=== PATIENT | female | born 1955 | race Caucasian/White ===

== ENCOUNTER → 2016-12-01 | Outpatient (REF) | payer BC ==
[~2016-12-01] MED LIST: ASMA1AER3 IN; CIPR500T89 PO; FLAG500T PO; FLON0.054; FORM12CA INH; HYDR-3713 PO; NORCOTAB PO; SIMV40TA2 PO; SPIR1CAP IN; VENL75TA2 PO; VITA100037 PO
[2016-12-01 14:07] LABS: BASO # 0.1 K/mm3 (0.0-0.2); BASO % 1.2 % (0.0-1.0); EOS # 0.1 K/mm3 (0.0-0.50); EOS % 1.7 % (0.0-3.0); LARGE UNSTAINED CELL # 0.2 K/mm3 (0.0-0.4); LARGE UNSTAINED CELL % 2.5 % (0.0-4.0); LYMPH # 2.2 K/mm3 (1.5-4.5); LYMPH % 27.8 % (24.0-44.0); MEAN CORPUSCULAR HEMOGLOBIN 30.7 pg (27.0-33.0); MEAN CORPUSCULAR HGB CONC 32.2 g/dl (32.0-36.5); MEAN CORPUSCULAR VOLUME 95.3 fl (80.0-96.0); MONO # 0.6 K/mm3 (0.0-0.8); MONO % 7.1 % (0.0-5.0); NEUTROPHILS # 4.8 K/mm3 (1.8-7.7); NEUTROPHILS % 59.8 % (36.0-66.0); PLATELET COUNT, AUTOMATED 305 k/mm3 (150-450); RED CELL DISTRIBUTION WIDTH 12.3 % (11.5-14.5); WHITE BLOOD COUNT 8.1 K/mm3 (4.0-10.0)
[2016-12-01 14:26] LABS: ALBUMIN 4.3 GM/DL (3.2-5.2); ALBUMIN/GLOBULIN RATIO 1.39 (1.00-1.93); ALKALINE PHOSPHATASE 85 U/L (45-117); ALT/SGPT 19 U/L (12-78); ANION GAP 12 MEQ/L (8-16); AST/SGOT 20 U/L (15-37); BILIRUBIN,TOTAL 0.4 MG/DL (0.2-1.0); BLOOD UREA NITROGEN 13 MG/DL (7-18); CALCIUM LEVEL 10.6 MG/DL (8.8-10.2); CARBON DIOXIDE LEVEL 29 MEQ/L (21-32); CHLORIDE LEVEL 103 MEQ/L (98-107); CHOLESTEROL LEVEL 235 MG/DL (<200); CREATININE FOR GFR 0.93 MG/DL (0.55-1.02); GLOMERULAR FILTRATION RATE > 60.0 (>45); GLUCOSE, FASTING 88 MG/DL (80-110); POTASSIUM SERUM 4.8 MEQ/L (3.5-5.1); SODIUM LEVEL 144 MEQ/L (136-145); TOTAL PROTEIN 7.4 GM/DL (6.4-8.2); TRIGLYCERIDES LEVEL 118 MG/DL (<150)
== END ==
LOC: M LABDRWAD 12:50
PROVIDERS: ATTEND Family Medicine
DX: I10 Essential (primary) hypertension (principal)

== ENCOUNTER → 2017-01-27 | Outpatient (CLI) | payer BC ==
--- NOTE | 2017-01-28 07:06 | REP ---
Clinical: Smoking history and COPD for lung screening. Technique: Axial, low-dose noncontrast images from the thoracic inlet to the upper abdomen using lung screening technique. Findings: There is a 1.3 cm spiculated noncalcified lesion in the right middle lobe (RML) (image 56) as well as a 6 mm noncalcified nodule in the posterior right upper (RUL) lobe (image 35). Mild chronic interstitial changes and biapical scarring noted. Tracheobronchial tree appears patent. No effusion. Impression: Lung-RADS category 4A. A 13 mm lesion in the RML and 6 mm nodule in the RUL. Management should include 3-month follow-up and PET CT. Signed by Nito Noel MD 01/28/2017 06:58 A
== END ==
LOC: M RAD 11:15
PROVIDERS: ATTEND Internal Medicine Pulmonary Disease
DX: F17.218 Nicotine dependence, cigarettes, with other nicotine-induced disorders (principal); R91.1 Solitary pulmonary nodule

== ENCOUNTER → 2017-02-18 | Outpatient (CLI) | payer BC ==
--- NOTE | 2017-02-19 09:05 | REP ---
Clinical: Pulmonary nodule. Comparison: 01/27/2017. Findings: A 15 mm spiculated lesion in the right middle lobe is unchanged from prior examination along with a 6 mm nodule in the posterior right upper lobe (image 42). Underlying chronic interstitial changes and mild emphysema as well as biapical scarring are again noted. No new acute process identified. Mediastinal lymph nodes with pre carinal lymph nodes measuring 9.5 mm short-axis diameter identified. No pleural effusion/reaction or pneumothorax. Tracheobronchial tree is patent. Thoracic aorta and heart/pericardium remains stable without cardiomegaly. Surrounding musculoskeletal structures are intact. Impression: A 15 mm spiculated lesion in the right upper lobe and smaller 6 mm right upper lobe noncalcified lesion remain unchanged. Nonspecific mediastinal adenopathy measuring up to 9.5 mm short axis diameter. Signed by Nito Noel MD 02/19/2017 08:58 A
== END ==
LOC: M RAD 07:16
PROVIDERS: ATTEND Internal Medicine Pulmonary Disease
DX: R91.8 Other nonspecific abnormal finding of lung field (principal)

== ENCOUNTER → 2017-04-06 | Day surgery (SDC) | payer BC ==
[~2017-04-06] VITALS: Ht 170.2 cm; Wt 49.9 kg
[~2017-04-06] MED LIST changes: +CIPR-249 PO; -CIPR500T89 PO; +DESFLURANE 240 ML INHALANT As Ordered ONE; +EPINEPHrine 1MG/10ML SYRINGE 1.5IN As Ordered ONE; +FLON1SPR; +FOSA70TA PO; +GLYCOPYRROLATE INJ 0.2 MG/ML 2 ML VIAL As Ordered ONE; +HYDR25TAB PO; +LIDOCAINE 2% INJ 100 MG/5 ML SDV (FOR ANES.) As Ordered ONE; +LIDOCAINE 4% TOPICAL SOLN 50 ML BTL As Ordered ONE; +LIDOCAINE VISCOUS 2% SOLN 15ML UDC As Ordered ONE; +LR 1,000 ML IV ONE; +LR 1,000 ML IV SCH; +METOCLOPRAMIDE INJ 10MG/2ML VIAL (J2765) As Ordered ONE; +MIDAZOLAM INJ 2 MG/2 ML VIAL (J2250) As Ordered ONE; +NEOSTIGMINE 1MG/ML 5 ML SYRINGE (J2710) As Ordered ONE; +OMEP20CA3 PO; +ONDANSETRON 4MG/2ML VIAL (J2405) As Ordered ONE; +PHENYLephrine HCL 500 MCG/5 ML (100MCG/ML) SYRINGE (J2370) As Ordered ONE; +PROPOFOL 200 MG/20 ML VIAL As Ordered ONE; +ROCURONIUM BROMIDE 50 MG/5 ML VIAL/SYRINGE As Ordered ONE; +SYMB80INH INH; +THROMBIN SOLN 5,000 UNITS VIAL As Ordered ONE; -VITA100037 PO; +VITA100067 PO; +dexameTHASONE 4 MG/ML 1ML VIAL (J1100) As Ordered ONE; +ePHEDrine SULFATE 25 MG/5 ML(5MG/ML) SYRINGE As Ordered ONE; +fentaNYL 100 MCG/2 ML INJECTION (J3010) IV PRN; +fentaNYL 250 MCG/5 ML INJECTION (J3010) As Ordered ONE
[2017-04-06 16:10] VITALS: BP 146/68
--- NOTE | 2017-04-06 20:43 | RO ---
DATE OF PROCEDURE: 04/06/2017 PREPROCEDURE DIAGNOSIS: Right middle lobe pulmonary nodule, unknown etiology. POSTPROCEDURE DIAGNOSIS: Right middle lobe pulmonary nodule, unknown etiology. PROCEDURE: Bronchoscopy with brushing and bronchoalveolar lavage (BAL). SURGEON: Dr. Manuel Bo MERCURY CELL CLEANER: ANESTHESIA: General. DESCRIPTION OF PROCEDURE: Procedure explained and consent obtained. [place] procedures followed. Ms. Muniz was intubated by anesthesia and that service managed sedation and pain. After intubation, the bronchoscope was introduced into the trachea. Both the left and the right lung were examined. Normal appearing anatomy. Minimal clear secretions. Mild pitting. The electromagnetic navigation bronchoscopy (ENB) probe was then placed and automatic registration was done. Using ENB, the lesion was located. Fluoroscopy was then utilized but the lesion could not clearly be seen on the fluoroscopic pictures. For this reason, brushings were initially done, which showed abundant macrophages. ENB probe was replaced and the procedure was repeated with a brushing done in a different region of the lesion. Again, it showed abundant macrophages. Because the lesion could not be seen, and there were abundant macrophages seen and that would likely be the same thing seen on tissue, a decision was made not to do transbronchial biopsies. A BAL was then done. After assuring visual hemostasis, the bronchoscope was withdrawn. FINDINGS: 1. No endobronchial lesions. 2. Minimal clear secretions. SPECIMENS: 1. Right middle lobe lesion brushings sent to cytology. 2. Right middle lobe lesion BAL sent to cytology, gram stain and culture, acid-fast bacillus stain and culture, fungal stain and culture. [facility]
== END | disposition home or self-care (01) ==
LOC: M SDC 11:16
PROVIDERS: ATTEND Internal Medicine Pulmonary Disease
DX: R91.1 Solitary pulmonary nodule (principal); I10 Essential (primary) hypertension; E78.5 Hyperlipidemia, unspecified; J44.9 Chronic obstructive pulmonary disease, unspecified; Z79.899 Other long term (current) drug therapy; F17.210 Nicotine dependence, cigarettes, uncomplicated; Z88.1 Allergy status to other antibiotic agents
CPT/HCPCS: 31623; 31624; 31627; 76000; 87070; 87102; 87116; 87205; 87206; 88104; 88108; 88172; 88173; 88313; J1100; J2250; J2370; J2405; J2710; J2765; J3010

== ENCOUNTER → 2017-04-22 | Outpatient (CLI) | payer BC ==
[~2017-04-22] MED LIST changes: -DESFLURANE 240 ML INHALANT As Ordered ONE; -EPINEPHrine 1MG/10ML SYRINGE 1.5IN As Ordered ONE; -GLYCOPYRROLATE INJ 0.2 MG/ML 2 ML VIAL As Ordered ONE; -LIDOCAINE 2% INJ 100 MG/5 ML SDV (FOR ANES.) As Ordered ONE; -LIDOCAINE 4% TOPICAL SOLN 50 ML BTL As Ordered ONE; -LIDOCAINE VISCOUS 2% SOLN 15ML UDC As Ordered ONE; -LR 1,000 ML IV ONE; -LR 1,000 ML IV SCH; -METOCLOPRAMIDE INJ 10MG/2ML VIAL (J2765) As Ordered ONE; -MIDAZOLAM INJ 2 MG/2 ML VIAL (J2250) As Ordered ONE; -NEOSTIGMINE 1MG/ML 5 ML SYRINGE (J2710) As Ordered ONE; -ONDANSETRON 4MG/2ML VIAL (J2405) As Ordered ONE; -PHENYLephrine HCL 500 MCG/5 ML (100MCG/ML) SYRINGE (J2370) As Ordered ONE; -PROPOFOL 200 MG/20 ML VIAL As Ordered ONE; -ROCURONIUM BROMIDE 50 MG/5 ML VIAL/SYRINGE As Ordered ONE; -THROMBIN SOLN 5,000 UNITS VIAL As Ordered ONE; -dexameTHASONE 4 MG/ML 1ML VIAL (J1100) As Ordered ONE; -ePHEDrine SULFATE 25 MG/5 ML(5MG/ML) SYRINGE As Ordered ONE; -fentaNYL 100 MCG/2 ML INJECTION (J3010) IV PRN; -fentaNYL 250 MCG/5 ML INJECTION (J3010) As Ordered ONE
--- NOTE | 2017-04-23 08:11 | REP ---
Clinical: Follow up mass lesion. Comparison: 01/27/2017. Findings: 13 mm spiculated noncalcified lesion in the right middle lobe (image 59) along with 6 mm noncalcified nodule in the right upper lobe (image 38) and 6 mm nodule in the right lower lobe (image 55) are again identified and essentially unchanged. Smaller subtle areas of ground-glass opacity are noted bilaterally along with diffuse chronic COPD/emphysematous changes and biapical scarring which remains stable. No pleural effusion or pneumothorax. Tracheobronchial tree is patent. The mediastinum is grossly unremarkable although mild atherosclerotic changes to the thoracic aorta and coronary arteries noted without aortic aneurysm or cardiomegaly. No pericardial effusion. Evaluation of adenopathy is limited by the lack of contrast, but few pretracheal lymph nodes are identified measuring up to approximately 10 mm short axis diameter. Surrounding musculoskeletal structures are intact and normal. Impression: Few scattered noncalcified lesions up to 13 mm as described above and similar to prior examination. Chronic COPD and emphysematous changes with biapical scarring and subtle scattered ground-glass opacities. Small mediastinal lymph nodes up to 10 mm short axis diameter. Signed by Nito Noel MD 04/23/2017 03:25 A
== END ==
LOC: M RAD 08:06
PROVIDERS: ATTEND Internal Medicine Pulmonary Disease
DX: R91.8 Other nonspecific abnormal finding of lung field (principal)

== ENCOUNTER → 2017-08-18 | Outpatient (REF) | payer BC | LOC: M LAB REF 18:31 | PROVIDERS: ATTEND Family Medicine | DX: Z12.4 Encounter for screening for malignant neoplasm of cervix (principal) ==

== ENCOUNTER → 2017-08-24 | Outpatient (CLI) | payer BC ==
--- NOTE | 2017-08-26 11:51 | REP ---
CT CHEST WITHOUT CONTRAST, 08/24/2017: COMPARISON: 04/22/2017, 02/18/2017. CLINICAL HISTORY: Spiculated lesion right middle lobe and peripherally in the right upper lobe smaller lesion. FINDINGS: The noncontrast images with coronal and sagittal reconstruction show the lungs hyperinflated. There is 12.5 mm right middle lobe spiculated lesion, unchanged from size and contour of the previous study. In the periphery of the right upper lobe and best seen on images 39 and 40, is a 4 mm nodule which appears grossly unchanged. Apical pleuroparenchymal scarring bilaterally is noted. Curvilinear fibrotic changes in the inferior lingular segment of the left upper lobe at the anterior left lung base are stable. Previously noted hazy ground-glass opacities are no longer evident. COPD with some emphysematous changes again seen and stable. No effusion, pleural thickening, calcified pleural plaque, pleural-based mass, or other parenchymal finding. Heart not enlarged. There is no pericardial thickening or effusion. The aorta is without aneurysm. There is no pathologic-sized mediastinal or hilar adenopathy. No axillary or supraclavicular mass. Bone windows show the sternum, manubrium, visible thoracic, lower cervical, and upper lumbar vertebral bodies and their posterior elements along with the clavicles, AC joints, humeral heads, scapulae, and ribs all grossly intact. Upper abdomen without acute finding and stable. IMPRESSION: 1. Two stable irregular nodules, 12.5 mm right middle lobe medial segment, 4 mm right upper lobe peripherally with a background of emphysematous changes, fibrosis, and with interval clearing of some ground-glass opacities. No effusion, calcified pleural plaque, or acute finding. Mediastinal, hilar, aortic and cardiac silhouettes all unremarkable. Bones intact. Signed by Judd Webb MD 08/26/2017 08:32 P
== END ==
LOC: M RAD 17:35
PROVIDERS: ATTEND Internal Medicine Pulmonary Disease
DX: R91.8 Other nonspecific abnormal finding of lung field (principal)

== ENCOUNTER → 2017-09-30 | Outpatient (REF) | payer BC ==
[2017-09-30 15:13] LABS: BASO # 0.1 10^3/uL (0.0-0.2); BASO % 0.8 % (0.0-1.0); EOS # 0.1 10^3/uL (0.0-0.50); EOS % 1.1 % (0.0-3.0); HEMATOCRIT 45.3 % (36.0-47.0); HEMOGLOBIN 14.7 g/dl (12.0-16.0); IMMATURE GRANULOCYTE % 0.3 % (0-0); LYMPH # 2.2 10^3/uL (1.5-4.5); LYMPH % 34.1 % (24.0-44.0); MEAN CORPUSCULAR HEMOGLOBIN 31.3 pg (27.0-33.0); MEAN CORPUSCULAR HGB CONC 32.5 g/dl (32.0-36.5); MEAN CORPUSCULAR VOLUME 96.4 fl (80.0-96.0); MONO # 0.6 10^3/uL (0.0-0.8); MONO % 9.6 % (0.0-5.0); NEUTROPHILS # 3.5 10^3/uL (1.8-7.7); NEUTROPHILS % 54.1 % (36.0-66.0); PLATELET COUNT, AUTOMATED 239 10^3/uL (150-450); RED CELL DISTRIBUTION WIDTH 12.5 % (11.5-14.5); WHITE BLOOD COUNT 6.5 10^3/uL (4.0-10.0)
[2017-09-30 15:53] LABS: ALBUMIN 4.2 GM/DL (3.2-5.2); ALKALINE PHOSPHATASE 83 U/L (45-117); ALT/SGPT 17 U/L (12-78); ANION GAP 9 MEQ/L (8-16); AST/SGOT 17 U/L (7-37); BILIRUBIN,TOTAL 0.4 MG/DL (0.2-1.0); BLOOD UREA NITROGEN 15 MG/DL (7-18); CALCIUM LEVEL 9.6 MG/DL (8.8-10.2); CARBON DIOXIDE LEVEL 31 MEQ/L (21-32); CHLORIDE LEVEL 100 MEQ/L (98-107); CHOLESTEROL LEVEL 209 MG/DL (<200); CHOLESTEROL RISK RATIO 2.111 (<5); CREATININE FOR GFR 0.74 MG/DL (0.55-1.02); GLOMERULAR FILTRATION RATE > 60.0 (>45); GLUCOSE, FASTING 67 MG/DL (80-110); HDL CHOLESTEROL 99 MG/DL (>40); LDL CHOLESTEROL 91.6 MG/DL (<100); NON-HDL-C 110 MG/DL; POTASSIUM SERUM 4.1 MEQ/L (3.5-5.1); SODIUM LEVEL 140 MEQ/L (136-145); TOTAL PROTEIN 7.2 GM/DL (6.4-8.2); TRIGLYCERIDES LEVEL 92 MG/DL (<150)
== END ==
LOC: M LABDRWAD 14:56
DX: E78.2 Mixed hyperlipidemia (principal)
CPT/HCPCS: 80053

== ENCOUNTER → 2018-04-25 | Outpatient (CLI) | payer BC ==
[2018-04-25 18:02] LABS: BASO # 0.1 10^3/uL (0.0-0.2); BASO % 0.8 % (0.0-1.0); EOS # 0.1 10^3/uL (0.0-0.50); EOS % 1.2 % (0.0-3.0); HEMATOCRIT 43.5 % (36.0-47.0); HEMOGLOBIN 13.6 g/dl (12.0-15.5); IMMATURE GRANULOCYTE % 1.4 % (0-3.0); LYMPH # 1.6 10^3/uL (1.5-4.5); LYMPH % 14.7 % (24.0-44.0); MEAN CORPUSCULAR HEMOGLOBIN 30.6 pg (27.0-33.0); MEAN CORPUSCULAR HGB CONC 31.3 g/dl (32.0-36.5); MEAN CORPUSCULAR VOLUME 97.8 fl (80.0-96.0); MONO # 1.4 10^3/uL (0.0-0.8); MONO % 13.5 % (0.0-5.0); NEUTROPHILS # 7.3 10^3/uL (1.8-7.7); NEUTROPHILS % 68.4 % (36.0-66.0); PLATELET COUNT, AUTOMATED 488 10^3/uL (150-450); RED BLOOD COUNT 4.45 10^6/uL (4.00-5.40); RED CELL DISTRIBUTION WIDTH 13.2 % (11.5-14.5); WHITE BLOOD COUNT 10.7 10^3/uL (4.0-10.0)
[2018-04-25 18:21] LABS: ALBUMIN 3.3 GM/DL (3.2-5.2); ALKALINE PHOSPHATASE 114 U/L (45-117); ALT/SGPT 22 U/L (12-78); ANION GAP 9 MEQ/L (8-16); AST/SGOT 15 U/L (7-37); BILIRUBIN,TOTAL 0.4 MG/DL (0.2-1.0); BLOOD UREA NITROGEN 11 MG/DL (7-18); CALCIUM LEVEL 9.6 MG/DL (8.8-10.2); CARBON DIOXIDE LEVEL 27 MEQ/L (21-32); CHLORIDE LEVEL 102 MEQ/L (98-107); CREATININE FOR GFR 0.87 MG/DL (0.55-1.30); GLOMERULAR FILTRATION RATE > 60.0 (>45); GLUCOSE, FASTING 100 MG/DL (70-100); SODIUM LEVEL 138 MEQ/L (136-145); TOTAL PROTEIN 7.4 GM/DL (6.4-8.2)
[2018-04-25 18:50] LABS: POTASSIUM SERUM 5.3 MEQ/L (3.5-5.1)
== END ==
LOC: M SMT 10:13
DX: R53.83 Other fatigue (principal)
CPT/HCPCS: 84443

== ENCOUNTER → 2018-07-12 | Outpatient (REF) | payer BC ==
[2018-07-12 12:38] LABS: BASO # 0.1 10^3/uL (0.0-0.2); BASO % 1.3 % (0.0-1.0); EOS # 0.1 10^3/uL (0.0-0.50); EOS % 1.3 % (0.0-3.0); HEMATOCRIT 44.8 % (36.0-47.0); HEMOGLOBIN 14.5 g/dl (12.0-15.5); IMMATURE GRANULOCYTE % 0.2 % (0-3.0); LYMPH % 32.7 % (24.0-44.0); MEAN CORPUSCULAR HEMOGLOBIN 30.1 pg (27.0-33.0); MEAN CORPUSCULAR HGB CONC 32.4 g/dl (32.0-36.5); MEAN CORPUSCULAR VOLUME 93.1 fl (80.0-96.0); MONO # 0.7 10^3/uL (0.0-0.8); MONO % 11.3 % (0.0-5.0); NEUTROPHILS # 3.3 10^3/uL (1.8-7.7); NEUTROPHILS % 53.2 % (36.0-66.0); PLATELET COUNT, AUTOMATED 260 10^3/uL (150-450); RED BLOOD COUNT 4.81 10^6/uL (4.00-5.40); WHITE BLOOD COUNT 6.1 10^3/uL (4.0-10.0)
[2018-07-13 00:04] LABS: ALBUMIN/GLOBULIN RATIO 1.29 (1.00-1.93); ALKALINE PHOSPHATASE 82 U/L (45-117); ALT/SGPT 25 U/L (12-78); ANION GAP 10 MEQ/L (8-16); AST/SGOT 22 U/L (7-37); BILIRUBIN,TOTAL 0.4 MG/DL (0.2-1.0); BLOOD UREA NITROGEN 16 MG/DL (7-18); CALCIUM LEVEL 9.4 MG/DL (8.8-10.2); CARBON DIOXIDE LEVEL 26 MEQ/L (21-32); CHLORIDE LEVEL 105 MEQ/L (98-107); CHOLESTEROL LEVEL 237 MG/DL (<200); CHOLESTEROL RISK RATIO 2.548 (<5); CREATININE FOR GFR 0.78 MG/DL (0.55-1.30); GLOMERULAR FILTRATION RATE > 60.0 (>45); GLUCOSE, FASTING 84 MG/DL (70-100); HDL CHOLESTEROL 93 MG/DL (>40); LDL CHOLESTEROL 110 MG/DL (<100); NON-HDL-C 144 MG/DL; POTASSIUM SERUM 4.8 MEQ/L (3.5-5.1); SODIUM LEVEL 141 MEQ/L (136-145); TOTAL PROTEIN 7.1 GM/DL (6.4-8.2); TRIGLYCERIDES LEVEL 169 MG/DL (<150)
== END ==
LOC: M LABDRWAD 12:21
DX: E78.2 Mixed hyperlipidemia (principal)
CPT/HCPCS: 80053

== ENCOUNTER → 2018-08-17 | Outpatient (CLI) | payer BC | LOC: M RAD 12:54 | DX: J44.9 Chronic obstructive pulmonary disease, unspecified (principal); R91.8 Other nonspecific abnormal finding of lung field | CPT/HCPCS: 71250 ==

== ENCOUNTER → 2019-03-14 | Outpatient (CLI) | payer MEDICARE ==
[~2019-03-14] MED LIST changes: +ALBU17IN2 INH; +AMLO5TAB6 PO; +DOXY100T PO; +HYDR-3715 PO; +LEVA45AE INH; +MUCI600T37 PO; -NORCOTAB PO; +PRED10TA2 PO; +RANI15TA PO; +SIMV20TA2 PO; +SPIR1CAP INH; +ZANT150T15 PO
--- NOTE | 2019-03-14 14:55 | REP ---
Clinical: Abnormal findings for follow up. Technique: Axial noncontrast images from the thoracic inlet to the upper abdomen with coronal and sagittal re-formations. Comparison: 08/17/2018. Findings: Biapical scarring and mild/moderate emphysematous changes are noted throughout the bilateral lung watson. The spiculated nodule in the right middle lobe appears relatively stable. The 3 mm nodule in the posterior periphery of the right upper lobe (image 39) is unchanged. No new consolidation, significant nodule or mass lesion appreciated. No pleural effusion. No pneumothorax. Tracheobronchial tree is patent. Mediastinal and hilar lymph nodes measuring up to approximately 13 mm in the precarinal space are again identified and unchanged. Atherosclerotic changes to the thoracic aorta and coronary arteries noted without aortic aneurysm or cardiomegaly. No pericardial effusion. Surrounding musculoskeletal structures intact without focal osseous abnormality limited upper abdomen demonstrates normal bilateral adrenal glands. Impression: 1. Stable appearance to the pulmonary nodules and mediastinal/hilar lymph nodes unchanged through 01/27/2017. 2. No new acute significant process appreciated. Electronically Signed by Nito Noel MD 03/14/2019 02:46 P
== END ==
LOC: M RAD 13:51
PROVIDERS: ATTEND Internal Medicine Pulmonary Disease
DX: R91.8 Other nonspecific abnormal finding of lung field (principal)

== ENCOUNTER 2019-08-22 12:02 | Observation (INO) | payer MEDICARE ==
[~2019-08-22] VITALS: Ht 170.2 cm; Wt 68.9 kg
[~2019-08-22 12:02] MED LIST changes: -ALBU17IN2 INH; +OMEP-172 PO; -OMEP20CA3 PO; +PROV108A INH; -SIMV20TA2 PO; +SIMV20TA22 PO; -SIMV40TA2 PO; +SIMV40TA20 PO
[2019-08-22] MEDS: LR 1,000 ML IV SCH ×2 (12:04→22:18)
[2019-08-22] MEDS ORDERED: ONDANSETRON 4MG/2ML VIAL (J2405) IV PRN (12:15)
[2019-08-22] MEDS ORDERED: KETOROLAC 30 MG/ML VIAL (J1885) IV PRN (12:15)
[2019-08-22] MEDS ORDERED: ACETAMINOPHEN TAB 650MG DOSE (2X325MG) PO PRN (12:15)
[2019-08-22 12:45] VITALS: BP 153/93
[2019-08-22 13:36] LABS: BASO # 0.1 10^3/uL (0.0-0.2); BASO % 0.4 % (0.0-1.0); EOS % 0.1 % (0.0-3.0); HEMATOCRIT 41.1 % (36.0-47.0); HEMOGLOBIN 13.4 g/dl (12.0-15.5); LYMPH # 0.9 10^3/uL (1.5-5.0); LYMPH % 6.5 % (24.0-44.0); MEAN CORPUSCULAR HEMOGLOBIN 30.5 pg (27.0-33.0); MEAN CORPUSCULAR HGB CONC 32.6 g/dl (32.0-36.5); MEAN CORPUSCULAR VOLUME 93.4 fl (80.0-96.0); MONO # 0.5 10^3/uL (0.0-0.8); MONO % 3.7 % (0.0-5.0); NEUTROPHILS # 12.7 10^3/uL (1.5-8.5); NEUTROPHILS % 87.6 % (36.0-66.0); PLATELET COUNT, AUTOMATED 270 10^3/uL (150-450); WHITE BLOOD COUNT 14.5 10^3/uL (4.0-10.0)
[2019-08-22 14:00] VITALS: BP 156/91
[2019-08-22 14:04] LABS: BLOOD UREA NITROGEN 16 MG/DL (7-18); CALCIUM LEVEL 9.1 MG/DL (8.8-10.2); CARBON DIOXIDE LEVEL 25 MEQ/L (21-32); CHLORIDE LEVEL 109 MEQ/L (98-107); CREATININE FOR GFR 0.88 MG/DL (0.55-1.30); GLOMERULAR FILTRATION RATE > 60.0 (>45); GLUCOSE, FASTING 108 MG/DL (70-100); POTASSIUM SERUM 4.3 MEQ/L (3.5-5.1); SODIUM LEVEL 139 MEQ/L (136-145)
[2019-08-22 14:10] VITALS: BP 156/91
[2019-08-22] MEDS: GASTROGRAFIN SOLUTION 30ML PO SCH ×2 (14:39→15:10)
[2019-08-22] MEDS ORDERED: OMEP-221 PO (15:05)
[2019-08-22] MEDS ORDERED: PRED20TA PO (15:05)
[2019-08-22] MEDS ORDERED: INCR1INH INH (15:05)
[2019-08-22] MEDS ORDERED: AMLO5TAB6 PO (15:05)
[2019-08-22] MEDS ORDERED: CALC600T66 PO (15:05)
[2019-08-22] MEDS ORDERED: SIMV20TA22 PO (15:05)
[2019-08-22] MEDS ORDERED: RANI-397 PO (15:05)
[2019-08-22] MEDS ORDERED: ISOVUE-370 76% 100ML VIAL (Q9967) As Ordered ONE (15:17)
--- NOTE | 2019-08-22 16:10 | REP ---
Clinical: Abdominal distension. Technique: Axial contrast enhanced images from the lung bases to the pubic symphysis using oral (per protocol) and 100 ml Isovue 370 intravenous contrast material with coronal and sagittal re-formations. Comparison: 04/15/2015. Findings: Lung bases are essentially clear. Visualized heart and pericardium normal. Liver, spleen, pancreas, gallbladder, bilateral adrenal glands and kidneys are essentially normal. Subcentimeter right renal hypodensity compatible with cyst remains stable. The enteric system is without obstruction or acute inflammatory process. Evidence for prior partial sigmoid resection. Pelvis demonstrates normal bladder and age-appropriate uterus/adnexa. No ascites. No free air. No adenopathy. Atherosclerotic changes to the aorta and vasculature without aneurysm or dissection. Musculoskeletal structures without focal abnormality. Impression: No acute abdominopelvic pathology appreciated. No evidence for bowel obstruction. No ascites. No free air. No adenopathy. No focal inflammatory stranding. Electronically Signed by Nito Noel MD 08/22/2019 04:02 P
[2019-08-22] MEDS ORDERED: LEVALBUTEROL 1.25 MG/0.5 ML CONCENTRATE NEB INH PRN (16:30)
[2019-08-22] MEDS ORDERED: MAGNESIUM CITRATE 300 ML BTL PO ONE (17:00)
[2019-08-22] MEDS: PANTOPRAZOLE 40MG INJ (PROTONIX) (C9113) IV SCH (17:11)
[2019-08-22 18:00] VITALS: BP 154/90
[2019-08-22] MEDS: SYMBICORT 80/4.5MCG INHALER 6GM INH SCH (20:26)
[2019-08-22] MEDS ORDERED: ENOXAPARIN 40 MG/0.4 ML SYRINGE (J1650) SC SCH (21:00)
[2019-08-22 21:10] VITALS: BP 136/79
--- NOTE | 2019-08-23 05:05 | HPEPDOC ---
General Surgery H&P Date of Admission Aug 22, 2019 Attending Physician: BASIL HONG MD History and Physical CHIEF COMPLAINT: abdominal distention, nausea HISTORY OF PRESENT ILLNESS: Patient is a 64 year old female admitted from my office after she presented with a 2 week history of not being able to move her bowels normally, abdominal distention, nausea and a few times on the verge of vomiting. Patient reports having normal bowel habits prior to this. She has significant history of previous recurrent acute diverticulitis for which she had sigmoid colectomy performed by me on 2014. She has not had any interval colonoscopies following the surgery. She denies any overt unexplained weight loss. She is able to tolerate liquids a small amount of solid foods and she would feel for and feels that the food once to come up after eating small bites. She is called her medical doctor suggested for her to try MiraLAX for which she has been taking every day without much effect. She has a small amount of bowel movement this morning. She denies any overt abdominal pain or cramping. She intermittently passes flatus. She feels as if he dropped a pen on her belly that the patient will balance due to amount of distention and she feels uncomfortable. She called my office yesterday she was seen today. She denies any ongoing fevers chills, left sided abdominal pain, rectal pain. ALLERGIES: Please see below. HOME MEDICATIONS: Please see below. PAST MEDICAL HISTORY: 1. diverticulitis 2. COPD - asthma 3. Hypercholesterolemia 4. Osteoporosis PAST SURGICAL HISTORY: 1. laparoscopic sigmoid colon resection - 2014 2. Right inguinal hernia repair 3. Tonsillectomy 4. Tubal ligation 5. Appendectomy 6 sinus surgery 7. Repair of deviated septum 7. Colonoscopy PERSONAL/SOCIAL HISTORY: Patient is a former smoker. Reports occasional alcohol intake nothing recently. Denies recreational drug use. REVIEW OF SYSTEMS: GENERAL: Denies chills, fatigue, fever, weight gain and weight loss. She was placed recently on prednisone for exacerbation of her COPD HEENT: Denies blurred vision and double vision. Denies ear symptoms. Denies hoarseness. NECK: Denies any neck pain. CARDIOVASCULAR: Denies chest pain and palpitations. MUSCULOSKELETAL: Denies arthralgias, back pain and thrombophlebitis. SKIN: Denies rash. NEUROLOGIC: Denies headache, stroke and transient ischemic attack. PSYCHIATRIC: Denies anxiety and depression. ENDOCRINE: Denies thyroid disease. HEMATOLOGY/ONCOLOGY: Denies any bleeding or clotting disorder. She is not on any anticoagulation HEART: Denies any chest pains, palpitations, paroxysmal dyspnea, orthopnea. PULMONARY: Reports significant COPD, shortness of breath and infarct. Recently on a taper of prednisone for COPD exacerbation. She has some pulmonary nodules that is being followed with scheduled CT scans of the lung. Last hospitalization was in 01/20/2018 for exacerbation of her COPD.. GASTROINTESTINAL: See HPI. GENITOURINARY: Denies dysuria, frequency, hematuria and nocturia. ENDOCRINE: Denies polydipsia, polyphagia, polyuria, heat or cold intolerance. INFECTIOUS: Denies any recent upper respiratory tract infection, UTI, need for use of antibiotics. NUTRITION: Reports poor appetite for the past 2 weeks. PHYSICAL EXAMINATION: VITAL SIGNS: Please see below. GENERAL APPEARANCE: Patient seen, mildly uncomfortable in the office. She is pleasant and cooperative. . Awake, alert, oriented. HEENT: Normocephalic, atraumatic. Nada palpebral conjunctivae. Anicteric sclerae . Lips moist. CHEST: No chest wall abnormalities. Normal respiratory motion/effort. NECK: Supple. No thyromegaly. No lymphadenopathies. LUNGS: Lung sounds are clear to auscultation bilaterally. No wheezing appreciated. HEART: No chest wall abnormalities. Heart rate and rhythm are regular with no murmurs. ABDOMEN: Her abdomen is moderately distended but soft. Very tympanitic to percussion, hypoactive bowel sounds. Port site and extraction site incisions from the colectomy in 2015 are healed without any hernia. She has other incisions including from the appendectomy and inguinal hernia repair also without any incisional hernia. Generally mildly uncomfortable on deep palpation but no definite areas of tenderness.. SKIN: Warm, moist. EXTREMITIES: Extremities have no deformities. No edema identified. NEUROLOGICAL: Patient is awake, alert, oriented. ANCILLARIES: . LABORATORY DATA: Please see below. MICROBIOLOGY: Please see below. IMAGING: . IMPRESSION AND PLAN: abdominal distention suspect abdominal obstruction Admitted the patient in my office that she clinically is uncomfortable and I was suspicion she might have a bowel obstruction the level of obstruction of which isn't clear. She is not having any cramping and this has been slowly developing for the past 2 weeks. She has had a sigmoid colon resection so possibility of colonic obstruction is certainly fair also. I will obtain a CT of the abdomen and pelvis. I will give her hydration. For now we'll keep her on observation pending the results of the laboratories and imaging studies. Vital Signs Vital Signs Date Time Temp Pulse Resp B/P (MAP) Pulse Ox O2 Delivery O2 Flow Rate FiO2 08/22/19 21:10 97.8 85 17 136/79 (98) 93 Room Air I&Os I&O- Last 24 Hours up to 6 AM 08/23/19 06:00 Intake Total 720 ml Output Total 600 ml Balance 120 ml Laboratory Data Labs 24H Laboratory Tests 2 08/22/19 12:41: Immature Granulocyte % (Auto) 1.7, Neutrophils (%) (Auto) 87.6H, Lymphocytes (%) (Auto) 6.5L, Monocytes (%) (Auto) 3.7, Eosinophils (%) (Auto) 0.1, Basophils (%) (Auto) 0.4, Neutrophils # (Auto) 12.7H, Lymphocytes # (Auto) 0.9L, Monocytes # (Auto) 0.5, Eosinophils # (Auto) 0.0, Basophils # (Auto) 0.1, Nucleated Red Blood Cells % (auto) 0.0, Anion Gap 5L, Glomerular Filtration Rate > 60.0, Calcium Level 9.1 CBC/BMP Laboratory Tests 08/22/19 12:41 Home Medications Scheduled Amlodipine Besylate (Amlodipine Besylate) 5 Mg Tablet, 5 MG PO DAILY, (Reported) Budesonide/Formoterol (Symbicort 80-4.5 Mcg Inhaler) 60 Puff/Inhaler Aers, 2 PUFF INH BID, (Reported) Calcium Carbonate/Vitamin D3 (Calcium 600 + Vit D Tablet) 1 Each Tablet, 1 EACH PO DAILY, (Reported) Fluticasone Propionate (Flonase Allergy Relief) 50 Mcg/Act Spr, 2 SPRAY NA DAILY, (Reported) Omeprazole (Omeprazole) 40 Mg Capsule.dr, 40 MG PO DAILY, (Reported) Prednisone (Prednisone) 20 Mg Tablet, 10 MG PO Q2D, (Reported) FINISHING TAPER DOSE - DUE TO TAKE 10MG ON WEDNESDAY AND WEDNESDAY THEN STOP Ranitidine HCl (Ranitidine HCl) 150 Mg Tablet, 1 TAB PO QHS, (Reported) Simvastatin (Simvastatin) 20 Mg Tablet, 20 MG PO DAILY, (Reported) Umeclidinium [place] (Incruse Ellipta) 62.5 Mcg Blst.w.dev, 62.5 MCG INH DAILY, (Reported) Venlafaxine HCl (Venlafaxine HCl) 75 Mg Tab, 75 MG PO DAILY, (Reported) Scheduled PRN Levalbuterol Tartrate (Levalbuterol Tartrate Hfa) 45 Mcg/Act Aer, 2 PUFF INH Q4H PRN for SHORTNESS OF BREATH, (Reported) Allergies Coded Allergies: moxifloxacin (Verified Allergy, Unknown, 08/22/19) A-FIB/CHADSVASC A-FIB History Current/History of A-Fib/PAF?: No BASIL HONG MD Aug 23, 2019 05:05
[2019-08-23 05:50] VITALS: BP 142/83
[2019-08-23] MEDS: SYMBICORT 80/4.5MCG INHALER 6GM INH SCH (07:27)
[2019-08-23] MEDS: PANTOPRAZOLE 40MG INJ (PROTONIX) (C9113) IV SCH (08:38)
[2019-08-23 08:39] VITALS: BP 142/83
[2019-08-23] MEDS ORDERED: VENLAFAXINE 37.5 MG TAB PO SCH (09:00)
[2019-08-23] MEDS ORDERED: FLUTICASONE PROP 0.05% NASAL SPRAY 16 GM (FLONASE) SCH (09:00)
[2019-08-23] MEDS ORDERED: SIMVASTATIN 20 MG TAB PO SCH (09:00)
[2019-08-23] MEDS ORDERED: amLODIPine 5 MG TAB PO SCH (09:00)
[2019-08-23] MEDS: LR 1,000 ML IV SCH (09:24)
[2019-08-23 10:14] VITALS: BP 145/84
[2019-08-23 10:31] LABS: BASO # 0.1 10^3/uL (0.0-0.2); BASO % 0.8 % (0.0-1.0); EOS # 0.1 10^3/uL (0.0-0.5); EOS % 1.1 % (0.0-3.0); HEMATOCRIT 38.4 % (36.0-47.0); HEMOGLOBIN 12.1 g/dl (12.0-15.5); LYMPH # 2.2 10^3/uL (1.5-5.0); LYMPH % 29.7 % (24.0-44.0); MEAN CORPUSCULAR HEMOGLOBIN 30.1 pg (27.0-33.0); MEAN CORPUSCULAR HGB CONC 31.5 g/dl (32.0-36.5); MEAN CORPUSCULAR VOLUME 95.5 fl (80.0-96.0); MONO # 0.8 10^3/uL (0.0-0.8); MONO % 11.6 % (0.0-5.0); NEUTROPHILS % 55.4 % (36.0-66.0); PLATELET COUNT, AUTOMATED 230 10^3/uL (150-450); RED BLOOD COUNT 4.02 10^6/uL (4.00-5.40); WHITE BLOOD COUNT 7.3 10^3/uL (4.0-10.0)
[2019-08-23] MEDS ORDERED: MYLA1SUS PO (12:43)
[2019-08-24] MEDS ORDERED: predniSONE 10 MG TAB PO SCH (09:00)
== END 2019-08-23 13:30 | disposition home or self-care (01) ==
LOC: M MS5PR 12:19
PROVIDERS: ADMIT Surgery; ATTEND Surgery
DX: R14.0 Abdominal distension (gaseous) (principal); K57.32 Diverticulitis of large intestine without perforation or abscess without bleeding; J44.9 Chronic obstructive pulmonary disease, unspecified; J45.909 Unspecified asthma, uncomplicated; E78.00 Pure hypercholesterolemia, unspecified; M81.0 Age-related osteoporosis without current pathological fracture; Z90.49 Acquired absence of other specified parts of digestive tract; Z87.891 Personal history of nicotine dependence; Z79.899 Other long term (current) drug therapy; Z79.51 Long term (current) use of inhaled steroids; Z79.52 Long term (current) use of systemic steroids; Z88.1 Allergy status to other antibiotic agents
CPT/HCPCS: 36415; 74177; 80048; 85025; 94640; 96372; 96374; 96375; C9113; G0378; J1650; Q9963; Q9967

== ENCOUNTER → 2019-08-28 | Outpatient (CLI) | payer MEDICARE ==
[~2019-08-28] MED LIST changes: +CALC600T66 PO; +INCR1INH INH; +MYLA1SUS PO; +OMEP-221 PO; +PRED20TA PO; +RANI-397 PO
== END ==
LOC: M WUC 11:20
PROVIDERS: ATTEND Family Medicine
DX: K59.00 Constipation, unspecified (principal)

== ENCOUNTER → 2019-09-21 | Outpatient (CLI) | payer MEDICARE ==
[~2019-09-21] MED LIST changes: +E-Z-GAS II EFFERVESCENT PACKET (SODIUM BICARB./CITRIC ACID/SIMETHICONE) As Ordered ONE; +E-Z-HD 98% w/w 340GM SUSP BTL As Ordered ONE; +E-Z-PAQUE 96% w/w SUSP 176GM BTL As Ordered ONE; -OMEP-172 PO; +OMEP1CAP73 PO
--- NOTE | 2019-09-27 10:04 | REP ---
Upper GI Air Contrast with SBFT The procedure was performed by LIVIA Lux, under the the direct supervision of Dr. Garcia. The images were reviewed with Dr. Garcia. The post hole digger film shows no organomegaly or pathological masses. The intestinal gas pattern appears normal. There are surgical arya in the pelvis. Liquid barium and gas producing crystals were given in the erect position as well as liquid barium in the prone position in order to perform a double contrast upper GI examination. The oral and pharyngeal stages of deglutition demonstrated flash laryngeal penetration, as well as cricopharyngeal hyperplasia. Esophageal transport is efficient and there is no esophagitis, stricture, or mucosal ring noted. There there is no hiatal hernia. Gastroesophageal reflux was visualized to the level of the patt. The stomach haley are normally outlined. The rugal folds are smooth and regular. There is no gastritis, neoplasm, or ulcer disease noted. The duodenal haley are normally outlined. The mucosal folds are smooth and regular. There is no duodenitis, peptic ulcer disease, or neoplasm noted. The visualized portion of the proximal small bowel appears normal in course and caliber. The barium column was followed through the small bowel to the level of the terminal ileum. Small bowel transit time was approximately 40 minutes. During fluoroscopy gentle palpation shows all loops are freely mobile and pliable. There are no fixed or angulated loops. The small bowel mucosal pattern is normal in course and caliber. There is no transition to set suggest a partial small-bowel obstruction. Spot filming of the terminal ileum was slightly limited due to small bowel crowding, but appears to be to be unremarkable. Impression: 1. Flash laryngeal penetration. 2. Cricopharyngeal hyperplasia. 3. Gastroesophageal reflux to the level of the patt. 2.0 minutes of fluoroscopy time was utilized for this procedure. Some fluoroscopic images are performed with last image hold technology. These images require no additional radiation. Reviewed by LIVIA Austin 09/21/2019 04:35 P Electronically Signed by Froylan Garcia MD 09/27/2019 09:56 A
== END ==
LOC: M RAD 07:52
PROVIDERS: ATTEND Surgery
DX: J39.2 Other diseases of pharynx (principal); G47.33 Obstructive sleep apnea (adult) (pediatric)

== ENCOUNTER → 2019-10-04 | Outpatient (CLI) | payer MEDICARE ==
[~2019-10-04] MED LIST changes: -E-Z-GAS II EFFERVESCENT PACKET (SODIUM BICARB./CITRIC ACID/SIMETHICONE) As Ordered ONE; -E-Z-HD 98% w/w 340GM SUSP BTL As Ordered ONE; -E-Z-PAQUE 96% w/w SUSP 176GM BTL As Ordered ONE
--- NOTE | 2019-10-05 01:00 | REPPI ---
Clinical: Shortness of breath . Comparison: 02/18/2018 . Technique: PA and lateral. Findings: The mediastinum and cardiac silhouette are normal. The lung watson demonstrate chronic-appearing changes without acute consolidation, effusion, or pneumothorax. The skeletal structures are intact and normal. Impression: 1. No acute cardiopulmonary process. Electronically Signed by Nito Noel MD 10/05/2019 12:51 A
== END ==
LOC: M PLAIMG 14:56
PROVIDERS: ATTEND Internal Medicine Pulmonary Disease
DX: R06.02 Shortness of breath (principal)

== ENCOUNTER 2019-10-18 09:25 | Day surgery (SDC) | payer MEDICARE ==
[~2019-10-18] VITALS: Ht 170.2 cm; Wt 57.8 kg
[2019-10-18] MEDS ORDERED: propofoL 500 MG/50 ML VIAL As Ordered ONE (10:57)
[2019-10-18] MEDS ORDERED: fentaNYL 100 MCG/2 ML INJECTION (J3010) As Ordered ONE (10:57)
[2019-10-18] MEDS ORDERED: LIDOCAINE 2% INJ 100 MG/5 ML SDV (FOR ANES.) As Ordered ONE (10:57)
--- NOTE | 2019-10-18 11:52 | ROOR ---
Patient Name: Shiloh Muniz Procedure Date: 10/18/2019 10:56 AM Date of : 1955 Age: 64 Room: [facility] Gender: Female Note Status: Finalized Procedure: Upper GI endoscopy Indications: Abdominal bloating Providers: Shekhar Morales MD Referring MD: Glory Luo MD Requesting Provider: Medicines: Monitored Anesthesia Care Complications: No immediate complications. Procedure: Pre-Anesthesia Assessment: - Prior to the procedure, a History and Physical was performed, and patient medications and allergies were reviewed. The patient is competent. The risks and benefits of the procedure and the sedation options and risks were discussed with the patient. All questions were answered and informed consent was obtained. Patient identification and proposed procedure were verified by the physician, the nurse and the anesthesiologist in the endoscopy suite. Mental Status Examination: alert but confused. Airway Examination: normal oropharyngeal airway and neck mobility. Respiratory Examination: clear to auscultation. CV Examination: normal. Prophylactic Antibiotics: The patient does not require prophylactic antibiotics. Prior Anticoagulants: The patient has taken no previous anticoagulant or antiplatelet agents. ASA Grade Assessment: III - A patient with severe systemic disease. After reviewing the risks and benefits, the patient was deemed in satisfactory condition to undergo the procedure. The anesthesia plan was to use monitored anesthesia care (MAC). Immediately prior to administration of medications, the patient was re-assessed for adequacy to receive sedatives. The heart rate, respiratory rate, oxygen saturations, blood pressure, adequacy of pulmonary ventilation, and response to care were monitored throughout the procedure. The physical status of the patient was re-assessed after the procedure. The Endoscope was introduced through the mouth, and advanced to the second part of duodenum. The upper GI endoscopy was accomplished without difficulty. The patient tolerated the procedure well. Findings: The examined esophagus was normal. The Z-line was regular and was found 40 cm from the incisors. Bilious fluid was found in the gastric antrum. The duodenal bulb, first portion of the duodenum and second portion of the duodenum were normal. Impression: - Normal esophagus. - Z-line regular, 40 cm from the incisors. - Bilious gastric fluid. - Normal duodenal bulb, first portion of the duodenum and second portion of the duodenum. - No specimens collected. - possible bile reflux as cause of bloating. Recommendation: - Discharge patient to home (ambulatory). - Gastroparesis diet. Shekhar Morales MD Shekhar Morales MD 10/18/2019 11:51:28 AM Electronically signed by Shekhar Morales MD Number of Addenda: 0 Note Initiated On: 10/18/2019 10:56 AM Estimated Blood Loss: Estimated blood loss: none.
--- NOTE | 2019-10-18 11:57 | ROOR ---
Patient Name: Shiloh Muniz Procedure Date: 10/18/2019 10:57 AM Date of : 1955 Age: 64 Room: [facility] Gender: Female Note Status: Finalized Procedure: Colonoscopy Indications: Follow-up of diverticula, Change in bowel habits, Obstipation Providers: Shekhar Morales MD Referring MD: Glory Luo MD Requesting Provider: Medicines: Monitored Anesthesia Care Complications: No immediate complications. Procedure: Pre-Anesthesia Assessment: - Prior to the procedure, a History and Physical was performed, and patient medications and allergies were reviewed. The patient is competent. The risks and benefits of the procedure and the sedation options and risks were discussed with the patient. All questions were answered and informed consent was obtained. Patient identification and proposed procedure were verified by the physician, the nurse and the anesthesiologist in the endoscopy suite. Mental Status Examination: alert and oriented. Airway Examination: normal oropharyngeal airway and neck mobility. Respiratory Examination: clear to auscultation. CV Examination: normal. Prophylactic Antibiotics: The patient does not require prophylactic antibiotics. Prior Anticoagulants: The patient has taken no previous anticoagulant or antiplatelet agents. ASA Grade Assessment: III - A patient with severe systemic disease. After reviewing the risks and benefits, the patient was deemed in satisfactory condition to undergo the procedure. The anesthesia plan was to use monitored anesthesia care (MAC). Immediately prior to administration of medications, the patient was re-assessed for adequacy to receive sedatives. The heart rate, respiratory rate, oxygen saturations, blood pressure, adequacy of pulmonary ventilation, and response to care were monitored throughout the procedure. The physical status of the patient was re-assessed after the procedure. The Colonoscope was introduced through the anus and advanced to the cecum, identified by appendiceal orifice and ileocecal valve. The colonoscopy was performed without difficulty. The patient tolerated the procedure well. The quality of the bowel preparation was good. Findings: Skin tags were found on perianal exam. Three flat polyps were found in the sigmoid colon, transverse colon and ascending colon. The polyps were 1 to 4 mm in size. These polyps were removed with a cold snare. Resection and retrieval were complete. Estimated blood loss was minimal. A few small-mouthed diverticula were found in the descending colon. There was no evidence of diverticular bleeding. There was evidence of a prior end-to-end colo-colonic anastomosis in the recto-sigmoid colon. This was patent and was characterized by healthy appearing mucosa, no noticeable narrowing, stenosis, no visible raya, no elongated blind end[Traversed]. The retroflexed view of the distal rectum and anal verge was normal and showed no anal or rectal abnormalities. Impression: - Perianal skin tags found on perianal exam. - Three 1 to 4 mm polyps in the sigmoid colon, in the transverse colon and in the ascending colon, removed with a cold snare. Resected and retrieved. - Mild diverticulosis in the descending colon. There was no evidence of diverticular bleeding. - Patent end-to-end colo-colonic anastomosis, characterized by healthy appearing mucosa. - The distal rectum and anal verge are normal on retroflexion view. Recommendation: - Discharge patient to home (ambulatory). - Repeat colonoscopy in 5 years for surveillance. Shekhar Morales MD Shekhar Morales MD 10/18/2019 11:57:10 AM Electronically signed by Shekhar Morales MD Number of Addenda: 0 Note Initiated On: 10/18/2019 10:57 AM Estimated Blood Loss: Estimated blood loss was minimal.
[2019-10-18 12:10] VITALS: BP 157/78
== END 2019-10-18 12:18 | disposition home or self-care (01) ==
LOC: M OPP 09:25
PROVIDERS: ATTEND Surgery
DX: D12.5 Benign neoplasm of sigmoid colon (principal); D12.3 Benign neoplasm of transverse colon; D12.2 Benign neoplasm of ascending colon; K57.30 Diverticulosis of large intestine without perforation or abscess without bleeding; Z98.0 Intestinal bypass and anastomosis status; K64.4 Residual hemorrhoidal skin tags; K59.00 Constipation, unspecified; R19.4 Change in bowel habit; R14.0 Abdominal distension (gaseous); Z88.8 Allergy status to other drugs, medicaments and biological substances; Z79.899 Other long term (current) drug therapy; Z87.891 Personal history of nicotine dependence
CPT/HCPCS: 43235; 45385; 88305; J3010

== ENCOUNTER → 2019-12-26 | Outpatient (REF) | payer MEDICARE ==
[2019-12-26 15:34] LABS: BASO # 0.1 10^3/uL (0.0-0.2); BASO % 0.9 % (0.0-1.0); EOS # 0.1 10^3/uL (0.0-0.5); EOS % 1.3 % (0.0-3.0); HEMATOCRIT 44.1 % (36.0-47.0); HEMOGLOBIN 14.3 g/dl (12.0-15.5); LYMPH # 1.9 10^3/uL (1.5-5.0); LYMPH % 24.7 % (24.0-44.0); MEAN CORPUSCULAR HEMOGLOBIN 30.8 pg (27.0-33.0); MEAN CORPUSCULAR HGB CONC 32.4 g/dl (32.0-36.5); MONO # 0.7 10^3/uL (0.0-0.8); MONO % 8.9 % (0.0-5.0); NEUTROPHILS # 4.9 10^3/uL (1.5-8.5); NEUTROPHILS % 63.8 % (36.0-66.0); PLATELET COUNT, AUTOMATED 320 10^3/uL (150-450); RED BLOOD COUNT 4.64 10^6/uL (4.00-5.40); WHITE BLOOD COUNT 7.6 10^3/uL (4.0-10.0)
[2019-12-26 15:43] LABS: ALBUMIN 3.6 GM/DL (3.2-5.2); ALT/SGPT 29 U/L (12-78); BILIRUBIN,TOTAL 0.2 MG/DL (0.2-1.0); BLOOD UREA NITROGEN 15 MG/DL (7-18); CALCIUM LEVEL 9.1 MG/DL (8.8-10.2); CARBON DIOXIDE LEVEL 26 MEQ/L (21-32); CHLORIDE LEVEL 107 MEQ/L (98-107); CREATININE FOR GFR 0.84 MG/DL (0.55-1.30); GLOMERULAR FILTRATION RATE > 60.0 (>45); GLUCOSE, FASTING 91 MG/DL (70-100); NT-PRO BNP 66 PG/ML (<125); POTASSIUM SERUM 4.1 MEQ/L (3.5-5.1); SODIUM LEVEL 139 MEQ/L (136-145); TOTAL PROTEIN 6.9 GM/DL (6.4-8.2)
== END ==
LOC: M LABDRAW1 15:19
PROVIDERS: ATTEND Nurse Practitioner Family
DX: R06.02 Shortness of breath (principal)

== ENCOUNTER → 2020-01-31 | Outpatient (CLI) | payer MEDICARE ==
[2020-01-31 10:56] LABS: HEMATOCRIT 43.7 % (36.0-47.0); HEMOGLOBIN 13.9 g/dl (12.0-15.5); MEAN CORPUSCULAR HEMOGLOBIN 29.9 pg (27.0-33.0); MEAN CORPUSCULAR HGB CONC 31.8 g/dl (32.0-36.5); PLATELET COUNT, AUTOMATED 263 10^3/uL (150-450); RED BLOOD COUNT 4.65 10^6/uL (4.00-5.40); WHITE BLOOD COUNT 6.5 10^3/uL (4.0-10.0)
[2020-01-31 11:34] LABS: ALBUMIN 3.9 GM/DL (3.2-5.2); ALT/SGPT 31 U/L (12-78); BILIRUBIN,TOTAL 0.2 MG/DL (0.2-1.0); BLOOD UREA NITROGEN 14 MG/DL (7-18); C REACTIVE PROTEIN QUANTITATIV < 0.30 MG/DL (0.00-0.30); CALCIUM LEVEL 9.7 MG/DL (8.8-10.2); CARBON DIOXIDE LEVEL 31 MEQ/L (21-32); CHLORIDE LEVEL 105 MEQ/L (98-107); CREATININE FOR GFR 0.81 MG/DL (0.55-1.30); GLOMERULAR FILTRATION RATE > 60.0 (>45); GLUCOSE, FASTING 86 MG/DL (70-100); MAGNESIUM LEVEL 2.3 MG/DL (1.8-2.4); POTASSIUM SERUM 4.7 MEQ/L (3.5-5.1); SODIUM LEVEL 140 MEQ/L (136-145); THYROID STIMULATING HORMONE 0.921 uIU/ML (0.358-3.740); TOTAL 25(OH) VITAMIN D 41.1 NG/ML (30.0-100.0); VITAMIN B12 LEVEL 236 PG/ML (247-911)
[2020-02-03 00:07] LABS: F002-IgE Milk < 0.10 kU/L (Class 0); F004-IgE Wheat < 0.10 kU/L (Class 0); F013-IgE Peanut < 0.10 kU/L (Class 0); F014-IgE Soybean < 0.10 kU/L (Class 0); F026-IgE Pork < 0.10 kU/L (Class 0); F027-IgE Beef < 0.10 kU/L (Class 0); F245-IgE Egg, Whole < 0.10 kU/L (Class 0); FX02-IgE Food Mix (Sea Foods) Negative (.); TISSUE TRANSGLUTAMINASE IgA <2 U/mL (0-3)
== END ==
LOC: M LAB 10:25
PROVIDERS: ATTEND Internal Medicine Gastroenterology
DX: R14.3 Flatulence (principal); R63.5 Abnormal weight gain; Z86.010 Personal history of colon polyps

== ENCOUNTER → 2020-03-21 | Outpatient (CLI) | payer MEDICARE | LOC: M WUC 10:05 | PROVIDERS: ATTEND Internal Medicine Gastroenterology | DX: E53.9 Vitamin B deficiency, unspecified (principal) ==

== ENCOUNTER → 2020-05-07 | Outpatient (CLI) | payer MEDICARE ==
[~2020-05-07] MED LIST changes: +AMLO1TAB24 PO; -AMLO5TAB6 PO; +AZIT-12 PO
== END ==
LOC: M RAD 15:09
PROVIDERS: ATTEND Internal Medicine Pulmonary Disease
DX: Z87.891 Personal history of nicotine dependence (principal)

== ENCOUNTER → 2020-05-31 | Outpatient (REF) | payer MEDICARE ==
[2020-05-31 13:03] LABS: BASO # 0.1 10^3/uL (0.0-0.2); BASO % 1.1 % (0.0-1.0); EOS # 0.1 10^3/uL (0.0-0.5); EOS % 1.2 % (0.0-3.0); HEMATOCRIT 41.6 % (36.0-47.0); HEMOGLOBIN 13.4 g/dl (12.0-15.5); LYMPH # 1.8 10^3/uL (1.5-5.0); LYMPH % 27.7 % (24.0-44.0); MEAN CORPUSCULAR HEMOGLOBIN 30.7 pg (27.0-33.0); MEAN CORPUSCULAR HGB CONC 32.2 g/dl (32.0-36.5); MEAN CORPUSCULAR VOLUME 95.4 fl (80.0-96.0); MONO # 0.7 10^3/uL (0.0-0.8); MONO % 10.7 % (0.0-5.0); NEUTROPHILS # 3.9 10^3/uL (1.5-8.5); PLATELET COUNT, AUTOMATED 268 10^3/uL (150-450); RED BLOOD COUNT 4.36 10^6/uL (4.00-5.40); WHITE BLOOD COUNT 6.6 10^3/uL (4.0-10.0)
[2020-05-31 13:14] LABS: INR 0.93; PARTIAL THROMBOPLASTIN TIME 26.7 SECONDS (25.0-38.4); PROTHROMBIN TIME 12.6 SECONDS (11.8-14.0)
[2020-05-31 13:36] LABS: ALBUMIN 4.1 GM/DL (3.2-5.2); ALT/SGPT 27 U/L (12-78); BILIRUBIN,TOTAL 0.3 MG/DL (0.2-1.0); BLOOD UREA NITROGEN 13 MG/DL (7-18); CALCIUM LEVEL 9.8 MG/DL (8.8-10.2); CARBON DIOXIDE LEVEL 28 MEQ/L (21-32); CHLORIDE LEVEL 105 MEQ/L (98-107); CREATININE FOR GFR 0.81 MG/DL (0.55-1.30); GLOMERULAR FILTRATION RATE > 60.0 (>45); GLUCOSE, FASTING 77 MG/DL (70-100); POTASSIUM SERUM 4.5 MEQ/L (3.5-5.1); SODIUM LEVEL 138 MEQ/L (136-145); TOTAL PROTEIN 7.6 GM/DL (6.4-8.2)
== END ==
LOC: M LAB REF 12:09
PROVIDERS: ATTEND Internal Medicine Pulmonary Disease
DX: R91.8 Other nonspecific abnormal finding of lung field (principal)

== ENCOUNTER → 2020-06-05 | Outpatient (CLI) | payer MEDICARE | LOC: M LABSMTC 12:29 | PROVIDERS: ATTEND Anesthesiology | DX: Z01.818 Encounter for other preprocedural examination (principal); Z11.59 Encounter for screening for other viral diseases ==

== ENCOUNTER → 2020-06-05 | Outpatient (CLI) | payer MEDICARE ==
--- NOTE | 2020-06-20 14:13 | REP ---
NON-CONTRAST CHEST CT: 06/05/20 CLINICAL: Pulmonary nodule. COMPARISON: 05/07/20 through 08/24/17. FINDINGS: A 17mm nodule with mild speculation is identified in the right middle lobe which has increased in size when compared to 03/14/19. This lesion remains stable from 03/14/19 through 08/24/17. Findings are suspicious for neoplasm and require further investigation including PET CT. a few mediastinal lymph nodes are identified measuring up to 8mm short axis diameter and are non-specific. Remainder of the lung watson demonstrate bi-apical scarring and moderate emphysematous changes. No further acute suspicious consolidation, nodule, or mass lesion appreciated. No pleural effusion. No pneumothorax. Tracheobronchial tree is patent. Further evaluation of the mediastinum demonstrates atherosclerotic changes to the thoracic aorta and coronary arteries without aortic aneurysm or cardiomegaly. No pericardial effusion. Limited upper abdomen demonstrates normal bilateral adrenal glands. Surrounding musculoskeletal structures are intact. IMPRESSION: 1. Right middle lobe lesion currently measures 17mm and has increased from 03/14/19. Lesion is suspicious for neoplasm and requires further investigation including PET CT and/or sampling. 2. Underlying chronic emphysematous changes and bi-apical scarring. MTDD
== END ==
LOC: M RAD 07:04
PROVIDERS: ATTEND Internal Medicine Pulmonary Disease
DX: Z01.818 Encounter for other preprocedural examination (principal); Z11.59 Encounter for screening for other viral diseases; R91.8 Other nonspecific abnormal finding of lung field
CPT/HCPCS: 71250; C9803; U0002

== ENCOUNTER 2020-06-10 11:20 | Day surgery (SDC) | payer MEDICARE ==
[~2020-06-10] VITALS: Ht 170.2 cm; Wt 56.2 kg
[~2020-06-10 11:20] MED LIST changes: +ALBUTEROL SULFATE 2.5 MG/0.5 ML INH NEB SOLN INH ONE; +LIDOCAINE 4% INJ 5ML AMP NEB ONE; +LR 1,000 ML IV ONE
[2020-06-10] MEDS ORDERED: LIDOCAINE 2% 100MG/5ML SDV (FOR ANES.) As Ordered ONE (11:24)
[2020-06-10] MEDS ORDERED: ROCURONIUM BROMIDE 50 MG/5 ML VIAL As Ordered ONE ×2 (11:24→11:52)
[2020-06-10] MEDS ORDERED: propofoL 200 MG/20 ML VIAL As Ordered ONE (11:24)
[2020-06-10] MEDS ORDERED: ONDANSETRON 4MG/2ML VIAL As Ordered ONE (11:25)
[2020-06-10] MEDS ORDERED: MIDAZOLAM INJ 2MG/2ML VIAL (J2250 PER 1MG) As Ordered ONE (11:25)
[2020-06-10] MEDS ORDERED: fentaNYL 100 MCG/2 ML INJECTION (J3010) As Ordered ONE (11:25)
[2020-06-10] MEDS ORDERED: dexameTHASONE 4 MG/ML 1ML VIAL (J1100 PER 1MG) As Ordered ONE (11:25)
[2020-06-10] MEDS ORDERED: ACETAMINOPHEN 1000MG 100ML IV BTL (OFIRMEV) (J0131 PER 10MG) As Ordered ONE (11:54)
[2020-06-10] MEDS ORDERED: ALBUTEROL SULFATE 2.5 MG/0.5 ML INH NEB SOLN As Ordered ONE (12:02)
[2020-06-10] MEDS ORDERED: LIDOCAINE 4% INJ 5ML AMP As Ordered ONE (12:02)
[2020-06-10] MEDS ORDERED: THROMBIN SOLN 5,000 UNITS VIAL As Ordered ONE (12:44)
[2020-06-10] MEDS ORDERED: EPINEPHrine 1MG/10ML SYRINGE 1.5IN As Ordered ONE (12:45)
[2020-06-10] MEDS ORDERED: LIDOCAINE 1% SDV 30ML VIAL As Ordered ONE (12:45)
[2020-06-10] MEDS ORDERED: CETACAINE SPRAY 5GM As Ordered ONE (12:45)
[2020-06-10] MEDS ORDERED: SUGAMMADEX SODIUM 500 MG/5 ML VIAL (BRIDION) As Ordered ONE (13:50)
[2020-06-10] MEDS ORDERED: ONDANSETRON 4MG/2ML VIAL IV PRN (14:15)
[2020-06-10] MEDS ORDERED: oxyCODONE 5MG TAB PO PRN (14:15)
[2020-06-10] MEDS ORDERED: LR 1,000 ML IV SCH (14:15)
[2020-06-10] MEDS ORDERED: fentaNYL 100 MCG/2 ML INJECTION (J3010) IV PRN (14:15)
[2020-06-10 14:16] LABS: COLOR RED (COLORLESS); SOURCE RIGHT UPPER LOBE
[2020-06-10 14:17] LABS: APPEARANCE CLOTTED (CLEAR)
--- NOTE | 2020-06-10 14:23 | ROOR ---
Patient Name: Shiloh Muniz Procedure Date: 06/10/2020 12:41 PM Date of : 1955 Admit Type: Outpatient Age: 65 Room: Main OR Note Status: Finalized Attending MD: Lexis Abdul MD Procedure: Bronchoscopy Indications: Right upper lobe nodule Providers: Lexis Abdul MD (Doctor), Etienne Garcia DO, SARIKAP (1st Assisting Doctor) Referring MD: 1. No Referring Physician 1. No Referring Physician, Admin. (Referring MD) Requesting Physician: Medicines: Lidocaine 4% via nebulizer with Albuterol 2.5 mg, Cetacaine topical, General Anesthesia Complications: No immediate complications. Estimated blood loss: Minimal Procedure: Pre-Anesthesia Assessment: - Prior to the procedure, a History and Physical was performed, and patient medications and allergies were reviewed. The patient's tolerance of previous anesthesia was also reviewed. The risks and benefits of the procedure and the sedation options and risks were discussed with the patient. All questions were answered, and informed consent was obtained. Prior Anticoagulants: The patient has taken no previous anticoagulant or antiplatelet agents. ASA Grade Assessment: II - A patient with mild systemic disease. After reviewing the risks and benefits, the patient was deemed in satisfactory condition to undergo the procedure. - [place] Protocol: - Pre-procedure Verification: Prior to the procedure, the patient's identity was verified by full name, date of and medical record number. The patient's identity was verified on all pertinent medical records, including History and Physical, nursing assessment and pre-anesthesia assessment. Also prior to the procedure, a History and Physical was performed, and patient medications, allergies and sensitivities were reviewed. The patient's tolerance of previous anesthesia was reviewed. The risks and benefits of the procedure and the sedation options and risks were discussed with the patient. All questions were answered and informed consent was obtained. - Marking: The endoscopic procedure was visually marked on a patient wrist band delineating the patient name, proposed procedure and bronchoscopist's initials. - Time-Out: Prior to the start of the procedure, the patient's identification, proposed procedure, accurate signed consent, correctly labeled images and records, and need for prophylactic antibiotics were verified by the physician, the nurse, the law firm administrator and the bench repair technician in the procedure room. The Bronchoscope was introduced through the mouth, via the endotracheal tube (the patient was intubated for the procedure) and advanced to the tracheobronchial tree of both lungs. The procedure was accomplished without difficulty. The patient tolerated the procedure well. Findings: The endotracheal tube is in good position. The visualized portion of the trachea is of normal caliber. The patt is sharp. The tracheobronchial tree was examined to at least the first subsegmental level. Bronchial anatomy are normal; bronchial mucosa showed nodularity and pitting throughout. There are no endobronchial lesions, and only scant secretions. Robotic Electromagnetic navigation bronchoscopy was performed. The CT scan was used for planning purposes. A virtual bronchoscopic image was generated using the planning software. The target in the anterior segment of the right upper lobe was marked. A nodule 1.7 cm in size was found and a pathway was created. After a complete airway exam, the [employer] robotic electromagnetic navigation phase was then begun to locate the target lesion(s). Positioning off-center (in relation to the lesion) was confirmed using the Olympus radial probe US catheter. Fluoroscopy guided transbronchial brushings of a nodule were obtained in the anterior segment of the right upper lobe with a cytology brush and sent for routine cytology. Transbronchial brushing technique was selected because the sampling site was not visible endoscopically. Transbronchial biopsies of a nodule were performed in the anterior segment of the right upper lobe using forceps and sent for histopathology examination. The procedure was guided by fluoroscopy. Transbronchial biopsy technique was selected because the sampling site was not visible endoscopically. Bronchoalveolar lavage was performed in the RUL anterior segment (B3) of the lung and sent for cell count, bacterial culture, and fungal & AFB analysis and cytology. The return was blood-tinged. Mucous plugs were present in the return fluid. Impression: - Right upper lobe nodule - The airway examination was normal. - Electromagnetic navigation bronchoscopy was performed. - Transbronchial brushings were obtained. - Transbronchial lung biopsies were performed. - Bronchoalveolar lavage was performed. Recommendation: - Follow up with bronchoscopist as previously scheduled. Attending Participation: I personally performed the entire procedure. Lexis Abdul MD 06/10/2020 2:22:50 PM Etienne Garcia DO, [facility] Number of Addenda: 0 Note Initiated On: 06/10/2020 12:41 PM
[2020-06-10 15:25] VITALS: BP 124/70
--- NOTE | 2020-06-11 06:24 | ECGEPIP ---
[facility] Test Date: 2020-06-10 Pat Name: RAE LI Department: Room: - Gender: Female Bee Keeper: MICHELLE : 1955 Requested By: BECK Bradley Order Number: [id number] Reading MD: Jaycob Douglass Measurements Intervals [place] Rate: 88 P: 83 [place]: 159 QRS: 89 QRSD: 80 T: 65 QT: 348 QTc: 423 Interpretive Statements Normal sinus rhythm Right atrial enlargement Delayed anterior R wave progression which suggests a prior anterior wall m myocardial infarction Nonspecific ST-T wave abnormalities No significant change when compared to prior tracing of 02/15/2018, except for resolution of sinus tachycardia Electronically Signed on 06-11-2020 6:24:04 EDT by Jaycob Douglass
--- NOTE | 2020-06-20 14:14 | REP ---
PORTABLE CHEST X-RAY HISTORY: Bronchoscopy. FINDINGS: Single view of the chest was performed. Comparison made with prior study of 12/26/2019. There is no pneumothorax. Lung watson appear unchanged compared to the prior exam. Heart and mediastinum are unremarkable. MTDD
== END 2020-06-10 15:35 | disposition home or self-care (01) ==
LOC: M SDC 11:20
PROVIDERS: ATTEND Internal Medicine Pulmonary Disease
DX: J84.9 Interstitial pulmonary disease, unspecified (principal); J44.9 Chronic obstructive pulmonary disease, unspecified; Z87.891 Personal history of nicotine dependence; I10 Essential (primary) hypertension; K57.92 Diverticulitis of intestine, part unspecified, without perforation or abscess without bleeding; Z79.899 Other long term (current) drug therapy; Z79.51 Long term (current) use of inhaled steroids; E78.5 Hyperlipidemia, unspecified
CPT/HCPCS: 31623; 31624; 31627; 31628; 71045; 76000; 87070; 87102; 87116; 87205; 87206; 88104; 88108; 88305; 88313; 93005; J0131; J1100; J2250; J2405; J3010; S2900

== ENCOUNTER → 2020-06-12 | Outpatient (CLI) | payer MEDICARE ==
[~2020-06-12] MED LIST changes: +ACETAMINOPHEN 1000MG 100ML IV BTL (OFIRMEV) (J0131 PER 10MG) As Ordered ONE; -ALBUTEROL SULFATE 2.5 MG/0.5 ML INH NEB SOLN INH ONE; +KETOROLAC 60MG 2ML VIAL As Ordered ONE; +LIDOCAINE 2% 100MG/5ML SDV (FOR ANES.) As Ordered ONE; -LIDOCAINE 4% INJ 5ML AMP NEB ONE; -LR 1,000 ML IV ONE; +METOCLOPRAMIDE INJ 10MG/2ML VIAL (J2765 PER 1) As Ordered ONE; +MIDAZOLAM INJ 2MG/2ML VIAL (J2250 PER 1MG) As Ordered ONE; +ONDANSETRON 4MG/2ML VIAL As Ordered ONE; +ROCURONIUM BROMIDE 50 MG/5 ML VIAL As Ordered ONE; +SUCCINYLCHOLINE 100 MG/5 ML SYRINGE (J0330) As Ordered ONE; +SUGAMMADEX SODIUM 500 MG/5 ML VIAL (BRIDION) As Ordered ONE; +fentaNYL 250 MCG/5 ML INJECTION (J3010) As Ordered ONE; +propofoL 200 MG/20 ML VIAL As Ordered ONE
--- NOTE | 2020-06-20 14:15 | REP ---
NUCLEAR GASTRIC EMPTYING SCAN Following the oral administration of 1.02 mCi Technetium-99m sulfur colloid, two scrambled eggs and 6 ounces of water, multiple images of the upper abdomen are performed in the anterior and posterior projections for 90 minutes. The gastric activity is measured. At the end of 90 minutes 69% of the ingested activity has emptied from the stomach. This yields a T1/2 of 69 minutes, which is within normal range. IMPRESSION: Normal gastric emptying time. MTDD
== END ==
LOC: M RAD 09:00
PROVIDERS: ATTEND Internal Medicine Gastroenterology
DX: R14.3 Flatulence (principal); R68.81 Early satiety; E53.9 Vitamin B deficiency, unspecified; Z86.010 Personal history of colon polyps
CPT/HCPCS: 78264; A9541; J0131; J0330; J1885; J2250; J2405; J2765; J3010

== ENCOUNTER → 2020-08-20 | Outpatient (CLI) | payer MEDICARE ==
[~2020-08-20] MED LIST changes: -ACETAMINOPHEN 1000MG 100ML IV BTL (OFIRMEV) (J0131 PER 10MG) As Ordered ONE; -KETOROLAC 60MG 2ML VIAL As Ordered ONE; -LIDOCAINE 2% 100MG/5ML SDV (FOR ANES.) As Ordered ONE; -METOCLOPRAMIDE INJ 10MG/2ML VIAL (J2765 PER 1) As Ordered ONE; -MIDAZOLAM INJ 2MG/2ML VIAL (J2250 PER 1MG) As Ordered ONE; -ONDANSETRON 4MG/2ML VIAL As Ordered ONE; -ROCURONIUM BROMIDE 50 MG/5 ML VIAL As Ordered ONE; -SUCCINYLCHOLINE 100 MG/5 ML SYRINGE (J0330) As Ordered ONE; -SUGAMMADEX SODIUM 500 MG/5 ML VIAL (BRIDION) As Ordered ONE; -fentaNYL 250 MCG/5 ML INJECTION (J3010) As Ordered ONE; -propofoL 200 MG/20 ML VIAL As Ordered ONE
--- NOTE | 2020-08-20 20:06 | REP ---
INDICATION: DIAGNOSING LUNG NODULE R9101. COMPARISON: Comparison CT study of the chest is from June 05, 2020.. TECHNIQUE: Sixty-seven minutes following the intravenous injection of a 8.88 mCi dose of F-18 FDG, three-dimensional PET scintigraphy is acquired from the skull base to the proximal thighs. Triplanar noncontrast CT scanning is acquired through the same anatomic range for attenuation correction, and image registration with scan parameters optimized to minimize radiation exposure to the patient. PET scintigraphy and CT datasets were fused and displayed on a workstation with multiplanar and projection display capability. FINDINGS: Head and neck soft tissues are unremarkable except for the presence of a hypermetabolic focus in the right thyroid gland. This subcentimeter focus shows hypermetabolic uptake with maximum standard uptake value 5.41. The right middle lobe nodule seen on recent CT study is markedly hypermetabolic. Maximum standard uptake value is 30.19 in this perihilar right middle lobe nodule. There is hypermetabolic tushar uptake into tushar foci in the right hilus. Maximum standard uptake in these foci are 9.99 and 18.45 respectively. There is also hypermetabolic tushar uptake in the precarinal lymph node where maximum standard uptake value is 12.14. This precarinal lymph node measures 8 mm in short axis dimension. There is no other abnormal hypermetabolic uptake within the thorax. No abnormal hypermetabolic uptake focus is seen in the abdomen or pelvis. Normal adrenal uptake is seen. Scan is otherwise unremarkable. IMPRESSION: The right middle lobe nodule is markedly hypermetabolic and there is very hypermetabolic tushar metastatic uptake in the right hilus and subcarinal region of the mediastinum. There is a hypermetabolic subcentimeter focus in the right thyroid gland which is presumably incidental. Thyroid sonography could be considered, possibly followed by ultrasound-guided FNA. <Electronically signed by Chino Garcia > 08/20/202001
== END ==
LOC: M PLARAD 14:19
PROVIDERS: ATTEND Internal Medicine Pulmonary Disease
DX: R91.1 Solitary pulmonary nodule (principal); E07.9 Disorder of thyroid, unspecified
CPT/HCPCS: 78815; A9552

== ENCOUNTER → 2020-08-22 | Outpatient (CLI) | payer MEDICARE ==
[2020-08-22 17:57] LABS: BASO # 0.1 10^3/uL (0.0-0.2); BASO % 0.8 % (0.0-1.0); EOS # 0.1 10^3/uL (0.0-0.5); EOS % 0.8 % (0.0-3.0); HEMOGLOBIN 13.3 g/dl (12.0-15.5); LYMPH # 1.8 10^3/uL (1.5-5.0); LYMPH % 26.6 % (24.0-44.0); MEAN CORPUSCULAR HEMOGLOBIN 31.1 pg (27.0-33.0); MEAN CORPUSCULAR HGB CONC 31.7 g/dl (32.0-36.5); MEAN CORPUSCULAR VOLUME 98.1 fl (80.0-96.0); MONO # 0.6 10^3/uL (0.0-0.8); MONO % 9.5 % (0.0-5.0); NEUTROPHILS # 4.1 10^3/uL (1.5-8.5); PLATELET COUNT, AUTOMATED 207 10^3/uL (150-450); RED BLOOD COUNT 4.28 10^6/uL (4.00-5.40); WHITE BLOOD COUNT 6.6 10^3/uL (4.0-10.0)
[2020-08-22 18:17] LABS: INR 0.89; PROTHROMBIN TIME 12.2 SECONDS (12.5-14.3)
[2020-08-22 18:18] LABS: PARTIAL THROMBOPLASTIN TIME 25.8 SECONDS (24.2-38.5)
[2020-08-22 19:29] LABS: ALT/SGPT 20 U/L (12-78); BILIRUBIN,TOTAL 0.2 MG/DL (0.2-1.0); BLOOD UREA NITROGEN 15 MG/DL (7-18); CALCIUM LEVEL 9.4 MG/DL (8.8-10.2); CARBON DIOXIDE LEVEL 30 MEQ/L (21-32); CHLORIDE LEVEL 108 MEQ/L (98-107); CHOLESTEROL LEVEL 240 MG/DL (<200); CHOLESTEROL RISK RATIO 2.926 (<5); CREATININE FOR GFR 0.98 MG/DL (0.55-1.30); GLOMERULAR FILTRATION RATE > 60.0 (>45); GLUCOSE, FASTING 91 MG/DL (70-100); HDL CHOLESTEROL 82 MG/DL (>40); LDL CHOLESTEROL 115 MG/DL (<100); NON-HDL-C 158 MG/DL; POTASSIUM SERUM 4.8 MEQ/L (3.5-5.1); SODIUM LEVEL 142 MEQ/L (136-145); TOTAL PROTEIN 6.6 GM/DL (6.4-8.2); TRIGLYCERIDES LEVEL 213 MG/DL (<150)
== END ==
LOC: M PLALAB 14:24
PROVIDERS: ATTEND Internal Medicine Pulmonary Disease
DX: I10 Essential (primary) hypertension (principal); J44.9 Chronic obstructive pulmonary disease, unspecified

== ENCOUNTER → 2020-09-04 | Outpatient (CLI) | payer MEDICARE ==
[~2020-09-04] MED LIST changes: +D31000TA2 PO; +EQUATE ALLERGY PO; +HM V5000 PO
== END ==
LOC: M LABSMTC 09:44
PROVIDERS: ATTEND Anesthesiology
DX: Z20.828 Contact with and (suspected) exposure to other viral communicable diseases (principal)

== ENCOUNTER 2020-09-09 06:09 | Day surgery (SDC) | payer MEDICARE ==
[~2020-09-09] VITALS: Ht 170.2 cm; Wt 57.6 kg
[~2020-09-09 06:09] MED LIST changes: +ALBUTEROL SULFATE 2.5 MG/0.5 ML INH NEB SOLN INH ONE; +LIDOCAINE 1% MDV 20ML VIAL SQ PRN; +LIDOCAINE 4% INJ 5ML AMP INH ONE; +LR 1,000 ML IV ONE
[2020-09-09] MEDS ORDERED: LIDOCAINE 1% SDV 30ML VIAL As Ordered ONE (07:20)
[2020-09-09] MEDS ORDERED: EPINEPHrine 1MG/10ML SYRINGE 1.5IN As Ordered ONE (07:21)
[2020-09-09] MEDS ORDERED: THROMBIN SOLN 5,000 UNITS VIAL As Ordered ONE (07:21)
[2020-09-09] MEDS ORDERED: CETACAINE SPRAY 5GM As Ordered ONE (07:21)
[2020-09-09] MEDS ORDERED: ROCURONIUM BROMIDE 50 MG/5 ML VIAL As Ordered ONE (07:24)
[2020-09-09] MEDS ORDERED: dexameTHASONE 4 MG/ML 1ML VIAL (J1100 PER 1MG) As Ordered ONE (07:24)
[2020-09-09] MEDS ORDERED: ONDANSETRON 4MG/2ML VIAL As Ordered ONE (07:24)
[2020-09-09] MEDS ORDERED: MIDAZOLAM INJ 2MG/2ML VIAL (J2250 PER 1MG) As Ordered ONE (07:24)
[2020-09-09] MEDS ORDERED: propofoL 200 MG/20 ML VIAL As Ordered ONE (07:24)
[2020-09-09] MEDS ORDERED: LIDOCAINE 2% 100MG/5ML SDV (FOR ANES.) As Ordered ONE (07:24)
[2020-09-09] MEDS ORDERED: fentaNYL 100 MCG/2 ML INJECTION (J3010) As Ordered ONE (07:25)
[2020-09-09] MEDS ORDERED: PHENYLephrine HCL 500 MCG/5 ML (100MCG/ML) SYRINGE (J2370) As Ordered ONE ×2 (08:00→08:13)
[2020-09-09] MEDS ORDERED: SUGAMMADEX SODIUM 500 MG/5 ML VIAL (BRIDION) As Ordered ONE (08:13)
[2020-09-09] MEDS ORDERED: LACRILUBE (AKWA TEARS) OPHTH OINT 3.5 GM As Ordered ONE (08:14)
--- NOTE | 2020-09-09 08:57 | REP ---
INDICATION: RIGHT MIDDLE LOBE ABNORMALITY, RIGHT HILAR ADENOPATHY. COMPARISON: None. TECHNIQUE: Intraoperative fluoroscopic imaging using portable C-arm technique FINDINGS: Images demonstrate bronchoscope extending into the right main bronchus. Total fluoroscopic time 1 minutes 51 seconds IMPRESSION: Images from right bronchoscopy. <Electronically signed by Nito Noel > 09/09/20 [id number]
--- NOTE | 2020-09-09 09:18 | ROOR ---
Patient Name: Shiloh Muniz Procedure Date: 09/09/2020 7:19 AM Date of : 1955 Admit Type: Outpatient Age: 65 Room: Main OR Note Status: Finalized Attending MD: Lexis Abdul MD Procedure: Bronchoscopy Indications: Right upper lobe nodule, Adenopathy Providers: Lexis Abdul MD (Doctor), Etienne Garcia DO, [facility] (1st Assisting Doctor) Referring MD: 1. No Referring Physician 1. No Referring Physician, Admin. (Referring MD) Requesting Physician: Medicines: General Anesthesia, Lidocaine 4% via nebulizer with Albuterol 2.5 mg, Epinephrine 1 mg/10 mL topical 1 mL, Cetacaine topical Complications: No immediate complications. Estimated blood loss: Minimal Procedure: Pre-Anesthesia Assessment: - Prior to the procedure, a History and Physical was performed, and patient medications and allergies were reviewed. The patient's tolerance of previous anesthesia was also reviewed. The risks and benefits of the procedure and the sedation options and risks were discussed with the patient. All questions were answered, and informed consent was obtained. Prior Anticoagulants: The patient has taken no previous anticoagulant or antiplatelet agents. ASA Grade Assessment: III - A patient with severe systemic disease. After reviewing the risks and benefits, the patient was deemed in satisfactory condition to undergo the procedure. - Patient identification and proposed procedure were verified prior to the procedure by the physician, the nurse, the anesthesiologist, the office assistant receptionist and the body and frame technician. The procedure was verified in the procedure room. The Bronchoscope was introduced through the mouth, via the endotracheal tube (the patient was intubated for the procedure) and advanced to the tracheobronchial tree of both lungs. The procedure was accomplished without difficulty. The patient tolerated the procedure well. Findings: Respiratory tract: The trachea is of normal caliber. The patt is sharp. The entire tracheobronchial tree was examined to at least the first subsegmental level. Bronchial mucosa and anatomy was normal on the left, there are no endobronchial lesions and no secretions, there was some mucosal pitting and nodularity throughout on the left. On the right there was abnormality noted in right upper lobe anterior segment. There was some blood secretions in right upper lobe anterior segment and in smaller subsegmental bronchi there was occlusion from extrinsic compression/endobronchial lesions. There was scant secretions and some mucosal pitting and nodularity throughout right bronchial tree [place] Robotic Electromagnetic navigation bronchoscopy was performed. The CT scan was used for planning purposes. A virtual bronchoscopic image was generated using the planning software. The target in the anterior segment of the right upper lobe was marked. A nodule 1.7 cm in size was found and a pathway was created. After a complete airway exam, the robotic navigation phase was then begun to locate the target lesion(s). Positioning centrally (in relation to the lesion) was confirmed using the Olympus radial probe US catheter. Transbronchial biopsies of a nodule were performed in the anterior segment of the right upper lobe using forceps and sent for histopathology examination. The procedure was guided by fluoroscopy. Transbronchial biopsy technique was selected because the sampling site was not visible endoscopically. Fiducial marker placement was performed. Once the target lesion was identified, two markers were deployed around the lesion 4 mm apart in the anterior segment of the right upper lobe. An endobronchial ultrasound endoscope was utilized in order to assist with fine needle aspiration in the right paratracheal area, in the subcarinal area and in the left hilum. Transbronchial needle aspirations of lymph nodes were performed in the right paratracheal area, in the subcarinal area and in the left hilum using an Olympus EBUS-TBNA 21 gauge needle and sent for routine cytology. The procedure was guided by ultrasound. Transbronchial needle aspiration technique was selected because the sampling site was not visible endoscopically. Impression: - Right upper lobe nodule - Adenopathy - Electromagnetic navigation bronchoscopy was performed. - Transbronchial lung biopsies were performed. - Fiducial markers were deployed. - Endobronchial ultrasound was performed. - A transbronchial needle aspiration was performed. Recommendation: - Await test results. Procedure Code(s): --- Professional --- 81434, Bronchoscopy, rigid or flexible, including fluoroscopic guidance, when performed; with placement of fiducial markers, single or multiple 73034, Bronchoscopy, rigid or flexible, including fluoroscopic guidance, when performed; with transbronchial needle aspiration biopsy(s), trachea, main stem and/or lobar bronchus(i) 04981, Bronchoscopy, rigid or flexible, including fluoroscopic guidance, when performed; with transbronchial lung biopsy(s), single lobe 83216, Bronchoscopy, rigid or flexible, including fluoroscopic guidance, when performed; with computer-assisted, image-guided navigation (List separately in addition to code for primary procedure[s]) 28091, Bronchoscopy, rigid or flexible, including fluoroscopic guidance, when performed; with transendoscopic endobronchial ultrasound (EBUS) during bronchoscopic diagnostic or therapeutic intervention(s) for peripheral lesion(s) (List separately in addition to code for primary procedure[s]) CPT copyright 2019 [employer]. All rights reserved. The codes documented in this report are preliminary and upon instructional technologist review may be revised to meet current compliance requirements. Attending Participation: I personally performed the entire procedure. Lexis Abdul MD 09/09/2020 9:18:05 AM Etienne Garcia DO, [facility] Number of Addenda: 0 Note Initiated On: 09/09/2020 7:19 AM
--- NOTE | 2020-09-09 09:34 | REP ---
INDICATION: POST BRONCH EBUS IN PACU 2236 COMPARISON: 06/10/2020 TECHNIQUE: Portable AP view of the chest FINDINGS: The mediastinum and cardiac silhouette are stable and within normal limits for portable technique. The lung watson are clear without acute consolidation, effusion, or pneumothorax. Skeletal structures are intact. IMPRESSION: No acute cardiopulmonary process appreciated. No effusion or pneumothorax. <Electronically signed by Nito Noel > 09/09/20 0982
[2020-09-09 09:40] VITALS: BP 109/63
[2020-09-09] MEDS ORDERED: MEPERIDINE INJ 25 MG/ML VIAL (J2175) IV PRN (09:45)
[2020-09-09] MEDS ORDERED: oxyCODONE 5MG TAB PO PRN (09:45)
[2020-09-09] MEDS ORDERED: METOCLOPRAMIDE INJ 10MG/2ML VIAL (J2765 PER 1) IV PRN (09:45)
[2020-09-09] MEDS ORDERED: fentaNYL 100 MCG/2 ML INJECTION (J3010) IV PRN (09:45)
[2020-09-09] MEDS ORDERED: ONDANSETRON 4MG/2ML VIAL IV PRN (09:45)
[2020-09-09] MEDS ORDERED: LR 1,000 ML IV SCH (09:45)
== END 2020-09-09 10:00 | disposition home or self-care (01) ==
LOC: M SDC 06:09
PROVIDERS: ATTEND Internal Medicine Pulmonary Disease
DX: C34.11 Malignant neoplasm of upper lobe, right bronchus or lung (principal); C77.1 Secondary and unspecified malignant neoplasm of intrathoracic lymph nodes; J44.9 Chronic obstructive pulmonary disease, unspecified; I10 Essential (primary) hypertension; E78.5 Hyperlipidemia, unspecified; K57.92 Diverticulitis of intestine, part unspecified, without perforation or abscess without bleeding; Z87.891 Personal history of nicotine dependence; M81.0 Age-related osteoporosis without current pathological fracture; Z88.8 Allergy status to other drugs, medicaments and biological substances; Z79.899 Other long term (current) drug therapy
CPT/HCPCS: 31626; 31627; 31628; 31629; 31654; 71045; 76000; 88173; 88305; 88342; C1887; J1100; J2250; J2370; J2405; J3010; S2900

== ENCOUNTER → 2020-09-27 | Outpatient (CLI) | payer MEDICARE ==
[~2020-09-27] MED LIST changes: -ALBUTEROL SULFATE 2.5 MG/0.5 ML INH NEB SOLN INH ONE; -LIDOCAINE 1% MDV 20ML VIAL SQ PRN; -LIDOCAINE 4% INJ 5ML AMP INH ONE; -LR 1,000 ML IV ONE
[2020-09-27 13:28] LABS: BLOOD UREA NITROGEN 14 MG/DL (7-18); CREATININE FOR GFR 0.84 MG/DL (0.55-1.30); GLOMERULAR FILTRATION RATE > 60.0 (>45)
== END ==
LOC: M PLALAB 11:20
PROVIDERS: ATTEND Internal Medicine Pulmonary Disease
DX: Z01.812 Encounter for preprocedural laboratory examination (principal)

== ENCOUNTER → 2020-10-02 | Outpatient (CLI) | payer MEDICARE ==
[~2020-10-02] MED LIST changes: +PROHANCE 279.3MG/ML 15ML VIAL As Ordered ONE
--- NOTE | 2020-10-02 11:44 | REPVR ---
PROCEDURE INFORMATION: Exam: MR Head Without and With Contrast Exam date and time: 10/02/2020 11:18 AM Age: 65 years old Clinical indication: Condition or disease; History of cancer (specify primary cancer site): ; Patient HX: HX lung CA; Additional info: Malignant neoplasm of upper RT bronchus or lung TECHNIQUE: Imaging protocol: MR of the head without and with intravenous contrast. Contrast material: PROHANCE; Contrast volume: 11 ml; Contrast route: INTRAVENOUS (IV); COMPARISON: No relevant prior studies available. FINDINGS: Brain: No evidence of restricted diffusion to suggest an acute infarct. No mass, midline shift, or mass effect. No evidence of hemorrhage.Mild periventricular, subcortical, and deep white matter FLAIR signal abnormalities representing mild small vessel ischemic changes. No abnormal postcontrast enhancement to suggest metastatic disease. Cerebral ventricles: Ventricles and sulci are enlarged representing mild volume loss. Bones/joints: Unremarkable. Paranasal sinuses: Mild mucosal thickening of the ethmoidal air cells. Mastoid air cells: Moderate fluid in right mastoid air cells. Left mastoid air cells are clear. Orbits: Unremarkable. Soft tissues: Unremarkable. IMPRESSION: No acute finding. No evidence of abnormal enhancement to suggest metastatic disease. Mild volume loss and small vessel ischemic changes. Moderate fluid in right mastoid air cells may represent mastoiditis in proper clinical setting. Electronically signed by: Trini Still On 10/02/2020 11:44:43 AM
== END ==
LOC: M RAD 08:49
PROVIDERS: ATTEND Internal Medicine Pulmonary Disease
DX: C34.31 Malignant neoplasm of lower lobe, right bronchus or lung (principal); I67.82 Cerebral ischemia
CPT/HCPCS: 70553; A9576

== ENCOUNTER → 2021-02-27 | Outpatient (CLI) | payer MEDICARE, BC ==
[~2021-02-27] MED LIST changes: +HYDR-3490 PO; -HYDR25TAB PO; -PROHANCE 279.3MG/ML 15ML VIAL As Ordered ONE
[2021-02-27 13:39] LABS: BASO % 0.6 % (0.0-1.0); EOS # 0.2 10^3/uL (0.0-0.5); EOS % 2.7 % (0.0-3.0); HEMATOCRIT 36.2 % (36.0-47.0); HEMOGLOBIN 11.6 g/dl (12.0-15.5); LYMPH # 0.6 10^3/uL (1.5-5.0); LYMPH % 9.8 % (24.0-44.0); MEAN CORPUSCULAR HEMOGLOBIN 32.6 pg (27.0-33.0); MEAN CORPUSCULAR VOLUME 101.7 fl (80.0-96.0); MONO # 0.9 10^3/uL (0.0-0.8); MONO % 14.1 % (2.0-8.0); NEUTROPHILS # 4.6 10^3/uL (1.5-8.5); NEUTROPHILS % 72.5 % (36.0-66.0); PLATELET COUNT, AUTOMATED 280 10^3/uL (150-450); RED BLOOD COUNT 3.56 10^6/uL (4.00-5.40); WHITE BLOOD COUNT 6.3 10^3/uL (4.0-10.0)
[2021-02-27 14:04] LABS: ALBUMIN 3.3 GM/DL (3.2-5.2); ALT/SGPT 19 U/L (12-78); BILIRUBIN,TOTAL 0.3 MG/DL (0.2-1.0); BLOOD UREA NITROGEN 11 MG/DL (7-18); CALCIUM LEVEL 9.3 MG/DL (8.8-10.2); CARBON DIOXIDE LEVEL 31 MEQ/L (21-32); CHLORIDE LEVEL 99 MEQ/L (98-107); CREATININE FOR GFR 0.79 MG/DL (0.55-1.30); GLOMERULAR FILTRATION RATE > 60.0 (>45); GLUCOSE, FASTING 93 MG/DL (70-100); POTASSIUM SERUM 3.7 MEQ/L (3.5-5.1); SODIUM LEVEL 137 MEQ/L (136-145); TOTAL PROTEIN 6.8 GM/DL (6.4-8.2)
== END ==
LOC: M LAB 12:48
PROVIDERS: ATTEND Internal Medicine Hematology & Oncology
DX: C34.2 Malignant neoplasm of middle lobe, bronchus or lung (principal)

== ENCOUNTER 2021-03-14 17:47 | Inpatient (IN) | payer MEDICARE, BC ==
[~2021-03-14] VITALS: Ht 170.2 cm; Wt 56.8 kg
[2021-03-14] MEDS ORDERED: DURVALUMAB ×2 (17:59→21:18)
[2021-03-14] MEDS ORDERED: dexameTHASONE 20MG/5ML VIAL (J1100 PER 1MG) IV ONE (18:10)
[2021-03-14] MEDS: COMBIVENT RESPIMAT 100-20MCG INHALER 4GM INH SCH ×3 (18:20→19:04)
--- NOTE | 2021-03-14 18:48 | REP ---
INDICATION: DYSPNEA/COUGH COMPARISON: 09/09/2020 TECHNIQUE: Portable AP view of the chest FINDINGS: The mediastinum and cardiac silhouette are stable and within normal limits for portable technique. [id number] identified with tip in the SVC. The lung watson demonstrate chronic appearing interstitial changes. No focal consolidation, effusion, or pneumothorax. Skeletal structures are intact. IMPRESSION: Chronic appearing increased interstitial markings. No focal consolidation or effusion. <Electronically signed by Nito Noel > 03/14/21 [id number]
[2021-03-14 18:55] LABS: BASO # 0.1 10^3/uL (0.0-0.2); BASO % 0.9 % (0.0-1.0); EOS # 0.6 10^3/uL (0.0-0.5); EOS % 7.7 % (0.0-3.0); HEMATOCRIT 36.7 % (36.0-47.0); HEMOGLOBIN 11.8 g/dl (12.0-15.5); LYMPH # 0.6 10^3/uL (1.5-5.0); LYMPH % 6.8 % (24.0-44.0); MEAN CORPUSCULAR HEMOGLOBIN 32.1 pg (27.0-33.0); MEAN CORPUSCULAR HGB CONC 32.2 g/dl (32.0-36.5); MEAN CORPUSCULAR VOLUME 99.7 fl (80.0-96.0); MONO # 0.6 10^3/uL (0.0-0.8); NEUTROPHILS # 6.1 10^3/uL (1.5-8.5); PLATELET COUNT, AUTOMATED 340 10^3/uL (150-450); RED BLOOD COUNT 3.68 10^6/uL (4.00-5.40)
[2021-03-14 19:05] LABS: INR 0.95; PROTHROMBIN TIME 12.9 SECONDS (12.5-14.3)
[2021-03-14 19:25] LABS: ALBUMIN 3.5 GM/DL (3.2-5.2); ALT/SGPT 21 U/L (12-78); BILIRUBIN,DIRECT < 0.1 MG/DL (0.0-0.2); BILIRUBIN,TOTAL 0.3 MG/DL (0.2-1.0); BLOOD UREA NITROGEN 7 MG/DL (7-18); CALCIUM LEVEL 9.4 MG/DL (8.8-10.2); CARBON DIOXIDE LEVEL 30 MEQ/L (21-32); CHLORIDE LEVEL 103 MEQ/L (98-107); CK-MB VALUE MASS 1.5 NG/ML (<3.6); CPK CREATINE PHOSPHOKINASE 69 U/L (26-192); CREATININE FOR GFR 0.71 MG/DL (0.55-1.30); GLOMERULAR FILTRATION RATE > 60.0 (>45); GLUCOSE, FASTING 103 MG/DL (70-100); MB/CK RELATIVE INDEX 2.17 (< OR =4); NT-PRO BNP 112 PG/ML (<125); POTASSIUM SERUM 4.1 MEQ/L (3.5-5.1); SODIUM LEVEL 138 MEQ/L (136-145); THYROID STIMULATING HORMONE 0.491 uIU/ML (0.358-3.740); THYROXINE (T4) 10.5 UG/DL (4.5-12.0); TROPONIN I < 0.02 NG/ML (< 0.10)
[2021-03-14] MEDS ORDERED: ISOVUE-370 76% 100ML VIAL As Ordered ONE (20:14)
[2021-03-14] MEDS ORDERED: SYMB16INH INH (21:18)
[2021-03-14] MEDS ORDERED: B-12100020 PO (21:19)
--- NOTE | 2021-03-14 21:23 | REPVR ---
PROCEDURE INFORMATION: Exam: CTA Chest With Contrast Exam date and time: 03/14/2021 8:44 PM Age: 66 years old Clinical indication: Shortness of breath; Additional info: Lung cancer, SOB, R/O pe TECHNIQUE: Imaging protocol: Computed tomographic angiography of the chest with contrast. 3D rendering (Not supervised by radiologist): MIP and/or 3D reconstructed images were created by the technologist. Radiation optimization: All CT scans at this facility use at least one of these dose optimization techniques: automated exposure control; mA and/or kV adjustment per patient size (includes targeted exams where dose is matched to clinical indication); or iterative reconstruction. Contrast material: ISOVUE 370; Contrast volume: 75 ml; Contrast route: INTRAVENOUS (IV); COMPARISON: CT ANGIO CHEST 02/15/2018 9:33 AM FINDINGS: Pulmonary arteries: There are no pulmonary emboli. Aorta: There is no aortic dissection or aneurysm. Lungs: Bilateral apical pleuroparenchymal scarring. Mild centrilobular emphysematous changes in the mid and upper lung zones. Small tree-in-bud opacity superior segment right lower lobe. Scattered pulmonary parenchymal nodules, some smooth bordered other spiculated, measuring up to 5.6 mm in the left lower lobe. Well inflated lungs with flattened diaphragmatic contours and increased retrosternal airspace consistent with COPD. Previously demonstrated spiculated opacity in the right middle lobe and a complex rounded pleural based opacity in the right lower lobe no longer present. Pleural spaces: Unremarkable. No pneumothorax. No pleural effusion. Heart: There is mild atherosclerotic calcification of the coronary arteries. Mediastinal space: Surgical clips in the right hilar region. Lymph nodes: Calcified right hilar lymph nodes. Bones/joints: Diffuse decrease in bone mineralization consistent with osteoporosis or osteopenia. Soft tissues: Unremarkable. IMPRESSION: 1. Scattered pulmonary parenchymal nodules, some smooth bordered other spiculated, measuring up to 5.6 mm in the left lower lobe. Spiculated left upper lobe focus has increased slightly in size now measuring 4.3 mm comparison to the prior study. Other foci are new new in comparison to prior study. As such, metastatic deposits not excluded and continued interval follow-up suggested. 2. There is no aortic dissection or aneurysm. 3. There are no pulmonary emboli. 4. COPD. 5. Previously demonstrated spiculated opacity in the right middle lobe and a complex rounded pleural based opacity in the right lower lobe no longer present. Electronically signed by: David Stiles On 03/14/2021 21:22:19 PM
[2021-03-15] VITALS (21 sets, daily range): BP systolic 98–138; BP diastolic 62–78; O2SAT 93–99
[2021-03-15] MEDS ORDERED: MOM 30ML SUSPENSION UDC PO PRN
[2021-03-15] MEDS ORDERED: MAALOX 30 ML SUSP *UDC PO PRN
[2021-03-15] MEDS ORDERED: ACETAMINOPHEN TAB 650MG DOSE (2X325MG) PO PRN
[2021-03-15] MEDS ORDERED: LEVALBUTEROL HFA 45MCG/ACT 15 GM INHALER INH PRN (00:05)
--- NOTE | 2021-03-15 00:22 | HPEPDOC ---
[facility] Medical History & Physical Date of Admission Mar 15, 2021 Date of Service: Mar 15, 2021 History and Physical CHIEF COMPLAINT: SHORTNESS OF BREATH HISTORY OF PRESENT ILLNESS: 66 yo F with a hx of COPD (severe at baseline, recently started home O2, follows with Dr. Abdul), hx of tobacco use, hx of sigmoid colon resection for recurrent diverticulitis in 2014, recurrent sinusitis, as well as lung malignacy for which she is receiving immunotherapy (2 doses, most recent within past 5 days). She presents with acute onset shortness of breath with audible wheezing and inability to speak in complete sentences. She was brought to ER by her . ER provider communicated with Dr. Oconnor as to whether administration of IV steroids was appropriate for treatment of COPD exacerbation in setting immunotherapy for lung ca, as there was concern of negating effects of immunotherapy. Decision was made to proceed with IV decadron to maintain respirations. Her breathing improved, and tachypnea normalized, although she continues to have an audible wheeze. CT angio of the chest did not reveal pulmonary emboli, but showed findings c/w lung malignancy (scattered nodules, some measuring up to 5.6 mm in LLL; spiculated L upper lobe focus increased to 4.3 mm from prior study; previosly demonstrated opacity in RML, and complex rounded opacity in RLL no longer present). Patient will be admitted to hospitalist service for the management of acute COPD exacerbation. Of note, patient takes prophylactic azithromycin three times per week (Mon, Weds, Fri) given frequency of previous exacerbations. PAST MEDICAL HISTORY: severe COPD, O2 dependent, hx of frequent exacerbations tobacco use recurrent diverticulitis lung malignancy (poorly differentiated adenocarcinoma) PAST SURGICAL HISTORY: sigmoid colon resection for recurrent diverticulitis in 2014, SOCIAL HISTORY: former smoker denies etoh use no illicit drug use FAMILY HISTORY: reviewed with patient, no relevant history provided ALLERGIES: Please see below. REVIEW OF SYSTEMS: 10 point ROS conducted, relevant findings are noted in HPI. HOME MEDICATIONS: Please see below. PHYSICAL EXAMINATION: VITAL SIGNS: please see below General: NAD, comfortable. thin female. HEENT: PERRLA, EOMI, sclerae clear Neck: supple, normal ROM, no JVD Respiratory: diffuse wheezing noted across all lung watson, fair inspiratory effort CVS: RRR, normal S1, S2, no murmurs Abdo: soft, no masses, no hepatosplenomegaly, BS+, no rebound tenderness Extremities: no edema, pulses 2+ MSK: no joint deformities, normal ROM Neuro: no focal neuro deficits, moving all 4 extremities, CN2-12 intact. Strength 5/5 in all 4 extremities. No nystagmus. Psych: calm, cooperative, AAO x 3 LABORATORY DATA: See below. IMAGING: CXR (03/14/21): The mediastinum and cardiac silhouette are stable and within normal limits for portable technique. [id number] identified with tip in the SVC. The lung watson demonstrate chronic appearing interstitial changes. No focal consolidation, effusion, or pneumothorax. Skeletal structures are intact. Impression: Chronic appearing increased interstitial markings. No focal consolidation or effusion. CT angio chest (03/14/21): 1. Scattered pulmonary parenchymal nodules, some smooth bordered other spiculated, measuring up to 5.6 mm in the left lower lobe. Spiculated left upper lobe focus has increased slightly in size now measuring 4.3 mm comparison to the prior study. Other foci are new new in comparison to prior study. As such, metastatic deposits not excluded and continued interval follow-up suggested. 2. There is no aortic dissection or aneurysm. 3. There are no pulmonary emboli. 4. COPD. 5. Previously demonstrated spiculated opacity in the right middle lobe and a complex rounded pleural based opacity in the right lower lobe no longer present. MICROBIOLOGY: Please see below. ASSESSMENT: 6 yo F with a hx of COPD (severe at baseline, recently started home O2, follows with Dr. Abdul), hx of tobacco use, hx of sigmoid colon resection for recurrent diverticulitis in 2014, recurrent sinusitis, as well as lung malignacy for which she is receiving immunotherapy (2 doses, most recent within past 5 days). Admitted for management of acute COPD exacerbation. . PLAN: #Acute on chronic hypoxic respiratory failure 2/2 an acute COPD exacerbation - tachypneic on arrival, two word sentences only - had received immunotherapy for lung ca within past 5 days, decision was made to give IV decadron to maintain respirations, ER d/w Dr. Oconnor - s/p abluterol neb treatment - Patient has had frequent exacerbation in the past and takes prophylactic azithromycin - I discussed continuation of steroids with oncologist inspector publications Dr. Swift. No contraindication to steroid use, although it may diminish effect of immunotherapy. In an effort to improve respirations, will c/w IV solumedrol 60 mg IV q8h. Patient follows with [facility] with Dr. Betancur (tel: [phone]) - resume home levalbuterol, symbicort. Substitute incruse ellipta with Spiriva - continue azithromycin home dose #Lung cancer - poorly differentiated adenocarcinoma - Patient follows with [facility] with Dr. Betancur (tel: [phone]) - on review of CT imaging, R lung masses from prior CT have resolved, but there are new masses seen on the L lung (see report above) - day team to consider communicating with patient's primary oncologist to determine if any additional imaging has been done HLD - c/w simvastatin Dispo: pending clinic improvement DVT ppx: SCDs, TEDs. lovenox Vital Signs Vital Signs Date Time Temp Pulse Resp B/P (MAP) Pulse Ox O2 Delivery O2 Flow Rate FiO2 03/15/21 00:00 101 19 117/55 (75) 97 Nasal Cannula 2.0 03/14/21 17:54 98.3 Laboratory Data Labs 24H Laboratory Tests 2 03/14/21 18:31: POC pH (Misc Panel) 7.404, POC Base Excess (Misc Panel) 2.0, POC Saturated Percent O2 (Misc) 97, POC pO2 (Misc Panel) 90.0, POC pCO2 (Misc Panel) 42.1, POC HCO3 (Misc Panel) 26.3H, POC Total CO2 (Misc Panel) 28.0H 03/14/21 18:32: Immature Granulocyte % (Auto) 0.6, Neutrophils (%) (Auto) 76.0H, Lymphocytes (%) (Auto) 6.8L, Monocytes (%) (Auto) 8.0, Eosinophils (%) (Auto) 7.7H, Basophils (%) (Auto) 0.9, Neutrophils # (Auto) 6.1, Lymphocytes # (Auto) 0.6L, Monocytes # (Auto) 0.6, Eosinophils # (Auto) 0.6H, Basophils # (Auto) 0.1, Nucleated Red Blood Cells % (auto) 0.0, Prothrombin Time 12.9, Prothromb Time International Ratio 0.95, Anion Gap 5L, Glomerular Filtration Rate > 60.0, Lactic Acid Level 1.5, Calcium Level 9.4, Total Bilirubin 0.3, Direct Bilirubin < 0.1, Aspartate Amino Transf (AST/SGOT) 19, Alanine Aminotransferase (ALT/SGPT) 21, Alkaline Phosphatase 99, Total Creatine Kinase 69, Creatine Kinase MB 1.5, Creatine Kinase MB Relative Index 2.17, Troponin I < 0.02, NK-Fst-J-Type Natriuretic Peptide 112, Total Protein 7.0, Albumin 3.5, Albumin/Globulin Ratio 1.0L, Thyroid Stimulating Hormone (TSH) 0.491, Thyroxine (T4) 10.5 CBC/BMP Laboratory Tests 03/14/21 18:32 Microbiology Microbiology 03/14/21 Blood Culture, Received Pending 03/14/21 Respiratory Virus Panel (PCR) (PATTI) - Final, Complete 03/14/21 Blood Culture, Received Pending Home Medications Scheduled Amlodipine Besylate (Amlodipine Besylate) 5 Mg Tablet, 5 MG PO DAILY Azithromycin (Azithromycin) 250 Mg Tablet, 250 MG PO 3XW MON, WED, WED Budesonide/Formoterol (Symbicort 160-4.5 Mcg Inhaler) 6 Gm Hfa.aer.ad, 2 PUFF INH BID Cholecalciferol (Vitamin D3) (Vitamin D3) 1,000 Unit Tablet, 5,000 UNITS PO DAILY Cyanocobalamin (Vitamin B-12) (B-12) 1,000 Mcg Tablet, 1,000 MCG PO DAILY Fluticasone Propionate (Flonase Allergy Relief) 50 Mcg/Act Spr, 2 SPRAY NA DAILY Simvastatin (Simvastatin) 20 Mg Tablet, 20 MG PO QHS Umeclidinium [place] (Incruse Ellipta) 62.5 Mcg Blst.w.dev, 62.5 MCG INH DAILY Venlafaxine HCl (Venlafaxine HCl) 75 Mg Tab, 75 MG PO DAILY Scheduled PRN Levalbuterol Tartrate (Levalbuterol Tartrate Hfa) 45 Mcg/Act Aer, 2 PUFF INH Q4H PRN for SHORTNESS OF BREATH Miscellaneous Medications [Imfinzi] GETS EVERY 2 WEEKS ON TUESDAYS Allergies Coded Allergies: No Known Allergies (Unverified , 09/05/20) CHAPO VALENTIN MD Mar 15, 2021 00:22
[2021-03-15] MEDS: methylPREDNISolone 125MG 2ML VIAL IV SCH ×4 (00:45→23:43)
[2021-03-15] MEDS: SIMVASTATIN 20 MG TAB PO SCH ×2 (00:45→20:30)
[2021-03-15 05:56] LABS: BASO % 0.2 % (0.0-1.0); HEMATOCRIT 33.5 % (36.0-47.0); HEMOGLOBIN 10.7 g/dl (12.0-15.5); LYMPH # 0.2 10^3/uL (1.5-5.0); LYMPH % 4.9 % (24.0-44.0); MEAN CORPUSCULAR HEMOGLOBIN 31.5 pg (27.0-33.0); MEAN CORPUSCULAR HGB CONC 31.9 g/dl (32.0-36.5); MEAN CORPUSCULAR VOLUME 98.5 fl (80.0-96.0); NEUTROPHILS # 3.8 10^3/uL (1.5-8.5); NEUTROPHILS % 93.2 % (36.0-66.0); PLATELET COUNT, AUTOMATED 332 10^3/uL (150-450); WHITE BLOOD COUNT 4.1 10^3/uL (4.0-10.0)
[2021-03-15 06:14] LABS: ALBUMIN 3.1 GM/DL (3.2-5.2); ALT/SGPT 18 U/L (12-78); BILIRUBIN,TOTAL 0.2 MG/DL (0.2-1.0); BLOOD UREA NITROGEN 6 MG/DL (7-18); CALCIUM LEVEL 9.6 MG/DL (8.8-10.2); CARBON DIOXIDE LEVEL 26 MEQ/L (21-32); CHLORIDE LEVEL 106 MEQ/L (98-107); GLOMERULAR FILTRATION RATE > 60.0 (>45); GLUCOSE, FASTING 143 MG/DL (70-100); MAGNESIUM LEVEL 2.3 MG/DL (1.8-2.4); POTASSIUM SERUM 4.6 MEQ/L (3.5-5.1); SODIUM LEVEL 139 MEQ/L (136-145); TOTAL PROTEIN 6.7 GM/DL (6.4-8.2)
[2021-03-15] MEDS: SYMBICORT 160/4.5MCG INHALER 6GM INH SCH ×2 (07:15→19:46)
[2021-03-15] MEDS ORDERED: TIOTROPIUM INHALER/CAPSULE (SPIRIVA) INH SCH (08:00)
[2021-03-15] MEDS: amLODIPine 5 MG TAB PO SCH (09:00)
[2021-03-15] MEDS: VENLAFAXINE 37.5 MG TAB PO SCH (09:08)
[2021-03-15] MEDS: DOCUSATE SODIUM 100MG CAPSULE PO SCH ×2 (09:09→20:31)
[2021-03-15] MEDS: VITAMIN D 1,000 INTERNATIONAL UNITS TABLET PO SCH (09:09)
[2021-03-15] MEDS: FLUTICASONE PROP 0.05% NASAL SPRAY 16 GM (FLONASE) SCH (09:10)
[2021-03-15] MEDS: ENOXAPARIN 40MG/0.4ML SYRINGE (J1650 PER 10MG) SC SCH (09:10)
--- NOTE | 2021-03-15 10:41 | IPNPDOC ---
Text Note Date of Service The patient was seen on 03/15/21. NOTE Subjective: Patient stated that her breathing improved and she reported mild wheezes. Reported intermittent cough with yellowish sputum production Denied fever, chills, nausea, vomiting diarrhea or dysuria Objective: GENERAL APPEARANCE: NAD HEENT: no scleral icterus, no JVD, EOMI CARDIOVASCULAR: S1S2 LUNGS: Diminished lung sounds bilaterally with diffuse mild wheezes ABDOMEN: soft & not tender w palpitation MUSCULOSKELETAL: no cyanosis, no swelling INTEGUMENT: no generalized pallor NEUROLOGICAL: cranial nerve function from 2-12 intact intact, follows commands, speech not dysarthric Assessment and plan Patient is 66 years old female with past mental history of hx of COPD (severe at baseline, recently started home O2, follows with Dr. Abdul), hx of tobacco use, hx of sigmoid colon resection for recurrent diverticulitis in 2014, recurrent sinusitis, as well as lung malignacy for which she is receiving immunotherapy (2 doses, most recent within past 5 days). Admitted for management of acute COPD exacerbation. COPD exacerbation/acute chronic hypoxic respiratory failure had received immunotherapy for lung ca within past 5 days Continue inhalers, IV steroids Patient has had frequent exacerbation in the past and takes prophylactic azithromycin I added DuoNeb [id number] Lung cancer - poorly differentiated adenocarcinoma Patient follows with [facility] with Dr. Betancur (tel: [phone]) - on review of CT imaging, R lung masses from prior CT have resolved, but there are new masses seen on the L lung (see report above) Follow-up with oncologist in the outpatient settings Hyperlipidemia Continue simvastatin VS,Fishbone, I+O VS, Fishbone, I+O Laboratory Tests 03/14/21 18:32 03/15/21 04:53 Vital Signs Date Time Temp Pulse Resp B/P (MAP) Pulse Ox O2 Delivery O2 Flow Rate FiO2 03/15/21 09:00 112 98/67 03/15/21 07:32 98.3 20 97 Nasal Cannula 2.0 I&O- Last 24 Hours up to 6 AM 03/15/21 06:00 Intake Total 150 ml Output Total 850 ml Balance -700 ml DAVID ALFORD DO Mar 15, 2021 10:41
[2021-03-15] MEDS: IPRATROPIUM 0.5MG/ALBUTEROL 2.5MG INH SOL UD 3ML (DUONEB) NEB SCH ×2 (13:06→19:46)
--- NOTE | 2021-03-15 20:44 | ECGEPIP ---
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
[2021-03-16] VITALS (27 sets, daily range): BP systolic 107–140; BP diastolic 59–64; O2SAT 86–99
[2021-03-16] MEDS: IPRATROPIUM 0.5MG/ALBUTEROL 2.5MG INH SOL UD 3ML (DUONEB) NEB SCH ×4 (02:12→19:43)
[2021-03-16 05:49] LABS: HEMATOCRIT 33.1 % (36.0-47.0); HEMOGLOBIN 10.5 g/dl (12.0-15.5); LYMPH # 0.3 10^3/uL (1.5-5.0); LYMPH % 1.7 % (24.0-44.0); MEAN CORPUSCULAR HEMOGLOBIN 31.7 pg (27.0-33.0); MEAN CORPUSCULAR HGB CONC 31.7 g/dl (32.0-36.5); MONO # 0.4 10^3/uL (0.0-0.8); MONO % 2.3 % (2.0-8.0); NEUTROPHILS # 14.4 10^3/uL (1.5-8.5); NEUTROPHILS % 95.1 % (36.0-66.0); PLATELET COUNT, AUTOMATED 339 10^3/uL (150-450); RED BLOOD COUNT 3.31 10^6/uL (4.00-5.40); WHITE BLOOD COUNT 15.2 10^3/uL (4.0-10.0)
[2021-03-16 06:15] LABS: ALBUMIN 3.1 GM/DL (3.2-5.2); ALT/SGPT 20 U/L (12-78); BILIRUBIN,TOTAL 0.1 MG/DL (0.2-1.0); BLOOD UREA NITROGEN 13 MG/DL (7-18); CARBON DIOXIDE LEVEL 31 MEQ/L (21-32); CHLORIDE LEVEL 107 MEQ/L (98-107); CREATININE FOR GFR 0.66 MG/DL (0.55-1.30); GLOMERULAR FILTRATION RATE > 60.0 (>45); GLUCOSE, FASTING 135 MG/DL (70-100); MAGNESIUM LEVEL 2.4 MG/DL (1.8-2.4); POTASSIUM SERUM 4.5 MEQ/L (3.5-5.1); SODIUM LEVEL 143 MEQ/L (136-145); TOTAL PROTEIN 6.1 GM/DL (6.4-8.2)
[2021-03-16] MEDS: SYMBICORT 160/4.5MCG INHALER 6GM INH SCH ×2 (07:35→19:44)
[2021-03-16] MEDS: VITAMIN D 1,000 INTERNATIONAL UNITS TABLET PO SCH (08:55)
[2021-03-16] MEDS: DOCUSATE SODIUM 100MG CAPSULE PO SCH ×2 (08:55→20:00)
[2021-03-16] MEDS: VENLAFAXINE 37.5 MG TAB PO SCH (08:56)
[2021-03-16] MEDS: methylPREDNISolone 125MG 2ML VIAL IV SCH ×2 (08:56→15:48)
[2021-03-16] MEDS: amLODIPine 5 MG TAB PO SCH (08:56)
[2021-03-16] MEDS: ENOXAPARIN 40MG/0.4ML SYRINGE (J1650 PER 10MG) SC SCH (08:57)
[2021-03-16] MEDS: FLUTICASONE PROP 0.05% NASAL SPRAY 16 GM (FLONASE) SCH (08:58)
--- NOTE | 2021-03-16 10:10 | IPNPDOC ---
Text Note Date of Service The patient was seen on 03/16/21. NOTE Subjective: Patient reported significant improvement in breathing. Denied fever, chills, nausea, vomiting diarrhea or dysuria Objective: GENERAL APPEARANCE: NAD HEENT: no scleral icterus, no JVD, EOMI CARDIOVASCULAR: S1S2 LUNGS: Diminished lung sounds bilaterally with diffuse mild wheezes ABDOMEN: soft & not tender w palpitation MUSCULOSKELETAL: no cyanosis, no swelling INTEGUMENT: no generalized pallor NEUROLOGICAL: cranial nerve function from 2-12 intact intact, follows commands, speech not dysarthric Assessment and plan Patient is 66 years old female with past mental history of hx of COPD (severe at baseline, recently started home O2, follows with Dr. Abdul), hx of tobacco use, hx of sigmoid colon resection for recurrent diverticulitis in 2014, recurrent sinusitis, as well as lung malignacy for which she is receiving immunotherapy (2 doses, most recent within past 5 days). Admitted for management of acute COPD exacerbation. COPD exacerbation/acute chronic hypoxic respiratory failure had received immunotherapy for lung ca within past 5 days Continue inhalers, IV steroids Patient has had frequent exacerbation in the past and takes prophylactic azithromycin Continue DuoNeb [id number] Lung cancer - poorly differentiated adenocarcinoma Patient follows with [facility] with Dr. Betancur (tel: [phone]) - on review of CT imaging, R lung masses from prior CT have resolved, but there are new masses seen on the L lung (see report above) Follow-up with oncologist in the outpatient settings Hyperlipidemia Continue simvastatin Sinus tachycardia Metoprolol tartrate 25 mg twice a day Mostly secondary to respiratory distress Will proceed with EKG VS,Alexe, I+O VS, Alexe, I+O Laboratory Tests 03/16/21 04:59 Vital Signs Date Time Temp Pulse Resp B/P (MAP) Pulse Ox O2 Delivery O2 Flow Rate FiO2 03/16/21 08:56 120 114/64 03/16/21 08:00 98.1 18 97 Nasal Cannula 2.0 I&O- Last 24 Hours up to 6 AM 03/16/21 05:59 Intake Total 1230 ml Output Total 1250 ml Balance -20 ml DAVID ALFORD DO Mar 16, 2021 10:10
[2021-03-16] MEDS: METOPROLOL TART 25 MG TABLET PO SCH ×2 (11:11→20:01)
--- NOTE | 2021-03-16 13:58 | ECGEPIP ---
[facility] Test Date: 2021-03-16 Pat Name: RAE LI Department: Room: [place] [address] Gender: Female Elementary Secretary: ARACELY : 1955 Requested By: DAVID ALFORD Order Number: [id number] Reading MD: Liam Clay Measurements Intervals [place] Rate: 111 P: 77 [place]: 154 QRS: 80 QRSD: 64 T: 70 QT: 304 QTc: 413 Interpretive Statements Sinus tachycardia P pulmonale Incomplete RIGHT BUNDLE BRANCH BLOCK with slow precordial R wave progression and persistent S waves V5 and V6; body h habitus versus pulmonary disease. Could not rule out prior septal infarction. Slower rate but otherwise unchanged from 03/14/21 Electronically Signed on 03-16-2021 13:58:46 EDT by Liam Clay
[2021-03-16] MEDS: SIMVASTATIN 20 MG TAB PO SCH (20:00)
[2021-03-17] VITALS: BP 123/59; O2SAT 98
[2021-03-17] MEDS: methylPREDNISolone 125MG 2ML VIAL IV SCH ×2 (00:15→08:54)
[2021-03-17] MEDS: IPRATROPIUM 0.5MG/ALBUTEROL 2.5MG INH SOL UD 3ML (DUONEB) NEB SCH ×2 (01:07→07:17)
[2021-03-17 04:00] VITALS: BP 111/56
[2021-03-17 05:27] LABS: BASO % 0.1 % (0.0-1.0); HEMATOCRIT 32.7 % (36.0-47.0); HEMOGLOBIN 10.1 g/dl (12.0-15.5); LYMPH # 0.2 10^3/uL (1.5-5.0); LYMPH % 1.7 % (24.0-44.0); MEAN CORPUSCULAR HEMOGLOBIN 31.1 pg (27.0-33.0); MEAN CORPUSCULAR HGB CONC 30.9 g/dl (32.0-36.5); MEAN CORPUSCULAR VOLUME 100.6 fl (80.0-96.0); MONO # 0.3 10^3/uL (0.0-0.8); MONO % 1.8 % (2.0-8.0); NEUTROPHILS # 13.1 10^3/uL (1.5-8.5); NEUTROPHILS % 95.4 % (36.0-66.0); PLATELET COUNT, AUTOMATED 318 10^3/uL (150-450); RED BLOOD COUNT 3.25 10^6/uL (4.00-5.40); WHITE BLOOD COUNT 13.8 10^3/uL (4.0-10.0)
[2021-03-17 05:54] LABS: ALBUMIN 2.9 GM/DL (3.2-5.2); ALT/SGPT 21 U/L (12-78); BILIRUBIN,TOTAL 0.2 MG/DL (0.2-1.0); BLOOD UREA NITROGEN 15 MG/DL (7-18); CALCIUM LEVEL 8.8 MG/DL (8.8-10.2); CARBON DIOXIDE LEVEL 30 MEQ/L (21-32); CHLORIDE LEVEL 110 MEQ/L (98-107); CREATININE FOR GFR 0.69 MG/DL (0.55-1.30); GLOMERULAR FILTRATION RATE > 60.0 (>45); GLUCOSE, FASTING 124 MG/DL (70-100); MAGNESIUM LEVEL 2.4 MG/DL (1.8-2.4); POTASSIUM SERUM 4.6 MEQ/L (3.5-5.1); SODIUM LEVEL 143 MEQ/L (136-145); TOTAL PROTEIN 5.7 GM/DL (6.4-8.2)
[2021-03-17] MEDS: SYMBICORT 160/4.5MCG INHALER 6GM INH SCH (07:31)
[2021-03-17 08:00] VITALS: BP 133/61; O2SAT 96
[2021-03-17] MEDS: ENOXAPARIN 40MG/0.4ML SYRINGE (J1650 PER 10MG) SC SCH (08:54)
[2021-03-17] MEDS: VITAMIN D 1,000 INTERNATIONAL UNITS TABLET PO SCH (08:54)
[2021-03-17] MEDS: VENLAFAXINE 37.5 MG TAB PO SCH (08:55)
[2021-03-17] MEDS: DOCUSATE SODIUM 100MG CAPSULE PO SCH (08:55)
[2021-03-17] MEDS: amLODIPine 5 MG TAB PO SCH (08:55)
[2021-03-17] MEDS: FLUTICASONE PROP 0.05% NASAL SPRAY 16 GM (FLONASE) SCH (08:56)
[2021-03-17 09:00] VITALS: O2SAT 94
[2021-03-17] MEDS ORDERED: METOPROLOL TART 50 MG TAB PO SCH (09:00)
[2021-03-17] MEDS ORDERED: AZITHROMYCIN 250MG TABLET PO SCH (09:00)
[2021-03-17 10:00] VITALS: O2SAT 79
[2021-03-17] MEDS ORDERED: PRED10TA2 PO (10:50)
[2021-03-17] MEDS ORDERED: METO1TAB7 PO (10:50)
--- NOTE | 2021-03-17 12:57 | DS.PDOC ---
Discharge Summary General Date of Admission Mar 14, 2021 at 23:59 Date of Discharge 03/17/21 Discharge Summary PROCEDURES PERFORMED DURING STAY: [None]. ADMITTING DIAGNOSES: COPD exacerbation/acute chronic hypoxic respiratory failure Lung cancer - poorly differentiated adenocarcinoma Hyperlipidemia Sinus tachycardia DISCHARGE DIAGNOSES: COPD exacerbation/acute chronic hypoxic respiratory failure Lung cancer - poorly differentiated adenocarcinoma Hyperlipidemia Sinus tachycardia COMPLICATIONS/CHIEF COMPLAINT: Copd Exacerbation,Hypoxia. HISTORY OF PRESENT ILLNESS:Patient is 66 years old female with past mental history of hx of COPD (severe at baseline, recently started home O2, follows with Dr. Abdul), hx of tobacco use, hx of sigmoid colon resection for recurrent diverticulitis in 2014, recurrent sinusitis, as well as lung malignacy for which she is receiving immunotherapy (2 doses, most recent within past 5 days). Admitted for management of acute COPD exacerbation. HOSPITAL COURSE: During the hospital stay the following issues addressed COPD exacerbation/acute chronic hypoxic respiratory failure had received immunotherapy for lung ca within past 5 days Patient received inhalers, IV steroids Patient has had frequent exacerbation in the past and takes prophylactic azithromycin Continue DuoNeb [id number] Lung cancer - poorly differentiated adenocarcinoma Patient follows with [facility] with Dr. Betancur (tel: [phone]) - on review of CT imaging, R lung masses from prior CT have resolved, but there are new masses seen on the L lung (see report above) Follow-up with oncologist in the outpatient settings Hyperlipidemia Continue simvastatin Sinus tachycardia Metoprolol tartrate 25 mg twice a day Mostly secondary to respiratory distress DISCHARGE MEDICATIONS: Please see below. ALLERGIES: Please see below. PHYSICAL EXAMINATION ON DISCHARGE: VITAL SIGNS: Please see below. GENERAL APPEARANCE: NAD HEENT: no scleral icterus, no JVD, EOMI CARDIOVASCULAR: S1S2 LUNGS: Diminished lung sounds bilaterally with diffuse mild wheezes ABDOMEN: soft & not tender w palpitation MUSCULOSKELETAL: no cyanosis, no swelling INTEGUMENT: no generalized pallor NEUROLOGICAL: cranial nerve function from 2-12 intact intact, follows commands, speech not dysarthric LABORATORY DATA: Please see below. IMAGING: [facility] NAME: RAE LI DATE OF : 1955 BUSINESS NUMBER: [id number] AGE: 66 SEX: F REPORT #: [id number] ROOM: M ED TECHNOLOGIST: BONIFACIO DOCTOR: STEPHANE SUÁREZ MD Ordered for Date&Time: 03/14/211932 cc: [~ rep ct ivnm] Service Date&Time: 03/14/212043 This report is in Signed status. Interpretation performed by [facility]. Thank you for having your radiology procedures performed at [facility] RADIOLOGY REPORT Date&Time printed: [~ rep prt dt last] [~ rep prt tm last] Page 2 of [address] [address] RADIOLOGY REPORT This report is in Signed status. Interpretation performed by [facility]. Thank you for having your radiology procedures performed at [facility] RADIOLOGY REPORT Date&Time printed: [~ rep prt dt last] [~ rep prt tm last] Page 1 of 2 PROCEDURE INFORMATION: Exam: CTA Chest With Contrast Exam date and time: 03/14/2021 8:44 PM Age: 66 years old Clinical indication: Shortness of breath; Additional info: Lung cancer, SOB, R/O pe TECHNIQUE: Imaging protocol: Computed tomographic angiography of the chest with contrast. 3D rendering (Not supervised by radiologist): MIP and/or 3D reconstructed images were created by the technologist. Radiation optimization: All CT scans at this facility use at least one of these dose optimization techniques: automated exposure control; mA and/or kV adjustment per patient size (includes targeted exams where dose is matched to clinical indication); or iterative reconstruction. Contrast material: ISOVUE 370; Contrast volume: 75 ml; Contrast route: INTRAVENOUS (IV); COMPARISON: CT ANGIO CHEST 02/15/2018 9:33 AM FINDINGS: Pulmonary arteries: There are no pulmonary emboli. Aorta: There is no aortic dissection or aneurysm. Lungs: Bilateral apical pleuroparenchymal scarring. Mild centrilobular emphysematous changes in the mid and upper lung zones. Small tree-in-bud opacity superior segment right lower lobe. Scattered pulmonary parenchymal nodules, some smooth bordered other spiculated, measuring up to 5.6 mm in the left lower lobe. Well inflated lungs with flattened diaphragmatic contours and increased retrosternal airspace consistent with COPD. Previously demonstrated spiculated opacity in the right middle lobe and a complex rounded pleural based opacity in the right lower lobe no longer present. Pleural spaces: Unremarkable. No pneumothorax. No pleural effusion. Heart: There is mild atherosclerotic calcification of the coronary arteries. Mediastinal space: Surgical clips in the right hilar region. Lymph nodes: Calcified right hilar lymph nodes. Bones/joints: Diffuse decrease in bone mineralization consistent with osteoporosis or osteopenia. Soft tissues: Unremarkable. IMPRESSION: 1. Scattered pulmonary parenchymal nodules, some smooth bordered other spiculated, measuring up to 5.6 mm in the left lower lobe. Spiculated left upper lobe focus has increased slightly in size now measuring 4.3 mm comparison to the prior study. Other foci are new new in comparison to prior study. As such, metastatic deposits not excluded and continued interval follow-up suggested. 2. There is no aortic dissection or aneurysm. 3. There are no pulmonary emboli. 4. COPD. 5. Previously demonstrated spiculated opacity in the right middle lobe and a complex rounded pleural based opacity in the right lower lobe no longer present. Electronically signed by: David Mcqueen On 03/14/2021 21:22:19 PM DD: DAVID MCQUEEN MD 03/14/212043 DT: MICHELLE 03/14/212121 DS: LORENA 03/14/212121 [~ rep ct labl] PROGNOSIS: Fair ACTIVITY: [As tolerated]. DIET: Cardiac DISPOSITION: 01 Home, Self-Care. DISCHARGE INSTRUCTIONS: Continue prednisone taper ITEMS TO FOLLOWUP ON ON OUTPATIENT: Follow-up with oncologist, detail maker and fitter, PCP DISCHARGE CONDITION: [Stable]. TIME SPENT ON DISCHARGE: 40minutes. Vital Signs/I&Os Vital Signs Date Time Temp Pulse Resp B/P (MAP) Pulse Ox O2 Delivery O2 Flow Rate FiO2 03/17/21 10:00 79 Room Air 03/17/21 08:00 2.0 03/17/21 08:00 97.4 117 16 133/61 (85) I&O- Last 24 Hours up to 6 AM 03/17/21 06:00 Intake Total 1260 ml Output Total 2650 ml Balance -1390 ml Laboratory Data Labs 24H Laboratory Tests 2 03/17/21 04:50: Immature Granulocyte % (Auto) 1.0, Neutrophils (%) (Auto) 95.4H, Lymphocytes (%) (Auto) 1.7L, Monocytes (%) (Auto) 1.8L, Eosinophils (%) (Auto) 0.0, Basophils (%) (Auto) 0.1, Neutrophils # (Auto) 13.1H, Lymphocytes # (Auto) 0.2L, Monocytes # (Auto) 0.3, Eosinophils # (Auto) 0.0, Basophils # (Auto) 0.0, Nucleated Red Blood Cells % (auto) 0.0, Anion Gap 3L, Glomerular Filtration Rate > 60.0, Calcium Level 8.8, Magnesium Level 2.4, Total Bilirubin 0.2#, Aspartate Amino Transf (AST/SGOT) 13, Alanine Aminotransferase (ALT/SGPT) 21, Alkaline Phosphata se 80, Total Protein 5.7L, Albumin 2.9L, Albumin/Globulin Ratio 1.0L CBC/BMP Laboratory Tests 03/17/21 04:50 Microbiology Microbiology 03/16/21 Gram Stain - Final, Resulted 03/16/21 Sputum Culture, Resulted Pending 03/14/21 Blood Culture - Preliminary, Resulted No Growth after 48 hours. All Specime... 03/14/21 Respiratory Virus Panel (PCR) (PATTI) - Final, Complete 03/14/21 Blood Culture - Preliminary, Resulted No Growth after 48 hours. All Specime... Discharge Medications Scheduled Amlodipine Besylate (Amlodipine Besylate) 5 Mg Tablet, 5 MG PO DAILY, (Reported) Azithromycin (Azithromycin) 250 Mg Tablet, 250 MG PO 3XW, (Reported) MON, WED, FRI Budesonide/Formoterol (Symbicort 160-4.5 Mcg Inhaler) 6 Gm Hfa.aer.ad, 2 PUFF INH BID, (Reported) Cholecalciferol (Vitamin D3) (Vitamin D3) 1,000 Unit Tablet, 5,000 UNITS PO DAILY, (Reported) Cyanocobalamin (Vitamin B-12) (B-12) 1,000 Mcg Tablet, 1,000 MCG PO DAILY, (Reported) Fluticasone Propionate (Flonase Allergy Relief) 50 Mcg/Act Spr, 2 SPRAY NA DAILY, (Reported) Metoprolol Succinate (Metoprolol Succinate) 50 Mg Tab.er.24h, 1 TAB PO DAILY Prednisone (Prednisone) 10 Mg Tablet, 10 MG PO TAPER Take 4 tabs daily x 3 days, then 3 tabs daily x 3 days, then 2 tabs daily x 3 days, then 1 tab daily x 3 days and stop Simvastatin (Simvastatin) 20 Mg Tablet, 20 MG PO QHS, (Reported) Umeclidinium Neville (Incruse Ellipta) 62.5 Mcg Blst.w.dev, 62.5 MCG INH DAILY, (Reported) Venlafaxine HCl (Venlafaxine HCl) 75 Mg Tab, 75 MG PO DAILY, (Reported) Scheduled PRN Levalbuterol Tartrate (Levalbuterol Tartrate Hfa) 45 Mcg/Act Aer, 2 PUFF INH Q4H PRN for SHORTNESS OF BREATH, (Reported) Miscellaneous Medications [Imfinzi] , (Reported) GETS EVERY 2 WEEKS ON TUESDAYS Allergies Coded Allergies: No Known Allergies (Unverified , 09/05/20) DAVID ALFORD DO Mar 17, 2021 12:57
== END 2021-03-17 11:44 | disposition home or self-care (01) | DRG 189 ==
LOC: M ED 17:47 → M ED INP 23:59 → M PCU 03-15 01:35
PROVIDERS: ADMIT Family Medicine; ATTEND Internal Medicine
DX: J96.21 Acute and chronic respiratory failure with hypoxia (principal); J44.1 Chronic obstructive pulmonary disease with (acute) exacerbation; C34.90 Malignant neoplasm of unspecified part of unspecified bronchus or lung; Z99.81 Dependence on supplemental oxygen; Z87.891 Personal history of nicotine dependence; E78.5 Hyperlipidemia, unspecified; Z20.822 Contact with and (suspected) exposure to COVID-19; R00.0 Tachycardia, unspecified; Z79.899 Other long term (current) drug therapy

== ENCOUNTER 2021-03-30 16:43 | Emergency (ER) | payer MEDICARE, BC ==
[~2021-03-30] VITALS: Ht 170.2 cm; Wt 57.3 kg
[~2021-03-30 16:43] MED LIST changes: +B-12100020 PO; +DURVALUMAB; +METO1TAB7 PO; +SYMB16INH INH
[2021-03-30] MEDS ORDERED: ALBU83IN PO (17:10)
[2021-03-30] MEDS ORDERED: CLAR10CA3 PO (17:10)
[2021-03-30] MEDS ORDERED: methylPREDNISolone 125MG 2ML VIAL IV ONE (17:15)
[2021-03-30] MEDS: COMBIVENT RESPIMAT 100-20MCG INHALER 4GM INH SCH ×2 (17:29→17:36)
--- NOTE | 2021-03-30 17:44 | REP ---
INDICATION: DYSPNEA/COUGH COMPARISON: 03/14/2021 TECHNIQUE: Portable AP view of the chest FINDINGS: The mediastinum and cardiac silhouette are stable and surgical clips overlie the right hilum. The lung watson demonstrate chronic changes without acute consolidation, effusion, or pneumothorax. Skeletal structures are intact. IMPRESSION: No acute cardiopulmonary process appreciated. <Electronically signed by Nito Noel > 03/30/21 [id number]
[2021-03-30] MEDS ORDERED: PRED20TA PO (18:24)
[2021-03-30 18:28] LABS: VENOUS BASE EXCESS 1.6 (-2.0-2.0); VENOUS O2 SATURATION 41.1 % (60.0-80.0); VENOUS PARTIAL PRESSURE CO2 57.7 mmHg (38.0-50.0); VENOUS PARTIAL PRESSURE O2 26.4 mmHg (30.0-50.0); VENOUS PH 7.319 UNITS (7.330-7.430); VENOUS STANDARD HCO3 24.6 MEQ/L; VENOUS TOTAL CO2 30.8 MEQ/L (24.0-28.0)
[2021-03-30 18:35] LABS: BASO # 0.1 10^3/uL (0.0-0.2); BASO % 0.5 % (0.0-1.0); EOS # 0.4 10^3/uL (0.0-0.5); EOS % 4.7 % (0.0-3.0); HEMATOCRIT 41.4 % (36.0-47.0); HEMOGLOBIN 12.8 g/dl (12.0-15.5); LYMPH # 0.8 10^3/uL (1.5-5.0); LYMPH % 8.9 % (24.0-44.0); MEAN CORPUSCULAR HEMOGLOBIN 31.4 pg (27.0-33.0); MEAN CORPUSCULAR HGB CONC 30.9 g/dl (32.0-36.5); MEAN CORPUSCULAR VOLUME 101.5 fl (80.0-96.0); MONO # 1.1 10^3/uL (0.0-0.8); MONO % 11.8 % (2.0-8.0); NEUTROPHILS # 6.7 10^3/uL (1.5-8.5); NEUTROPHILS % 73.1 % (36.0-66.0); PLATELET COUNT, AUTOMATED 241 10^3/uL (150-450); RED BLOOD COUNT 4.08 10^6/uL (4.00-5.40); WHITE BLOOD COUNT 9.2 10^3/uL (4.0-10.0)
[2021-03-30 19:05] LABS: ALBUMIN 3.8 GM/DL (3.2-5.2); ALT/SGPT 39 U/L (12-78); BILIRUBIN,DIRECT < 0.1 MG/DL (0.0-0.2); BILIRUBIN,TOTAL 0.3 MG/DL (0.2-1.0); BLOOD UREA NITROGEN 12 MG/DL (7-18); CALCIUM LEVEL 10.3 MG/DL (8.8-10.2); CARBON DIOXIDE LEVEL 30 MEQ/L (21-32); CHLORIDE LEVEL 104 MEQ/L (98-107); CK-MB VALUE MASS < 1.0 NG/ML (<3.6); CPK CREATINE PHOSPHOKINASE 46 U/L (26-192); GLOMERULAR FILTRATION RATE > 60.0 (>45); GLUCOSE, FASTING 88 MG/DL (70-100); MB/CK RELATIVE INDEX 2.17 (< OR =4); POTASSIUM SERUM 4.5 MEQ/L (3.5-5.1); SODIUM LEVEL 144 MEQ/L (136-145); TOTAL PROTEIN 7.4 GM/DL (6.4-8.2); TROPONIN I < 0.02 NG/ML (< 0.10)
[2021-03-30] MEDS ORDERED: IPRATROPIUM 0.5MG/ALBUTEROL 2.5MG INH SOL UD 3ML (DUONEB) NEB ONE (20:25)
[2021-03-30] MEDS ORDERED: IPRATROPIUM 0.5MG/ALBUTEROL 2.5MG INH SOL UD 3ML (DUONEB) As Ordered ONE (20:26)
[2021-03-30 20:31] VITALS: BP 133/67
--- NOTE | 2021-03-31 21:20 | ECGEPIP ---
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
== END 2021-03-30 20:31 | disposition home or self-care (01) ==
LOC: M ED 16:43
DX: J44.9 Chronic obstructive pulmonary disease, unspecified (principal); I45.19 Other right bundle-branch block; I51.7 Cardiomegaly; I45.89 Other specified conduction disorders; E78.5 Hyperlipidemia, unspecified; C34.90 Malignant neoplasm of unspecified part of unspecified bronchus or lung; Z92.21 Personal history of antineoplastic chemotherapy; Z90.49 Acquired absence of other specified parts of digestive tract; K57.32 Diverticulitis of large intestine without perforation or abscess without bleeding; Z87.891 Personal history of nicotine dependence; Z79.899 Other long term (current) drug therapy
CPT/HCPCS: 71045; 80048; 80076; 82550; 82553; 82803; 84484; 85025; 87798; 93005; 93041; 94640; 96374; 99285; J2930

== ENCOUNTER → 2021-04-28 | Outpatient (CLI) | payer MEDICARE, BC ==
[~2021-04-28] MED LIST changes: +ALBU83IN INH; +ALBU83IN PO; +AZIT500T5 PO; +CLAR10CA3 PO; +IMIT50TA PO; +IPRAINH INH; +LORA-674 PO; +MAGN400T2 PO; -OMEP-221 PO; +OMEP10CASR PO; +OMEP40CA5 PO; +ONDA-84 PO; +ONDA8TAB8 PO; +PROC10TA5 PO; +PROC5TAB57 PO; +SUMA25TA3 PO; +YUPE175S INH
== END ==
LOC: M PLARAD 08:29
PROVIDERS: ATTEND Internal Medicine Pulmonary Disease
DX: C34.11 Malignant neoplasm of upper lobe, right bronchus or lung (principal); R91.8 Other nonspecific abnormal finding of lung field; R93.2 Abnormal findings on diagnostic imaging of liver and biliary tract; R93.89 Abnormal findings on diagnostic imaging of other specified body structures
CPT/HCPCS: 78815; A9552

== ENCOUNTER → 2021-07-11 | Outpatient (CLI) | payer MEDICARE, BC ==
[~2021-07-11] MED LIST changes: -ALBU83IN INH; -AZIT500T5 PO; -IMIT50TA PO; -IPRAINH INH; -LORA-674 PO; -MAGN400T2 PO; +OMEP-221 PO; -OMEP10CASR PO; -OMEP40CA5 PO; -ONDA-84 PO; -ONDA8TAB8 PO; -PROC10TA5 PO; -PROC5TAB57 PO; -SUMA25TA3 PO; -YUPE175S INH
--- NOTE | 2021-07-11 12:14 | REP ---
INDICATION: MALIGNANT NEOPLASM RT LUNG COMPARISON: Multiple the latest 03/14/2021 a contrast-enhanced exam TECHNIQUE: Standard helical technique without contrast FINDINGS: Allowing for the differences in the exams the mediastinum and pulmonary sonia appear unchanged. There are no pleural or pericardial effusions. There is no significant change in the appearance of the imaged upper abdomen or imaged osseous structures. Evaluation of the lung watson shows a new 7 mm size nodule with irregular margins in the superior segment of the right lower lobe. The lung watson are otherwise unchanged. IMPRESSION: There is a new 7 mm sized irregular nodule in the superior segment of the right lower lobe which is concerning. PET-CT is recommended. <Electronically signed by Joel Sánchez > 07/11/21 0994
== END ==
LOC: M PLAIMG 10:34
PROVIDERS: ATTEND Internal Medicine Pulmonary Disease
DX: C34.11 Malignant neoplasm of upper lobe, right bronchus or lung (principal)

== ENCOUNTER 2021-08-03 17:14 | Inpatient (IN) | payer MEDICARE, BC ==
[~2021-08-03] VITALS: Ht 170.2 cm; Wt 58.0 kg
[2021-08-03] MEDS ORDERED: OMEP10CASR PO (17:31)
[2021-08-03] MEDS ORDERED: PROC5TAB57 PO (17:31)
[2021-08-03] MEDS ORDERED: IMIT50TA PO (17:31)
[2021-08-03] MEDS ORDERED: ONDA8TAB8 PO (17:31)
[2021-08-03] MEDS ORDERED: COMBIVENT RESPIMAT 100-20MCG INHALER 4GM INH ONE (17:35)
[2021-08-03] MEDS ORDERED: methylPREDNISolone 125MG 2ML VIAL IV ONE (17:35)
[2021-08-03 17:45] LABS: VENOUS BASE EXCESS 0.4 (-2.0-2.0); VENOUS HCO3 26.5 MEQ/L (23.0-27.0); VENOUS O2 SATURATION 80.8 % (60.0-80.0); VENOUS PARTIAL PRESSURE CO2 48.3 mmHg (38.0-50.0); VENOUS PH 7.357 UNITS (7.330-7.430); VENOUS STANDARD HCO3 24.5 MEQ/L
[2021-08-03 17:48] LABS: BASO # 0.1 10^3/uL (0.0-0.2); BASO % 0.7 % (0.0-1.0); EOS # 0.3 10^3/uL (0.0-0.5); EOS % 3.7 % (0.0-3.0); HEMATOCRIT 40.7 % (36.0-47.0); HEMOGLOBIN 12.8 g/dl (12.0-15.5); LYMPH # 1.2 10^3/uL (1.5-5.0); LYMPH % 13.5 % (24.0-44.0); MEAN CORPUSCULAR HEMOGLOBIN 30.4 pg (27.0-33.0); MEAN CORPUSCULAR HGB CONC 31.4 g/dl (32.0-36.5); MEAN CORPUSCULAR VOLUME 96.7 fl (80.0-96.0); MONO # 1.1 10^3/uL (0.0-0.8); MONO % 12.3 % (2.0-8.0); NEUTROPHILS # 6.2 10^3/uL (1.5-8.5); NEUTROPHILS % 69.2 % (36.0-66.0); PLATELET COUNT, AUTOMATED 244 10^3/uL (150-450); RED BLOOD COUNT 4.21 10^6/uL (4.00-5.40); WHITE BLOOD COUNT 8.9 10^3/uL (4.0-10.0)
--- NOTE | 2021-08-03 17:51 | REP ---
INDICATION: DYSPNEA/COUGH. COMPARISON: Portable chest, 03/30/2021. TECHNIQUE: Upright AP portable chest image was obtained. FINDINGS: The lungs are clear. The heart borders are normal. There is a chemotherapy port via the left subclavian vein with the tip in the superior vena cava. IMPRESSION: No evidence of acute cardiopulmonary pathology. No significant change. <Electronically signed by Daniele Ashby > 08/03/21 [id number]
--- OUTSIDE RECORDS SUMMARY | 2021-08-03 18:24 | CCD | Continuity of Care Document ---
Author Author Shiloh TOBAR M.D. Organization Unknown Address [address] [place] [address] Phone [phone] Care Team Providers Care Reel Worker Name Role Phone [facility] [phone] [facility]ology [facility] Hep[facility] - Gastroenterology [facility]M [phone] [facility] [phone] Problems Active Problems Provider Date Chronic obstructive lung disease Glory Tobar M.D. On set: 12/17/2010 Mixed hyperlipidemia Glory Tobar M.D. Onset: 021 Essential hypertension Glory Tobar M.D. Onset: 03/20 Social History Type Date Description Comments Sex Unknown Tobacco Use Start: Unknown Never Used Smokeless Tobacco ETOH Use Denies alcohol use Recreational Drug Use Denies Drug Use Tobacco Use Start: Unknown End: Unknown Patient is a former smoker quit 02/15/18. Prior smoker since age 15 09/21-1 ppd Smoking Status Reviewed: 07/17/21 Patient is a former smoker qu it 02/15/18. Prior smoker since age 15 2-1 ppd Exercise Type/Frequency Does not exercise Tattoo/Piercing Pierced ears Sun Exposure Minimum amount of sun exposure Sun Exposure Uses sunscreen Seat Belt/Car Seat Always uses seat belt Bike Helmet Never Does not bike ri de Smoke Alarms Yes Smoke Alarms Carbon Monoxide Detector: No Allergies and adverse reactions Active Allergies Criticality Reaction | Severity Comments Date Moxifloxacin Unable to assess criticality 08/25/2019 Inactive Allergies NKDA Unable to assess criticality 02/24/2004 Medications Active Medications SIG Qnty Indications Ordering Provide r Date Levofloxacin 500mg Tablets 1 by mouth every day 7tabs Glory Tobar M.D. 021 Metoprolol Succinate ER 50mg Tablets ER 24HR 1 by mouth every day 90tabs Leah Henderson FNP 04/18/2021 Prednisone 10mg Tablets 4 tabs x 3 days then 3 tabs x 3 days 3 days then 2 tabs x 3 days then 1 tab x 3 days then stop. 32tabs Glory Tobar M.D. 03/17/2021 Compazine 10 MG one q6h prn N/V Glory Tobar M.D. 12/31/2020 Simvastatin 20mg Tablets Take 1 Tablet By Mouth Every Day 90tabs Glory Tobar M.D. 018 Levalbuterol Tartrate 45mcg/Act Ae rosol 2 puffs every 4-6 hours as needed for coughing/wheezing 45gm Glory Tobar M.D. 03/25/2018 Amlodipine Besylate 5mg Tablets Take 1 Tablet By Mouth Every Day For Blood Pressure 90tabs Glory Mccarthy M.D. 02/18/2018 Aerochamber Mini Aerosol Chamber Device as directed 1units J20.9 Glory Tobar M.D. 017 Venlafaxine HCL 75mg Tablets Take One Tablet By Mouth Every Day For Hot Flashes. 30tabs Glory Thomson ams, M.D. 02/19/2013 Albuterol Sulfate (2 .5mg/3ML) 0.083% Nebulizer 1 unit dose ampule in nebulizer and inha led up to 4 times a day for coughing and wheezing Unknown Vitamin B12 1000mcg Tablets ER 1 by mouth every day Unknown Budesonide 1mg/2ML Suspension inhale 1mg via nebulizer twice a day Unknown Mucinex 600mg Tablets ER 12HR 1 by mouth twice a day Unknown Yupelri 175mcg/3ML Solution Unknown Gas-X Prevention Capsules Unknown Imitrex 25mg Tablets take one by mouth at onset of migraine. may repeat in 2 hours if headache has not resolved. Unknown Lidocaine-Prilocaine 2.5-2.5% Cream Unknown Omeprazole 20mg Capsules DR 1 by mouth every day Unknown Zofran 8mg Tablets one tab by mouth every 6 hour as needed for n/v Unknown Senokot 8.6 MG one at hs Unknown Colace 100mg Capsules 2 cap by mouth twice a day as needed Unknown Vitamin D3 5000Unit Tablets 1 po qd Unknown Claritin 10mg Tablets 1 by mouth every day Unknown Azithromycin 500mg Solution Rec 1 tab po on Wed, Wed and Fridays Unknown Symbicort 80-4.5mcg/Act Aerosol inhale two puffs by mouth twice a day Unknown Calcium + D3 Tablets one po qd Unknown Flonase 50mcg/Act Suspension two sprays to each side of nose once daily 1bottle Unknown History Medications Clotrimazole 10mg Carlos dissolve one in mouth four times a day x 10 day 40units B37.81 Glory Tobar M.D. 07/10/2021 - 07/20/2021 Ciprofloxacin HCL 500mg Tablets 1 by mouth twice a day 20tabs K57.92 Glory Tobar M.D. 021 - 04/21/2021 Metronidazole 500mg Tablets 1 by mouth three times a day 30tabs K57.92 Glory Tobar M.D. 04/11 - 04/21/2021 Metoprolol Succinate ER 50mg Tablets ER 24HR 1 by mouth every day (x 30 days) Unkno wn 03/17/2021 - 04/16/2021 Immunizations CPT Code Status Date Vaccine Lot # [id number] Given 07/10/2021 Pneumococcal Vaccine [id number] Given 06/24/2021 Influenza Virus Vaccine, Eddi drivalent,multidose vial [id number] 42992 Given 12/11/2020 Moderna Sars-(Co vid-19) vaccine, mRNA, LNP-S, PF, 100 mcg/ 0.5 mL 91872 Given 11/16/2020 Moderna Sars-(Co vid-19) vaccine, mRNA, LNP-S, PF, 100 mcg/ 0.5 mL 64905 Given 05/14/2020 Influenza Virus Vaccine, Eddi drivalent,multidose vial 28671 Given 05/12/2019 Influenza Virus Vaccine, Eddi drivalent,multidose vial 76812 Given 06/30/2018 Influenza Virus Vaccine, Eddi drivalent,multidose vial [id number] 82366 Given 07/06/2017 Influenza Vaccination [id number] 97697 Given 07/24/2016 Influenza Vaccination 51602 Given 05/06/2016 Boostrix (Tdap) Tetnus, Diphtheria Toxoids & Acellular Pertussis [id number] 71732 Given 11/06/2015 Prevnar 13 For Adults [id number] 62196 Given 07/04/2015 Influenza Vaccination [id number] 48171 Given 06/06/2014 Influenza Vaccination [id number] 21642 Given 06/16/2013 Influenza Vaccination [id number] 92001 Given 06/17/2012 Influenza Vaccination [id number] 04409 Given 06/24/2011 Pneumococcal Vaccine [id number] 34936 Given 06/11/2011 Influenza Vaccination 85581 Given 06/11/2011 Influenza Vaccination 77295 Given 05/21/2010 Influenza Vaccination [id number] 76446 Given 09/03/2009 H1N1 Vaccine 77134 Given 06/27/2009 Influenza Vaccination [id number] 69468 Given 06/29/2008 Influenza Vaccination [id number] 33847 Given 08/10/2007 Influenza Vaccination [id number] 09986 Given 07/16/2005 Influenza Vaccination [id number] 91756 Given 08/29/2004 Influenza Vaccination Vital Signs Date Vital Result Comment 07/10/2021 9:46am BP Systolic 147 mmHg BP Diastolic 82 mmHg BP Systolic Recheck 110 mmHg BP Diastolic Recheck 67 mmHg Heart Rate 93 /min Body Temperature 97.1 F Respiratory Rate 20 /min Height 67.0 inches 5'7" Weight 124.25 lb O2 % BldC Oximetry 96 % Peak Expiratory Flow Rate 353 Estimated Peak Flow Rate [place] Body Weight 135 lb BMI (Body Mass Index) 19.5 kg/m2 06/24/2021 9:02am Body Temperature 97.6 F Height 67.0 inches 5'7" Weight 125.12 lb Peak Expiratory Flow Rate 353 Estimated Peak Flow Rate [place] Body Weight 135 lb BMI (Body Mass Index) 19.6 kg/m2 Results Test Acquired Date Facility Test Result H/L Range Note Laboratory test finding 07/17/2021 [facility] [address] [place], [place] [id number] [phone] [facility] Covid19 negative CBC With Differential 02/27/2021 Patient Service [facility] [place] [address] [phone] White Blood Count 6.3 10 Normal 4.0-10.0 Red Blood Count 3.56 10 Low 4.00-5.40 Hemoglobin 11.6 g/dL Low 12.0-15.5 Hematocrit 36.2 % Normal 36.0-47.0 Mean Corpuscular Volume 101.7 fl High 80.0-96.0 Mean Corpuscular Hemoglobin 32.6 pg Normal 27.0-33.0 Mean Corpuscular HGB Conc 32.0 g/dL Normal 32.0-36.5 Red Cell Distribution Width 12.8 % Normal 11.5-14.5 Platelet Count, Automated 280 10 Normal 150-450 Neutrophils % 72.5 % High 36.0-66.0 Lymph % 9.8 % Low 24.0-44.0 [place] % 14.1 % High 2.0-8.0 Eos % 2.7 % Normal 0.0-3.0 Baso % 0.6 % Normal 0.0-1.0 Immature Granulocyte % 0.3 % Normal 0-3.0 Nucleated Red Blood Cell % 0.0 % Normal 0-0 Neutrophils # 4.6 10 Normal 1.5-8.5 Lymph # 0.6 10 Low 1.5-5.0 [place] # 0.9 10 High 0.0-0.8 Eos # 0.2 10 Normal 0.0-0.5 Baso # 0.0 10 Normal 0.0-0.2 Comprehensive Metabolic Profil 02/27/[address] [place] [address] [phone] Glucose, Fasting 93 mg/dL Normal 70-100 Blood Urea Nitrogen 11 mg/dL Normal 7-18 Creatinine For GFR 0.79 mg/dL Normal 0.55-1.30 Glomerular Filtration Rate > 60.0 Normal >45 1 Sodium Level 137 mEq/L Normal 136-145 Potassium Serum 3.7 mEq/L Normal 3.5-5.1 Chloride Level 99 mEq/L Normal 98-107 Carbon Dioxide Level 31 mEq/L Normal 21-32 Anion Gap 7 mEq/L Low 8-16 Calcium Level 9.3 mg/dL Normal 8.8-10.2 Ast/Sgot 11 U/L Normal 7-37 Alt/SGPT 19 U/L Normal 12-78 Alkaline Phosphatase 95 U/L Normal 45-117 Bilirubin,Total 0.3 mg/dL Normal 0.2-1.0 Total Protein 6.8 GM/DL Normal 6.4-8.2 Albumin 3.3 GM/DL Normal 3.2-5.2 Albumin/Globulin Ratio 0.9 Low 1.2-2.2 1 Units are mL/min/1.73 m2 Chronic Kidney Disease Staging per NKF: Stage I & II GFR >=60 Normal to Mildly Decreased Stage III GFR 30-59 Moderately Decreased Stage IV GFR 15-29 Severely Decreased Stage V GFR <15 Very Little GFR Left ESRD GFR <15 on DAY TRADER Procedures Date Code Description Status 07/17/2021 04810 Office/Outpatient Established Mo d MDM 30-39 Min Completed 04/11/2021 98729 Office/Outpatient Established Mo d MDM 30-39 Min Completed 03/20/2021 84695 Cervantes Cre W/I 7 Days Of DC, Comm W/I 2 Dys Completed 08/06/2020 81778862 Mammogram Completed 10/24/2019 882282135 Bone Mineral Density Test Comple [place] 2015 [id number] Mammogram Completed Medical Devices Description No Information Available Encounters Type Date Location Provider Dx Diagnosis Office Visit 07/17/2021 1:30p Main Office Glory Tobar M.D. J 44.1 Chronic obstructive pulmonary disease w (acute) exacerbation C34.11 Malignant neoplasm of upper lobe, right bronchus or lung Office Visit 07/10/2021 9:30a Main Office Glory Tobar M.D. Z 00.00 Encntr for general adult medical exam w/o abnormal findings B37.81 Candidal esophagitis J44.9 Chronic obstructive pulmonar y disease, unspecified C34.11 Malignant neoplasm of upper lobe, right bronchus or lung Z00.00 Encntr for general adult med ical exam w/o abnormal findings E78.2 Mixed hyperlipidemia Z23 Encounter for immunization Office Visit 04/11/2021 11:30a Main Office Glory Tobar M.D. K 57.92 Dvtrcli of intest, part unsp, w/o perf or abscess w/o bleed Office Visit 03/20/2021 10:00a Main Office Glory Tobar M.D. J 44.9 Chronic obstructive pulmonary disease, unspecified C34.11 Malignant neoplasm of upper lobe, right bronchus or lung Assessments Date Code Description Provider 07/17/2021 J44.1 Chronic obstructive pulmonary disease with (acute) exacerbation Glory Tobar M.D. 07/17/2021 C34.11 Malignant neoplasm of upper lobe , right bronchus or lung Glory Tobar M.D. 07/10/2021 Z00.00 Encounter for genera l adult medical examination without abnormal findings Glory Tobar M.D. 07/10/2021 B37.81 Candidal esophagitis Santhosh Tobar M.D. 07/10/2021 J44.9 Chronic obstructive pulmonary di sease, unspecified Glory Tobar M.D. 07/10/2021 C34.11 Malignant neoplasm of upper lobe , right bronchus or lung Glory Tobar M.D. 07/10/2021 Z00.00 Encounter for genera l adult medical examination without abnormal findings Glory Tobar M.D. 07/10/2021 E78.2 Mixed hyperlipidemia Santhosh Tobar M.D. 07/10/2021 Z23 Encounter for immunization Glory Thomson ams, M.D. 06/24/2021 Z23 Encounter for immunization Glory Thomson ams, M.D. 04/11/2021 K57.92 Diverticulitis of in testine, part unspecified, without perforation or abscess without bleeding Glory Tobar M.D. 03/20/2021 J44.9 Chronic obstructive pulmonary di sease, unspecified Glory Tobar M.D. 03/20/2021 C34.11 Malignant neoplasm of upper lobe , right bronchus or lung Glory Tobar M.D. Plan of Treatment Future Appointment(s):* 01/08/2022 9:45 am - Glory Tobar M.D. at Main Office 07/17/2021 - Glory Tobar M.D.* J44.1 Chronic obstructive pulmonary disease with (acute) exacerbation* Comments:* COVID testing negative, steroid taper and anitbiotics. * C34.11 Malignant neoplasm of upper lobe, right bronchus or lung * All * New Medication:* Levofloxacin 500 mg - 1 by mouth every day Functional Status Functional Condition Comment Date Status Bifocal glasses Active Independent with all ADL's Activ e Complete lower and upper and lower dentures Active Oxygen 1.5 L Uses at night Active Mental Status Mental Condition Comment Date Status None Active Referrals Description No Information Available
--- OUTSIDE RECORDS SUMMARY | 2021-08-03 18:24 | CCD | Continuity of Care Document ---
Author Author Shiloh SARMIENTO M.D. Organization Unknown Address [address] [place] [address] Phone [phone] Care Team Providers Care Operations Boardman Name Role Phone Glory Luo M.D. AUTM [phone] AUTM Unavailable Oscar Betancur M.D. AUTM [phone] Problems Active Problems Provider Date Chronic obstructive lung disease Rowan Truong Onset: 06/30/2011 Difficulty breathing Martha Bo M.D. Onset: Cough Martha Bo M.D. Onset: Wheezing Martha Bo M.D. Onset: Posterior rhinorrhea Martha Bo M.D. Onset: Tobacco user Martha Bo M.D. Onset: Body mass index less than 20 Martha Bo M.D. O nset: 04/19/2014 Allergic asthma without status asthmaticus Zach honeycutt, DO Onset: 07/04/2014 Nicotine dependence, cigarettes, with other nicotine-i nduced disorders Martha Bo M.D. Onset: 03/11/2016 Social History Type Date Description Comments Sex Unknown ETOH Use Occasionally consumes beer Tobacco Use Start: Unknown End: Patient is a former smoker hx:1ppd since age 15 Recreational Drug Use Denies Drug Use Smoking Status Reviewed: 04/02/21 Patient is a former smoker hx :1ppd since age 15 Allergies, Adverse Reactions, Alerts Active Allergies Criticality Reaction | Severity Comments Date Avelox Unable to assess criticality shakiness 11/10/2011 Inactive Allergies NKDA Unable to assess criticality 05/19/2011 Medications Active Medications SIG Qnty Indications Ordering Provide r Date Symbicort 160-4.5mcg/Act Aerosol Take 2 Puffs By Mouth Twice A Day 30.6Inhaler Lexis Sarmiento M.D. 05/26/2021 Prednisone 10mg Tablets 0.5-1 tab by mouth as needed 30tabs Lexis Hawley M.D. 05/12/2021 Azithromycin 500mg Tablets take 1 tablet by mouth wednesday, wednesday, and wednesday 12tabs Laisha Hawley M.D. 04/02/2021 Yupelri 175mcg/3ML Solution 1 vial nebulized once a day 90ml Lexis Hawley M.D. 2020 Budesonide 1mg/2ML Suspension 1 vial via nebulizer twice a day as needed 120ml Lexis Hawley M.D. 04/02/2021 Oxygen Device 2l lcw Lexis Sarmiento M.D. 02/27/2021 Albuterol Sulfate (2 .5mg/3ML) 0.083% Nebulizer 1 vial four times a day as needed 360ml Lexis Hawley M.D. 04/21/2018 Fluticasone Propionate 50mcg/Act Suspension 2 sprays to each nostril daily 1units Martha Bo M.D. 11/23/2012 Vitamin D-3 125mcg (5000 Ut) Tablets 1 qd Unknown Ondansetron 8mg Tablets Dispers 1 tab by mouth every 8 hours as needed Unknown Imitrex 25mg Tablets 1 tab by mouth as needed Unknown Claritin 10mg Capsules 1 tab by mouth every 6 hours as needed Unknown 00 Vitamin B-12 1000mcg Tablets Sub 1 tab by mouth every day Unknown Metoprolol Succinate ER 50mg Tablets ER 24HR Take 1 Tablet By Mouth Every Day Unknown Omeprazole 40mg Capsules DR 1 by mouth every day Unknown Carafate 1gm Tablets 1 tab by mouth with meals and at bedtime as needed Unknown 0 Miralax Powder 17 g in 8 oz of water or juice by mouth every day as needed for constipation Unknown Levalbuterol Tartrate 45mcg/Act Ae rosol 1 puff inhaled every 6 hours as needed Unknown Amlodipine Besylate 5mg Tablets 1 by mouth every day Unknown Calcium 600 + D [id number] Tab lets 1 po every day Unknown Venlafaxine HCL 75mg Tablets 1 po every day Glory Luo M.D. Simvastatin 20mg Tablets 1 po every day Glory Luo M.D. History Medications Prednisone 10mg Tablets 1 tab by mouth for 7 days, decreased to 1/2 tab by mouth for 7 days and stop 14tabs J4 4.9 Lexis Sarmiento M.D. 04/02/2021 - 04/11/2021 Mucinex 600mg Tablets ER 12HR 1 by mouth twice a day 60tabs J44.9 Lexis Sarmiento M.D. 04/02/2021 - 04/11/2021 Symbicort 160-4.5mcg/Act Aerosol Take 2 Puffs By Mouth Twice A Day 30.6Inhaler Lexis Sarmiento M.D. 02/11/2021 - 05/26/2021 Prednisone 10mg Tablets 4 tabs by mouth daily for 3 days, then 3 tabs daily for 3 days, then 2 tabs daily for 3 days then 1 tab daily for 3 days 30tabs Lexis Sarmiento M.D. 02/04/2021 - 03/03/2021 Medications Administered in Office Medication SIG Qnty Indications Ordering Provider Date Covid-19 vaccine, Unspecified Inj ection Unknown 12/11/2020 Covid-19 vaccine, Unspecified Inj ection Unknown 11/13/2020 Immunizations CPT Code Status Date Vaccine Lot # [id number] Given 07/26/2019 Flublock, Quadrivalent 27966 Given 08/12/2015 Prevnar 13 71620 Given 08/12/2015 Influenza Virus Split 3 Yrs And Above For Intramuscular Use 53965 Given 06/22/2013 Influenza Virus Split 3 Yrs And Above For Intramuscular Use 87503 Given 07/22/2012 Pneumococcal PPSV23 05425 Given 07/22/2012 Influenza Virus Split 3 Yrs And Above For Intramuscular Use 04020 Given 08/17/2011 Influenza Virus Split 3 Yrs And Above For Intramuscular Use 55353 Given 06/22/2011 Pneumococcal PPSV23 38063 Given 06/11/2011 Influenza Vaccine 64332 Given 07/25/2010 Influenza Vaccine 98278 Given Unknown Pneumococcal PPSV23 47287 Given Unknown TB Intradermal Test Vital Signs Date Vital Result Comment 05/12/2021 1:08pm BP Systolic 116 mmHg BP Diastolic 62 mmHg Heart Rate 100 /min O2 % BldC Oximetry 90 % Height 67 inches 5'7" Weight 126.00 lb BMI (Body Mass Index) 19.7 kg/m2 [place] Body Weight 135 lb Weight 57.154 kg BSA (Body Surface Area) 1.66 m2 04/02/2021 2:39pm BP Systolic 126 mmHg BP Diastolic 76 mmHg Heart Rate 121 /min O2 % BldC Oximetry 94 % Height 67 inches 5'7" [place] Body Weight 135 lb Results Test Acquired Date Facility Test Result H/L Range Note FVL/Billy 12/19/2020 [facility] SEE IMAGE FVC-Pred 3.63 L FVC-Pre 1.56 L FVC-%Pred-Pre 42 L FVC-LLN 2.85 L Fev1-Pred 2.78 L Fev1-Pre 0.80 L Fev1-%Pred-Pre 28 L Fev1-LLN 2.12 L Fev6-Pred 3.49 L Fev6-Pre 1.56 L Fev6-%Pred-Pre 44 L Fev6-LLN 2.72 L Ale4dev-Cmmc 77 % Xqm0sym-Cvu 52 % Fla6scq-%Pred-Pre 67 % Jwt1wii-PVK 67 % Pzw2jgg-Hlno 96 % Laz6hsg-Nnj 100 % Jyw8xpk-%Pred-Pre 104 % FEFMax-Pred 6.56 L/E/sec FEFMax-Pre 2.19 L/E/sec FEFMax-%Pred-Pre 33 L/E/sec FEFMax-LLN 4.63 L/E/sec Eny8922-Jhcp 2.32 L/E/sec Zmg9353-Ghl 0.42 L/E/sec Cgn1758-%Pred-Pre 18 L/E/sec Iia4121-GKG 0.92 L/E/sec ExpTime-Pre 4.41 sec Ojp0fag4-Gjke 80 % Ntg6iyl1-Pdy 52 % Bda2ond8-%Pred-Pre 64 % Kss3rew0-ZYK 71 % Procedures Date Code Description Status 05/12/2021 64528 Office/Outpatient Established Mo d MDM 30-39 Min Completed 04/02/2021 20366 Office/Outpatient Established Mo d MDM 30-39 Min Completed 03/27/2021 74352 Measure Blood Oxygen Level Levi belkis Overnight Monitor Completed 02/26/2021 88820 Office/Outpatient Established Mo d MDM 30-39 Min Completed 12/19/2020 56893 Office/Outpatient Established Mo d MDM 30-39 Min Completed 12/19/2020 81862 Spirometry Completed Medical Devices Description No Information Available Encounters Type Date Location Provider Dx Diagnosis Office Visit 05/12/2021 1:00p [facility] Lexis Mendieta M.D. 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 05/12/2021 Z87.891 Personal history of nicotine dep endence Lexis Sarmiento M.D. 05/12/2021 C34.11 Malignant neoplasm of upper lobe , right bronchus or lung Lexis Sramiento M.D. 05/12/2021 C77.1 Secondary and unspec ified malignant neoplasm of intrathoracic lymph nodes Lexis Sarmiento M.D. 04/02/2021 J44.9 Chronic obstructive pulmonary di sease, unspecified Lexis Sarmiento M.D. 04/02/2021 Z87.891 Personal history of nicotine dep endence Lexis Sarmiento M.D. 04/02/2021 C34.11 Malignant neoplasm of upper lobe , right bronchus or lung Lexis Sarmiento M.D. 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 03/27/2021 J44.9 Chronic obstructive pulmonary di sease, unspecified Nocturnal Oximetry 02/26/2021 J44.9 Chronic obstructive pulmonary di sease, unspecified Lexis Sarmiento M.D. 02/26/2021 Z87.891 Personal history of nicotine dep endence Lexis Sarmiento M.D. 02/26/2021 C34.11 Malignant neoplasm of upper lobe , right bronchus or lung Lexis Sarmiento M.D. 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 12/19/2020 J44.9 Chronic obstructive pulmonary di sease, unspecified Lexis Sarmiento M.D. 12/19/2020 Z87.891 Personal history of nicotine dep endence Lexis Sarmiento M.D. 12/19/2020 C34.11 Malignant neoplasm of upper lobe , right bronchus or lung Lexis Sarmiento M.D. 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 (her oncologist may also order CT) Patient ordered for CT guided biopsy by oncology in [place], please pull results Functional Status Functional Condition Comment Date Status Independent with all ADL's Activ e Independent with all IADL's Acti ve Mental Status Mental Condition Comment Date Status Cognitive ability not impaired A ctive Referrals Refer to Reason for Referral Status Appt Date Radiology/Procedure 90428 Closed 04/28/2021
--- OUTSIDE RECORDS SUMMARY | 2021-08-03 18:24 | CCD | Continuity of Care Document ---
Author Author Rubinid-19 Shiloh Vargas Organization Unknown Address [address] [place] [address], [address] [place] [address] Phone [phone] Care Team Providers Care Durability Engineer Name Role Phone Kyle Singletary [facility] Glory Luo MD AUTM [phone] Problems Description No Information Available Social History Type Date Description Comments Sex Unknown Allergies, Adverse Reactions, Alerts Description No Information Available Medications Description No Information Available Immunizations Description No Information Available Vital Signs Description No Information Available Results Description No Information Available Procedures Date Code Description Status 05/28/2021 21644 Office/Outpatient Established Mi nimal Problem(S) Completed Medical Devices Description No Information Available Encounters Type Date Location Provider Dx Diagnosis Office Visit 05/28/2021 9:40a [facility] Covid-19 Testing Z20.822 Contact with and (suspected) exposure to Covid-19 Assessments Date Code Description Provider 05/28/2021 Z20.822 Contact with and (suspected) exp osure to Covid-19 Celso Hung MD 05/28/2021 Z20.822 Contact with and (suspected) exp osure to Covid-19 Covid-19 Testing Plan of Treatment No Information Available Functional Status Description No Information Available Mental Status Description No Information Available Referrals Description No Information Available
--- OUTSIDE RECORDS SUMMARY | 2021-08-03 18:24 | CCD | Continuity of Care Document ---
Author Author Shiloh TOBAR M.D. Organization Unknown Address [address] [place] [address] Phone [phone] Care Team Providers Care Front Desk Coordinator Name Role Phone [facility] AUTM [phone] [facility] - Gastroenterology AUTM [phone] [facility] AUTM [phone] Problems Active Problems Provider Date Chronic obstructive [...] every day 7tabs Glory Tobar M.D. 021 Clotrimazole 10mg Carlos dissolve one in mouth four times a day x 10 day 40units B37.81 Glory Tobar M.D. 07/10/2021 Metoprolol Succinate ER 50mg Tablets ER 24HR [...] Flashes. 30tabs Glory Thomson ams, M.D. 02/19/[address] 1 by mouth every day Unknown Lidocaine-Prilocaine 2.5-2.5% Cream Unknown Imitrex 25mg Tablets take one by mouth at onset of migraine. may repeat in 2 hours if headache has not resolved. Unknown Gas-X Prevention Capsules Unknown Yupelri 175mcg/3ML Solution Unknown Vitamin D3 5000Unit Tablets 1 po qd Unknown Mucinex 600mg Tablets ER 12HR 1 by mouth twice a day Unknown Budesonide 1mg/2ML Suspension inhale 1mg via nebulizer twice a day Unknown Albuterol Sulfate (2 .5mg/3ML) 0.083% Nebulizer 1 unit dose ampule in nebulizer and inha led up to 4 times a day for coughing and wheezing Unknown Zofran 8mg Tablets one tab by mouth every 6 hour as needed for n/v Unknown Senokot 8.6 MG one at hs Unknown Colace 100mg Capsules 2 cap by mouth twice a day as needed Unknown Vitamin B12 1000mcg Tablets ER 1 by mouth every day Unknown Claritin 10mg Tablets 1 by mouth every day Unknown Azithromycin 500mg Solution Rec 1 tab po on Wed, Wed and Fridays Unknown Symbicort 80-4.5mcg/Act Aerosol inhale two puffs by mouth twice a day Unknown Calcium + D3 Tablets one po qd Unknown Flonase 50mcg/Act Suspension two sprays to each side of nose once daily 1bottle Unknown History Medications Ciprofloxacin HCL 500mg Tablets 1 by mouth [...] CPT Code Status Date Vaccine Lot # [id number] Given 07/10/2021 Pneumococcal Vaccine [id number] 95876 Given 06/24/2021 Influenza Virus Vaccine, Eddi drivalent,multidose vial [id number] 59341 Given 12/11/2020 Moderna Sars-(Co vid-19) vaccine, mRNA, LNP-S, PF, 100 mcg/ 0.5 mL 28873 Given 11/16/2020 Moderna Sars-(Co vid-19) vaccine, mRNA, LNP-S, PF, 100 mcg/ 0.5 mL 77857 Given 05/14/2020 Influenza Virus Vaccine, Eddi drivalent,multidose vial 18028 Given 05/12/2019 Influenza Virus Vaccine, Eddi drivalent,multidose vial 79031 Given 06/30/2018 Influenza Virus Vaccine, Eddi drivalent,multidose vial [id number] 42670 Given 07/06/2017 Influenza Vaccination [id number] 81149 Given 07/24/2016 Influenza Vaccination 27132 Given 05/06/2016 Boostrix (Tdap) Tetnus, Diphtheria Toxoids & Acellular Pertussis [id number] 67787 Given 11/06/2015 Prevnar 13 For Adults [id number] 24817 Given 07/04/2015 Influenza Vaccination [id number] 23309 Given 06/06/2014 Influenza Vaccination [id number] 15078 Given 06/16/2013 Influenza Vaccination [id number] 43239 Given 06/17/2012 Influenza Vaccination [id number] 49268 Given 06/24/2011 Pneumococcal Vaccine [id number] 55957 Given 06/11/2011 Influenza Vaccination 47689 Given 06/11/2011 Influenza Vaccination 37014 Given 05/21/2010 Influenza Vaccination [id number] 85462 Given 09/03/2009 H1N1 Vaccine 57174 Given 06/27/2009 Influenza Vaccination [id number] 15721 Given 06/29/2008 Influenza Vaccination [id number] 82303 Given 08/10/2007 Influenza Vaccination [id number] 56489 Given 07/16/2005 Influenza Vaccination [id number] 56144 Given 08/29/2004 Influenza Vaccination Vital Signs Date [...] Flow Rate 353 Estimated Peak Flow Rate [place] Body Weight 135 lb BMI (Body Mass Index) 19.5 kg/m2 06/24/2021 9:02am Body Temperature 97.6 F Height 67.0 inches 5'7" Weight 125.12 lb Peak Expiratory Flow Rate 353 Estimated Peak Flow Rate [place] Body Weight 135 lb BMI (Body Mass Index) 19.6 kg/m2 Results Test Acquired Date Facility Test Result H/L Range Note Laboratory test finding 07/17/2021 [facility] [address] [place] [address] [phone] [facility] Covid19 negative CBC With Differential 02/27/2021 [place] [address] [phone] White Blood Count 6.3 10 Normal 4.0-10.0 [...] 36.0-66.0 Lymph % 9.8 % Low 24.0-44.0 Gila % 14.1 % High 2.0-8.0 Eos % 2.7 % Normal 0.0-3.0 Baso % 0.6 % Normal 0.0-1.0 Immature Granulocyte % 0.3 % Normal 0-3.0 Nucleated Red Blood Cell % 0.0 % Normal 0-0 Neutrophils # 4.6 10 Normal 1.5-8.5 Lymph # 0.6 10 Low 1.5-5.0 Gila # 0.9 10 High 0.0-0.8 Eos # 0.2 10 Normal 0.0-0.5 Baso # 0.0 10 Normal 0.0-0.2 Comprehensive Metabolic Profil 02/27/[address] [place] [address] [phone] Glucose, Fasting 93 mg/dL Normal 70-100 Blood [...] Little GFR Left ESRD GFR <15 on TIGHT ROPE WALKER Procedures Date Code Description Status 04/11/2021 40366 Office/Outpatient Established Mo d MDM 30-39 Min Completed 03/20/2021 48259 Cervantes Cre W/I 7 Days Of DC, Comm W/I 2 Dys Completed 08/06/2020 [id number] Mammogram Completed 10/24/2019 [id number] Bone Mineral Density Test Comple [place] 2015 [id number] Mammogram Completed Medical Devices Description No Information Available Encounters Type Date Location Provider Dx Diagnosis Office Visit 07/10/2021 9:30a Main Office Glory [...] or lung Assessments Date Code Description Provider 07/10/2021 Z00.00 Encounter for genera l adult [...] Main Office 07/17/2021 - Glory Tobar M.D.* All * New Medication:* Levofloxacin 500 mg [...]
--- OUTSIDE RECORDS SUMMARY | 2021-08-03 18:24 | CCD | Continuity of Care Document ---
Author Author Shiloh TOBAR M.D. Organization Unknown Address [address] [place] [address] Phone [phone] Care Team Providers Care Registered Dental Assistant Name Role Phone [facility] [phone] Gastroenterology & Hepatology [facility] - Gastroenterology AUTM [phone] [facility] AUTM [phone] Problems Active Problems Provider Date Chronic obstructive lung disease Glory Tobar M.D. On set: 12/17/2010 Mixed hyperlipidemia Glory Tobar M.D. Onset: 021 Essential hypertension Glory Tobar M.D. Onset: 03/20 Social History Type Date Description Comments Sex Unknown Tobacco Use Start: Unknown Never Used Smokeless Tobacco ETOH Use Occasionally consumes beer Recreational Drug Use Denies Drug Use Tobacco Use Start: Unknown End: Unknown Patient is a former smoker quit 02/15/18. Prior smoker since age 15 09/21-1 ppd Smoking Status Reviewed: 04/11/21 Patient is a former smoker qu it 02/15/18. Prior smoker since age 15 2-1 ppd Exercise Type/Frequency Does not exercise Tattoo/Piercing Pierced ears Sun Exposure Minimum amount of sun exposure Sun Exposure Uses sunscreen Seat Belt/Car Seat Always uses seat belt Bike Helmet Never Does not bike ri de Smoke Alarms Yes Smoke Alarms Carbon Monoxide Detector: No Allergies, Adverse Reactions, Alerts Active Allergies Criticality Reaction | Severity Comments Date Moxifloxacin Unable to assess criticality 08/25/2019 Inactive Allergies NKDA Unable to assess criticality 02/24/2004 Medications Active Medications SIG Qnty Indications Ordering Provide r Date Metoprolol Succinate ER 50mg Tablets ER 24HR 1 by mouth every day 90tabs Leah Henderson FNP 04/18/2021 Prednisone 10mg Tablets 4 tabs x 3 days then 3 tabs x 3 days 3 days then 2 tabs x 3 days then 1 tab x 3 days then stop. Unknown 03/17/2021 Compazine 10 MG one q6h prn [...] Flashes. 30tabs Glory Thomson ams, M.D. 02/19/2013 Claritin 10mg Tablets 1 by mouth every day Unknown Yupelri 175mcg/3ML Solution Unknown Mucinex 600mg Tablets ER 12HR 1 [...] 6 hour as needed for n/v Unknown 000 Senokot 8.6 MG one at hs Unknown Colace 100mg Capsules 2 cap by mouth twice a day as needed Unknown Vitamin B12 1000mcg Tablets ER 1 by mouth every day Unknown Vitamin D3 5000Unit Tablets 1 po qd Unknown Azithromycin 500mg Solution Rec 1 tab po on Wed, Wed and Fridays Unknown 00 Symbicort 80-4.5mcg/Act Aerosol inhale two puffs by [...] CPT Code Status Date Vaccine Lot # [id number] Given 06/24/2021 Influenza Virus Vaccine, Eddi drivalent,multidose vial [id number] 06653 Given 12/11/2020 Moderna Sars-(Co vid-19) vaccine, mRNA, LNP-S, PF, 100 mcg/ 0.5 mL 75975 Given 11/16/2020 Moderna Sars-(Co vid-19) vaccine, mRNA, LNP-S, PF, 100 mcg/ 0.5 mL 99449 Given 05/14/2020 Influenza Virus Vaccine, Eddi drivalent,multidose vial 57214 Given 05/12/2019 Influenza Virus Vaccine, Eddi drivalent,multidose vial 66634 Given 06/30/2018 Influenza Virus Vaccine, Eddi drivalent,multidose vial [id number] 48320 Given 07/06/2017 Influenza Vaccination [id number] 97331 Given 07/24/2016 Influenza Vaccination 35987 Given 05/06/2016 Boostrix (Tdap) Tetnus, Diphtheria Toxoids & Acellular Pertussis [id number] 58454 Given 11/06/2015 Prevnar 13 For Adults [id number] 95227 Given 07/04/2015 Influenza Vaccination [id number] 83218 Given 06/06/2014 Influenza Vaccination [id number] 62641 Given 06/16/2013 Influenza Vaccination [id number] 67561 Given 06/17/2012 Influenza Vaccination [id number] 58334 Given 06/24/2011 Pneumococcal Vaccine [id number] 98498 Given 06/11/2011 Influenza Vaccination 55191 Given 06/11/2011 Influenza Vaccination 76426 Given 05/21/2010 Influenza Vaccination [id number] 23316 Given 09/03/2009 H1N1 Vaccine 35098 Given 06/27/2009 Influenza Vaccination [id number] 74230 Given 06/29/2008 Influenza Vaccination [id number] 25654 Given 08/10/2007 Influenza Vaccination [id number] 18591 Given 07/16/2005 Influenza Vaccination [id number] 41589 Given 08/29/2004 Influenza Vaccination Vital Signs Date Vital Result Comment 06/24/2021 9:02am Body Temperature 97.6 F Height 67.0 inches 5'7" Weight 125.12 lb Peak Expiratory Flow Rate 353 Estimated Peak Flow Rate [place] Body Weight 135 lb BMI (Body Mass Index) 19.6 kg/m2 04/11/2021 11:30am BP Systolic 148 mmHg BP Diastolic 77 mmHg BP Systolic Recheck 115 mmHg BP Diastolic Recheck 71 mmHg Heart Rate 98 /min Body Temperature 97.4 F Respiratory Rate 24 /min Height 67.0 inches 5'7" Weight 126.00 lb O2 % BldC Oximetry 97 % Peak Expiratory Flow Rate 353 Estimated Peak Flow Rate [place] Body Weight 135 lb BMI (Body Mass Index) 19.7 kg/m2 Results Test Acquired Date Facility Test Result H/L Range Note CBC With Differential 02/27/2021 Patient Service Ce [facility] [place] [address] [phone] White Blood Count 6.3 10 Normal 4.0-10.0 [...] 36.0-66.0 Lymph % 9.8 % Low 24.0-44.0 [place] % 14.1 % High 2.0-8.0 Eos % 2.7 % Normal 0.0-3.0 Baso % 0.6 % Normal 0.0-1.0 Immature Granulocyte % 0.3 % Normal 0-3.0 Nucleated Red Blood Cell % 0.0 % Normal 0-0 Neutrophils # 4.6 10 Normal 1.5-8.5 Lymph # 0.6 10 Low 1.5-5.0 [place] # 0.9 10 High 0.0-0.8 Eos # 0.2 10 Normal 0.0-0.5 Baso # 0.0 10 Normal 0.0-0.2 Comprehensive Metabolic Profil 02/27/2021 Patient S [place] [id number] [phone] Glucose, Fasting 93 mg/dL Normal 70-100 Blood [...] Little GFR Left ESRD GFR <15 on FISH INSPECTOR Procedures Date Code Description Status 04/11/2021 54492 Office/Outpatient Established Mo d MDM 30-39 Min Completed 03/20/2021 64416 Cervantes Cre W/I 7 Days Of DC, Comm W/I 2 Dys Completed 12/31/2020 24585 Office/Outpatient Established Mo d MDM 30-39 Min Completed 08/06/2020 [id number] Mammogram Completed 10/24/2019 815179546 Bone Mineral Density Test Comple [place] 2015 31779659 Mammogram Completed Medical Devices Description No Information Available Encounters Type Date Location Provider Dx Diagnosis Office Visit 04/11/2021 11:30a Main Office Glory Tobar M.D. K 57.92 Dvtrcli of intest, part unsp, w/o perf or abscess w/o bleed Office Visit 03/20/2021 10:00a Main Office Glory Tobar M.D. J 44.9 Chronic obstructive pulmonary disease, unspecified C34.11 Malignant neoplasm of upper lobe, right bronchus or lung Office Visit 12/31/2020 8:45a Main Office Glory Tobar M.D. R 14.0 Abdominal distension (gaseous) J44.1 Chronic obstructive pulmonar y disease w (acute) exacerbation C34.11 Malignant neoplasm of upper lobe, right bronchus or lung Assessments Date Code Description Provider 06/24/2021 Z23 Encounter for immunization Glory Thomson ams, M.D. 04/11/2021 K57.92 Diverticulitis of in testine, part unspecified, without perforation or abscess without bleeding Glory Tobar M.D. 03/20/2021 J44.9 Chronic obstructive pulmonary di sease, unspecified Glory Tobar M.D. 03/20/2021 C34.11 Malignant neoplasm of upper lobe , right bronchus or lung Glory Tobar M.D. 12/31/2020 R14.0 Abdominal distension (gaseous) W Glory bradley M.D. 12/31/2020 J44.1 Chronic obstructive pulmonary di sease with (acute) exacerbat Glory Tobar M.D. 12/31/2020 C34.11 Malignant neoplasm of upper lobe , right bronchus or lung Glory Tobar M.D. Plan of Treatment Future Appointment(s):* 07/10/2021 9:30 am - Glory Tobar M.D. at Main Office Functional Status Functional Condition Comment Date Status Bifocal glasses Active Independent with all ADL's Activ e Complete lower and upper and lower dentures Active Mental Status Mental Condition Comment Date Status None Active Referrals Description No Information Available
--- OUTSIDE RECORDS SUMMARY | 2021-08-03 18:24 | CCD | Continuity of Care Document ---
Author Author Shiloh TOBAR M.D. Organization Unknown Address [address] [place] [address] Phone [phone] Care Team Providers Care Facility Operations Manager Name Role Phone [facility] [phone] Gastroenterology & Hepatology [facility] - Gastroenterology AUTM [phone] [facility] AUTM [phone] Problems Active Problems Provider Date Chronic obstructive [...] SIG Qnty Indications Ordering Provide r Date Clotrimazole 10mg Carlos dissolve one in mouth [...] CPT Code Status Date Vaccine Lot # [id number] Given 07/10/2021 Pneumococcal Vaccine [id number] 18483 Given 06/24/2021 Influenza Virus Vaccine, Eddi drivalent,multidose vial [id number] 23778 Given 12/11/2020 Moderna Sars-(Co vid-19) vaccine, mRNA, LNP-S, PF, 100 mcg/ 0.5 mL 58194 Given 11/16/2020 Moderna Sars-(Co vid-19) vaccine, mRNA, LNP-S, PF, 100 mcg/ 0.5 mL 42616 Given 05/14/2020 Influenza Virus Vaccine, Eddi drivalent,multidose vial 38047 Given 05/12/2019 Influenza Virus Vaccine, Eddi drivalent,multidose vial 96814 Given 06/30/2018 Influenza Virus Vaccine, Eddi drivalent,multidose vial [id number] 97841 Given 07/06/2017 Influenza Vaccination [id number] 42581 Given 07/24/2016 Influenza Vaccination 53601 Given 05/06/2016 Boostrix (Tdap) Tetnus, Diphtheria Toxoids & Acellular Pertussis [id number] 87629 Given 11/06/2015 Prevnar 13 For Adults [id number] 09152 Given 07/04/2015 Influenza Vaccination [id number] 83174 Given 06/06/2014 Influenza Vaccination [id number] 31527 Given 06/16/2013 Influenza Vaccination [id number] 10492 Given 06/17/2012 Influenza Vaccination [id number] 34579 Given 06/24/2011 Pneumococcal Vaccine [id number] 59977 Given 06/11/2011 Influenza Vaccination 63205 Given 06/11/2011 Influenza Vaccination 04952 Given 05/21/2010 Influenza Vaccination [id number] 78324 Given 09/03/2009 H1N1 Vaccine 84524 Given 06/27/2009 Influenza Vaccination [id number] 75186 Given 06/29/2008 Influenza Vaccination [id number] 26070 Given 08/10/2007 Influenza Vaccination [id number] 16664 Given 07/16/2005 Influenza Vaccination [id number] 24014 Given 08/29/2004 Influenza Vaccination Vital Signs Date [...] Flow Rate 353 Estimated Peak Flow Rate [place] Body Weight 135 lb BMI (Body Mass Index) 19.5 kg/m2 06/24/2021 9:02am Body Temperature 97.6 F Height 67.0 inches 5'7" Weight 125.12 lb Peak Expiratory Flow Rate 353 Estimated Peak Flow Rate [place] Body Weight 135 lb BMI (Body Mass Index) 19.6 kg/m2 Results Test Acquired Date Facility Test Result H/L Range Note CBC With Differential 02/27/2021 Patient Service Ce [place], [place] [id number] [phone] White Blood Count 6.3 10 Normal 4.0-10.0 [...] 36.0-66.0 Lymph % 9.8 % Low 24.0-44.0 [place] % 14.1 % High 2.0-8.0 Eos % 2.7 % Normal 0.0-3.0 Baso % 0.6 % Normal 0.0-1.0 Immature Granulocyte % 0.3 % Normal 0-3.0 Nucleated Red Blood Cell % 0.0 % Normal 0-0 Neutrophils # 4.6 10 Normal 1.5-8.5 Lymph # 0.6 10 Low 1.5-5.0 [place] # 0.9 10 High 0.0-0.8 Eos # 0.2 10 Normal 0.0-0.5 Baso # 0.0 10 Normal 0.0-0.2 Comprehensive Metabolic Profil 02/27/2021 Patient [place], [place] [address] [phone] Glucose, Fasting 93 mg/dL Normal 70-100 Blood [...] Little GFR Left ESRD GFR <15 on DYED RAW STOCK BLOWER FEEDER Procedures Date Code Description Status 04/11/2021 22501 Office/Outpatient Established Mo d MDM 30-39 Min Completed 03/20/2021 16248 Cervantes Cre W/I 7 Days Of DC, Comm W/I 2 Dys Completed 08/06/2020 23730598 Mammogram Completed 10/24/2019 [id number] Bone Mineral Density Test Comple [place] 2015 [id number] Mammogram Completed Medical Devices Description No Information Available Encounters Type Date Location Provider Dx Diagnosis Office Visit 07/10/2021 9:30a Main Office Glory Tobar M.D. B 37.81 Candidal esophagitis J44.9 Chronic obstructive pulmonar y [...] lung Assessments Date Code Description Provider 07/10/2021 B37.81 Candidal esophagitis Santhosh Tobar M.D. [...] - Glory Tobar M.D. at Main Office 07/10/2021 - Glory Tobar M.D.* B37.81 Candidal esophagitis* New Medication:* Clotrimazole 10 mg - dissolve one in mouth four times a day x 10 day * J44.9 Chronic obstructive pulmonary disease, unspecified* Comments:* stable, doing well. * Follow up:* 6 months * C34.11 Malignant neoplasm of upper lobe, right bronchus or lung* Comments:* following with oncology. * Z00.00 Encounter for general adult medical examination without abnormal findings* Comments:* RHM current. * E78.2 Mixed hyperlipidemia * Z23 Encounter for immunization Functional Status Functional Condition Comment Date Status Bifocal glasses Active Independent with all ADL's Activ e Complete lower and upper and lower dentures Active Oxygen 1.5 L Uses at night Active Mental Status Mental Condition Comment Date Status None Active Referrals Description No Information Available
--- OUTSIDE RECORDS SUMMARY | 2021-08-03 18:24 | CCD | Continuity of Care Document ---
Author Author Shiloh TOBAR M.D. Organization Unknown Address [address] [place] [address] Phone [phone] Care Team Providers Care Medicine And Health Service Manager Name Role Phone [facility] [phone] Gastroenterology & Hepatology [facility] - Gastroenterology AUTM [phone] [facility] AUTM [phone] Problems Active Problems Provider Date Chronic obstructive [...] CPT Code Status Date Vaccine Lot # 72295 Given 07/10/2021 Pneumococcal Vaccine [id number] 12810 Given 06/24/2021 Influenza Virus Vaccine, Eddi drivalent,multidose vial [id number] 83120 Given 12/11/2020 Moderna Sars-(Co vid-19) vaccine, mRNA, LNP-S, PF, 100 mcg/ 0.5 mL 27970 Given 11/16/2020 Moderna Sars-(Co vid-19) vaccine, mRNA, LNP-S, PF, 100 mcg/ 0.5 mL 31469 Given 05/14/2020 Influenza Virus Vaccine, Eddi drivalent,multidose vial 57092 Given 05/12/2019 Influenza Virus Vaccine, Eddi drivalent,multidose vial 95546 Given 06/30/2018 Influenza Virus Vaccine, Eddi drivalent,multidose vial [id number] 29475 Given 07/06/2017 Influenza Vaccination [id number] 63660 Given 07/24/2016 Influenza Vaccination 99364 Given 05/06/2016 Boostrix (Tdap) Tetnus, Diphtheria Toxoids & Acellular Pertussis [id number] 75260 Given 11/06/2015 Prevnar 13 For Adults [id number] 31016 Given 07/04/2015 Influenza Vaccination [id number] 60923 Given 06/06/2014 Influenza Vaccination [id number] 18839 Given 06/16/2013 Influenza Vaccination [id number] 01846 Given 06/17/2012 Influenza Vaccination [id number] 50374 Given 06/24/2011 Pneumococcal Vaccine [id number] 17175 Given 06/11/2011 Influenza Vaccination 90679 Given 06/11/2011 Influenza Vaccination 59654 Given 05/21/2010 Influenza Vaccination [id number] 44128 Given 09/03/2009 H1N1 Vaccine 65591 Given 06/27/2009 Influenza Vaccination [id number] 35657 Given 06/29/2008 Influenza Vaccination [id number] 56860 Given 08/10/2007 Influenza Vaccination [id number] 76062 Given 07/16/2005 Influenza Vaccination [id number] 76230 Given 08/29/2004 Influenza Vaccination Vital Signs Date [...] Flow Rate 353 Estimated Peak Flow Rate [place] Body Weight 135 lb BMI (Body Mass Index) 19.5 kg/m2 06/24/2021 9:02am Body Temperature 97.6 F Height 67.0 inches 5'7" Weight 125.12 lb Peak Expiratory Flow Rate 353 Estimated Peak Flow Rate [place] Body Weight 135 lb BMI (Body Mass Index) 19.6 kg/m2 Results Test Acquired Date Facility Test Result H/L Range Note Laboratory test finding 07/17/2021 [facility] [address] [place] [address] [phone] [facility] Rapid Sars Covid19 negative CBC With Differential 02/27/2021 [place] [address] [phone] White Blood Count 6.3 10 Normal 4.0-10.0 [...] 36.0-66.0 Lymph % 9.8 % Low 24.0-44.0 [place] % 14.1 % High 2.0-8.0 Eos % 2.7 % Normal 0.0-3.0 Baso % 0.6 % Normal 0.0-1.0 Immature Granulocyte % 0.3 % Normal 0-3.0 Nucleated Red Blood Cell % 0.0 % Normal 0-0 Neutrophils # 4.6 10 Normal 1.5-8.5 Lymph # 0.6 10 Low 1.5-5.0 [place] # 0.9 10 High 0.0-0.8 Eos # 0.2 10 Normal 0.0-0.5 Baso # 0.0 10 Normal 0.0-0.2 Comprehensive Metabolic Profil 02/27/2021 [place] [address] [phone] Glucose, Fasting 93 mg/dL Normal 70-100 Blood [...] Little GFR Left ESRD GFR <15 on HAM FACER Procedures Date Code Description Status 04/11/2021 66713 Office/Outpatient Established Mo d MDM 30-39 Min Completed 03/20/2021 52524 Cervantes Cre W/I 7 Days Of DC, Comm W/I 2 Dys Completed 08/06/2020 [id number] Mammogram Completed 10/24/2019 [id number] Bone Mineral Density Test Comple [place] 2015 [id number] Mammogram Completed Medical Devices Description No Information [...]
--- OUTSIDE RECORDS SUMMARY | 2021-08-03 18:24 | CCD | Continuity of Care Document ---
Author Author Shiloh SARMIENTO M.D. Organization Unknown Address [address] [place] [address] Phone [phone] Care Team Providers Care Waiter/Waitress Club Name Role Phone Glory Luo M.D. AUTM [phone] AUTM Unavailable Oscar Betancur M.D. AUTM [phone] Problems Active Problems Provider Date Chronic obstructive [...] SIG Qnty Indications Ordering Provide r Date Prednisone 10mg Tablets 0.5-1 tab by mouth [...] Device 2l lcw Lexis Sarmiento M.D. 02/27/2021 Symbicort 160-4.5mcg/Act Aerosol Take 2 Puffs By Mouth Twice A Day 30.6Inhaler Lexis Sarmiento M.D. 02/11/2021 Albuterol Sulfate (2 .5mg/3ML) 0.083% Nebulizer 1 vial four times a day as needed 360ml Lexis Hawley M.D. 04/21/2018 Fluticasone Propionate 50mcg/Act Suspension 2 sprays to each nostril daily 1units Martha Bo M.D. 11/23/2012 Levalbuterol Tartrate 45mcg/Act Ae rosol 1 puff inhaled every 6 hours as needed Unknown Ondansetron 8mg Tablets Dispers 1 tab [...] every day as needed for constipation Unknown Vitamin D-3 125mcg (5000 Ut) Tablets 1 qd Unknown Amlodipine Besylate 5mg Tablets 1 by mouth every day Unknown Calcium 600 + D [id number] Tab lets 1 po every day Unknown [...] J44.9 Lexis Sarmiento M.D. 04/02/2021 - 04/11/2021 Prednisone 10mg Tablets 4 tabs by mouth [...] CPT Code Status Date Vaccine Lot # [id number] Given 07/26/2019 Afluria, Quadrivalent, 0.5ml , [facility]# [id number] 22931 Given 08/12/2015 Prevnar 13 86661 Given 08/12/2015 Influenza Virus Split 3 Yrs And Above For Intramuscular Use 82295 Given 06/22/2013 Influenza Virus Split 3 Yrs And Above For Intramuscular Use 80056 Given 07/22/2012 Pneumococcal PPSV23 00599 Given 07/22/2012 Influenza Virus Split 3 Yrs And Above For Intramuscular Use 06584 Given 08/17/2011 Influenza Virus Split 3 Yrs And Above For Intramuscular Use 02710 Given 06/22/2011 Pneumococcal PPSV23 71514 Given 06/11/2011 Influenza Vaccine 21249 Given 07/25/2010 Influenza Vaccine 09013 Given Unknown Pneumococcal PPSV23 97605 Given Unknown TB Intradermal Test Vital Signs Date Vital Result Comment 05/12/2021 1:08pm BP Systolic 116 mmHg BP Diastolic 62 mmHg Heart Rate 100 /min O2 % BldC Oximetry 90 % Height 67 inches 5'7" Weight 126.00 lb BMI (Body Mass Index) 19.7 kg/m2 [place] Body Weight 135 lb Weight 57.154 kg BSA (Body Surface Area) 1.66 m2 04/02/2021 2:39pm BP Systolic 126 mmHg BP Diastolic 76 mmHg Heart Rate 121 /min O2 % BldC Oximetry 94 % Height 67 inches 5'7" [place] Body Weight 135 lb Results Test Acquired Date Facility Test Result H/L Range Note F[facility]/[place] 12/19/2020 [facility] PDFReport SEE IMAGE FVC-Pred 3.63 L FVC-Pre 1.56 L FVC-%Pred-Pre 42 L FVC-LLN 2.85 L Fev1-Pred 2.78 L Fev1-Pre 0.80 L Fev1-%Pred-Pre 28 L Fev1-LLN 2.12 L Fev6-Pred 3.49 L Fev6-Pre 1.56 L Fev6-%Pred-Pre 44 L Fev6-LLN 2.72 L Pld8jer-Ggmh 77 % Ilm1bgo-Jkz 52 % Wce7brr-%Pred-Pre 67 % Zvz5uxw-HGY 67 % Olj6imx-Dacy 96 % Vdn5vtx-Ncu 100 % Rbt2cfs-%Pred-Pre 104 % FEFMax-Pred 6.56 L/E/sec FEFMax-Pre 2.19 L/E/sec FEFMax-%Pred-Pre 33 L/E/sec FEFMax-LLN 4.63 L/E/sec Dev6686-Vmmn 2.32 L/E/sec Rkr6498-Qrp 0.42 L/E/sec Qed8010-%Pred-Pre 18 L/E/sec Hbq1655-CJL 0.92 L/E/sec ExpTime-Pre 4.41 sec Cim4ebg5-Gejy 80 % Zfp9pfg8-Got 52 % Ehv3fab8-%Pred-Pre 64 % Smv2ruy6-OEF 71 % Procedures Date Code Description Status 05/12/2021 84135 Office/Outpatient Established Mo d MDM 30-39 Min Completed 04/02/2021 87391 Office/Outpatient Established Mo d MDM 30-39 Min Completed 03/27/2021 17515 Measure Blood Oxygen Level Levi belkis Overnight Monitor Completed 02/26/2021 55452 Office/Outpatient Established Mo d MDM 30-39 Min Completed 12/19/2020 15706 Office/Outpatient Established Mo d MDM 30-39 Min Completed 12/19/2020 89996 Spirometry Completed Medical Devices Description No Information [...] right bronchus or lung Lexis Sarmiento M.D. 05/12/2021 C77.1 Secondary and unspec ified [...] for CT guided biopsy by oncology in [place], please pull results Functional Status Functional Condition Comment Date Status Independent with all ADL's Activ e Independent with all IADL's Acti ve Mental Status Mental Condition Comment Date Status Cognitive ability not impaired A ctive Referrals Refer to Reason for Referral Status Appt Date Radiology/Procedure 71500 Closed 04/28/2021
--- OUTSIDE RECORDS SUMMARY | 2021-08-03 18:26 | CCD ---
Author Author [facility] Address Unknown Phone Unavailable Care Team Providers Care Director Of Online Education Name Role Phone Melina JARA MD Unavailable Unavailable Melina JARA MD Unavailable Unavailable Melina JARA MD Unavailable Unavailable Melina JARA MD Unavailable Unavailable Melina JARA MD Unavailable Unavailable Melina JARA MD Unavailable Unavailable Melina JARA MD Unavailable Unavailable Ganga Nelson MD Unavailable Unavailable Ganga Nelson MD Unavailable Unavailable Ganga Nelson MD Unavailable Unavailable Ganga Nelson MD Unavailable Unavailable Ganga Nelson MD Unavailable Unavailable Ganga Nelson MD Unavailable Unavailable Lexis Sarmiento MD Unavailable Unavailable Lexis Sarmiento MD Unavailable Unavailable Lexis Sarmiento MD Unavailable Unavailable Lexis Sarmiento MD Unavailable Unavailable Lexis Sarmiento MD Unavailable Unavailable Lexis Sarmiento MD Unavailable Unavailable Lexis Sarmiento MD Unavailable Unavailable Lexis Sarmiento MD Unavailable Unavailable Lexis Sarmiento MD Unavailable Unavailable Lexis Sarmiento MD Unavailable Unavailable Lexis Sarmiento MD Unavailable Unavailable Lexis Sarmiento MD Unavailable Unavailable Lexis Sarmiento MD Unavailable Unavailable Lexis Sarmiento MD Unavailable Unavailable Lexis Sarmiento MD Unavailable Unavailable Lexis Sarmiento MD Unavailable Unavailable Lexis Sarmiento MD Unavailable Unavailable Lexis Sarmiento MD Unavailable Unavailable Lexis Sarmiento MD Unavailable Unavailable Lexis Sarmiento MD Unavailable Unavailable Lexis Sarmiento MD Unavailable Unavailable Lexis Sarmiento MD Unavailable Unavailable Lexis Sarmiento MD Unavailable Unavailable Lexis Sarmiento MD Unavailable Unavailable Lexis Sarmiento MD Unavailable Unavailable Lexis Sarmiento MD Unavailable Unavailable Lexis Sarmiento MD Unavailable Unavailable Lexis Sarmiento MD Unavailable Unavailable Lexis Sarmiento MD Unavailable Unavailable Lexis Sarmiento MD Unavailable Unavailable WORMUTH, Ruben CALDERÓN MD Unavailable Unavailable WORMUTH, Ruben CALDERÓN MD Unavailable Unavailable WORMUTH, Ruben CALDERÓN MD Unavailable Unavailable WORMUTH, Ruben CALDERÓN MD Unavailable Unavailable WORMUTH, Ruben CALDERÓN MD Unavailable Unavailable WORMUTH, Ruben CALDERÓN MD Unavailable Unavailable WORMUTH, Ruben CALDERÓN MD Unavailable Unavailable WORMUTH, Ruben CALDERÓN MD Unavailable Unavailable WORMUTH, Ruben CALDERÓN MD Unavailable Unavailable WORMUTH, Ruben CALDERÓN MD Unavailable Unavailable WORMUTH, Ruben CALDERÓN MD Unavailable Unavailable WORMUTH, Ruben CALDERÓN MD Unavailable Unavailable WORMUTH, Ruben CALDERÓN MD Unavailable Unavailable WORMUTH, Ruben CALDERÓN MD Unavailable Unavailable WORMUTH, Ruben CALDERÓN MD Unavailable Unavailable WORMUTH, Ruben CALDERÓN MD Unavailable Unavailable WORMUTH, Ruben CALDERÓN MD Unavailable Unavailable WORMUTH, Ruben CALDERÓN MD Unavailable Unavailable WORMUTH, Ruben CALDERÓN MD Unavailable Unavailable WORMUTH, Ruben CALDERÓN MD Unavailable Unavailable WORMUTH, Ruben CALDERÓN MD Unavailable Unavailable WORMUTH, Ruben CALDERÓN MD Unavailable Unavailable WORMUTH, Ruben CALDERÓN MD Unavailable Unavailable WORMUTH, Ruben CALDERÓN MD Unavailable Unavailable WORMUTH, Ruben CALDERÓN MD Unavailable Unavailable WORMUTH, Ruben CALDERÓN MD Unavailable Unavailable WORMUTH, Ruben CALDERÓN MD Unavailable Unavailable WORMUTH, Ruben CALDERÓN MD Unavailable Unavailable WORMUTH, Ruben CALDERÓN MD Unavailable Unavailable WORMUTH, Ruben CALDERÓN MD Unavailable Unavailable WORMUTH, Ruben CALDERÓN MD Unavailable Unavailable WORMUTH, Ruben CALDERÓN MD Unavailable Unavailable WORMUTH, Ruben CALDERÓN MD Unavailable Unavailable WORMUTH, Ruben CALDERÓN MD Unavailable Unavailable WORMUTH, Ruben CALDERÓN MD Unavailable Unavailable WORMUTH, Ruben CALDERÓN MD Unavailable Unavailable WORMUTH, Ruben CALDERÓN MD Unavailable Unavailable WORMUTH, Ruben CALDERÓN MD Unavailable Unavailable WORMUTH, Ruben CALDERÓN MD Unavailable Unavailable WORMUTH, Ruben CALDERÓN MD Unavailable Unavailable WORMUTH, Ruben CALDERÓN MD Unavailable Unavailable WORMUTH, Ruben CALDERÓN MD Unavailable Unavailable WORMUTH, Ruben CALDERÓN MD Unavailable Unavailable WORMUTH, Ruben CALDERÓN MD Unavailable Unavailable WORMUTH, Ruben CALDERÓN MD Unavailable Unavailable WORMUTH, Ruben CALDERÓN MD Unavailable Unavailable WORMUTH, Ruben CALDERÓN MD Unavailable Unavailable WORMUTH, Ruben CALDERÓN MD Unavailable Unavailable WORMUTH, Ruben CALDERÓN MD Unavailable Unavailable WORMUTH, Ruben CALDERÓN MD Unavailable Unavailable WORMUTH, Ruben CALDERÓN MD Unavailable Unavailable WORMUTH, uRben CALDERÓN MD Unavailable Unavailable WORMUTH, Ruben CALDERÓN MD Unavailable Unavailable WORMUTH, Ruben CALDERÓN MD Unavailable Unavailable WORMUTH, Ruben CALDERÓN MD Unavailable Unavailable WORMUTH, Ruben CALDERÓN MD Unavailable Unavailable WORMUTH, Ruben CALDERÓN MD Unavailable Unavailable WORMUTH, Ruben CALDERÓN MD Unavailable Unavailable WORMUTH, Ruben CALDERÓN MD Unavailable Unavailable WORMUTH, Ruben CALDERÓN MD Unavailable Unavailable WORMUTH, Ruben CALDERÓN MD Unavailable Unavailable WORMUTH, Ruben CALDERÓN MD Unavailable Unavailable WORMUTH, Ruben CALDERÓN MD Unavailable Unavailable WORMUTH, Ruben CALDERÓN MD Unavailable Unavailable WORMUTH, Ruben CALDERÓN MD Unavailable Unavailable WORMUTH, Ruben CALDERÓN MD Unavailable Unavailable WORMUTH, Ruben CALDERÓN MD Unavailable Unavailable WORMUTH, Ruben CALDERÓN MD Unavailable Unavailable WORMUTH, Ruben CALDERÓN MD Unavailable Unavailable WORMUTH, Ruben CALDERÓN MD Unavailable Unavailable WORMUTH, Ruben CALDERÓN MD Unavailable Unavailable WORMUTH, Ruben CALDERÓN MD Unavailable Unavailable WORMUTH, Ruben CALDERÓN MD Unavailable Unavailable WORMUTH, Ruben CALDERÓN MD Unavailable Unavailable WORMUTH, Ruben CALDERÓN MD Unavailable Unavailable SCATORCHIA, Melina FRIAS MD Unavailable Unavailable SCATORCHIA, Melina FRIAS MD Unavailable Unavailable SCATORCHIA, Melina FRIAS MD Unavailable Unavailable SCATORCHIA, Melina FRIAS MD Unavailable Unavailable SCATORCHIA, Melina FRIAS MD Unavailable Unavailable SCATORCHIA, Melina FRIAS MD Unavailable Unavailable SCATORCHIA, Melina FRIAS MD Unavailable Unavailable SINGH (YOANDY), Melina DONOVAN MD Unavailable Unavailab le SINGH (YOANDY), Melina DONOVAN MD Unavailable Unavailab le SINGH (YOANDY), Melina DONOVAN MD Unavailable Unavailab le SINGH (YOANDY), Melina DONOVAN MD Unavailable Unavailab le SINGH (YOANDY), Melina DONOVAN MD Unavailable Unavailab le SINGH (YOANDY), Melina DONOVAN MD Unavailable Unavailab le SINGH (YOANDY), Melina DONOVAN MD Unavailable Unavailab le SINGH (YOANDY), Melina DONOVAN MD Unavailable Unavailab le SINGH (YOANDY), Melina DONOVAN MD Unavailable Unavailab le SINGH (YOANDY), Melina DONOVAN MD Unavailable Unavailab le SINGH (YOANDY), Melina DONOVAN MD Unavailable Unavailab le SINGH (YOANDY), Melina DONOVAN MD Unavailable Unavailab le SINGH (YOANDY), Melina DONOVAN MD Unavailable Unavailab le SINGH (YOANDY), Melina DONOVAN MD Unavailable Unavailab le SINGH (YOANDY), Melina DONOVAN MD Unavailable Unavailab le SINGH (YOANDY), Melina DONOVAN MD Unavailable Unavailab le SINGH (YOANDY), Melina DONOVAN MD Unavailable Unavailab le SINGH (YOANDY), Melina DONOVAN MD Unavailable Unavailab le SINGH (YOANDY), Melina DONOVAN MD Unavailable Unavailab le SINGH (YOANDY), Melina DONOVAN MD Unavailable Unavailab le SINGH (YOANDY), Melina DONOVAN MD Unavailable Unavailab le SINGH (YOANDY), Melina DONOVAN MD Unavailable Unavailab le SINGH (YOANDY), Melina DONOVAN MD Unavailable Unavailab le SINGH (YOANDY), Melina DONOVAN MD Unavailable Unavailab le SINGH (YOANDY), Melina DONOVAN MD Unavailable Unavailab le SINGH (YOANDY), Melina DONOVAN MD Unavailable Unavailab le SINGH (YOANDY), Melina DONOVAN MD Unavailable Unavailab le SINGH (YOANDY), Melina DONOVAN MD Unavailable Unavailab le SINGH (YOANDY), Melina DONOVAN MD Unavailable Unavailab le SINGH (YOANDY), Melina DONOVAN MD Unavailable Unavailab le SINGH (YOANDY), Melina DONOVAN MD Unavailable Unavailab le SINGH (YOANDY), Melina DONOVAN MD Unavailable Unavailab le SINGH (YOANDY), Melina DONOVAN MD Unavailable Unavailab le SINGH (YOANDY), Melina DONOVAN MD Unavailable Unavailab le SINGH (YOANDY), Melina DONOVAN MD Unavailable Unavailab le SINGH (YOANDY), Melnia DONOVAN MD Unavailable Unavailab le SINGH (YOANDY), Melina DONOVAN MD Unavailable Unavailab le SINGH (YOANDY), Melina DONOVAN MD Unavailable Unavailab le SINGH (YOANDY), Melina DONOVAN MD Unavailable Unavailab le SINGH (YOANDY), Melina DONOVAN MD Unavailable Unavailab le SINGH (YOANDY), Melina DONOVAN MD Unavailable Unavailab le SINGH (YOANDY), Melina DONOVAN MD Unavailable Unavailab le SINGH (YOANDY), Melina DONOVAN MD Unavailable Unavailab le SINGH (YOANDY), Melina DONOVAN MD Unavailable Unavailab le SINGH (YOANDY), Melina DONOVAN MD Unavailable Unavailab le SINGH (YOANDY), Melina DONOVAN MD Unavailable Unavailab le SINGH (YOANDY), Melina DONOVAN MD Unavailable Unavailab le SINGH (YOANDY), Melina DONOVAN MD Unavailable Unavailab le SINGH (YOANDY), Melina DONOVAN MD Unavailable Unavailab le SINGH (YOANDY), Melina DONOVAN MD Unavailable Unavailab le SINGH (YOANDY), Melina DONOVAN MD Unavailable Unavailab le SINGH (YOANDY), Melina DONOVAN MD Unavailable Unavailab le SINGH (YOANDY), Melina DONOVAN MD Unavailable Unavailab le SINGH (YOANDY), Melina DONOVAN MD Unavailable Unavailab le SINGH (YOANDY), Melina DONOVAN MD Unavailable Unavailab le SINGH (YOANDY), Melina DONOVAN MD Unavailable Unavailab le SINGH (YOANDY), Melina DONOVAN MD Unavailable Unavailab le SINGH (YOANDY), Melina DONOVAN MD Unavailable Unavailab le SINGH (YOANDY), Melina DONOVAN MD Unavailable Unavailab le SINGH (YOANDY), Melina DONOVAN MD Unavailable Unavailab le SINGH (YOANDY), Melina DONOVAN MD Unavailable Unavailab le SINGH (YOANDY), Melina DONOVAN MD Unavailable Unavailab le SINGH (YOANDY), Melina DONOVAN MD Unavailable Unavailab le SINGH (YOANDY), Melina DONOVAN MD Unavailable Unavailab le SINGH (YOANDY), Melina DONOVAN MD Unavailable Unavailab le SINGH (YOANDY), Melina DONOVAN MD Unavailable Unavailab le SINGH (YOANDY), Melina DONOVAN MD Unavailable Unavailab le SINGH (YOANDY), Melina DONOVAN MD Unavailable Unavailab le SINGH (YOANDY), Melina DONOVAN MD Unavailable Unavailab le SINGH (YOANDY), Melina DONOVAN MD Unavailable Unavailab le SINGH (YOANDY), Melina DONOVAN MD Unavailable Unavailab le SINGH (YOANDY), Melina DONOVAN MD Unavailable Unavailab le SINGH (YOANDY), Melina DONOVAN MD Unavailable Unavailab le SINGH (YOANDY), Melina DONOVAN MD Unavailable Unavailab le SINGH (YOANDY), Melina DONOVAN MD Unavailable Unavailab le SINGH (YOANDY), Melina DONOVAN MD Unavailable Unavailab le SINGH (YOANDY), Melina DONOVAN MD Unavailable Unavailab le SINGH (YOANDY), Melina DONOVAN MD Unavailable Unavailab le SINGH (YOANDY), Melina DONOVAN MD Unavailable Unavailab le SINGH (YOANDY), Melina DONOVAN MD Unavailable Unavailab le SINGH (YOANDY), Melina DONOVAN MD Unavailable Unavailab le SINGH (YOANDY), Melina DONOVAN MD Unavailable Unavailab le SINGH (YOANDY), Melina DONOVAN MD Unavailable Unavailab le SINGH (YOANDY), Melina DONOVAN MD Unavailable Unavailab le SINGH (YOANDY), Melina DONOVAN MD Unavailable Unavailab le SINGH (YOANDY), Melina DONOVAN MD Unavailable Unavailab le SINGH (YOANDY), Melina DONOVAN MD Unavailable Unavailab le Valerio, Lucinda Holder MD Unavailable Unavailable Valerio, Lucinda Holder MD Unavailable Unavailable Lucinda Luo MD Unavailable Unavailable Valerio, Lucinda Holder MD Unavailable Unavailable Valerio, Lucinda Holder MD Unavailable Unavailable Valerio, Lucinda Holder MD Unavailable Unavailable Valerio, Lucinda Holder MD Unavailable Unavailable Valerio, Lucinda Holder MD Unavailable Unavailable Valerio, Lucinda Holder MD Unavailable Unavailable Valerio, Lucinda Holder MD Unavailable Unavailable Valerio, Lucinda Holder MD Unavailable Unavailable Valerio, Lucinda Holder MD Unavailable Unavailable Valerio, Lucinda Holder MD Unavailable Unavailable Valerio, Lucinda Holder MD Unavailable Unavailable Valerio, Lucinda Holder MD Unavailable Unavailable Valerio, Lucinda Holder MD Unavailable Unavailable Valerio, Lucinda Holder MD Unavailable Unavailable Valerio, Lucinda Holder MD Unavailable Unavailable Valerio, Lucinda Holder MD Unavailable Unavailable Valerio, Lucinda Holder MD Unavailable Unavailable Valerio, Lucinda Holder MD Unavailable Unavailable Valerio, Lucinda Holder MD Unavailable Unavailable Valerio, A Glory ORTIZ Unavailable Unavailable Valerio, A Glory ORTIZ Unavailable Unavailable Valerio, Lucinda Holder MD Unavailable Unavailable Valerio, Lucinda Holder MD Unavailable Unavailable Valerio, Lucinda Holder MD Unavailable Unavailable Valerio, Lucinda Holder MD Unavailable Unavailable Valerio, A Glory ORTIZ Unavailable Unavailable Valerio, A Glory ORTIZ Unavailable Unavailable Valerio, A Glory ORTIZ Unavailable Unavailable Valerio, A Glory ORTIZ Unavailable Unavailable Valerio, Lucinda Holder MD Unavailable Unavailable Valerio, Lucinda Holder MD Unavailable Unavailable Valerio, Lucinda Holder MD Unavailable Unavailable Valerio, Lucinda Holder MD Unavailable Unavailable Valerio, A Glory ORTIZ Unavailable Unavailable Valerio, A Glory ORTIZ Unavailable Unavailable Valerio, A Glory ORTIZ Unavailable Unavailable Valerio, Lucinda Holder MD Unavailable Unavailable Valerio, Lucinda Holder MD Unavailable Unavailable Valerio, Lucinda Holder MD Unavailable Unavailable Valerio, Lucinda Holder MD Unavailable Unavailable Valerio, Lucinda Holder MD Unavailable Unavailable Valerio, Lucinda Holder MD Unavailable Unavailable Valerio, Lucinda Holder MD Unavailable Unavailable Valerio, Lucinda Holder MD Unavailable Unavailable Valerio, Lucinda Holder MD Unavailable Unavailable Valerio, Lucinda Holder MD Unavailable Unavailable Valerio, Lucinda Holder MD Unavailable Unavailable Valerio, Lucinda Holder MD Unavailable Unavailable Valerio, Lucinda Holder MD Unavailable Unavailable Valerio, Lucinda Holder MD Unavailable Unavailable Valerio, Lucinda Holder MD Unavailable Unavailable Valerio, Lucinda Holder MD Unavailable Unavailable Valerio, Lucinda Holder MD Unavailable Unavailable Valerio, Lucinda Holder MD Unavailable Unavailable Valerio, Lucinda Holder MD Unavailable Unavailable Valerio, Lucinda Holder MD Unavailable Unavailable Valerio, Lucinda Holder MD Unavailable Unavailable Valerio, Lucinda Holder MD Unavailable Unavailable Valerio, Lucinda Holder MD Unavailable Unavailable Valerio, Lucinda Holder MD Unavailable Unavailable Valerio, Lucinda Holder MD Unavailable Unavailable Valerio, Lucinda Holder MD Unavailable Unavailable Valerio, Lucinda Holder MD Unavailable Unavailable Valerio, Lucinda Holder MD Unavailable Unavailable Valerio, Lucinda Holder MD Unavailable Unavailable Valerio, Lucinda Holder MD Unavailable Unavailable Valerio, Lucinda Holder MD Unavailable Unavailable Valerio, Lucinda Holder MD Unavailable Unavailable Valerio, Lucinda Holder MD Unavailable Unavailable Valerio, Lucinda Holder MD Unavailable Unavailable Valeiro, Lucinda Holder MD Unavailable Unavailable Valerio, Lucinda Holder MD Unavailable Unavailable Valerio, Lucinda Holder MD Unavailable Unavailable Valerio, Lucinda Holder MD Unavailable Unavailable Valerio, Lucinda Holder MD Unavailable Unavailable Valerio, Lucinda Holder MD Unavailable Unavailable Valerio, Lucinda Holder MD Unavailable Unavailable Valerio, Lucinda Holder MD Unavailable Unavailable Valerio, Lucinda Holder MD Unavailable Unavailable WORMUTH, Ruben CALDERÓN MD Unavailable Unavailable WORMUTH, Ruben CALDERÓN MD Unavailable Unavailable WORMUTH, Ruben CALDERÓN MD Unavailable Unavailable WORMUTH, Ruben CALDERÓN MD Unavailable Unavailable WORMUTH, Ruben CALDERÓN MD Unavailable Unavailable WORMUTH, Ruben CALDERÓN MD Unavailable Unavailable WORMUTH, Ruben CALDERÓN MD Unavailable Unavailable WORMUTH, Ruben CALDERÓN MD Unavailable Unavailable WORMUTH, Ruben CALDERÓN MD Unavailable Unavailable WORMUTH, Ruben CALDERÓN MD Unavailable Unavailable WORMUTH, Ruben CALDERÓN MD Unavailable Unavailable WORMUTH, Ruben CALDERÓN MD Unavailable Unavailable WORMUTH, Ruben CALDERÓN MD Unavailable Unavailable WORMUTH, Ruben CALDERÓN MD Unavailable Unavailable WORMUTH, Ruben CALDERÓN MD Unavailable Unavailable WORMUTH, Ruben CALDERÓN MD Unavailable Unavailable WORMUTH, Ruben CALDERÓN MD Unavailable Unavailable WORMUTH, Ruben CALDERÓN MD Unavailable Unavailable WORMUTH, Ruben CALDERÓN MD Unavailable Unavailable WORMUTH, Ruben CALDERÓN MD Unavailable Unavailable WORMUTH, Ruben CALDERÓN MD Unavailable Unavailable WORMUTH, Ruben CALDERÓN MD Unavailable Unavailable WORMUTH, Ruben CALDERÓN MD Unavailable Unavailable WORMUTH, Ruben CALDERÓN MD Unavailable Unavailable WORMUTH, Ruben CALDERÓN MD Unavailable Unavailable WORMUTH, Ruben CALDERÓN MD Unavailable Unavailable WORMUTH, Ruben CALDERÓN MD Unavailable Unavailable WORMUTH, Ruben CALDERÓN MD Unavailable Unavailable WORMUTH, Ruben CALDERÓN MD Unavailable Unavailable WORMUTH, uRben CALDERÓN MD Unavailable Unavailable WORMUTH, Ruben CALDEÓRN MD Unavailable Unavailable WORMUTH, Ruben CALDERÓN MD Unavailable Unavailable WORMUTH, Ruben CALDERÓN MD Unavailable Unavailable WORMUTH, Ruben CALDERÓN MD Unavailable Unavailable WORMUTH, Ruben CALDERÓN MD Unavailable Unavailable WORMUTH, Ruben CALDERÓN MD Unavailable Unavailable WORMUTH, Ruben CALDERÓN MD Unavailable Unavailable WORMUTH, Ruben CALDERÓN MD Unavailable Unavailable WORMUTH, Ruben CALDERÓN MD Unavailable Unavailable WORMUTH, Ruben CALDERÓN MD Unavailable Unavailable WORMUTH, Ruben CALDERÓN MD Unavailable Unavailable WORMUTH, Ruben CALDERÓN MD Unavailable Unavailable WORMUTH, Ruben CALDERÓN MD Unavailable Unavailable WORMUTH, Ruben CALDERÓN MD Unavailable Unavailable WORMUTH, Ruben CALDERÓN MD Unavailable Unavailable WORMUTH, Ruben CALDERÓN MD Unavailable Unavailable WORMUTH, Ruben CALDERÓN MD Unavailable Unavailable WORMUTH, Ruben CALDERÓN MD Unavailable Unavailable WORMUTH, Ruben CALDERÓN MD Unavailable Unavailable WORMUTH, Ruben CALDERÓN MD Unavailable Unavailable WORMUTH, Ruben CALDERÓN MD Unavailable Unavailable WORMUTH, Ruben CALDERÓN MD Unavailable Unavailable WORMUTH, Ruben CALDERÓN MD Unavailable Unavailable WORMUTH, Ruben CALDERÓN MD Unavailable Unavailable WORMUTH, Ruben CALDERÓN MD Unavailable Unavailable WORMUTH, Ruben CALDERÓN MD Unavailable Unavailable WORMUTH, Ruben CALDERÓN MD Unavailable Unavailable WORMUTH, Ruben CALDERÓN MD Unavailable Unavailable WORMUTH, Ruben ACLDERÓN MD Unavailable Unavailable WORMUTH, Ruben CALDERÓN MD Unavailable Unavailable WORMUTH, Ruben CALDERÓN MD Unavailable Unavailable WORMUTH, Ruben CALDERÓN MD Unavailable Unavailable WORMUTH, Ruben CALDERÓN MD Unavailable Unavailable WORMUTH, Ruben CALDERÓN MD Unavailable Unavailable WORMUTH, Ruben CALDERÓN MD Unavailable Unavailable WORMUTH, Ruben CALDERÓN MD Unavailable Unavailable WORMUTH, Ruben CALDERÓN MD Unavailable Unavailable WORMUTH, Ruben CALDERÓN MD Unavailable Unavailable WORMUTH, Ruben CALDERÓN MD Unavailable Unavailable WORMUTH, Ruben CALDERÓN MD Unavailable Unavailable WORMUTH, Ruben CALDERÓN MD Unavailable Unavailable WORMUTH, Ruben CALDERÓN MD Unavailable Unavailable WORMUTH, Ruben CALDERÓN MD Unavailable Unavailable WORMUTH, Ruben CALDERÓN MD Unavailable Unavailable WORMUTH, Ruben CALDERÓN MD Unavailable Unavailable VarkiMelina MD Unavailable Unavailable Varki M Oscar MD Unavailable Unavailable VarkiMelina Oscar MD Unavailable Unavailable Varki M Oscar MD Unavailable Unavailable Varki M Oscar MD Unavailable Unavailable Varki M Socar MD Unavailable Unavailable Varki M Oscar MD Unavailable Unavailable VarkiMelina MD Unavailable Unavailable Varki M Oscar MD Unavailable Unavailable Varki M Oscar MD Unavailable Unavailable Varki M Oscar MD Unavailable Unavailable Varki M Oscar MD Unavailable Unavailable Varki M Oscar MD Unavailable Unavailable Varki M Oscar MD Unavailable Unavailable Varki M Oscar MD Unavailable Unavailable Varki M Oscar MD Unavailable Unavailable Varki M Oscar MD Unavailable Unavailable Varki, M Oscar MD Unavailable Unavailable Varki, M Oscar MD Unavailable Unavailable Varki M Oscar MD Unavailable Unavailable Varki M Oscar MD Unavailable Unavailable Varki M Oscar MD Unavailable Unavailable Varki M Oscar MD Unavailable Unavailable Varki M Oscar MD Unavailable Unavailable Varki M Oscar MD Unavailable Unavailable Varki, M Oscar MD Unavailable Unavailable Varki M Oscar MD Unavailable Unavailable Varki M Oscar MD Unavailable Unavailable Varki, M Oscar MD Unavailable Unavailable Varki, M Oscar MD Unavailable Unavailable Varki, M Oscar MD Unavailable Unavailable Varki, M Oscar MD Unavailable Unavailable Varki, M Oscar MD Unavailable Unavailable Varki, M Oscar MD Unavailable Unavailable Varki, M Oscar MD Unavailable Unavailable Varki, M Oscar MD Unavailable Unavailable Varki, M Oscar MD Unavailable Unavailable Varki, M Oscar MD Unavailable Unavailable Varki, M Oscar MD Unavailable Unavailable Varki, M Oscar MD Unavailable Unavailable Varki, M Oscar MD Unavailable Unavailable Varki, M Oscar MD Unavailable Unavailable Varki, M Oscar MD Unavailable Unavailable Varki, M Oscar MD Unavailable Unavailable Varki, M Oscar MD Unavailable Unavailable Varki, M Oscar MD Unavailable Unavailable Varki, M Oscar MD Unavailable Unavailable MEDENT_[id number], NA Unavailable [phone] MORGAN, 0000{ Unavailable Unavailable Valerio, Luicnda Holder MD Unavailable Unavailable Valerio, Lucinda Holder MD Unavailable Unavailable Valerio, A Glory ORTIZ Unavailable Unavailable Valerio, A Glory ORTIZ Unavailable Unavailable Valerio, A Glory ORTIZ Unavailable Unavailable Valerio, A Glory ORTIZ Unavailable Unavailable Valerio, A Glory ORTIZ Unavailable Unavailable Valerio, A Glory ORTIZ Unavailable Unavailable Valerio, A Glory ORTIZ Unavailable Unavailable Valerio, Lucinda Holder MD Unavailable Unavailable Valerio, A Glory ORTIZ Unavailable Unavailable Valerio, A Glory ORTIZ Unavailable Unavailable Valerio, A Glory MD Unavailable Unavailable Valerio, A Glory MD Unavailable Unavailable Valerio, A Glory MD Unavailable Unavailable Valerio, A Glory MD Unavailable Unavailable Valerio, A Glory MD Unavailable Unavailable Valerio, A Glory ORTIZ Unavailable Unavailable Valerio, A Glory ORTIZ Unavailable Unavailable Valerio, A Glory ORTIZ Unavailable Unavailable Valerio, A Glory ORTIZ Unavailable Unavailable Valerio, A Glory MD Unavailable Unavailable Valerio, A Glory MD Unavailable Unavailable Valerio, A Glory MD Unavailable Unavailable Valerio, A Glory ORTIZ Unavailable Unavailable Valerio, A Glory ORTIZ Unavailable Unavailable Valerio, A Glory MD Unavailable Unavailable Valerio, A Glory MD Unavailable Unavailable Valerio, A Glory MD Unavailable Unavailable Valerio, A Glory MD Unavailable Unavailable Valerio, A Glory MD Unavailable Unavailable Valerio, A Glory MD Unavailable Unavailable Valerio, A Glory MD Unavailable Unavailable Valerio, A Glory MD Unavailable Unavailable Valerio, A Glory MD Unavailable Unavailable Valerio, A Glory MD Unavailable Unavailable Valerio, A Glory MD Unavailable Unavailable Valerio, A Glory MD Unavailable Unavailable Valerio, A Glory MD Unavailable Unavailable Valerio, A Glory MD Unavailable Unavailable Valerio, A Glory MD Unavailable Unavailable Valerio, A Glory MD Unavailable Unavailable Valerio, A Glory MD Unavailable Unavailable Valerio, A Glory MD Unavailable Unavailable Valerio, A Glory MD Unavailable Unavailable Valerio, A Glory MD Unavailable Unavailable Valreio, A Glory MD Unavailable Unavailable Valerio, A Glory MD Unavailable Unavailable Valerio, A Glory MD Unavailable Unavailable Valerio, A Glory MD Unavailable Unavailable Valerio, A Glory MD Unavailable Unavailable Valerio, A Glory MD Unavailable Unavailable Valerio, A Glory MD Unavailable Unavailable Valerio, A Glory MD Unavailable Unavailable Valerio, A Glory MD Unavailable Unavailable Valerio, A Glory MD Unavailable Unavailable Valerio, A Glory MD Unavailable Unavailable Valerio, A Glory MD Unavailable Unavailable Valerio, A Glory MD Unavailable Unavailable Valerio, A Glory MD Unavailable Unavailable Valerio, A Glory MD Unavailable Unavailable Valerio, A Glory MD Unavailable Unavailable Valerio, A Glory MD Unavailable Unavailable Valerio, A Glory MD Unavailable Unavailable Valerio, A Glory MD Unavailable Unavailable Valerio, A Glory MD Unavailable Unavailable Valerio, A Glory MD Unavailable Unavailable Avlerio, A Glory MD Unavailable Unavailable Valerio, A Glory MD Unavailable Unavailable Valerio, A Glory MD Unavailable Unavailable Valerio, A Glory MD Unavailable Unavailable Valerio, A Glory MD Unavailable Unavailable Valerio, A Glory MD Unavailable Unavailable Valerio, A Glory MD Unavailable Unavailable Valerio, A Glory MD Unavailable Unavailable Valerio, A Glory MD Unavailable Unavailable Valerio, A Glory MD Unavailable Unavailable Valerio, A Glory MD Unavailable Unavailable Valerio, A Glory MD Unavailable Unavailable Valerio, A Glory MD Unavailable Unavailable Valerio, A Glory MD Unavailable Unavailable Valerio, A Glory MD Unavailable Unavailable Re-disclosure Warning The records that you are about to access may contain information from federally-assisted alcohol or drug abuse programs. If such information is present, then the following federally mandated warning applies: This information has been disclosed to you from records protected by federal confidentiality rules (42 CFR part 2). The federal rules prohibit you from making any further disclosure of this information unless further disclosure is expressly permitted by the written consent of the person to whom it pertains or as otherwise permitted by 42 CFR part 2. A general authorization for the release of medical or other information is NOT sufficient for this purpose. The Federal rules restrict any use of the information to criminally investigate or prosecute any alcohol or drug abuse patient.The records that you are about to access may contain highly sensitive health information, the redisclosure of which is protected by Article 27-F of the [facility] Public Health law. If you continue you may have access to information: Regarding HIV / AIDS; Provided by facilities licensed or operated by the [facility] Office of Mental Health; or Provided by the [facility] Office for People With Developmental Disabilities. If such information is present, then the following [facility] mandated warning applies: This information has been disclosed to you from confidential records which are protected by state law. State law prohibits you from making any further disclosure of this information without the specific written consent of the person to whom it pertains, or as otherwise permitted by law. Any unauthorized further disclosure in violation of state law may result in a fine or usp sentence or both. A general authorization for the release of medical or other information is NOT sufficient authorization for further disc losure. Allergies and Adverse Reactions Type Description Substance Reaction Status Data Source(s ) Drug allergy No Known Drug Allergies No Known Drug Allergies [facility] Drug allergy Avelox Avelox [facility] Family History Family Member Name Family Member Gender Family Member Status Date o f Status Description Data Source(s) Unknown Unknown Problem [facility] ([facility] Unknown Male Problem [facility] ([facility], ) Encounters Encounter Providers Location Date Indications Data Source(s ) Outpatient Attender: Glory Luo MD Main Office 07/17/2021 01:30:0 0 PM EDT [facility] ([facility] Outpatient Attender: Glory Luo MD Main Office 07/10/2021 09:30:0 0 AM EDT [facility] ([facility] Outpatient Attender: Oscar Betancur MDReferrer: Lexis Sarmiento MD [id number] 06/20/2021 04:46:39 PM EDT [facility] Outpatient Attender: Oscar SOTOeferrer: Lexis Sarmiento MD [id number] 06/18/2021 02:00:39 PM EDT [facility] Outpatient 06/17/2021 01:40:00 PM EDT [facility] Outpatient Attender: Oscar Betancur MDReferrer: Lexis Sarmiento MD _[id number] 06/15/2021 06:33:44 PM EDT [facility] Outpatient Attender: Oscar Betancur MDReferrer: Lexis Sarmiento MD _[id number] 06/15/2021 09:48:10 AM EDT [facility] Outpatient Attender: Oscar Betancur MDReferrer: Lexis Sarmiento MD _[id number] 06/13/2021 03:49:44 PM EDT [facility] Outpatient Attender: Oscar Betancur MD 06/13/2021 12:03:00 PM EDT [facility] Outpatient Attender: Oscar Betancur MDReferrer: Lexis Sarmiento MD _[id number] 06/08/2021 11:17:13 AM EDT [facility] Outpatient Attender: Oscar Betancur MDReferrer: Lexis Sarmiento MD _[id number] 06/05/2021 05:58:59 PM EDT [facility] D Attender: 0000{ ESMOND 07:04:00 AM EDT - 06/02/2021 11:28:00 AM EDT [facility] Outpatient Attender: ALTAGRACIA JARA MDAdmitter: ALTAGRACIA MORTENSEN MD 06/02/2021 07:04:00 AM EDT - 06/02/2021 11:28:00 AM EDT [facility] L[facility] METS Patient discharged. Outpatient Attender: ALTAGRACIA JARA MD 05/29/2021 10:57: 53 AM EDT [facility] [place] [facility] Outpatient Attender: SONA [facility] 05/28/2021 09:40:00 AM EDT [facility] ([facility] Outpatient Attender: Lexis Ge/Katlyn/Chago/Tyler ndneeta 05/12/2021 01:00:00 PM EDT [facility] ([facility] Outpatient Attender: Oscar Betancur MDReferrer: Lexis Sarmiento MD [id number] 05/06/2021 12:31:57 PM EDT [facility] Outpatient Attender: Oscar Betancur MDReferrer: Lexis Sarmiento MD [id number] 05/01/2021 12:30:40 PM EDT [facility] Outpatient Attender: Glory Luo MD Main Office 04/11/2021 11:30:0 0 AM EDT [facility] ([facility] Outpatient Attender: Lexis Ge/Katlyn/Chago/Tyler ndl 04/02/2021 03:00:00 PM EDT [facility] ([facility]) Outpatient Attender: Oscar Betancur MDReferrer: Lexis Sarmiento MD [id number] 03/21/2021 01:13:11 PM EDT [facility] Outpatient Attender: Glory Luo MD Main Office 03/20/2021 10:00:0 0 AM EDT [facility] ([facility] Outpatient Attender: Oscar Betancur MDReferrer: Lexis Sarmiento MD [id number] 03/16/2021 11:17:14 AM EDT [facility] Outpatient Attender: Oscar Betancur MDReferrer: Lexis Sarmiento MD [id number] 03/16/2021 09:47:07 AM EDT [facility] Outpatient Attender: Oscar Betancur MDReferrer: Lexis Sarmiento MD [id number] 03/11/2021 05:45:31 PM EDT [facility] Outpatient Attender: Oscar Betancur MDReferrer: Lexis Sarmiento MD [id number] 03/07/2021 06:11:58 PM EDT [facility] Outpatient Attender: Lexis Ge/Katlyn/Chago/Tyler ndl 02/26/2021 11:00:00 AM EDT [facility] ([facility], ) Outpatient Attender: Oscar Betancur MDReferrer: Lexis Sarmiento MD _[id number] 02/20/2021 05:28:02 PM EDT [facility] Outpatient Attender: Oscar Betancur MDReferrer: Lexis Sarmiento MD _[id number] 02/15/2021 11:09:48 AM EDT [facility] Outpatient Attender: Oscar Betancur MDReferrer: Lexis Sarmiento MD _[id number] 02/15/2021 09:54:39 AM EDT [facility] Outpatient Attender: Oscar Betancur MDReferrer: Lexis Sarmiento MD _[id number] 02/13/2021 02:43:53 PM EDT [facility] Outpatient Attender: Oscar Betancur MDReferrer: Lexis Sarmiento MD _[id number] 02/12/2021 02:11:00 PM EDT [facility] Outpatient Attender: Oscar Betancur MDReferrer: Lexis Sarmiento MD _[id number] 02/12/2021 02:10:50 PM EDT [facility] Outpatient Attender: Oscar Betancur MDReferrer: Lexis Sarmiento MD _[id number] 02/10/2021 01:20:49 PM EDT [facility] Outpatient Attender: Oscar Betancur MDReferrer: Lexis Sarmiento MD _[id number] 02/06/2021 01:57:57 PM EDT [facility] Outpatient Attender: Oscar Betancur MDReferrer: Lexis Sarmiento MD _[id number] 02/06/2021 01:57:37 PM EDT [facility] Outpatient Attender: Oscar Betancur MDReferrer: Lexis Sarmiento MD _[id number] 02/06/2021 01:57:28 PM EDT [facility] Outpatient Attender: Oscar Betancur MDReferrer: Lexis Sarmiento MD _[id number] 01/16/2021 11:18:24 AM EDT [facility] Outpatient Attender: Oscar Betancur MDReferrer: Lexis Sarmiento MD _[id number] 01/16/2021 09:47:36 AM EDT [facility] Outpatient 01/13/2021 11:50:00 AM EDT [facility] Outpatient Attender: Oscar Betancur MDReferrer: Lexis Sarmiento MD _[id number] 01/08/2021 01:40:19 PM EDT [facility] Outpatient Attender: Oscar Betancur MDReferrer: Lexis Sarmiento MD _[id number] 01/03/2021 01:42:01 PM EDT [facility] Outpatient Attender: Oscar Betancur MD 01/03/2021 10:14:00 AM EDT [facility] Outpatient Attender: Oscar Betancur MD 01/03/2021 10:14:00 AM EDT [facility] Outpatient Attender: Glory Luo MD Main Office 12/31/2020 08:45:0 0 AM EDT [facility] ([facility] Outpatient Attender: Oscar Betancur MDReferrer: Lexis Sarmiento MD _[id number] 12/30/2020 10:06:44 AM EDT [facility] Outpatient Attender: Oscar Betancur MDReferrer: Lexis Sarmiento MD _[id number] 12/26/2020 08:30:28 AM EDT [facility] Outpatient 12/25/2020 11:10:00 AM EDT [facility] Outpatient Attender: Oscar Betancur MDReferrer: Lexis Sarmiento MD _[id number] 12/23/2020 10:19:57 AM EDT [facility] Outpatient Attender: Lexis Ge/Katlyn/Chago/Tyler ndl 12/19/2020 03:00:00 PM EDT [facility] ([facility], ) Outpatient Attender: Oscar Betancur MDReferrer: Lexis Sarmiento MD _[id number] 12/18/2020 08:48:26 AM EDT [facility] Outpatient Attender: Oscar Betancur MDReferrer: Lexis Sarmiento MD _[id number] 12/18/2020 08:25:53 AM EDT [facility] Outpatient Attender: Oscar Betancur MDReferrer: Lexis Sarmiento MD _[id number] 12/14/2020 06:18:08 AM EDT [facility] Outpatient Attender: Oscar Betancur MDReferrer: Lexis Sarmiento MD _[id number] 12/14/2020 04:10:02 AM EDT [facility] Outpatient Attender: Oscar Betancur MDReferrer: Lexis Sarmiento MD _[id number] 12/13/2020 09:11:41 AM EDT [facility] Outpatient Attender: Oscar Betancur MDReferrer: Lexis Sarmiento MD _[id number] 12/13/2020 09:07:01 AM EDT [facility] Outpatient Attender: Oscar Betancur MDReferrer: Lexis Sarmiento MD _[id number] 12/12/2020 08:30:44 AM EDT [facility] Outpatient Attender: Oscar Betancur MDReferrer: Lexis Sarmiento MD _[id number] 12/09/2020 10:19:06 AM EDT [facility] Attender: ZION SALDIVAR) MDReferrer: Santhosh Luo MD 12/05/2020 08:21:03 PM EDT [facility] Attender: Oscar Betancur MDReferrer: Lexis Sarmiento MD _[id number] 12/05/2020 11:01:41 AM EDT [facility] Outpatient Attender: Oscar Betancur MDReferrer: Lexis Sarmiento MD _[id number] 12/05/2020 09:24:53 AM EDT [facility] Outpatient Attender: Oscar Betancur MDReferrer: Lexis Sarmiento MD _[id number] 11/28/2020 09:02:52 AM EST [facility] Outpatient Attender: Oscar Betancur MDReferrer: Lexis Sarmiento MD _[id number] 11/28/2020 08:45:04 AM EST [facility] Outpatient Attender: Oscar Betancur MDReferrer: Lexis Sarmiento MD _[id number] 11/28/2020 08:41:41 AM EST [facility] Outpatient 11/26/2020 12:30:00 PM EST [facility] Outpatient Attender: Oscar Betancur MDReferrer: Lexis Sarmiento MD _[id number] 11/22/2020 12:19:20 PM EST [facility] Outpatient Attender: Oscar Betancur MDReferrer: Lexis Sarmiento MD _[id number] 11/22/2020 11:56:06 AM EST [facility] Outpatient Attender: Oscar Betancur MDReferrer: Lexis Sarmiento MD _[id number] 11/21/2020 10:25:39 AM EST [facility] Outpatient Attender: Oscar Betancur MDReferrer: Lexis Sarmiento MD _[id number] 11/20/2020 09:57:40 AM EST [facility] Outpatient Attender: Oscar Betancur MDReferrer: Lexis Sarmiento MD _[id number] 11/20/2020 09:53:48 AM EST [facility] Outpatient Attender: Oscar Betancur MDReferrer: Lexis Sarmiento MD _[id number] 11/20/2020 06:49:44 AM EST [facility] Outpatient Attender: Oscar Betancur MDReferrer: Lexis Sarmiento MD _[id number] 11/18/2020 11:27:15 AM EST [facility] Outpatient Attender: Oscar Betancur MDReferrer: Lexis Sarmiento MD _[id number] 11/18/2020 11:23:01 AM EST [facility] Outpatient Attender: Oscar Betancur MDReferrer: Lexis Sarmiento MD _[id number] 11/18/2020 09:42:31 AM EST [facility] Outpatient Attender: Oscar Betancur MDReferrer: Lexis Sarmiento MD _[id number] 11/18/2020 09:10:37 AM EST [facility] Outpatient Attender: Oscar Betancur MDReferrer: Lexis Sarmiento MD _[id number] 11/18/2020 08:58:53 AM EST [facility] Outpatient Attender: Oscar Betancur MDReferrer: Lexis Sarmiento MD _[id number] 11/18/2020 08:28:40 AM EST [facility] Outpatient Attender: Oscar Betancur MDReferrer: Lexis Sarmiento MD _[id number] 11/14/2020 07:04:23 AM EST [facility] Outpatient Attender: Oscar Betancur MDReferrer: Lexis Sarmiento MD _[id number] 11/08/2020 02:28:25 PM EST [facility] Outpatient Attender: Oscar Betancur MDReferrer: Lexis Sarmiento MD _[id number] 11/07/2020 09:31:38 AM EST [facility] Outpatient Attender: Oscar Betancur MDReferrer: Lexis Sarmiento MD _[id number] 11/06/2020 03:01:47 PM EST [facility] Outpatient Attender: Oscar Betancur MDReferrer: Lexis Sarmiento MD _[id number] 11/06/2020 08:38:42 AM EST [facility] Outpatient Attender: Oscar Betancur MDReferrer: Lexis Sarmiento MD _[id number] 11/06/2020 08:25:24 AM EST [facility] Outpatient Attender: Oscar Betancur MDReferrer: Lexis Sarmiento MD _[id number] 11/06/2020 07:02:46 AM EST [facility] Outpatient Attender: Oscar Betancur MDReferrer: Lexis Sarmiento MD _[id number] 11/06/2020 06:59:29 AM EST [facility] Outpatient Attender: Oscar Betancur MDReferrer: Lexis Sarmiento MD _[id number] 11/05/2020 03:01:50 PM EST [facility] Outpatient Attender: Oscar Betancur MDReferrer: Lexis Sarmiento MD _[id number] 11/05/2020 12:44:17 PM EST [facility] Outpatient Attender: Oscar Betancur MDReferrer: Lexis Sarmiento MD _[id number] 11/04/2020 09:07:14 AM EST [facility] Outpatient Attender: Oscar Betancur MDReferrer: Lexis Sarmiento MD _[id number] 11/01/2020 02:04:06 PM EST [facility] D Attender: STEPHANE MONIQUE MD 11/01 07:10:00 AM EST - 11/01/2020 11:42:00 AM EST [facility] Outpatient Attender: STEPHANE MONIQUE MDAdmitter: STEPHANE Mcfarlane MD 11/01/2020 07:10:00 AM EST - 11/01/2020 11:42:00 AM EST LUNG CARCINOMA C34.2 [facility] LUNG CARCINOMA C34.2 Patient discharged. Outpatient Attender: Oscar Betancur MDReferrer: Lexis Sarmiento MD _[id number] 10/31/2020 01:12:55 PM EST [facility] Outpatient Attender: STEPHANE MONIQUE MD 10/31/2020 12:40:19 PM EST [facility] [place] [facility] Outpatient Attender: STEPHANE MONIQUE MD 10/31/2020 09: 03:00 AM EST COVID TEST AND NURSING INTERVIEW [facility] COVID TEST AND NURSING INTERVIEW Outpatient Attender: Ocsar Betancur MDReferrer: Lexis Sarmiento MD _[id number] 10/29/2020 03:20:51 PM EST [facility] Outpatient Attender: Oscar Betancur MD 10/29/2020 02:51:00 PM EST [facility] Outpatient Attender: Oscar Betancur MDReferrer: Lexis Sarmiento MD _[id number] 10/29/2020 02:00:42 PM EST [facility] Outpatient Attender: Oscar Betancur MDReferrer: Lexis Sarmiento MD _[id number] 10/29/2020 01:04:42 PM EST [facility] Outpatient Attender: Oscar Betancur MDReferrer: Lexis Sarmiento MD _[id number] 10/29/2020 12:34:01 PM EST [facility] Outpatient Attender: Oscar Betancur MDReferrer: Lexis Sarmiento MD _[id number] 10/29/2020 12:27:56 PM EST [facility] Outpatient Attender: Oscar Betancur MDReferrer: Lexis Sarmiento MD _[id number] 10/29/2020 12:24:47 PM EST [facility] Outpatient Attender: Oscar Betancur MDReferrer: Lexis Sarmiento MD _[id number] 10/25/2020 02:18:58 PM EST [facility] Outpatient Attender: Oscar Betancur MDReferrer: Lexis Sarmiento MD 10/25/2020 02:16:21 PM EST [facility] Attender: Oscar Betancur MDReferrer: Lexis Sarmiento MD 10/25/2020 02:15:38 PM EST [facility] Attender: Oscar Betancur MDReferrer: Lexis Sarmiento MD 10/25/2020 02:14:55 PM EST [facility] Out[facility] Attender: Oscra Betancur MDReferrer: Lexis Sarmiento MD 10/08/2020 02:50:24 PM EST [facility] Attender: Oscar Betancur MD 10/08/2020 02:45:55 PM EST [facility] Outpatient Attender: Lexis Ge/Katlyn/Chago/Tyler nd 09/16/2020 09:30:00 AM EST [facility] ([facility] Outpatient Admitter: Ganga Nelson MDReferrer: Ganga Nelson MD 09/09/2020 12:00:00 AM EST Malignant neoplasm of unspecified part o f unspecified bronchus or lung [facility] Malignant neoplasm of unspecified part o f unspecified bronchus or lung Outpatient Attender: Lexis Ge/Katlyn/Chago/Tyler nd 08/22/2020 12:00:00 PM EST [facility] ([facility] Outpatient Attender: Glory Luo MD Main Office 07/02/2020 09:00:0 0 AM EDT [facility] ([facility] Outpatient Attender: Lexis Ge/Katlyn/Chago/Tyler nd 06/17/2020 01:30:00 PM EDT [facility] ([facility] Immunizations Vaccine Date Status Description Data Source(s) pneumococcal polysaccharide PPV23 07/10/2021 10:07:00 AM EDT comple [place] [facility] ([facility] New in 2012. IIV4 06/24/2021 09:12:00 AM EDT completed [facility] ([facility] COVID-19 VACCINE, MRNA-1273, LNP-S (MODERNA)/PF 12/14/2020 1 2:00:00 AM EDT completed [facility] Moderna Sars-(Covid-19) vaccine, mRNA, LNP-S, PF, 100 mcg/ 0.5 mL 12/11/2020 12:00:00 AM EDT completed [facility] ([facility] COVID-19 VACCINE Moderna 12/11/2020 12:00:00 AM EDT completed [facility] Vaccine Series Complete: YESThis Data wa s Submitted to [facility] [employer] COVID-19 VACCINE Moderna 11/16/2020 12:00:00 AM EST completed [facility] Vaccine Series Complete: NOThis Data was Submitted to [facility] [employer] COVID-19 VACCINE, MRNA-1273, LNP-S (MODERNA)/PF 11/16/2020 1 2:00:00 AM EST completed [facility] Moderna Sars-(Covid-19) vaccine, mRNA, LNP-S, PF, 100 mcg/ 0.5 mL 11/15/2020 11:00:00 PM EST completed [facility] ([facility] Medications Medication Brand Name Start Date Product Form Dose Route Admi nistrative Instructions Pharmacy Instructions Status Indications Reaction Description Data Source(s) Levofloxacin 500 MG Oral Tablet Levofloxacin 07/17/2021 12:00:00 AM E DT ORAL active [facility] ([facility] Clotrimazole 10 MG Oral Lozenge Clotrimazole 07/10/2021 12:00:00 AM EDT completed [facility] ([facility] 60 ACTUAT Budesonide 0.16 MG/ACTUAT / fo rmoterol fumarate 0.0045 MG/ACTUAT Metered Dose Inhaler [Symbicort] Symbicort 05/26/2021 12:00:00 AM EDT RESPIRATORY active [facility] ( [facility], ) Prednisone 10 MG Oral Tablet Prednisone 05/12/2021 12:00:00 AM EDT [facility] 24 HR metoprolol succinate 50 MG Extended Release Oral Tablet Metoprolol Succinate ER 04/18/2021 12:00:00 AM EDT ORAL active [facility] ([facility] Ciprofloxacin 500 MG Oral Tablet Ciprofloxacin HCL 04/11/2021 12:00 :00 AM EDT ORAL completed [facility] ([facility] Metronidazole 500 MG Oral Tablet Metronidazole 04/11/2021 12:00:00 AM EDT ORAL completed [facility] ([facility] Budesonide 0.5 MG/ML Inhalant Solution Budesonide 04/02/2021 12:0 0:00 AM EDT active [facility] ([facility]) 12 HR Guaifenesin 600 MG Extended Release Oral Tablet [Mucin ex] Mucinex 04/02/2021 12:00:00 AM EDT ORAL completed [facility] ([facility]) Azithromycin 500 MG Oral Tablet Azithromycin 04/02/2021 12:00:00 AM E DT ORAL active [facility] ([facility]) Yupelri Yupelri 04/02/2021 12:00:00 AM EDT active [facility] ([facility]) Prednisone 10 MG Oral Tablet Prednisone 04/02/2021 12:00:00 AM EDT ORAL completed [facility] ([facility]) 24 HR metoprolol succinate 50 MG Extended Release Oral Tablet Metoprolol Succinate ER 03/17/2021 12:00:00 AM EDT ORAL completed [facility] ([facility] Prednisone 10 MG Oral Tablet Prednisone 03/17/2021 12:00:00 AM EDT active [facility] ([facility] Oxygen 02/27/2021 12:00:00 AM EDT active [facility] ([facility]) 60 ACTUAT Budesonide 0.16 MG/ACTUAT / fo rmoterol fumarate 0.0045 MG/ACTUAT Metered Dose Inhaler [Symbicort] Symbicort 02/11/2021 12:00:00 AM EDT RESPIRATORY completed [facility] ( [facility], ) Prednisone 10 MG Oral Tablet Prednisone 02/04/2021 12:00:00 AM EDT ORAL completed [facility] ([facility], ) Compazine 10 MG 12/31/2020 12:00:00 AM EDT ac tive [facility] ([facility] Covid-19 vaccine, Unspecified 12/11/2020 12:00:00 AM EDT completed [facility] ([facility], ) Medication administered onsite Covid-19 vaccine, Unspecified 11/13/2020 12:00:00 AM EST completed [facility] ([facility], ) Medication administered onsite Insurance Providers Payer name Policy type / Coverage type Policy ID Covered alliance party ID Covered alliance party's relationship to garner Policy Garner Plan Information [employer] [place] 302/307 [id number] SP [id number] [employer] [place] 180/680 [id number] [employer] [place] 302/307 [id number] [employer] [place] 302/307 [id number] [employer] [place] 180/680 [id number] [employer] [place] 180/680 [id number] WELLCARE [id number] HU2 [id number] WELLCARE [id number] SP [id number] WELLCARE [id number] SP [id number] WELLCARE [id number] SP [id number] Wellcare Today's Options Medigap Part B [id number] Self [id number] [employer] [facility] Commercial [id number] Self [id number] Medicare Primary [id number] Y89 Wellcare Todays Options Advantage Plus PPO Primary [id number] Well[employer] Today's Options Medigap Part B [id number] Self [id number] MEDICARE [id number] SP [id number] Y89 MEDICARE [id number] SP [id number] Y89 WELLCARE HEALTH PLANS CLAIMS DEPT [id number] 0 [id number] WELLCARE [id number] SP [id number] WELLCARE MEDICARE O G [id number] Self [id number] [employer] Secondary [id number] Medicare Primary [id number] Y89 [employer] Secondary [id number] [facility] Health Maintenance Organization (O) [id number] Self [id number] [facility] Part B [id number] WELLCARE O [id number] S [id number] BS Of [facility] Maintenance Organization ([facility]) XVG0 [id number] Self [id number] WELLCARE [id number] SP [id number] WELLCARE O [id number] O [id number] BS Of [facility] Health Maintenance Organization (O) XVG0 [id number] Self [id number] [facility] Health Maintenance Organization (O) [id number] Self [id number] WELLCARE HEA [id number] S [id number] [facility] B [id number] P XV [id number] BCBS [place] [facility] PPO 302/307 [id number] SP [id number] BS Of [facility] ([facility]) XVG0 [id number] Self [id number] [employer]CE[employer] BCBS B [id number] P XV [id number] BS Of [facility] ([facility]) XVG0 [id number] Self [id number] BS Of [facility] ([facility]) XVG0 [id number] Self [id number] BS Of [facility] ([facility]) XVG0 [id number] Self [id number] BS Of [facility] ([facility]) XVG0 [id number] Self [id number] MEDICARE MCA [id number] S [id number] [employer] BCBS B [id number] P XV [id number] BS Of [facility] ([facility]) XVG0 [id number] Self [id number] BS Of [facility] ([facility]) XVG0 [id number] Self [id number] BS Of [facility] ([facility]) XVG0 [id number] Self [id number] BS Of [facility] ([facility]) XVG0 [id number] Self [id number] MEDICARE MCA [id number] S [id number] EXCELLUS BLUE CROSS BLUE SHIELD HEA [id number] S [id number] BCBS [place] [facility] PPO 302/307 [id number] SP [id number] EXCELLUS BCBS B [id number] S XV [id number] CIGNA HE[employer]CARE [id number] SP U [id number] CIGNA P [id number] 02 [id number] S [id number] Problems, Conditions, and Diagnoses Code Display Name Description Problem Type Effective Dates Data Source(s) 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 Diagnosis 04/28/2021 12:00:00 AM EDT [facility] C34.90 Malignant neoplasm of unspecified part o f unspecified bronchus or lung Malignant neoplasm of unspecified part of unspecified bronchus or lung Diagnosis 09/09/2020 04:16:00 PM [facility] C34.2 Malignant neoplasm of middle lobe, bronc hus or lung Malignant neoplasm of middle lobe, bronchus or lung Diagnosis 09/09/2020 12:00:00 AM EST [facility] I10 Essential hypertension Essential hypertension Problem 03/20/2021 12:00:00 AM EDT [facility] ([facility] E78.2 Mixed hyperlipidemia Mixed hyperlipidemia Problem 03/20/2021 12:00:00 AM EDT [facility] ([facility] Surgeries/Procedures Procedure Description Date Indications Data Source(s) OFFICE OUTPATIENT VISIT 25 MINUTES 07/17/2021 12:00:00 AM EDT [facility] ([facility] OFFICE OUTPATIENT VISIT 5 MINUTES 05/28/2021 12:00:00 AM EDT [facility] ([facility]) OFFICE OUTPATIENT VISIT 25 MINUTES 05/12/2021 12:00:00 AM EDT [facility] ([facility]) OFFICE OUTPATIENT VISIT 25 MINUTES 04/11/2021 12:00:00 AM EDT [facility] ([facility] OFFICE OUTPATIENT VISIT 25 MINUTES 04/02/2021 12:00:00 AM EDT [facility] ([facility]) Measure Blood Oxygen Level Continuous Overnight Monitor 03/27/2021 12:00:00 AM EDT [facility] ([facility], ) Cervantes Cre W/I 7 Days Of DC, Comm W/I 2 Dys 03/20/2021 12:00:00 AM EDT [facility] ([facility] OFFICE OUTPATIENT VISIT 25 MINUTES 02/26/2021 12:00:00 AM EDT [facility] ([facility]) OFFICE OUTPATIENT VISIT 25 MINUTES 12/31/2020 12:00:00 AM EDT [facility] ([facility] Spirometry 12/19/2020 12:00:00 AM EDT M [facility] ([facility]) OFFICE OUTPATIENT VISIT 25 MINUTES 12/19/2020 12:00:00 AM EDT [facility] ([facility]) Bronchoscopy Diag W/Placement Fiducial Markers, Single Or Mu lt 09/09/2020 12:00:00 AM EST [facility] ([facility], ) Bronchoscopy Rigid/Flexible Fluoroscopic Guide Computer-Assi sted 09/09/2020 12:00:00 AM EST [facility] ([facility]) Bronchoscopy W/Transbronchial Lung Biopsy 09/09/2020 1 2:00:00 AM EST [facility] ([facility], ) With Endobronchial Ultrasound Guided 09/09/2020 12:00: 00 AM EST [facility] ([facility]) With Transendoscopic Endo Ultrasound During Bronchoscopic DX 09/09/2020 12:00:00 AM EST [facility] ([facility]) Spirometry 08/22/2020 12:00:00 AM EST M [facility] ([facility]) Mammogram 08/06/2020 12:00:00 AM EST [facility] ([facility] Xray: 05/21/17 - Mammography, Bilateral Bronchoscopy W/Brushing Or Protected Brushings 020 12:00:00 AM EDT [facility] ([facility]) Bronchoscopy W/Bronchial Alveolar Lavage 06/10/2020 12 :00:00 AM EDT [facility] ([facility]) Bronchoscopy Rigid/Flexible Fluoroscopic Guide Computer-Assi sted 06/10/2020 12:00:00 AM EDT [facility] ([facility]) Bronchoscopy W/Transbronchial Lung Biopsy 06/10/2020 1 2:00:00 AM EDT [facility] ([facility]) Results ID Date Data Source [id number] 07/17/2021 01:53:00 PM EDT [facility] ([facility] Name Value Range Interpretation Code Description Data Leana rce(s) Supporting Document(s) Laboratory test finding (navigational concept) Laboratory test result [facility] ([facility] ID Date Data Source [id number] 07/17/2021 12:00:00 AM EDT [facility] Name Value Range Interpretation Code Description Data Leana rce(s) Supporting Document(s) SARS-CoV2 Rapid Antigen Negative [facility] This lab was ordered by [facility] and reported by [facility]. ID Date Data Source [id number] 06/25/2021 04:33:48 PM EDT [facility] Name Value Range Interpretation Code Description Data Leana rce(s) Supporting Document(s) PTH, INTACT @ 86.6 pg/mL (18.5-88.0) Laboratory [facility] ID Date Data Source [id number] 06/20/2021 12:05:09 PM EDT [facility] Name Value Range Interpretation Code Description Data Leana rce(s) Supporting Document(s) *Follow Up Visit NARCISO v1 [facility] MSWFXq9kJaCRAsJwo4uoKBpjQVExm4ZjEPy3CK9JO364xQC4iDjxtMHfzVLuSej8GLuyHrYyrSO3syzG pDQ [file] 9EUqN8AHNBQMCaufAlgFTHJReA/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/Bft/jV/bRa/7eahJ3R+J37J9GztjJ+ee/Chm856vjZapZ+ckz jYZ13o54bcnR+jk86uo3DkfP52ZQ0rU883KxL/Nou/ wIZBQ+plzof5dv0680Ybe52Ax9QGi9iFSuGI3M1l+UXUGn0yJQ6OMmOQauK3KXNjuGNWM/k5RkqRJwnY JkGYC6qS3Kaxo/PnZ/ApumfrQiBcS65A8qI+/hPcf84p2nyhJxJFIoPEC/CXklZdWmXVPSK1lzt7YDNK +eVNyCM6UWR+3EWskeIch23dE4Cg2Z1l3FkbTs69ye 92ueCog37Da5YOm07IFTbXB7Fat/vAqy2F+Wuz+QwiPTBxTceZZ3HstidQJCPhp0LoBOSaHDvw+dSjzt aEWZw/U4dfcDWaOAU/f0OiAXL69aUmC43H8atkBJYM+MSo1BE+S4t31YXNogY/t1WZXHAoCLll+rcPfP hS/tvj3w9ZBfbv9cuv0sftTA5pGb+BDYOG+JlXeYU4 xF+mlE9wm4EwjenR0mSH8cbi8RfMXInClSu+I/xv+oq9n7Mt+Dill+Favab5SB/kF7te/wM3wf/BO8xE0 [file] Hall Cleaner/HfLkdHNw7+u/9v//4ol3s144phE+dHrt1//5m///e/vfvXb/333p9+9OTTTxb/97k1ez4MMYk9ixv [file] cardiothoracic surgeon/4tnipBtm9ko/21U4g14sGIo5HYfFuE8jRZx2iA [file] CUWNXXpeZ3a0GEJ0HC0IUa3BKm7Ob2TwsdJ2aoKjHSfaYVRaVaKLRvBiFW2CDZf= ID Date Data Source [id number] 06/20/2021 12:05:09 PM EDT [facility] Name Value Range Interpretation Code Description Data Leana rce(s) Supporting Document(s) *Follow Up Visit NARCISO v1 [facility] BAVNMp8yHbHYRyUrf2olTQntNPAti3ShVAc0QV4LU331rFG6aCxduZGczKXlRbp9DGygSmLulSQ5vpqU pDQ [file] 76+3HqKN78zXYX+ld/Jose D/nB7XQ3yg3zgQj3n/9OlYUVhsls9jqd1nei2e2eGmqj/d96p+8lfBZ3Ny3W [file] da+RpRca+CVLGHN3RB9/NmjcYUMbVoMx0BQ3x3tL8zKt1/zvcy8Q0kI+EsvEJoM07A5Kp3jwJIjV+CHECK GRADER [file] ipcUKbbEnvCCZTYwX1XEW5IY6LSMBRV1TDXk== ID Date Data Source [id number] 06/17/2021 02:10:00 PM EDT [facility] CHEST WITH CONTRAST CLINICAL HISTORY: lung cancer and new lung nodule COMPARISON: CT chest dated 2021. PET/CT dated 04/28/2021. CONTRAST: 100 cc Omnipaque 300 300 intravenous contrast. TECHNIQUE: Axial CT images were obtained of the chest were obtained with contrast. Additional coronal and sagittal reformatted images were obtained. One or more of the following dose reduction techniques were utilized in effectively lowering the radiation dose for this examination: Automated Exposure Control, Adjustment of the mA and/or kV according to patient size, or Iterative reconstruction. FINDINGS: Lines and devices: Left-sided chest port in place. Lungs: Stable 5.4 mm superior segment right lower lobe spiculated pulmonary nodule. Stable 3.7 mm right lower lobe pulmonary nodule. Diffuse emphysematous disease. Stable 4.4 mm right upper lobe pulmonary nodule. Large airways: Unremarkable. Mediastinum and sonia: No pathologically enlarged mediastinal hilar adenopathy. Pleura: Unremarkable. V essels: No PE is identified. No aortic aneurysm or dissection. Unremarkable. Heart: Unremarkable. Chest wall/tissues: No axillary lymphadenopathy. Bones: No fractures or suspicious osseous lesions. Upper abdomen: Unremarkable. IMPRESSION: Stable small right-sided nodules which remains suspicious for underlying malignancy. X2 Name Value Range Interpretation Code Description Data Leana rce(s) Supporting Document(s) ID Date Data Source [id number] 06/17/2021 01:58:00 PM EDT [facility] EXAM: US Thyroid INDICATION: UPTAKE IN T HYROID COMPARISON: Outside 06/09/2021 PET/CT TECHNIQUE: Real-time sonography of the thyroid gland was performed with limited color Doppler. FINDINGS: Thyroid gland: The thyroid gland is normal in size and normal in background echogenicity. The background vascularity of the thyroid gland is normal. Right lobe: 4.2 x 1.5 x 1.9 cm Left lobe: 4.9 x 1.3 x 1.4 cm Isthmus: 0.2 cm Bilateral thyroid nodules. The largest is a 1.4 x 1 x 1 cm hypoechoic solid nodule in the upper pole of the right lobe (TI-RADS 4), which by location likely corresponds to the metabolically active nodule on outside PET/CT. Additional bilateral subcentimeter nodules. These include 0.9 x 0.7 x 0.6 cm solid nodule in the mid right lobe with peripheral and macrocalcification (TI-RADS 5). A cystic nodule in the lower pole of the right lobe measures 0.6 x 0.4 x 0.2 cm (TI-RADS 2). A solid and cystic nodule in the lower pole of the left lobe measures 0.5 x 0.3 x 0.4 cm (TI-RADS 2). Per ACR TI-RADS:TI-RADS 1: Benign, no FNA required. TI-RADS 2: Not suspicious, no FNA required. TI-RADS 3: Mildly suspicious, >1.5 cm follow up, > 2.5 cm FNA followup: 1, 3 and 5 years. TI-RADS 4: Moderately suspicious, > 1.0 cm follow up, > 1.5 cm FNA follow up: 1, 2, 3 and 5 years. TI-RADS 5: Highly suspicious, > 0.5 cm followup, > 1.0 cm FNA annual followup for up to 5 years. IMPRESSION: 1. Bilateral thyroid nodules, as described. The largest nodule on the right measures 1.4 cm (TI-RADS 4). Suggest FNA given that this nodule was metabolically active on PET. 2. A smaller 0.9 cm right-sided nodule meets criteria for sonographic surveillance per ACR TI-RADS guidelines (TI-RADS 5). Professional interpretation performed at [facility] . Name Value Range Interpretation Code Description Data Leana rce(s) Supporting Document(s) ID Date Data Source [id number] 06/25/2021 04:33:42 PM EDT [facility] Name Value Range Interpretation Code Description Data Leana rce(s) Supporting Document(s) PTH, INTACT @ 50.8 pg/mL (18.5-88.0) Laboratory [facility] ID Date Data Source [id number] 06/13/2021 07:36:46 PM EDT [facility] Name Value Range Interpretation Code Description Data Leana rce(s) Supporting Document(s) FREE THYROXINE @ 0.89 ng/dL (0.76-1.46) Laboratory [place] [facility] ID Date Data Source [id number] 06/13/2021 07:39:05 PM EDT [facility] Name Value Range Interpretation Code Description Data Leana rce(s) Supporting Document(s) CORTISOL @ 4.3 ug/dL Laboratory [facility] CORTISOL REFERENCE RANGE: 7-9AM 5.3 - 22.5 MCG/DL 4-6PM 3.4 - 16.8 MCG/DLLATE AFTERNOON LEVELS FALLTO APPROX. 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 [file] Xv3TfHtbMFM2VYw+Ad8BYCnvkQIxuWkfBKMVWqN4AbW3YU0UTDDBL9UZTf== ID Date Data Source [id number] 06/04/2021 06:46:57 PM EDT [facility] [place] [facility] [place], [place] [address]Tel# SURGICAL PATHOLOGY REPORTPatient Name:RAE MUNIZ:4Received:06/02/2021ccession #:[id number](s) Received: A: Biopsy, liver lesion, 20G x 3 coresClinical Diagnosis and History: History of COPD and a right middle lobe lung nodule measuring 1.9 cm(09/02/2020); bronchoscopicbiopsy showed poorly differentiated adenocarcinoma; status post treatment;recent followup PET/CT (04/28/2021) showed resolution of the right middlelobe nodule and mediastinal adenopathy but a new 1.5 cm hepatic lesion.DIAGNOSIS:LIVER LESION, NEEDLE CORE BIOPSY - LIVER PARENCHYMA WITH MILD CHRONICPORTALINFLAMMATION, NO SIGNIFICANT STEATOSIS AND NO SIGNIFICANT FIBROSIS; NOEVIDENCE OF MALIGNANCY (SEE MICROSCOPIC DESCRIPTION).MICROSCOPIC DIAGNOSIS: Sections show multiple cores of well- preserved liver parenchyma. Theportal tracts are mildly expanded and contain an infiltrate of chronicinflammatory cells consisting primarily of small lymphocytes, histiocytesand rare eosinophils. There is some interface hepatitis. The bile ductsare present and some portal tracts show mild bile ductular reactions. Thehepatic lobules have no significant macrovesicular or microvesicularsteatosis. There is no significant acute or chronic inflammation. Thehepatic sinusoids are mildly dilated. There is some mild zone threecholestasis. There is no atypical epithelial proliferation identified. Atrichrome stain shows some lose portal fibrosis, however, there is nosignificant periportal or portal to portal bridging fibrosis; there is nosignificant pericellular or perivenular fibrosis. A reticulin stain showsintact hepatic architecture with no evidence of dropout or remodeling. Aniron stain is negative. A CK7 stain highlights bile ducts within portaltracts; some portal tracts show mild bile ductular reactions. There is noatypical epithelial proliferation identified. GROSS DESCRIPTION: Specimen r eceived in formalin labeled "liver biopsy" are three softred-ibrahim cylindrical tissues varying form 1.1 x less than 0.1 cm to 2.1 x0.1 cm. The specimen is submitted in toto for microscopic examination. (1 block)vlcrff/mecReported: 06/04/2021 18:45Electronically Signed Out By Nito Cosme MD [facility]lc[facility]ology [place], [place] [address]Technical component performed at [facility], Histopathology, [address] [place] [address], [facility].Reported at [facility], [address] [place] [address], [facility].This report may include immunohistochemical or in-situ hybridizationresults. Testing was developed and the performance characteristicsdetermined by [facility], as required byCLIA '88. The FDA has determined that approval for specific use is notnecessary for clinical use. The quality of Hematoxylin and Eosin stainsand as applicable, for all immunohistochemical and/or special stains,including positive and negative controls, were reviewed and consideredappropriate.ICD codes: R93.2 Z85.118 CPT4 codes: A: 71931F, 77295g, 8 8313H, 00544Q, 08966C Name Value Range Interpretation Code Description Data Leana rce(s) Supporting Document(s) ID Date Data Source [id number] 06/02/2021 01:52:00 PM EDT [facility] DATE OF EXAM: 06/02/2021T GUIDED LIVER BIOPSY INDICATION:Liver nodule, history lung cancer, question metastasis COMPARISON/CORRELATION: PET/CT 04/28/2021 One or more of the following dose reduction techniques were utilized in effectively lowering the radiation dose for this examination: Automated Exposure Control, Adjustment of the mA and/or kV according to patient size, or Iterative reconstruction. Informed consent for the procedure was obtained by explaining the possible benefits and risks, including bleeding and infection. All elements of routine sterile technique were employed to prevent catheter-related infection including hand hygiene, skin preparation, and sterile ultrasound techniques if applicable. 1% lidocaine used for local anesthetic. Versed and fentanyl given intravenously for conscious sedation (doses in the procedure record), requiring 12 minutes hfwo-pe-pusi time. PROCEDURE: Preliminary focused regional scan was performed. 20-gauge biopsy needle was used to obtain 4 sample(s). Samples were sent to pathology for analysis. IMPRESSION:Uneventful image-guided biopsy. Professional interpretation performed at [facility] [phone] of diagnostic report for accession: [id number] Interpreted: Fernando Damian MDTranscribed: 06/02/2021 01:51 PMSigned: 06/02/2021 01:52 PM Fernando Damian MD [facility] # [id number] BILL # [id number] IRR Name Value Range Interpretation Code Description Data Leana rce(s) Supporting Document(s) ID Date Data Source [id number] 06/02/2021 08:08:05 AM EDT [facility] [place] [facility] Name Value Range Interpretation Code Description Data Leana rce(s) Supporting Document(s) PT 9.9 s (9.2-11.9) [facility] [place] of [facility] PERFORMED AT [address] [place] [address] INR 0.94 [facility] [place] [facility] SUGGESTED THERAPEUTIC RANGES USING INR F ORSTABILIZED ANTICOAGULATED PATIENTS:STANDARD DOSE THERAPY INR 2.0-3.0 DVT, PE, PREVENT DVT OR EMBOLISMHIGH DOSE THERAPY INR 2.5-3.5 PREVENT EMBOLISM FROM MECHANICAL HEART VALVE ID Date Data Source [id number] 06/02/2021 07:54:57 AM EDT [facility] [place] [facility] Name Value Range Interpretation Code Description Data Leana rce(s) Supporting Document(s) WBC 6.1 10*3/uL (4.1-11.0) [facility] [place] [facility] [place] RBC 4.02 10*6/uL (4.00-5.40) [facility] [place] [facility] HGB 12.1 g/dL (12.0-16.0) [facility] [place] [facility] HCT 37.3 % (36.0-47.0) [facility] [place] [facility] PERFORMED AT [address] [place] [address] MCV 92.8 fL (80.0-95.0) [facility] [place] [facility] [place] MCH 30.1 pg (27.0-32.0) [facility] [place] [facility] [place] MCHC 32.4 g/dL (32.0-36.0) [facility] [place] [facility] [place] RDW 14.6 % (10.5-14.5) H [facility] [place] [facility] [place] PLT 223 10*3/uL (150-450) [facility] [place] [facility] [place] MPV 8.0 fL (7.1-10.7) [facility] [place] [facility] [place] ID Date Data Source [id number] 05/28/2021 08:40:00 PM EDT [facility] Name Value Range Interpretation Code Description Data Leana rce(s) Supporting Document(s) SARS coronavirus 2 RNA [Presence] in Res piratory specimen by JORDANA with probe detection NOT DETECTED [facility] This lab was reported by [facility] [place] [facility]. ID Date Data Source [id number] 05/29/2021 10:57:52 AM EDT [facility] [place] [facility] Name Value Range Interpretation Code Description Data Leana rce(s) Supporting Document(s) SPECIMEN DESCRIPTION [facility] COVID 19 RESULT (NDET) [facility] [place] [facility] NEGATIVE COVID-19 RESULTS DONOT PRECLUDE COVID-2019 INFECTION ANDSHOULD NOT BE USED THE SOLE BASISFOR PATIENT MANAGEMENT DECISIONS. COMMENT [facility] [place] [facility] [place] THE [place] FDA HAS MADE THIS TEST AVAILABL EUNDER AN EMERGENCY USE AUTHORIZATION(EUA) FOR THE DETECTION AND/OR DIAGNOSISOF THE VIRUS THAT CAUSES COVID-19.THIS ASSAY AMPLIFIES AND DETECTS [employer] USING WIND TURBINE CONTROLS ENGINEER- MEDIATEDAMPLIFICATIONTESTING PERFORMED ON [employer] PANTHER FIRST TEST [facility] [place] [facility] [place] EMPLOYED IN HLTHCARE [facility] SYMPTOMATIC [facility] [place] [facility] DATE OF SYMPT ONSET [facility] HOSPITALIZED [facility] [place] [facility] [place] [facility] [place] [facility] [place] CONGREGATE CARE SET [facility] [place] [facility] [place] ID Date Data Source [id number] 05/06/2021 08:14:11 AM EDT [facility] Name Value Range Interpretation Code Description Data Leana rce(s) Supporting Document(s) *Follow Up Visit NARCISO v1 [facility] BBUJJl9jLtWQErOde6bjKGgaWFLfg8ZlYXq2AI4CN8BtKJtsscBlIRPtkqMjF6LpWCZqZTMRBGvgCDpd FQz [file] /9n2++chair lift operator/vvutN/96/G9ath/e/Mu9c8lq8KEsXTj6 [file] setter assembler/5l+4QDd6hDCE11ZOL36zIrI8/Xh6C+Qwu37pLdEg Xyr/zU+5KTTsbZzV3kyPuKsjU8ZJhMDeYh6vDovOD2UJhSes6V1TqVF9t3gNJMwj+D+9sgfpiUJdqh/G lFH2ZoscFAQqXPEGmgFdAKzW8dkaxTxnMt21x1Ztpf radha+m43BfyEXGRRaFWgPH29caYtkaQL3qyELW/xZWRQFo3j6m1Ya7WXRa1YxldprHiG5P6MY9RcOcQ/m [file] TcNWErTl2VC5roDd3lXSddUFMIPTz+Ce9HADiguDIwzQfyQODMSvC0HPW1HA0TXZGBJ5LSPq== ID Date Data Source [id number] 04/09/2021 08:54:57 AM EDT [facility] Name Value Range Interpretation Code Description Data Leana rce(s) Supporting Document(s) RT - Follow Up Visit NARCISO v1 [facility] FJHRXi6hSkOWFzVud3oqZViwSNTws8XpOTt2TR1EK0HgRSvmkcHqVLAtabNdU8EvMWHbNCUXCCmfYZOr vVH [file] jose d+VayDqYFj3CTEOaXnTPxpCRKpvU4cGIsVN+Wt6G [file] afR9IH/K/ynuxcl7sQKsFj23/Am9xb/sb23ujE+paco++H7/JgNxi+9lWxBjX3J6R0/pOtDxvimzzPurL0 sm4m1ZNwMPzLp5AZCo+b771bPpz/cn16+kPX/afhfv 5tXjotyhuszeaimMoOgv1tQZcf3tUhX6jp3l+cIreNprJQC48J6FelzQ9t7HtLjrFD1wlMKe2lci6G/Y f0Hmb5361v7UgeoZgkpx8K572BOEIjRviowwd9e0b9ugbF17EC/LMDX978p735W/TLf/y/u38/ptVLWs sa1wg2tV7Ovtm58UOes4G/RZ19k99KJG1t+cfUaE9w HgrMk6F6tCg0lmWv8T/In27+3UOnG1g/HgfSn2+6w8/OmtjuqaZDd7pkB1cD3/PQbn1yvQgF2s4H/zy+ k3EsHw/cm3t9Zv1v/sld8S6AX5Od7h+G5EeTscgJQ8CJZub8XhVPtYvfQz8M+M1d7bQrm7Khi8X5vkan MWn0E7eKs31X94lm8cNMNubMygjpgLib2p5dFn3Al+ Y6N+PLYoLl77csVmV59N0w0uT5dqnJx9V+7y+oHKoWb5ASMdv+L09/7j5/5FTuXVo4/2Vvn7yZ4nQ2G4 h2N8iFk+9Yypu/OSnnU/pj4eMY21/nTxH9+fFl85im8r0B1wMo4UioYbwPm+/hWPMvN+AlIm7XY4+pradip+ Js8HW60ILRlfnP64O9d0moz/oOuAUtnQ/H0nIgtARU X2z+editor managing director+a/QHheB7E6swslpRFd4eJMgLm05QLokU3v6WS12ubtkvp1B0/tnwmQB08wfsZI8sif7LKJSd jXdunvHuFZZXpw9/misyKVHdB2Fp1sUch5d2I5jQa4dKis/t+J//V4vRTCIBVaAxAYC7rcQtuF5LFErk cfNuDsyIVxS3VOIes7GgDNg4QR0ET6EgmQSicdZgKh gstWVJJAEiAVBSBn4WLK0wQN3BkyCXAAXrjG2pA7oaevScCfSyr0XwjrDtdILjzdonyxuxh7KxrfiUBd 3ECO1knNlkKtA7OMXSZi7HLu84DNqsMkKjIZDyELKmFWVvNDEgCTBdZzNlMKAvKBSySXevNKVjCAVqAM kzEZjaZNUaOJ1rjoCjuM4ZZ1M2YdO1yAOiB4Cbih0T Vy1WOXSvlRSbNSIwHRtUGo0Ts072ZRn2IOvdBwAEFKaYJ0ZwsOIaPWIjiRLLIILkMiRmGBXSXk3SXAaN TEErQXJpYWxNVCAzNyAwIFINCj4+IKcWUr8Sqk4lJ2P9HHhoDVUXGX9YDIs4DL5BvRRtYBGsJAx+Pg0K DQo+Gk9Xp3XfONSuJDz4EmvqZ10xlYGx8kwECSEti1 K/8SQJDgoHfZUKgUz24g/fIAFkI8NoZ6vX+RDzWgEFEcch+1wex3+zyMsgy3+Ur//8dZufyHg2v4JP4f uX//W/n/7X0//97V9P/+/3/y/3619++0b4371RjrxQ0oW3o6/9r9/+6I9z6zr1g//1f97+9g6jP7K//f [file] LONG+mYfTuQGvoMcSJXbyvDSncf4vttGDVNf7ajck8vq tQsaK+GfyUDeOzWicEhOzFbY2PqRhAKzYNTQrKXeMvPmeARCRCIN3XYjzBTjfqnkGS/MU2HiMswh96aN USZfbUauNlgZ9I2aZawyGOzEt1FqLyNP9GuQIGqw37fplNn1NKU+QnyuGgZY0bOEbtksCanROgPY5MFj 3KNY7pu1NeEWu2vdCgYZhbAZE1RFgfTOJwDYWyCYDt XUV0JTL9LUKVBxZgONHzCENoHXerMDZdRLBkwl1JISEjXNQqJOO6OOMxLKRfZAGpJNelXCIbEDLfPtZn RIDbQRTlLI1PGrCcGMBbPRG6JgekWGQzUVDjye8YEARmAROnWZO5REByYJMeVNLbYCbfCWCpQCJvPLV8 DCMmYYPpGA7LElAnIYZoMVM2FPxzESQoBALnes3YLJ PvFTPmPBZ9JJPgJEMiZHCiWAiiIGUkKIV6OROgNWHkIQWaLX9QUqYuCHVvAVRoXJheNNRbSBVruc0DEN HlBDOkLhGmUtStMXPuIBKrOWpdNWTfDDLyXtY1XCPdLENwNX4GQcIdNUQlZTLcCPAkTXHcUFAxpc4IXC BkNVSgPTI5RRZwPHFaTPOdLUanJYUwTSVhCvw5KMDd KEVtWC2BJsFzIZXySCT9MJrgPTBcGGMcqu9WLYWtOIVzEZD6QnLfHQMfUHZdRDyrKEDmWXUvRtW7MOXr NJCvMP3JEoBxRPZvVWK5VKSmNJRiRFYulk3MUFIuBTD4CRN2AoKnMQSuRIJeNCnfYHOzWJF9HKHmJRBm IHIkDS9LNfVkKMVfXAD2INLpOJLaMJOhlw2HUEIaSH PuYGB1VRRcMLNuTYBnNLisWRIeHUHtARS9VHQxEOYhUM8ZRbNbRDQrCRG7UIWtOEJsNNJrlz2EWBWqIM LeFXCyGQLoPQMtKGCnJHmaAEPdQEu7EWu0OAShXKEmTH4CVhZkCUUtNRG8ITdqRVXxYKGgep7YEZNuIF DuMvJ9BZKcDHHuRRHhQGodGEDsXKX3KTk2LUYeCWYg XX8YXsUmZHAtJZV4EFEyIEGvIPQoxq7IEHTfHFRkEpAaANFvVEQbRHIgNQgfITPuISV3MuJ9ZGKhKHYr OM7MAiEnJKRiWJq0HltgZZDrHGWqvt5RAJHnNTTjLjh5VCFfNDHrYCLrNZyiYBUzKNV4ZvAzOIEeEOYu CJ0AOpYdQOWlMMa0HjPoOVWjWWPgvb4XUGOmRDA2EQ T2AnIsKRYcCGAbGFhrIKUtOTU4Qio8RYZnMUFxPK4FFcKiOMYpZBL0EQcrIMFgLRZdyl9TCIVbFEG7Qo K6XLJqCTObFBSkVNtxOARnYVU3VNr1NTZjWSLkOV3BRgEeUXBhYLg6TEeiEYFdUYObsb8FJDPmQCS9EF M2RWYtRVXaKQLgOGwpITFwLYS1FUIiNBZlVRYdSU7Q RoLtJORuTEx6JTgyDFLzCCTjlr6FVOAuGIC0ACL0TbOnIYMxJPQlJRocZNQyUMv7STJjMLAhZRLiNI1L JaEgZLzgBQHASup0TWmyFL2tptVzYMZxJMJCWy5AxLfzLQD7SMpmLf7bdGDiIMTgId3OBz2ASq0Yx7Gz okG0ndPiTCvqNnN4TJEGGgPdDN1SPYi= ID Date Data Source [id number] 03/30/2021 06:10:00 PM EDT [facility] Name Value Range Interpretation Code Description Data Leana rce(s) Supporting Document(s) SARS-CoV-2 (COVID 19) NEGATIVE - SARS-CoV-2 (COVID19) [facility] This lab was ordered by [facility] a nd reported by [facility]. ID Date Data Source [id number] 03/21/2021 09:09:15 AM EDT [facility] Name Value Range Interpretation Code Description Data Leana rce(s) Supporting Document(s) *Follow Up Visit [facility] v1 [facility] IVAZOa5tOiSPNpNii2duEOsqHVPsr7WrQTq3SR4OB9ZzT8TwYLCvLTHDRCkfD1Z8pVP8TC22RY10gdJz KL0 [file] OKPv0TfVlkIFL8XFj+Ju3DIYdusYQcjMgnTAFTFeE6VWC5Vh7POFSKL7FVPj== ID Date Data Source [id number] 03/21/2021 09:05:41 AM EDT [facility] Name Value Range Interpretation Code Description Data Lenaa rce(s) Supporting Document(s) *Follow Up Visit [facility] v1 [facility] SGUZNf7ySjZUCrSga5llMWjmRYYnq7LfORf7KS2EG2JiBTkiomOuTCFkveRgT8ZkWGTjRIQDUPmnW6L9 yIC [file] YwFGTjtFCg6ExyGvC3U3YMmbJbaRHXPBtYE+CSZDrg2Teb+e+r+eSXiFzJnB5xAH7+pr2y4TapT0O+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 ID Date Data Source [id number] 03/07/2021 10:09:54 PM EDT [facility] Name Value Range Interpretation Code Description Data Leana rce(s) Supporting Document(s) FREE THYROXINE @ 1.27 ng/dL (0.76-1.46) Laboratory [facility] ID Date Data Source [id number] 02/27/2021 01:04:00 PM EDT [facility] ([facility] Name Value Range Interpretation Code Description Data Leana rce(s) Supporting Document(s) Glucose, Fasting 93 mg/dL 70-100 [facility] ([facility] Creatinine For GFR 0.79 mg/dL 0.55-1.30 [facility] ([facility] Blood Urea Nitrogen 11 mg/dL 7-18 [facility] ([facility] Glomerular Filtration Rate Laboratory test result [facility] ([facility] <content>Units are mL/min/1.73 m2</content>
<content></content>
<content>Chronic Kidney Disease Staging per [facility]:</content>
<content></content>
<content>Stage I & II GFR >=60 Normal to Mildly Decreased</content>
<content>Stage III GFR 30- 59 Moderately Decreased</content>
<content>Stage IV GFR 15-29 Severely Decreased</content>
<content>Stage V GFR <15 Very Little GFR Left</content>
<content>ESRD GFR <15 on HISTOLOGY SUPERVISOR</content>
<content></content> Potassium Serum 3.7 meq/L 3.5-5.1 [facility] ([facility] Sodium Level 137 meq/L 136-145 [facility] Chloride Level 99 meq/L 98-107 [facility] Carbon Dioxide Level 31 meq/L 21-32 [facility] Anion Gap 7 meq/L 8-16 [facility] Calcium Level 9.3 mg/dL 8.8-10.2 [facility] Ast/Sgot 11 U/L 7-37 [facility] Alt/SGPT 19 U/L 12-78 [facility] Alkaline Phosphatase 95 U/L 45-117 [facility] Albumin 3.3 GM/DL 3.2-5.2 [facility] Bilirubin,Total 0.3 mg/dL 0.2-1.0 [facility] Total Protein 6.8 GM/DL 6.4-8.2 [facility] ([facility] Albumin/Globulin Ratio 0.9 1.2-2.2 [facility] ([facility] ID Date Data Source [id number] 02/27/2021 01:04:00 PM EDT [facility] ([facility] Name Value Range Interpretation Code Description Data Leana rce(s) Supporting Document(s) White Blood Count 6.3 10 4.0-10.0 [facility] ([facility] Red Blood Count 3.56 10 4.00-5.40 [facility] Hematocrit 36.2 % 36.0-47.0 [facility] Hemoglobin 11.6 g/dL 12.0-15.5 [facility] Mean Corpuscular HGB Conc 32.0 g/dL 32.0-36.5 [facility] Mean Corpuscular Volume 101.7 fl 80.0-96.0 M [facility] ([facility] Mean Corpuscular Hemoglobin 32.6 pg 27.0-33.0 [facility] Red Cell Distribution Width 12.8 % 11.5-14.5 [facility] Neutrophils % 72.5 % 36.0-66.0 [facility] Platelet Count, Automated 280 10 150-450 [facility] Roberts % 14.1 % 2.0-8.0 [facility] Lymph % 9.8 % 24.0-44.0 [facility] Eos % 2.7 % 0.0-3.0 [facility] Immature Granulocyte % 0.3 % 0-3.0 [facility] Baso % 0.6 % 0.0-1.0 [facility] Neutrophils # 4.6 10 1.5-8.5 [facility] Nucleated Red Blood Cell % 0.0 % 0-0 [facility] ([facility] Roberts # 0.9 10 0.0-0.8 [facility] Eos # 0.2 10 0.0-0.5 [facility] Lymph # 0.6 10 1.5-5.0 [facility] Baso # 0.0 10 0.0-0.2 [facility] ID Date Data Source [id number] 02/11/2021 11:55:42 AM EDT [facility] Name Value Range Interpretation Code Description Data Leana rce(s) Supporting Document(s) *Follow Up Visit [facility] v1 [facility] AVJHIq8rXaFNDuLmy6otLQhkHONgt6XfMVi3RK6ER0ZbU1WDFUtvfDPmJ57dHRZnwLRsmt9YH1OuU6Rm KL0 [file] vp hr diversity+vFi/HY/Hf/6q0n083QI/vF25zz+lWRpmt/6Rmi+i4T7p6FAhY6kXbCZX/wdNVa3/3W2m6+/1VIft8 [file] HVu/LfR5lXWhXd+Hall Cleaner+ff7s/Qb4wykYZM3mVvvPw5xmxhPvurqZlKKrgL/ruTcLjf6pC24RCS8emaqeNm [file] M9PZ5XH6nzVt5vKVBtJTAMMCb+Xo9BCDzzgQXxkQjuLUJZCdU0HxQ4GQ0MIQLVU6YSGh== ID Date Data Source [id number] 02/10/2021 11:39:00 AM EDT [facility] [place]AMINATION: CT Chest, Abdomen, and Pelv is INDICATION: Right middle lobe lung cancer, for restaging. Status post RT to the right lung 01/08 with concurrent chemotherapy. Covid vaccination 11/16 and 12/11 in the right arm. COMPARISON: CT chest 11/06/2020, outside PET/CT 08/20/2020 TECHNIQUE: Axial images are obtained following the administration of 100 mL Omnipaque 300 intravenous contrast. In addition, oral contrast was given. Thin section reformatted images are obtained in the sagittal and coronal planes. One or more of the following dose reduction techniques were utilized in effectively lowering the radiation dose for this examination: Automated Exposure Control, Adjustment of the mA and/or kV according to patient size, or Iterative reconstruction. FINDINGS: CT Chest: A right chest left chest port remains in place, unchanged. The catheter is intact and terminates within the proximal superior vena cava. There is no axillary or supraclavicular adenopathy. There is a partially demonstrated 12 mm nodule within the right lobe of the thyroid gland, grossly unchanged since the prior study. Previously noted 8 mm right hilar node measures 7 mm on image 29. Previously noted 10 mm precarinal node remains stable, maintaining a normal fatty hilum. There are no enlarging mediastinal nodes. There is unremarkable opacification of the thoracic aorta and central pulmonary arteries. The thoracic aorta is normal in caliber. The heart is normal in size. There is minimal coronary artery calcification. There is no pericardial effusion. The thoracic esophagus is unremarkable. The trachea and central bronchial airways are unremarkable. There are moderately advanced centrilobular emphysematous changes, stable.There has been significant regression of previously demonstrated right middle lobe lesion adjacent to the fiducial markers on image 32. Residual nodular density measures approximately 7 x 4 mm, originally 18 x 15 mm pre- RT.Small right upper lobe calcified granuloma on image 110 of series 3 is again noted.There are no new pulmonary parenchymal lesions. There is no pleural effusion. The osseous structures demonstrate no suspicious lesions. CT Abdomen and Pelvis: Low density along the falciform ligament is grossly unchanged in configuration when compared with prior examinations, likely representing portal perfusion defect. There is diffuse hepatic steatosis. The liver is otherwise unremarkable. The gallbladder is unremarkable. Spleen is unremarkable. The pancreas is unremarkable. The adrenal glands are unremarkable. Subcentimeter hypodensities within the kidneys are too small to characterize however, most likely represent small cysts. The kidneys are otherwise unremarkable. There is no intra-abdominal adenopathy. The small bowel and mesentery are unremarkable. There is no ascites. There is no free intraperitoneal air. The abdominal aorta is normal in caliber. There is no para-aortic adenopathy. The appendix is normal. There are no pericolonic inflammatory changes. Distal sigmoid surgical anastomosis is grossly unremarkable. The uterus and adnexa are unremarkable. There is no pelvic free fluid, adenopathy, or mass. The urinary bladder is unremarkable. There is no inguinal adenopathy. The osseous structures demonstrate no suspicious lesions. Bilateral buttock granulomas are incidentally noted. IMPRESSION: CT Chest: Regression of right middle lobe mass with small residual density. No evidence of metastatic disease within the chest. No evidence of acute intrathoracic process. CT Abdomen and Pelvis: No evidence of metastatic disease within the abdomen or pelvis. Hepatic steatosis. No evidence of acute intra-abdominal process. Professional interpretation performed at [facility] . Name Value Range Interpretation Code Description Data Leana rce(s) Supporting Document(s) ID Date Data Source [id number] 02/10/2021 11:39:00 AM EDT [facility] EXAMINATION: CT Chest, Abdomen, and Pelv is INDICATION: Right middle lobe lung cancer, for restaging. Status post RT to the right lung 01/08 with concurrent chemotherapy. Covid vaccination 11/16 and 12/11 in the right arm. COMPARISON: CT chest 11/06/2020, outside PET/CT 08/20/2020 TECHNIQUE: Axial images are obtained following the administration of 100 mL Omnipaque 300 intravenous contrast. In addition, oral contrast was given. Thin section reformatted images are obtained in the sagittal and coronal planes. One or more of the following dose reduction techniques were utilized in effectively lowering the radiation dose for this examination: Automated Exposure Control, Adjustment of the mA and/or kV according to patient size, or Iterative reconstruction. FINDINGS: CT Chest: A right chest left chest port remains in place, unchanged. The catheter is intact and terminates within the proximal superior vena cava. There is no axillary or supraclavicular adenopathy. There is a partially demonstrated 12 mm nodule within the right lobe of the thyroid gland, grossly unchanged since the prior study. Previously noted 8 mm right hilar node measures 7 mm on image 29. Previously noted 10 mm precarinal node remains stable, maintaining a normal fatty hilum. There are no enlarging mediastinal nodes. There is unremarkable opacification of the thoracic aorta and central pulmonary arteries. The thoracic aorta is normal in caliber. The heart is normal in size. There is minimal coronary artery calcification. There is no pericardial effusion. The thoracic esophagus is unremarkable. The trachea and central bronchial airways are unremarkable. There are moderately advanced centrilobular emphysematous changes, stable.There has been significant regression of previously demonstrated right middle lobe lesion adjacent to the fiducial markers on image 32. Residual nodular density measures approximately 7 x 4 mm, originally 18 x 15 mm pre- RT.Small right upper lobe calcified granuloma on image 110 of series 3 is again noted.There are no new pulmonary parenchymal lesions. There is no pleural effusion. The osseous structures demonstrate no suspicious lesions. CT Abdomen and Pelvis: Low density along the falciform ligament is grossly unchanged in configuration when compared with prior examinations, likely representing portal perfusion defect. There is diffuse hepatic steatosis. The liver is otherwise unremarkable. The gallbladder is unremarkable. Spleen is unremarkable. The pancreas is unremarkable. The adrenal glands are unremarkable. Subcentimeter hypodensities within the kidneys are too small to characterize however, most likely represent small cysts. The kidneys are otherwise unremarkable. There is no intra-abdominal adenopathy. The small bowel and mesentery are unremarkable. There is no ascites. There is no free intraperitoneal air. The abdominal aorta is normal in caliber. There is no para-aortic adenopathy. The appendix is normal. There are no pericolonic inflammatory changes. Distal sigmoid surgical anastomosis is grossly unremarkable. The uterus and adnexa are unremarkable. There is no pelvic free fluid, adenopathy, or mass. The urinary bladder is unremarkable. There is no inguinal adenopathy. The osseous structures demonstrate no suspicious lesions. Bilateral buttock granulomas are incidentally noted. IMPRESSION: CT Chest: Regression of right middle lobe mass with small residual density. No evidence of metastatic disease within the chest. No evidence of acute intrathoracic process. CT Abdomen and Pelvis: No evidence of metastatic disease within the abdomen or pelvis. Hepatic steatosis. No evidence of acute intra-abdominal process. Professional interpretation performed at [facility] . Name Value Range Interpretation Code Description Data Leana rce(s) Supporting Document(s) ID Date Data Source [id number] 01/13/2021 11:36:00 AM EDT [facility] FRONTAL AND LATERAL CHEST TWO VIEWS LATISHA CATION: COUGH SOB R/O PNEUMONIA ?COPD EXASPERATIONCOMPARISON: 12/25/2020 FINDINGS: Left chest port. No mediastinal or hilar adenopathy. Cardiac silhouette is unremarkable. Hyperexpansion. Right anterior perihilar fiducial markers are again noted. Nodule on recent CT cannot be separately resolved radiographically due to superimposition with adjacent structures. No pneumonia or edema. No acute pulmonary abnormality. No pleural effusions or pneumothorax. IMPRESSION: Treatment related hardware. No acute abnormality or significant interval change. Professional interpretation performed at [facility] . Name Value Range Interpretation Code Description Data Leana rce(s) Supporting Document(s) ID Date Data Source [id number] 12/31/2020 09:32:27 AM EDT [facility] Name Value Range Interpretation Code Description Data Leana rce(s) Supporting Document(s) RT - Completion Note [facility] v1 [facility] RLGJWo1lRgZJKbXev6akEAiwYRPte0LtAGk4BN3VC3Tpgq9Gw6MeVYWmHFXKOHszSBihZTAsA9E7BIts vbS [file] shader and toner/pQ8m40BzcB/MTzd36SmJAbVc1uv0hNzWeLABfN7qTcUiZGgvkzVgJK7iWdOf+hFznzEx8fFG5vsG [file] j270LMHcQKJNVBe+Zh9HLLwszTPynEjoYGUIWcwiTQZ1HIrtPMXCZu1Q ID Date Data Source [id number] 12/26/2020 08:35:13 AM EDT [facility] Name Value Range Interpretation Code Description Data Leana rce(s) Supporting Document(s) *Follow Up Visit [facility] v[facility] JCROKg2bHtDOUvNwu1nqVWjlLYYyi5WhQYt7NM0JT0Okwm5Zc2RoYTQbDYGWXXziMUlnXAGbA4J8VVaa vbS [file] 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/Ovkvqjo4wi4s04RI9vqzVyfet72y/2IQ3ug6/ruOzEJ76bUjp8IpILj/o44Wue9atMcy9N3+685Y7 U9afqeUDSwB2lRg04oc/95lsuPMSmF/v6vrjE/MD16hbTLtfrNhQIvvHn4xQLt5frjg+GE8Hz70bmj32 X8/yeqHcPvxi+BRBbqEuHTETTkkm6os5q/wt1j8i0w Jr9kT+0b313kaUBCn9hO4fncm4uNgC7eBh/f3t7C4glgA13Ju/KDOxiq4OYZnes1FVEbD2r++ny+aY1f pCFe5rUKrAG/X9mzDt5pwCgCJ86lNQcdBRZal9Hl37P93mxUoVU18E94bLp3+1ebhCrL4B0q1n30BX/b xLIOstu6JZjhxBDp1oyNuklDB2P/zuzr4KjFoIspdn 2cf31XXH7n1tCdmpjZDnmm25nMe8ymLy4NMP4EpPP2fhNGmm2rp60uqOSNQkI8GquiqUq0pjH6ffZGHi +kXS046Bm1v94v6nedSC7B1B0Vl/xoiHS/u0e1K+2OxeDv/S7yIdIrl/1u3aGycnF1IN20D6iDQ+/THAD Becky/rPLocDt4/kaS47zoVm/deROe+OQu16Y6nYe/[place] [file] U76Lq8o0ylbxFUJ10SCvUPVMw4aiowKMT+SgGb+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 11/06/[address] TECHNIQUE: PA and lateral views of the chest were obtained. FINDINGS: Lungs/Pleura: The lungs are clear. Unchanged fiducial markers in the right hilar region with similar appearance of the adjacent hilar contours. No effusion or pneumothorax. Cardiomediastinal contours: Normal heart size. Stable appearance of the right hilum. Left subclavian port tip overlies the SVC. Soft tissues/upper abdomen: Within normal limits. Bones: Unremarkable. IMPRESSION: No acute findings. No significant int erval change. Professional interpretation performed at [facility] . Name Value Range Interpretation Code Description Data Leana rce(s) Supporting Document(s) ID Date Data Source [id number] 12/19/2020 02:44:00 PM EDT [facility] ([facility], ) Name Value Range Interpretation Code Description Data Leana rce(s) Supporting Document(s) FVC-Pred 3.63 L [facility] ([facility], ) PDFReport Laboratory test result [facility] ([facility], ) Fev1-Pred 2.78 L [facility] ([facility]) FVC-%Pred-Pre 42 L [facility] ([facility], ) FVC-Pre 1.56 L [facility] ([facility]) FVC-LLN 2.85 L [facility] ([facility]) Fev1-Pre 0.80 L [facility] ([facility]) Fev1-%Pred-Pre 28 L [facility] ([facility], ) Fev1-LLN 2.12 L [facility] ([facility]) Fev6-Pred 3.49 L [facility] ([facility]) Fev6-%Pred-Pre 44 L [facility] ([facility]) Fev6-Pre 1.56 L [facility] ([facility]) Fev6-LLN 2.72 L [facility] ([facility]) Mwf3tcx-Xhb 52 % [facility] ([facility]) Pld9szj-Idsf 77 % [facility] ([facility]) Hbz4tbn-%Pred-Pre 67 % [facility] ([facility]) Thd8guy-WQO 67 % [facility] ([facility]) Lwq2iwh-Zwe 100 % [facility] ([facility]) Egk4ird-Bisp 96 % [facility] ([facility]) Qkv9fuu-%Pred-Pre 104 % [facility] ([facility]) FEFMax-Pred 6.56 L/E/sec [facility] ([facility]) FEFMax-Pre 2.19 L/E/sec [facility] ([facility]) FEFMax-LLN 4.63 L/E/sec [facility] ([facility]) FEFMax-%Pred-Pre 33 L/E/sec [facility] ([facility]) Qhu4313-Tbyb 2.32 L/E/sec [facility] ([facility]) ExpTime-Pre 4.41 sec [facility] ([facility]) Ynu0950-%Pred-Pre 18 L/E/sec [facility] ([facility]) Kqh6973-Puj 0.42 L/E/sec [facility] ([facility]) Yka3880-PKS 0.92 L/E/sec [facility] ([facility]) Okx2ecd9-Vlhj 80 % [facility] ([facility]) Ypg7vbo9-%Pred-Pre 64 % [facility] ([facility]) Oti8lvn4-Chd 52 % [facility] ([facility], ) Mij6yjq0-QSV 71 % [facility] ([facility], ) ID Date Data Source [id number] 12/12/2020 08:32:33 AM EDT [facility] Name Value Range Interpretation Code Description Data Leana rce(s) Supporting Document(s) *Follow Up Visit [facility] JKJNOg9xEnKHUaOiw4ieZUdpWLBzf7OyVOh5OH0LT7Yygl0Cl9GmSCEdOWPQWJfjMUjjLANjQ1Q4ZJst vbS [file] bIzsiVSWeqeZo2d2arwoLKd/lF1p8egsvIVha/ [file] [id number]QSPDo6Q ID Date Data Source [id number] 11/28/2020 09:28:49 AM EST [facility] Name Value Range Interpretation Code Description Data Leana rce(s) Supporting Document(s) *Follow Up Visit [facility] PRGZFc7sWhWVUhZqd8ufCCifVCLgo9VkVEy1GL1PJ673mGG5aRjxhKNwjPPmHgu9DJcqOhWlvDS9qmcA gMi [file] LPjk5WhghX8BuuabZyBBSqPxh18pkuYp0+bT8XPJA0r9pM/BI5d2YJ6owcL+Hk58t841/STUDIO SET UP WORKER/5e3r0H3/ [file] Mi/DI1+C2hLACST+/1FCc02EvkD4uUxmai2yZ1B4XtexDRGQlvXA6MDTzqu/8//96+v/7ln86++W/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 The patient was administered 10 mL ProHance intravenously/10 mL vial. COMPARISON: MRI of the brain 10/02/2020 FINDINGS: No suspicious enhancing intracranial mass is seen. 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 This finding is stable compared to 10/02/2020. No acute infarct or restricted diffusion is seen. Minimal FLAIR signal abnormality is seen in the periventricular and subcortical white matter, nonspecific however most likely sequela of very mild chronic small vessel ischemic disease. No intracranial hemorrhage or midline shift is identified. No intra or extra-axial fluid collections are seen. The ventricles and sulci are mildly prominent, compatible with mild cerebral volume loss. Visualized orbits, paranasal sinuses and left mastoid air cells are unremarkable. Right mastoid fluid is noted. IMPRESSION: No evidence of intracranial metastatic disease. K6 Name Value Range Interpretation Code Description Data Leana rce(s) Supporting Document(s) ID Date Data Source [id number] 11/08/2020 10:54:31 AM EST [facility] Name Value Range Interpretation Code Description Data Leana rce(s) Supporting Document(s) RT - Initial Consult Visit NARCISO v1 [facility] UITQGw8qOhAOXbBhz7asONhbYWNnr3AhFWk0OS2HO980aWA3yEsfqJBrqJAoAyb6MMzmXB5naoJfg8JP pc3 [file] b1nl8wxZ/uf0n//78/nf0eb/+lMb6/Zff/w///ef/+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//3HP/78f//5/+l1/PHHP+IoyybfzmHcAI35 [file] 8GaCYLWL7Y/nUcYF322Umtt2m/9+n+3z3btz/NfY5vf/zf/8+n//faro dealer//vtX5/+/3///+Nx/PNv/7J/73 [file] Tres/ngjqYwZvfefpz6aVP5Z4ikz+a5c3egB8sylSS0o+/42mwrK3i7TVm7/wBHD7t19zYLime/QKJc/7 uWfTv4ZH+/n1+f4Oa1sXHyLD8R+aW8W/5Bwy1zIYr2qED+Ku+W5+q4483CT3KVi9a06Vk76M/PMR94b4 YjjKyG92m8TJGHLZS8ROAioOGWug6ORIelKtyxSCiz n66ULgtZToX3004KT4QNVLpwfo8WySBOKh9Z8Aj0nMsgEwcgycPRkYInioJ9ZjPQmOEDek7w4Lxk8L36 ZVGVl3Tfg0p/ZDdqoIJf6Jn4Q1aO5B93ntOjY1zuk7rcx1gb/I/C4pUMK0j/+q523+z+aoJ1AvunMWWj Ud7nZ1qPtwxoTWJplIiHneiUQ6dLsydqf/WqY3Pm6J 7+b6tgfFgggVKKbmOdrK+j9N5yS9XXJ9wo/I/RoauVbx+BPDgxLc/DaUZYT9yDuHcpsoa5TLWabEXg7P e5xJ7SQuU5Ol6zTtDppHCQbAZVkq8Z3RSYOqENPIy0imBfyAL1CUTEh7Gpxhx3OaggbZh8m54pO2CKAN ycC69L7loVfU8FNWvuUz8fggcm/puyx1fxy5ofp5ul 3fwm+m/N8nkpLj+/549h8FD1/DF/wsx4Tp8hEZywreHtRJ1N+WJhKAAY2H55+Ejkl/Jl+DcvCutK5bSD /FS+LM/NZtxdY6CBz3nS6Omehyja5VXFCbtQ7AxsDot1nwwyPxtxyPIZEy4U5DOdRBot8FWMUjgNSLTt cDlMhZdhbPc0R2hJCZuukMFk0Hfvgp7+mKNBJ+Sgmf AjOLhhdCPx7OppvB5D4FJmfQTvP6k6rzGt9TUaFRdtOwzhll4f8yG9eR1xZt2a3oS/rL1wNvd2Iljyt+ tq+5Pnn7/3k+ibm websphere portal developer/L1Yx6V+Fcs2Hr2h8BlpoqYsBQ3FaVJizZXShQ76GCfsT/Kt+UvaUjsDrxDBPFT+b [file] fEtnLBLYAoAuBvMxWU6QHAFBO6PAXf== ID Date Data Source [id number] 11/06/2020 09:12:00 AM EST [facility] [place] [facility] CHEST WITH IV CONTRAST INDICATION: Mila ng cancerCOMPARISON: Outside exam 09/02/2020CONTRAST: 100 mL. Contrast type not specified. One or more of the following dose reduction techniques were utilized in effectively lowering the radiation dose for this examination: Automated Exposure Control, Adjustment of the mA and/or kV according to patient size, or Iterative reconstruction. FINDINGS: LUNGS: Diffuse moderate to severe emphysematous change. Multifocal peripheral atelectasis/scar. Punctate right upper lobe granuloma. There are two fiducial markers along the anterior margin of a central right middle lobe nodule. Solid spiculated appearance. Axial long axis measurement 20 mm where previously by my measurement 17 mm. Subjectively clearly larger now with soft tissue component contiguous with the right hilum. Series 3 image 177. PLEURA AND PERICARDIUM: No pleural or pericardial effusions. MEDIASTINUM AND SONIA: Precarinal node 10 mm previously 10 mm. Detail limited by streak artifact. Rig ht hilar node difficult to clearly delineate for comparison on prior noncontrast study measuring [address] chest report described metabolic uptake on PET/CT in these distributions. No definite enlargement. Coronary artery calcification. CHEST WALL: No axillary adenopathy. Left chest port. Mild degenerative disc change. No skeletal metastases. UPPER ABDOMEN:Unremarkable IMPRESSION: Right middle lobe nodule enlarged from prior now indirect contact with the right hilum. Interval placement of fiducial markers. Limited ability to compare nodes due to streak artifact and noncontrast versus contrast CT comparison. Upper normal size limit right hilar and precarinal node show no definite change. Slight enlargement would probably not be detectable. Professional interpretation performed at [facility] . Name Value Range Interpretation Code Description Data Leana rce(s) Supporting Document(s) ID Date Data Source [id number] 11/01/2020 10:28:00 AM [facility] DATE OF EXAM: 1CHEST RADIOGRAPH , SINGLE VIEW INDICATION: PNEUMOTHORAX TECHNIQUE: Upright AP Portable view of the chest. COMPARISON: None. FINDINGS: There is a left chest Port-A-Cath with its tip reaching SVC. There is no pneumothorax. Degenerative changes are seen throughout the spine. There is no evidence of pleural disease. The lungs are clear. The heart and mediastinal contours are unremarkable. IMPRESSION: A left chest Port-A-Cath is visualized with its tip reaching SVC. There is no pneumothorax. Professional interpretation performed at [facility] .End of diagnostic report for accession: [id number] Interpreted: Jojo Biswas DOTranscribed: 11/01/2020 10:27 AMSigned: 11/01/2020 10:28 AM Jojo Biswas DO [facility] ACC # [id number] BILL # [id number] Name Value Range Interpretation Code Description Data Leana rce(s) Supporting Document(s) ID Date Data Source [id number] 11/01/2020 10:01:00 AM [facility] DATE OF EXAM: 11/01/2020INTRAOPERATIVE F LUOROSCOPY CLINICAL STATEMENT: Port-A-Cath insertion. TECHNIQUE: 2 limited, spot fluoroscopic images of the thorax were obtained intraoperatively. Images are submitted for review some time after completion of the operative case. COMPARISON: None. IMPRESSION: The patient is undergoing a left approach Port-A-Cath placement Correlate with intraoperative findings. Follow-up routine postoperative radiographs is recommended. Radiation exposure time: 18.6 sec. Number of images obtained: 2 Professional interpretation performed by [facility] Imaging at [facility] of diagnostic report for accession: [id number] Interpreted: Cliff Farooq MDTranscribed: 11/01/2020 09:58 AMSigned: 11/01/2020 10:01 AM Cliff Farooq MD [facility] ACC # [id number] BILL # [id number] Name Value Range Interpretation Code Description Data Leana rce(s) Supporting Document(s) ID Date Data Source [id number] 10/31/2020 09:17:00 AM EST [facility] Name Value Range Interpretation Code Description Data Leana rce(s) Supporting Document(s) SARS coronavirus 2 RNA [Presence] in Res piratory specimen by JORDANA with probe detection NOT DETECTED [facility] This lab was reported by [facility]. ID Date Data Source [id number] 10/31/2020 12:40:18 PM EST [facility] Name Value Range Interpretation Code Description Data Leana rce(s) Supporting Document(s) SPECIMEN DESCRIPTION [facility] COVID19 RESULT (NDET) [facility] NEGATIVE COVID-19 RESULTS DONOT PRECLUDE COVID-2019 INFECTION ANDSHOULD NOT BE USED THE SOLE BASISFOR PATIENT MANAGEMENT DECISIONS.THIS ASSAY AMPLIFIES AND DETECTS THE TARGETRNA USING ISOTHERMAL HELICASE DEPENDENTAMPLIFICATION.TESTING PERFORMED ON THE [employer].THE U.S. FDA HAS MADE THIS TEST AVAILABLEUNDER AN EMERGENCY USE AUTHORIZATION(EUA) FOR THE DETECTION AND/OR DIAGNOSISOF THE VIRUS THAT CAUSES COVID-19. FIRST TEST [facility] EMPLOYED IN HLTHCARE [facility] SYMPTOMATIC [facility] DATE OF SYMPT ONSET [facility] ICU [facility] CONGREGATE CARE SET [facility] ID Date Data Source [id number] 10/29/2020 01:39:27 PM EST [facility] Name Value Range Interpretation Code Description Data Leana rce(s) Supporting Document(s) *Initial Consult Visit NARCISO v1 [facility] FPLFOy4gNjBCBnSjb8ddQWevPWAmt9SaBOj2XP6YL7Gbhn6Uv1SrNZXyRGNWXBakQVXmEA7ySVMoU8Xr oKQ [file] public health clinical nurse specialist/7D3wlqF2AGWFsL/Fr3WphY3afLNtqYc64w97lC [file] animal keeper/t8Ao8KF/sI1kn2qIfXQDRSI8/VmB38J03FhtyaHGGzEsuBY/Cl6IGvGKaZzNLhbkPKvXaIZgATVk [file] Wcgho0WHh4+PvE4bE/Rena+NwySAwWPcmh5yR2Fb/Kw5Z3UI3cbtzra9NyR9AXsDTWvznw3eaJ9dm/a+Y Az+BaX7q7bQGSg+U8XiXRh2H9tozaPpkD+E/jDYZQx DWHVyJ+Gshp0H+BFQ2Sp8hY/E+yHhBMatEHGC818PL6JRc5ePF99Ez94+2s1r49jvr/zrofEaDPMmwu7 gS08ZPmL5yt8VouT7LzQox/dLghxxNqgoKILeY4NRA04t6w9MqWi8J4FCpEa6oB5uXlNxA++AzlOVari PP0LFbVQvDByl9h4dt2nb2FrMz+ajk5s5fTKpKfLy7 Qd23g/vt0gGr260eyEQ4zdzbzZuqCXY8eoA2PRy/dp+5PurrAvUt82zo9ja1UX/kciEfz4/rMr8oadOX Mjo5LtXAbchA3MqBi45j98+ZzfH1s2OlQomTjGdq97elHHylYCALqiDBfFm2D37B6dX/V0a0GoAs/nfQ brVRjYc092rTsFPijy6OaJorp4p4p6lAl1/WitQ2D2 ZVUotizeuSB71clj/4LbAhw/Q3PE3ziqV49wlntJYUtp45Ty62lWXFWXRw/0KQ036N0aHV7a83fhP2/m 86QdBY9tinPz8RJSCfFLYuF6BzolsXU9f+KjTi30YsBt904X+3Sjr6zSc49Ccy/doAve2IpswwwC57aO Morgue Librarian/dl0fwe/S2/L/X5cpvV8nu3Ogk38ipXiuiS3eJ/ [file] AyG0wP6jjK/STUDIO SET UP WORKER+4bzT2CczJqzDDIjLCc87tI7ZgKsfledYMFuI2gl/kkVSpC61Wt4QkJmHAq5HLL4tOn [file] FHwn/PhFyWr/bias binding folder+svz2DHnZ9x47j2A1nKZeW+7HDL82FVF2LclIscAGSDyaHKRB5NyiswXeIzBG99OO [file] N8DzbdEtJKHXJx6NjhTfGFR7VMAyYa3EZh9ODp9Ct3MmdfM7yuLyLYetYnSzMwQJCaEeTN2ZTIx= ID Date Data Source [id number] 09/27/2020 11:32:00 AM EST [facility], ) Name Value Range Interpretation Code Description Data Leana rce(s) Supporting Document(s) Glomerular Filtration Rate Laboratory test result Normal (applies to non- numeric results) [facility] ([facility]) <content>Units are mL/min/1.73 m2</content>
<content></content>
<content>Chronic Kidney Disease Staging per NKF:</content>
<content></content>
<content>Stage I & II GFR >=60 Normal to Mildly Decreased</content>
<content>Stage III GFR 30- 59 Moderately Decreased</content>
<content>Stage IV GFR 15-29 Severely Decreased</content>
<content>Stage V GFR <15 Very Little GFR Left</content>
<content>ESRD GFR <15 on HISTOLOGY SUPERVISOR</content>
<content></content> Creatinine For GFR 0.84 mg/dL 0.55-1.30 Normal (applies to non -numeric results) [facility] ([facility]) ID Date Data Source [id number] 09/27/2020 11:32:00 AM EST [facility] ([facility]) Name Value Range Interpretation Code Description Data Leana rce(s) Supporting Document(s) Urea nitrogen [Mass/volume] in Serum or Plasma 14 mg/dL 7 -18 Normal (applies to non-numeric results) [facility] ([facility]) <content>note:<nlbl:demographic_changed> </content>
<content></content> ID Date Data Source [id number] 09/09/2020 09:10:00 AM EST [facility] ([facility]) Name Value Range Interpretation Code Description Data Leana rce(s) Supporting Document(s) Microscopic observation [Identifier] in Unspecified specimen by Non- gynecological cytology method Laboratory test result [facility] ([facility]) will discuss at follow-up ID Date Data Source [id number] 09/09/2020 09:09:00 AM EST [facility] ([facility]) Name Value Range Interpretation Code Description Data Leana rce(s) Supporting Document(s) Microscopic observation [Identifier] in Unspecified specimen by Non- gynecological cytology method Laboratory test result [facility] ([facility]) SPECIMEN: FNA Subcarinal lymp h node Cytolyt and preapred slides received SPECIMEN ADEQUACY: Satisfactory for evaluation CATEGORIZATION: No Malignancy identified DESCRIPTIONS: Scattered lymphocytes noted in a background of blood elements. COMMENTS: 09/10/2020746 Signed ARLE[facility] CASTRO(ASCP) 09/10/2020 0747 (Prelim) Signed Ganga Nelson MD 09/11/2020 0929 ID Date Data Source [id number] 09/09/2020 09:08:00 AM EST [facility] ([facility]) Name Value Range Interpretation Code Description Data Leana rce(s) Supporting Document(s) Microscopic observation [Identifier] in Unspecified specimen by Non- gynecological cytology method Laboratory test result [facility] ([facility]) SPECIMEN: FNA Left hilar lymp h node Cytolyt and prepared slides received SPECIMEN ADEQUACY: Satisfactory for evaluation CATEGORIZATION: Atypical cytology DESCRIPTIONS: Rare ? atypical cells admixed with lymphocytes COMMENTS: The cell block shows a few small clusters and single malignant cells, consistent with metastatic carcinoma. See report [id number] 09/11/2020928 Signed ARLETH CASTRO CT(ASCP) 09/10/2020 0744 (Prelim) Signed Ganga Nelson MD 09/11/2020928 ID Date Data Source [id number] 09/09/2020 08:46:00 AM EST [facility] ([facility], ) Name Value Range Interpretation Code Description Data Leana rce(s) Supporting Document(s) Surgical pathology study Laboratory test result [facility] ([facility], ) Addendum 2 Entered: 09/27/2020-0705 PD-L1 KEYTRUDA shows tumor proportion score of 5-10% Expression. See complete report from [facility]. Positive for KRAS Negative for ALK Negative for ROS1 Negative for EGFR Negative for BRAF See complete reports from [facility], scanned in EMR under pathology module 09/27/2020704 Addendum Signed____ Ganga Nelson MD 09/27/2020 0706 Addendum 1 Entered: 09/17/2020-1405 PD-L1 KEYTRUDA shows tumor proportion score of 5-10% Expression. See complete report from [facility]. Other molecular results are pending, addendum will follow. 09/17/20201404 Addendum SignedGanga Briceno MD 09/17/2020 1406 FINAL DIAGNOSIS A - Right lung, upper lobe, biopsy: Moderately to poorly differentiated adenocarcinoma. TTF-1 stain is positive in tumor cells. See note. NOTE: Unstained slides will be sent to [facility] for PD-L1 testing and the tissue block will be sent to [facility] for ALK, ROS1, EGFR, KRAS, and BRAF. An addendum with results will follow. -4/TR B - FNA subcarinal lymph node, cell block: No malignancy identified. C - "FNA left hilar lymph node, cell block; No malignancy identified. D - FNA right paratracheal lymph node: A few small clusters of atypical cells noted, consistent with metastatic carcinoma. 09/11/2020 - 914 CLINICAL DIAGNOSIS Right middle lobe abnormality 09/09/2020 - 131 GROSS DIAGNOSIS A - Received in formalin labeled "right upper lobe biopsy" is a bag containing a 0.8 x 0.2 x 0.2 cm. aggregate of dark brown mixture of tissue fragments and blood clot. All in one. B - Received in CytoLyt labeled "FNA subcarinal lymph node", submitted for possible cell block. C - Received in CytoLyt labeled "FNA left hilar", submitted for possible cell block. D - Received in CytoLyt labeled "FNA right paratracheal lymph node", submitted for possible cell block. - 09/10/2020 - 257 Signed Ganga Nelson MD 09/11/2020914 ID Date Data Source [id number] 09/09/2020 08:46:00 AM EST [facility] ([facility]) Name Value Range Interpretation Code Description Data Leana rce(s) Supporting Document(s) Surgical pathology study Laboratory test result [facility] ([facility]) Addendum 1 Entered: 09/17/2020-1405 PD-L1 KEYTRUDA shows tumor proportion score of 5-10% Expression. See complete report from [facility]. Other molecular results are pending, addendum will follow. 09/17/2020 - 1404 Addendum Signed____ Ganga Nelson MD 09/17/2020 1406 FINAL DIAGNOSIS A - Right lung, upper lobe, biopsy: Moderately to poorly differentiated adenocarcinoma. TTF-1 stain is positive in tumor cells. See note. NOTE: Unstained slides will be sent to [facility] for PD-L1 testing and the tissue block will be sent to [facility] for ALK, ROS1, EGFR, KRAS, and BRAF. An addendum with results will follow. -4/TR B - FNA subcarinal lymph node, cell block: No malignancy identified. C - "FNA left hilar lymph node, cell block; No malignancy identified. D - FNA right paratracheal lymph node: A few small clusters of atypical cells noted, consistent with metastatic carcinoma. 09/11/2020 - 914 CLINICAL DIAGNOSIS Right middle lobe abnormality 09/09/2020 - 1311 GROSS DIAGNOSIS A - Received in formalin labeled "right upper lobe biopsy" is a bag containing a 0.8 x 0.2 x 0.2 cm. aggregate of dark brown mixture of tissue fragments and blood clot. All in one. B - Received in CytoLyt labeled "FNA subcarinal lymph node", submitted for possible cell block. C - Received in CytoLyt labeled "FNA left hilar", submitted for possible cell block. D - Received in CytoLyt labeled "FNA right paratracheal lymph node", submitted for possible cell block. - 09/10/2020 - 1453 Signed Ganga Nelson MD 09/11/202015 ID Date Data Source [id number] 09/26/2020 12:09:00 PM [facility] Anatomic Molecular Pathology ReportName: RAE MUNIZMRN: [id number] Number: [id number] Date: 09/09/2020 00:00Received Date: 09/11/2020 16:23Physician(s): GANGA NELSON MD Haghir, Shahandeh MDCopy To:LEXIS SARMIENTO MDSpecimen(s) ReceivedA: Right lung, upper lobe biopsy, [facility]in [facility] [id number] [place] [place] BRAF Mutation AnalysisDiagnosisTESTS:BRAF V600E mutation (1799 T>A) at exon 15 by real time PCR.RESULTS:Wild type probe (yellow gain): Ct value and end- point fluorescence are28.44 and 0.838 respectively.Mutant probe (green gain): Ct value and end-point fluorescence are 45.00and 0.091 respectively.(Mutant probe EPF cut-off value: 0.196)INTERPRETATION:NEGATIVE FOR BRAF V600E MUTATION.BRAF V600E (1799 T>A) mutation at exon 15 is a genetic alterationidentified in a v ariety of neoplasm and present in approximately 3% oflung adenocarcinoma. BRAF V600E in lung adenocarcinoma might be associatedwith decreased sensitivity to EGFR inhibitor such as gefitinib, andincreased response to BRAF inhibitor such as vemurafenib. The test resultis considered positive if the Ct value (mutant probe) is less than 45 andthe EPF is higher than cut-off value. If the percentage of mutant DNA isless than 10% in a background of wild-type DNA, the mutation may not bedetected by this assay. This result is an adjunct to other clinical andpathologic information for appropriate patient management.sharlenej/kgElectronically Signed By Son Cochran M.D. Attending Pathologist 09/26/2020 12:09:52Reported at [address] [place] [address]. Gross DescriptionMETHODOLOGY:BRAF V600E(1799 T>A) mutation at exon 15 is detected by real time PCRusing allele-specific TaqMan probes and performed on paraffin embeddedtissues. The tumor area is identified by the pathologist and is manuallymicrodissected. The mutant probe was labeled with a FAM-fluorophore whilethe wild-type probe with a CAITLIN-fluorophore. The amount of fluorescentemissions rendered by specific probe hybridization was associated the amounts of PCR products, and analyzed by [employer] Q real timeinstrument. The analytical sensitivity (or minimum percentage of mutantDNA needed) is approximately 10% given sufficient DNA input. Test development and its performance characteristics were determined bythe [facility], and has beenauthorized for clinical use by [facility]. Thetest has not been cleared or approved by the U.S. Food and DrugAdministration. The analyte specific reagents used in this assay do notrequire FDA approval. REFERENCES: 1. Jareth S, Charlotte Almeida, et al. Detection of BRAF S738Adnvzqxgs in colorectal cancer-comparison of automatic sequencing and realtime chemistry methodology. J Mol Diagn. 2006; 8:075427.2. Alejo L, Jared TJ, Kapil N, et al. BRAF mutation analysis in fineneedle aspiration (FNA) cytology of the thyroid. Diagn Mol Pathol.2006;15:081230.3. Anika PK, Michelle ME, Ember M, et al. Clinical characteristics ofpatients with lung adenocarcinomas harboring BRAF mutations. J Clin Oncol.2011;29:4398-4539.This report may include one or more immunohistochemical stain results thatuse analyte specific reagents. All positive and negative controls havebeen reviewed by the attending pathologist and are satisfactory. The testswere developed and their performance characteristics determined by [facility] Pathology department. They have not been cleared or approved by the USFood and Drug Administration. The FDA has determined that such clearanceor approval is not necessary. Name Value Range Interpretation Code Description Data Leana rce(s) Supporting Document(s) ID Date Data Source [id number] 09/26/2020 09:31:00 AM [facility] Anatomic Molecular Pathology ReportName: RAE MUNIZMRN: [id number] Number: [id number] Date: 09/09/2020 00:00Received Date: 09/11/2020 16:20Physician(s): GANGA NELSON MD Haghir, Shahandeh MDCopy To:LEXIS SARMIENTO MDSpecimen(s) ReceivedA: Right lung, upper lobe biopsy, Formalin Block [id number] A received [facility] in [place], [place] EGFRDiagnosisTEST: EGFR gene mutations (exon 19 deletions, L858R, G719A, T790M, S768I,exon 20 insertions, L861Q) by therascreene RGQ real-time PCR RESULTS: An EGFR mutation is not detected.INTERPRETATION: NEGATIVE FOR E GFR GENE MUTATION.This test is FDA approved and intended to be used to select patients withnon-small cell lung cancer for whom EGFR tyrosine kinase inhibitor (TKI),such as afatinib, is indicated. Presence of exon 19 deletions, exon 90O756X or L861Q, exon 18 G719A or exon 20 S768I mutation is associated witha better response to TKI therapy. TKI therapeutic resistance of T790M andexon 20 insertions have been reported, and safety and efficacy of TKItherapy on these mutations have not been established. The results areadjuncts to other clinical and pathologic information available forevaluating the therapeutic response. Tumors that contain less than 20%mutation may not be detected in some mutation types by this assay. sukhdev/kgElectronically Signed By Son Cochran M.D. Attending Pathologist 09/26/2020 09:31:50Reported at [address] [place] [address]. Gross DescriptionMETHODOLOGY:The therascreen EGFR RGQ PCR Kit ([employer], [place], [place]) is a real-timequalitative PCR assay used on the [employer] instrument for thedetection of seven types of mutations at EGFR oncogene. The kit requiresDNA extracted from formalin-fixed paraffin-embedded (FFPE) tissue ofnon-small cell lung cancer. The tumor area is identified by the attendingpathologist and manually microdissected. The assay uses Scorpionse andARMSe (Allele Refractory Mutation System) technologies, and isFDA-approved for clinical patient care. Allele-specific amplification isachieved by [employer] which exploits the ability of Taq DNA polymerase todistinguish between a matched and a mismatched base at the 3' end of a PCRprimer. Detection of amplification is performed using Scorpions, which arebifunctional molecules containing a PCR primer covalently linked to aprobe.REFERENCES:1. Lucinda Pino., Renata S., Lisa, A. et al. EGFR-targeted therapyfor non-small cell lung cancer: focus on EGFR oncogenic mutation. Int. J. Med. Sci. 2013; 10: 320. 2. Amee Loza., et al. First-line gefitinib in patients withadvanced non-small cell lung cancer harboring somatic EGFR mutations. J.Clin.Oncol. 2008;15: 2442.3. Rickie SV, Aria BAUMANN, Santiago J et al. Epidermal growth factor receptormutations in lung cancer. Nature Review/Cancer. 2007;2718-7065.This report may include one or more immunohistochemical stain results thatuse analyte specific reagents. All positive and negative controls havebeen reviewed by the attending pathologist and are satisfactory. The testswere developed and their performance characteristics determined by [facility] Pathology department. They have not been cleared or approved by the USFood and Drug Administration. The FDA has determined that such clearanceor approval is not necessary. Name Value Range Interpretation Code Description Data Leana rce(s) Supporting Document(s) ID Date Data Source [id number] 09/26/2020 09:17:00 AM [facility] Anatomic Molecular Pathology ReportName: RAE MUNIZMRN: [id number] Number: [id number] Date: 09/09/2020 00:00Received Date: 09/11/2020 16:21Physician(s): GANGA NELSON MD Haghir, Shahandeh MDCopy To:LEXIS SARMIENTO MDSpecimen(s) ReceivedA: Right lung, upper lobe biopsy, Formalin Block [id number] [place] [place] KRAS Mutation AnalysisDiagnosisTEST:KRAS gene mutations by therascreene RGQ real-time PCR (polymerase chainreaction).RESULTS:A G12D KRAS mutation is detected.INTERPRETATION: POSITIVE FOR G12D KRAS GENE MUTATION KRAS gene mutatio ns at codon 12 or 13 of exon 2 may be associated withresistance to therapies with anti-EGFR monoclonal antibody, tyrosinekinase inhibitors or other related agents in patients with colon or lungcancer. The seven mutations (G12S, G12R, G12C, G12D, G12A, G12V, G13D)detected by this assay account for >97% of all reported KRAS mutations. The results are adjuncts to other clinical and pathologic information forevaluating the therapeutic response.kg/jajElectronically Signed By Son Cochran M.D. Attending Pathologist 09/26/2020 09:17:48Reported at [address] [place] [id number]. Gross DescriptionMETHODOLOGY:The therascreen KRAS RGQ PCR Kit is a real-time qualitative PCR assay usedon the Bamatea instrument for the detection of seven somaticmutations in the human KRAS oncogene, using DNA extracted fromformalin-fixed paraffin-embedded (FFPE) colorectal cancer (CRC) tissue.The tumor area is identified by the pathologist and is manuallymicrodissected. The assay uses Scorpionse and ARMSe (Allele RefractoryMutation System) technologies, and is FDA-approved for clinical patientcare. Allele-specific amplification is achieved by ARMS which exploits theability of Taq DNA polymerase to distinguish between a matched and amismatched base at the 3' end of a PCR primer. Detection of amplificationis performed using Scorpions, bifunctional molecules containing a PCRprimer covalently linked to a probe.REFERENCES:1. REYNA Starkey, Renny JM, Bernabe MR, et al. [place] Societyof Clinical Oncology provisional clinical opinion: testing for KRAS genemutations in patients with metastatic colorectal carcinoma to predictresponse to anti-epidermal growth factor receptor monoclonal antibodytherapy. J Clin Oncol 27:4765-2717, 2009. 2. Radha Deleon , Lucinda Alvares , LAILA Ulrich, et al.Biomarkers predicting clinical outcome of epidermal growth factor receptortargeted therapy in metastatic colorectal cancer. J Natl Cancer Nari298:14338599, 2009.This report may include one or more immunohistochemical stain results thatuse analyte specific reagents. All positive and negative controls havebeen reviewed by the attending pathologist and are satisfactory. The testswere developed and their performance characteristics determined by [facility] Pathology department. They have not been cleared or approved by the USFood and Drug Administration. The FDA has determined that such clearanceor approval is not necessary. Name Value Range Interpretation Code Description Data Leana rce(s) Supporting Document(s) ID Date Data Source [id number] 09/23/2020 09:03:00 PM [facility] Anatomic Molecular Pathology ReportName: RAE MUNIZMRN: [id number] Number: [id number] Date: 09/09/2020 00:00Received Date: 09/11/2020 16:19Physician(s): GANGA NELSON MD Haghir, Shahandeh MDCopy To:TORSTEN,LEXIS,MDSpecimen(s) ReceivedA: Right lung, upper lobe biopsy, Formalin Block [id number] [place] [place], ROS1 by FISHDiagnosisTEST:ROS1 gene rearrangements by FISH (Fluorescence in situ Hybridization).RESULT:Percent tumor cells with ROS1 gene rearrangement (break-apart and/or 5'deletion) is 0%.ISCN - nuc marty (5'ROS1,3'ROS1)x2~5(5'ROS1 con 3'ROS1x2~5)[50/50] INTERPRETATION: NEGATIVE FOR ROS1 GENE REARRANGEMENT.15% is used as a cut-off value: d15% is positive for ROS1 generearrangements while c15% is negative. ROS1 gene rearrangements, includingbreak-apart and/or 5' deletion, can be identified in 1-2% of non-smallcell lung cancer, and are associated with better response to treatmentwith crizotinib. kg/jajElectronically Signed By Son Cochran M.D. Attending Pathologist 09/23/2020 21:03:58Reported at [address] [place] [address]. Gross DescriptionMETHODOLOGY:Interphase FISH is performed on paraffin embedded NSCLC utilizing thecombined Harper Molecular LSI ROS1(Odalis) and ROS1(Tel) ROS1 Probes: 1)3'-ROS1(Odalis), 557 kb, labeled with SpectrumGreen, and 2) 5'-ROS1(Tel),317kb, labeled with SpectrumOrange. Tumor cells with no FGG6wdoledwrokgjhj have 2 yellow signals (fused orange and green signal).Tumor cells with ROS1 rearrangement have orange and green signal(break apart) and/or deleted orange signal (5' deletion). Hybridization iscarried out as per the stated protocol with no significant background orrandom probe hybridization detected. A total of 50 -100 interphase tumornuclei are examined manually by one or two scorers, depending on initialevaluation. d15% of tumor cells with ROS1 gene rearrangement is calledpositive.This test was developed and its performance characteristics weredetermined by the [facility],and it has been authorized for clinical use by [facility]. The test has not been cleared or approved by the U.S. Food andDrug Administration. The analyte specific reagents used in this assay donot require FDA approval. REFERENCES: 1. Joe,KD, Idania AT, Thedolly MF et al. Identifying and Targeting [id number] Fusions in NonSmall Cell Lung Cancer. Clin Cancer Res 2012; 18(17);11971271.2. Nelson, Iron AT. Novel Targets in Non- Small Cell Lung Cancer:ROS-1 and RET fusions. The Oncologist. 2013;18:865- 875.This report may include one or more immunohistochemical stain results thatuse analyte specific reagents. All positive and negative controls havebeen reviewed by the attending pathologist and are satisfactory. The testswere d eveloped and their performance characteristics determined by [facility] Pathology department. They have not been cleared or approved by the USFood and Drug Administration. The FDA has determined that such clearanceor approval is not necessary. Name Value Range Interpretation Code Description Data Leana rce(s) Supporting Document(s) ID Date Data Source [id number] 09/23/2020 09:03:00 PM [facility] Anatomic Molecular Pathology ReportName: RAE MUNIZMRN: [id number] Number: [id number] Date: 09/09/2020 00:00Received Date: 09/11/2020 16:18Physician(s): GANGA NELSON MD Haghir, Shahandeh MDCopy To:LEXIS SARMIENTO MDSpecimen(s) ReceivedA: Right lung, upper lobe biopsy, Formalin Block [id number] A received [facility] in [place], [place], ALK by FISHDiagnosisTEST:ALK gene rearrangements by FISH (Fluorescence in situ Hybridization).RESULT:Percent tumor cells with ALK gene rearrangement (break-apart and/or 5'deletion) is 4%.ISCN - nuc marty (5'ALK,3'ALK)x2~9(5'ALK con 3'ALKx2~9)[48/50] INTERPRETATION: NEGATIVE FOR ALK GENE REARRANGEMENT. 15% is used as a cut-off value: d15% is positive for ALK generearrangement while c15% is negative. ALK gene rearrangements, includingbreak apart and/or 5' deletion, can be identified in 3-7% of non-smallcell lung cancer, and are associated with better response to treatmentwith crizotinib. kg/jajElectronically Signed By Son Cochran M.D. Attending Pathologist 09/23/2020 21:03:14Reported at [address] [place] [address]. Gross DescriptionMETHODOLOGY:Interphase FISH is performed on paraffin embedded NSCLC utilizing theBe[employer] Infinite [employer] Molecular ALK Break Apart FISH Probe Kit. This is a combination,direct label, dual color detection system utilizing 2 probes: 1) 3'-ALK,300 kb, labeled with SpectrumOrange, and 2) 5'-ALK, 442 kb, labeled withSpectrumGreen. Tumor cells with no ALK rearrangements have 2 yellowsignals (fused orange and green signal). Tumor with ALK rearrangement haveseparated orange and green signal (break apart) and/or deleted greensignal (5' deletion). Hybridization is carried out as per the statedprotocol with no significant background or random probe hybridizationdetected. A total of 50 -100 interphase tumor nuclei are examined manuallyby one or two scorers, depending on initial evaluation. d15% of tumorcells with ALK gene rearrangement is called positive.This FISH Probe Kit was approved by FDA for this application and has beenvalidated in the special procedure laboratory of Department of Pathology,[facility]. This report may include one or more immunohistochemical stain results thatuse analyte specific reagents. All positive and negative controls havebeen reviewed by the attending pathologist and are satisfactory. The testswere developed and their performance characteristics determined by [facility] Pathology department. They have not been cleared or approved by the USFood and Drug Administration. The FDA has determined that such clearanceor approval is not necessary. Name Value Range Interpretation Code Description Data Leana rce(s) Supporting Document(s) ID Date Data Source [id number] 09/04/2020 11:30:00 AM EST [facility] Name Value Range Interpretation Code Description Data Leana rce(s) Supporting Document(s) SARS coronavirus 2 RNA [facility] This lab was ordered by [facility] and reported by [facility]. ID Date Data Source [id number] 08/22/2020 02:31:00 PM EST [facility] ([facility] Name Value Range Interpretation Code Description Data Leana rce(s) Supporting Document(s) aPTT in Platelet poor plasma by Coagulation assay 25.8 s 24.2-38. 5 [facility] ID Date Data Source [id number] 08/22/2020 02:31:00 PM EST [facility] Name Value Range Interpretation Code Description Data Leana rce(s) Supporting Document(s) Prothrombin Time 12.2 s 12.5-14.3 [facility] Inr 0.89 [facility] THERAPUTIC HUMAN INR VALUES INDICATIONS NORMAL RANGES PROPHYLAXIS/TREATMENT OF: VENOUS THROMBOSIS 2.0-3.0 PULMONARY EMBOLISM 2.0-3.0 PREVENTION OF SYSTEMIC EMBOLISM FROM: TISSUE HEART VALVES 2.0-3.0 ACUTE MYOCARDIAL INFARCTION 2.0-3.0 VALVULAR HEART DISEASE 2.0-3.0 ATRIAL FIBRILLATION 2.0-3.0 MECHANICAL VALVES(HIGH RISK) 2.5-3.5 RECURRENT MYOCARDIAL INFARCTION 2.5-3.5 ID Date Data Source [id number] 08/22/2020 02:31:00 PM EST [facility] Name Value Range Interpretation Code Description Data Leana rce(s) Supporting Document(s) Cholesterol Level 240 mg/dL [facility] Triglycerides Level 213 mg/dL [facility] LDL Cholesterol 115 mg/dL [facility] Non-HDL-C 158 mg/dL [facility] HDL Cholesterol 82 mg/dL [facility] Cholesterol Risk Ratio 2.926 [facility] ID Date Data Source [id number] 08/22/2020 02:31:00 PM EST [facility] ([facility] Name Value Range Interpretation Code Description Data Leana [facility](s) Supporting Document(s) Glucose, Fasting 91 mg/dL 70-100 [facility] Creatinine For GFR 0.98 mg/dL 0.55-1.30 [facility] Blood Urea Nitrogen 15 mg/dL 7-18 [facility] Sodium Level 142 meq/L 136-145 [facility] Glomerular Filtration Rate Laboratory test result [facility] <content>Units are mL/min/1.73 m2</content>
<content></content>
<content>Chronic Kidney Disease Staging per NKF:</content>
<content></content>
<content>Stage I & II GFR >=60 Normal to Mildly Decreased</content>
<content>Stage III GFR 30- 59 Moderately Decreased</content>
<content>Stage IV GFR 15-29 Severely Decreased</content>
<content>Stage V GFR <15 Very Little GFR Left</content>
<content>ESRD GFR <15 on HISTOLOGY SUPERVISOR</content>
<content></content> Potassium Serum 4.8 meq/L 3.5-5.1 [facility] Carbon Dioxide Level 30 meq/L 21-32 [facility] Chloride Level 108 meq/L 98-107 [facility] Calcium Level 9.4 mg/dL 8.8-10.2 [facility] Anion Gap 4 meq/L 8-16 [facility] Alt/SGPT 20 U/L 12-78 [facility] Ast/Sgot 14 U/L 7-37 [facility] Bilirubin,Total 0.2 mg/dL 0.2-1.0 [facility] Total Protein 6.6 GM/DL 6.4-8.2 [facility] Alkaline Phosphatase 81 U/L 45-117 [facility] Albumin/Globulin Ratio 1.5 1.2-2.2 [facility] Albumin 4.0 GM/DL 3.2-5.2 [facility] ID Date Data Source [id number] 08/22/2020 02:31:00 PM EST [facility] Name Value Range Interpretation Code Description Data Leana rce(s) Supporting Document(s) White Blood Count 6.6 10 4.0-10.0 [facility] Hemoglobin 13.3 g/dL 12.0-15.5 [facility] Red Blood Count 4.28 10 4.00-5.40 [facility] Mean Corpuscular Volume 98.1 fl 80.0-96.0 M [facility] Hematocrit 42.0 % 36.0-47.0 [facility] Mean Corpuscular Hemoglobin 31.1 pg 27.0-33.0 [facility] Mean Corpuscular HGB Conc 31.7 g/dL 32.0-36.5 [facility] Platelet Count, Automated 207 10 150-450 [facility] Red Cell Distribution Width 12.4 % 11.5-14.5 [facility] Lymph % 26.6 % 24.0-44.0 [facility] Roberts % 9.5 % 0.0-5.0 [facility] Neutrophils % 62.0 % 36.0-66.0 [facility] Eos % 0.8 % 0.0-3.0 [facility] Baso % 0.8 % 0.0-1.0 [facility] Nucleated Red Blood Cell % 0.0 % 0-0 [facility] Immature Granulocyte % 0.3 % 0-3.0 [facility] Neutrophils # 4.1 10 1.5-8.5 [facility] Lymph # 1.8 10 1.5-5.0 [facility] Roberts # 0.6 10 0.0-0.8 [facility] Eos # 0.1 10 0.0-0.5 [facility] Baso # 0.1 10 0.0-0.2 [facility] ID Date Data Source [id number] 08/22/2020 02:31:00 PM EST [facility] ([facility]) Name Value Range Interpretation Code Description Data Leana rce(s) Supporting Document(s) Inr 0.89 Normal (applies to non-numeric resul ts) [facility] ([facility]) THERAPUTIC HUMAN INR VALUES INDICATIONS NORMAL RANGES PROPHYLAXIS/TREATMENT OF: VENOUS THROMBOSIS 2.0-3.0 PULMONARY EMBOLISM 2.0-3.0 PREVENTION OF SYSTEMIC EMBOLISM FROM: TISSUE HEART VALVES 2.0-3.0 ACUTE MYOCARDIAL INFARCTION 2.0-3.0 VALVULAR HEART DISEASE 2.0-3.0 ATRIAL FIBRILLATION 2.0-3.0 MECHANICAL VALVES(HIGH RISK) 2.5-3.5 RECURRENT MYOCARDIAL INFARCTION 2.5-3.5 Prothrombin Time 12.2 s 12.5-14.3 Normal (applies to non-numeric results) [facility]) ID Date Data Source [id number] 08/22/2020 02:31:00 PM EST [facility] ([facility]) Name Value Range Interpretation Code Description Data Leana rce(s) Supporting Document(s) aPTT in Platelet poor plasma by Coagulation assay 25.8 s 24.2-38.5 Normal (applies to non-numeric results) [facility]) ID Date Data Source [id number] 08/22/2020 02:31:00 PM [facility]) Name Value Range Interpretation Code Description Data Leana rce(s) Supporting Document(s) White Blood Count 6.6 10 4.0-10.0 Normal (applies to non-numeri c results) [facility] ([facility]) Red Blood Count 4.28 10 4.00-5.40 Normal (applies to non-numeric results) [facility] ([facility]) Hematocrit 42.0 % 36.0-47.0 Normal (applies to non-numeric resul ts) [facility] ([facility]) Mean Corpuscular Volume 98.1 fl 80.0-96.0 Above high normal [facility] ([facility]) Hemoglobin 13.3 g/dL 12.0-15.5 Normal (applies to non-numeric resul ts) [facility] Mean Corpuscular Hemoglobin 31.1 pg 27.0-33.0 Norm al (applies to non-numeric results) [facility] ([facility]) Mean Corpuscular HGB Conc 31.7 g/dL 32.0-36.5 Below low normal [facility] ([facility]) Platelet Count, Automated 207 10 150-450 Normal (applies to non-numeric results) [facility] ([facility]) Red Cell Distribution Width 12.4 % 11.5-14.5 Norm al (applies to non-numeric results) [facility] ([facility]) Lymph % 26.6 % 24.0-44.0 Normal (applies to non-numeric resul ts) [facility] Neutrophils % 62.0 % 36.0-66.0 Normal (applies to non-numeric re sults) [facility] ([facility]) Roberts % 9.5 % 0.0-5.0 Above high normal [facility] ([facility]) Eos % 0.8 % 0.0-3.0 Normal (applies to non-numeric resul ts) [facility] Baso % 0.8 % 0.0-1.0 Normal (applies to non-numeric resul ts) [facility] Immature Granulocyte % 0.3 % 0-3.0 Normal (applies to non-n umeric results) [facility] ([facility]) Nucleated Red Blood Cell % 0.0 % 0-0 Normal (applies to n on-numeric results) [facility] Neutrophils # 4.1 10 1.5-8.5 Normal (applies to non-numeric re sults) [facility] Lymph # 1.8 10 1.5-5.0 Normal (applies to non-numeric resul ts) [facility] Roberts # 0.6 10 0.0-0.8 Normal (applies to non-numeric resul ts) [facility] Eos # 0.1 10 0.0-0.5 Normal (applies to non-numeric resul ts) [facility] ([facility]) Baso # 0.1 10 0.0-0.2 Normal (applies to non-numeric resul ts) [facility]) ID Date Data Source [id number] 08/22/2020 02:31:00 PM EST [facility] ([facility]) Name Value Range Interpretation Code Description Data Leana rce(s) Supporting Document(s) Blood Urea Nitrogen 15 mg/dL 7-18 Normal (applies to non-nume danish results) [facility] ([facility]) Creatinine For GFR 0.98 mg/dL 0.55-1.30 Normal (applies to non -numeric results) [facility]) Glucose, Fasting 91 mg/dL 70-100 Normal (applies to non-numeric results) [facility] ([facility]) Glomerular Filtration Rate Laboratory test result Normal (applies to non- numeric results) [facility]) <content>Units are mL/min/1.73 m2</content>
<content></content>
<content>Chronic Kidney Disease Staging per NKF:</content>
<content></content>
<content>Stage I & II GFR >=60 Normal to Mildly Decreased</content>
<content>Stage III GFR 30- 59 Moderately Decreased</content>
<content>Stage IV GFR 15-29 Severely Decreased</content>
<content>Stage V GFR <15 Very Little GFR Left</content>
<content>ESRD GFR <15 on HISTOLOGY SUPERVISOR</content>
<content></content> Sodium Level 142 meq/L 136-145 Normal (applies to non-numeric res ults) [facility] ([facility]) Potassium Serum 4.8 meq/L 3.5-5.1 Normal (applies to non-numeric results) [facility]) Chloride Level 108 meq/L 98-107 Above high normal [facility]) Carbon Dioxide Level 30 meq/L 21-32 Normal (applies to non-num pati results) [facility] ([facility]) Anion Gap 4 meq/L 8-16 Below low normal [facility] ( [facility]) Calcium Level 9.4 mg/dL 8.8-10.2 Normal (applies to non-numeric re sults) [facility] ([facility]) Ast/Sgot 14 U/L 7-37 Normal (applies to non-numeric resul ts) [facility] ([facility]) Alt/SGPT 20 U/L 12-78 Normal (applies to non-numeric resul ts) [facility] ([facility]) Alkaline Phosphatase 81 U/L 45-117 Normal (applies to non-num pati results) [facility] ([facility]) Bilirubin,Total 0.2 mg/dL 0.2-1.0 Normal (applies to non-numeric results) [facility] ([facility]) Total Protein 6.6 GM/DL 6.4-8.2 Normal (applies to non-numeric re sults) [facility] ([facility]) Albumin/Globulin Ratio 1.5 1.2-2.2 Normal (applies to non-n umeric results) [facility] ([facility]) Albumin 4.0 GM/DL 3.2-5.2 Normal (applies to non-numeric resul ts) [facility]) ID Date Data Source [id number] 08/22/2020 02:31:00 PM EST [facility] ([facility]) Name Value Range Interpretation Code Description Data Leana rce(s) Supporting Document(s) Cholesterol Level 240 mg/dL Above high normal [facility] ([facility], ) Triglycerides Level 213 mg/dL Above high normal [facility] ([facility]) HDL Cholesterol 82 mg/dL Normal (applies to non-numeric results) [facility] ([facility]) Non-HDL-C 158 mg/dL Normal (applies to non-numeric resul ts) [facility]) LDL Cholesterol 115 mg/dL Above high normal [facility] ([facility]) Cholesterol Risk Ratio 2.926 Normal (applies to non-n umeric results) [facility] ([facility]) ID Date Data Source [id number] 08/22/2020 01:21:00 PM EST [facility] ([facility]) Name Value Range Interpretation Code Description Data Leana rce(s) Supporting Document(s) Laboratory test finding (navigational concept) Laboratory test result [facility] ([facility]) ID Date Data Source [id number] 08/22/2020 12:49:00 PM EST [facility] ([facility]) Name Value Range Interpretation Code Description Data Leana rce(s) Supporting Document(s) PDFReport Laboratory test result [facility] [facility] FVC-Pred 3.63 L [facility] ([facility]) FVC-Pre 1.81 L [facility] ([facility]) FVC-%Pred-Pre 49 L [facility] ([facility]) FVC-LLN 2.85 L [facility] ([facility]) Fev1-Pre 0.86 L [facility] ([facility]) Fev1-Pred 2.78 L [facility] ([facility]) Fev1-%Pred-Pre 31 L [facility] ([facility]) Fev1-LLN 2.12 L [facility] ([facility]) Fev6-Pre 1.81 L [facility] ([facility]) Fev6-Pred 3.49 L [facility] ([facility]) Fev6-%Pred-Pre 51 L [facility] ([facility]) Fev6-LLN 2.72 L [facility] ([facility]) Spi9gui-Esun 77 % [facility] ([facility]) Pfy1oxi-Iyj 48 % [facility] ([facility]) Tox7mqd-%Pred-Pre 61 % [facility] ([facility]) Xqc1aqe-LED 67 % [facility] ([facility]) Auv7ols-Bxql 96 % [facility] ([facility]) Usx4hgg-Njo 100 % [facility] ([facility]) Klf2edi-%Pred-Pre 104 % [facility] ([facility]) FEFMax-Pred 6.56 L/E/sec [facility] ([facility]) FEFMax-Pre 2.24 L/E/sec [facility] ([facility]) FEFMax-%Pred-Pre 34 L/E/sec [facility] ([facility]) FEFMax-LLN 4.63 L/E/sec [facility] ([facility]) [id number] 2.32 L/E/sec [facility] ([facility]) Zto0870-Jsh 0.42 L/E/sec [facility] ([facility]) Sxz7030-MZU 0.92 L/E/sec [facility] ([facility]) Fjq7227-%Pred-Pre 18 L/E/sec [facility] ([facility]) Wwp7jmm4-Llgd 80 % [facility] ([facility]) ExpTime-Pre 5.43 sec [facility] ([facility]) Bne6ftq9-Wkj 48 % [facility] ([facility]) Eqw2wxl3-%Pred-Pre 59 % [facility] ([facility]) Tpm7pdh8-FXQ 71 % [facility] ([facility]) ID Date Data Source [id number] 08/06/2020 12:00:00 AM EST [facility] ology Imaging Glory Luo MD Patient Name: KHARI [id number] Date of : 1955[place] [address] Date of Exam: 08/06/2020PH#: Fax: [phone] EXAM: MAMMO SCREENING WITH CADCLINICAL INFORMATION: Screening.Based on the personal and family history information your patient suppliedat the time of imaging, her lifetime risk of breast cancer estimated by theTyrer-Cuzick model is 4.4%. Given that this patient has less than 20% TCrisk score, no further medical management is currently recommended at thistime.Digital screening (2D) mammography was performed bilaterally in the CC andMLO projections. Ad ditionally, breast tomosynthesis (3D mammography) wasperformed bilaterally in the CC and MLO projections. Today's exam wascompared to the prior exam(s).By history, the patient has no complaints of a palpable breast abnormalityor other significant breast complaints.The patient states last clinical breast exam was in June of 2020.The breasts are unchanged in size and shape. Once again, denseheterogeneous fibroglandular elements are seen bilaterally in a stableappearing pattern but to such a degree that the sensitivity of themammogram in detecting cancer is decreased. There are no milagro-soft tissued ensities or spiculated masses. There is no internal architecturaldistortion. There are no suspicious milagro-calcific clusters. Skinthickening or nipple retraction is not present.The Volpara volumetric breast density category is C, the breasts areheterogeneously dense which may obscure small masses.IMPRESSION:BI-RADS Category 2 - Benign Finding(s). Stable mammogram. There is noevidence of malignant alteration of the breasts. Followup examinationrecommended in one year.This mammogram was read with the assistance of Kyung DIAZ, an FDAapproved computer aided detection system for mammography.Negative x-ray reports should not delay surgical consultation if a dominantor clinically suspicious mass is present.Not all breast cancers can be identified by mammography. Therefore, werecommend that you continue to perform regular breast self-examination andphysical examination and then promptly contact your physician of anyconcerns or changes.Adenosis and dense breasts may obscure an underlying neoplasm.ELIZABETH Garduno/Dayanara you for referring RAE MUNIZ to our office. Electronically Signed - MICHEL RASCON DO 08/07/20 16:09 Name Value Range Interpretation Code Description Data Leana rce(s) Supporting Document(s) ID Date Data Source [id number] 06/10/2020 02:14:00 PM EDT [facility] ([facility]) Name Value Range Interpretation Code Description Data Leana rce(s) Supporting Document(s) Microscopic observation [Identifier] in Unspecified specimen by Non- gynecological cytology method Laboratory test result [facility] ([facility]) SPECIMEN: Bronchoalveolar lav age (right upper lobe) 2ml Red SPECIMEN ADEQUACY: Satisfactory for evaluation CATEGORIZATION: Negative for Malignancy DESCRIPTIONS: Scattered bronchial cells noted in a background of mainly blood elements. COMMENTS: 06/11/20201136 Signed ARLETH CASTRO(ASCP) 06/11/2020 1138 (Prelim) Signed BRIAN MCBRIDE MD 06/11/2020 1240 ID Date Data Source [id number] 06/10/2020 02:14:00 PM EDT [facility] Name Value Range Interpretation Code Description Data Leana rce(s) Supporting Document(s) Microscopic observation [Identifier] in Unspecified specimen by Non- gynecological cytology method Laboratory test result [facility] ([facility] SPECIMEN: Bronchoalveolar lav age (right upper lobe) 2ml Red SPECIMEN ADEQUACY: Satisfactory for evaluation CATEGORIZATION: Negative for Malignancy DESCRIPTIONS: Scattered bronchial cells noted in a background of mainly blood elements. COMMENTS: 06/11/20201136 Signed ARLETH CASTRO(ASCP) 06/11/2020 1138 (Prelim) Signed BRIAN MCBRIDE MD 06/11/2020 1240 ID Date Data Source [id number] 06/10/2020 02:05:00 PM EDT [facility] ([facility]) Name Value Range Interpretation Code Description Data Leana rce(s) Supporting Document(s) Microscopic observation [Identifier] in Unspecified specimen by Non- gynecological cytology method Laboratory test result [facility] ([facility]) SPECIMEN: Bronchial Brushing (right upper lobe) [place] in vail and prepared slides received SPECIMEN ADEQUACY: Satisfactory for evaluation CATEGORIZATION: Negative for Malignancy DESCRIPTIONS: Bronchial cells noted in a background of scattered lymphocytes and blood elements. COMMENTS: 06/11/20201038 Signed ARLETH CASTRO(ASCP) 06/11/2020 103 (Prelim) Signed BRIAN MCBRIDE MD 06/11/2020 1239 ID Date Data Source [id number] 06/10/2020 02:05:00 PM EDT [facility] ([facility] Name Value Range Interpretation Code Description Data Leana rce(s) Supporting Document(s) Microscopic observation [Identifier] in Unspecified specimen by Non- gynecological cytology method Laboratory test result [facility] ([facility] SPECIMEN: Bronchial Brushing (right upper lobe) [place] in [place] and prepared slides received SPECIMEN ADEQUACY: Satisfactory for evaluation CATEGORIZATION: Negative for Malignancy DESCRIPTIONS: Bronchial cells noted in a background of scattered lymphocytes and blood elements. COMMENTS: 06/11/20201038 Signed ARLETH CASTRO(ASCP) 06/11/2020 103 (Prelim) Signed BRIAN MCBRIDE MD 06/11/2020 1239 ID Date Data Source [id number] 06/10/2020 01:48:00 PM EDT [facility] ([facility]) Name Value Range Interpretation Code Description Data Leana rce(s) Supporting Document(s) Fungal Smear Laboratory test result [facility] ([facility]) Testing performed at reference lab . Rep ort copy to follow on a separate form. 07/25/20 REF LAB#:[id number] ERIC/Calcofluor preparatio No fungus observed. Fungal Culture Other Source Laboratory test result [facility] ([facility]) Testing performed at reference lab . Rep ort copy to follow on a separate form. 07/25/20 REF LAB#:[id number] FUNGUS CULTURE [facility] No Yeast or Mold Isolated after 4 weeks. ID Date Data Source [id number] 06/10/2020 01:48:00 PM EDT [facility] ([facility]) Name Value Range Interpretation Code Description Data Leana rce(s) Supporting Document(s) Afb Smear Laboratory test result [facility] ([facility]) Due to limited sensitivity, smear result s should be used as an adjunct in evaluating patient tuberculosis status. Cultural examination is highly recommended for clinical diagnosis. AFB smear Kinyoun NEGATIVE (NO AFB Seen ) Afb Culture Laboratory test result [facility] ([facility]) Testing performed at reference lab . Rep ort copy to follow on a separate form. 07/25/20 REF LAB#:[id number] FULL REPORT IN LAB NOTES ([facility] and [facility]). No Acid-Fast Bacilli Isolated after 6 Weeks. ID Date Data Source [id number] 06/10/2020 01:48:00 PM EDT [facility] ([facility]) Name Value Range Interpretation Code Description Data Leana rce(s) Supporting Document(s) Gram Stain Laboratory test result Normal (applies to non-n umeric results) [facility] ([facility]) NO CELLS SEEN NO ORGANISMS SEEN Bal Culture Laboratory test result Normal (applies to non- numeric results) [facility] ([facility]) FULL REPORT IN LAB NOTES ([facility] and [facility] ). NO GROWTH AEROBICALLY ID Date Data Source [id number] 06/10/2020 01:48:00 PM EDT [facility] ([facility]) Name Value Range Interpretation Code Description Data Leana rce(s) Supporting Document(s) Source Laboratory test result Normal (applies to non-n umeric results) [facility] ([facility]) RIGHT UPPER LOBE Color Laboratory test result Above high normal [facility] ([facility]) will discuss at follow-up Bal WBC Laboratory test result 0-10 Normal (applies to non-n umeric results) [facility] ([facility]) will discuss at follow-up Appearance Laboratory test result Above high normal [facility] ([facility]) will discuss at follow-up ID Date Data Source [id number] 06/10/2020 01:48:00 PM EDT [facility] ([facility] Name Value Range Interpretation Code Description Data Leana rce(s) Supporting Document(s) Fungus identified in Unspecified specimen by Culture Laboratory gin t result [facility] ([facility] Comments: 3. RUL BAL By: DR SARMIENTO Time: 1347 Time: 1350 ID Date Data Source [id number] 06/10/2020 01:48:00 PM EDT [facility] ([facility] Name Value Range Interpretation Code Description Data Leana rce(s) Supporting Document(s) Afb Smear Laboratory test result [facility] ([facility] Due to limited sensitivity, smear result s should be used as an adjunct in evaluating patient tuberculosis status. Cultural examination is highly recommended for clinical diagnosis. AFB smear Kinyoun NEGATIVE (NO AFB Seen ) Afb Culture Laboratory test result [facility] ([facility] Testing performed at reference lab . Rep ort copy to follow on a separate form. 07/25/20 REF LAB#:[id number] FULL REPORT IN LAB NOTES ([facility] and [facility]). No Acid-Fast Bacilli Isolated after 6 Weeks. ID Date Data Source [id number] 06/10/2020 01:48:00 PM EDT [facility] ([facility] Name Value Range Interpretation Code Description Data Leana rce(s) Supporting Document(s) Fungal Culture Other Source Laboratory test result [facility] ([facility] Testing performed at reference lab . Rep ort copy to follow on a separate form. 07/25/20 REF LAB#:[id number] FUNGUS CULTURE [facility] No Yeast or Mold Isolated after 4 weeks. Fungal Smear Laboratory test result [facility] ([facility] Testing performed at reference lab . Rep ort copy to follow on a separate form. 07/25/20 REF LAB#:[id number] ERIC/Calcofluor preparatio No fungus observed. 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 Cultural examination is highly recommended for clinical diagnosis. AFB smear Kinyoun NEGATIVE (NO AFB Seen ) ID Date Data Source [id number] 06/10/2020 01:48:00 PM EDT [facility] ([facility] Name Value Range Interpretation Code Description Data Leana rce(s) Supporting Document(s) Bal Culture Laboratory test result [facility] ([facility] FULL REPORT IN LAB NOTES ([facility] and [facility] ). NO GROWTH AEROBICALLY Gram Stain Laboratory test result [facility] ([facility] NO CELLS SEEN NO ORGANISMS SEEN ID Date Data Source [id number] 06/10/2020 01:48:00 PM EDT [facility] ([facility] Name Value Range Interpretation Code Description Data Leana rce(s) Supporting Document(s) Source Laboratory test result [facility] ([facility] RIGHT UPPER LOBE Color Laboratory test result [facility] ([facility] Laboratory test finding (navigational concept) Laboratory test result 0-10 [facility] ([facility] Appearance Laboratory test result [facility] ([facility] ID Date Data Source [id number] 06/10/2020 01:48:00 PM EDT [facility] ([facility], ) Name Value Range Interpretation Code Description Data Leana rce(s) Supporting Document(s) 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 Cultural examination is highly recommended for clinical diagnosis. AFB smear Kinyoun NEGATIVE (NO AFB Seen ) ID Date Data Source [id number] 06/10/2020 01:48:00 PM EDT [facility] ([facility], ) Name Value Range Interpretation Code Description Data Leana rce(s) Supporting Document(s) Bacteria identified in Bronchoalveolar lavage by Aerob e culture Laboratory test result Normal (applies to non-numeric results) [facility] ([facility], ) will discuss at follow-up ID Date Data Source [id number] 06/10/2020 01:35:00 PM EDT [facility] ([facility], ) Name Value Range Interpretation Code Description Data Leana rce(s) Supporting Document(s) Surgical pathology study Laboratory test result [facility] ([facility], ) <content>FINAL DIAGNOSIS</content>
< content></content>
<content>Lung, right upper lobe, biopsy:</content>
<content>Respiratory/lung tissue with fibrosis, lymphoid aggregate and</content>
<content>inflammation. (See comment).</content>
<content>Fragments of cartilage noted.</content>
<content>No malignancy seen on this submitted specimen.</content>
<content></content>
<content>Comment: H&E sections show benign repiratory/lung tissue. If malignancy</content>
<content>is of concerning, re-biopsy is recommended if clinically indicated.</content>
<content>06/11/2020 - 1251</content>
<content></content>
<content>CLINICAL DIAGNOSIS</content>
<content></content>
<content>Right middle lobe abnormality</content>
<content>06/11/2020 - 728</content>
<content></content>
<content>GROSS DIAGNOSIS</content>
<content></content>
<content>Received in formalin labeled "right upper lobe biopsy" consists of core</content>
<content>fragments of tissue measuring from 0.5 to 0.1 cm. All in one.</content>
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
<content>06/11/2020 - 728</content>
<content></content>
<content>Signed BRIAN MCBRIDE MD 06/11/2020 125</content>
<content></content> ID Date Data Source [id number] 06/10/2020 01:35:00 PM EDT [facility] ([facility] Name Value Range Interpretation Code Description Data Leana rce(s) Supporting Document(s) Pathology Request For Service Laboratory test result [facility] ([facility] <content>FINAL DIAGNOSIS</content>
< content></content>
<content>Lung, right upper lobe, biopsy:</content>
<content>Respiratory/lung tissue with fibrosis, lymphoid aggregate and</content>
<content>inflammation. (See comment).</content>
<content>Fragments of cartilage noted.</content>
<content>No malignancy seen on this submitted specimen.</content>
<content></content>
<content>Comment: H&E sections show benign repiratory/lung tissue. If malignancy</content>
<content>is of concerning, re-biopsy is recommended if clinically indicated.</content>
<content>06/11/2020 - 1251</content>
<content></content>
<content>CLINICAL DIAGNOSIS</content>
<content></content>
<content>Right middle lobe abnormality</content>
<content>06/11/2020728</content>
<content></content>
<content>GROSS DIAGNOSIS</content>
<content></content>
<content>Received in formalin labeled "right upper lobe biopsy" consists of core</content>
<content>fragments of tissue measuring from 0.5 to 0.1 cm. All in one.</content>
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
<content>06/11/2020728</content>
<content></content>
<content>Signed BRIAN MCBRIDE MD 06/11/2020 1252</content>
<content></content> Procedure Social History Code Duration Value Status Description Data Source(s ) Smoking 07/17/2021 12:00:00 AM EDT Patient is a former smoker completed Patient is a former smoker [facility] ([facility] Smoking 04/02/2021 12:00:00 AM EDT - 01/18/2017 12:00:00 AM EDT Patient is a former smoker completed Patient is a former smoker [facility] ([facility], ) Vital Signs ID Date Data Source UNK Name Value Range Interpretation Code Description Data Source(s) Systolic blood pressure 147 mm[Hg] 147 mm[Hg] [facility] ([facility] Diastolic blood pressure 82 mm[Hg] 82 mm[Hg] [facility] ([facility] Systolic blood pressure 110 mm[Hg] 110 mm[Hg] [facility] ([facility] Diastolic blood pressure 67 mm[Hg] 67 mm[Hg] [facility] ([facility] Heart rate 93 /min 93 /min [facility] ([facility] Body temperature 97.1 [degF] 97.1 [degF] [facility] ([facility] Respiratory rate 20 /min 20 /min [facility] ( [facility] Body height 67.0 [in_i] 67.0 [in_i] [facility] ([facility] 5'7" Body weight 124.25 [lb_av] 124.25 [lb_av] [facility] ([facility] Oxygen saturation in Arterial blood by Pulse oximetry 96 % 96 % [facility] ([facility] [place] body weight 135 [lb_av] 135 [lb_av] [facility] ([facility] Body mass index (BMI) [Ratio] 19.5 kg/m2 19.5 k g/m2 [facility] ([facility] Body temperature 97.6 [degF] 97.6 [degF] [facility] ([facility] Body weight 125.12 [lb_av] 125.12 [lb_av] [facility] ([facility] [place] body weight 135 [lb_av] 135 [lb_av] [facility] ([facility] Body height 67.0 [in_i] 67.0 [in_i] [facility] ([facility] 5'7" Body mass index (BMI) [Ratio] 19.6 kg/m2 19.6 k g/m2 [facility] ([facility] Oxygen saturation in Arterial blood by Pulse oximetry 90 % 90 % [facility] ([facility], ) Body weight 126.00 [lb_av] 126.00 [lb_av] [facility] T ([facility], ) Heart rate 100 /min 100 /min [facility] ([facility], ) Body mass index (BMI) [Ratio] 19.7 kg/m2 19.7 k g/m2 [facility] ([facility]) Body surface area Derived from formula 1.66 m2 1.66 m2 [facility] ([facility]) Body height 67 [in_i] 67 [in_i] [facility] ([facility]) 5'7" [place] body weight 135 [lb_av] 135 [lb_av] [facility] ([facility]) Body weight 57.154 kg 57.154 kg [facility] ([facility]) Diastolic blood pressure 62 mm[Hg] 62 mm[Hg] [facility] ([facility]) Systolic blood pressure 116 mm[Hg] 116 mm[Hg] [facility] ([facility]) Respiratory rate 24 /min 24 /min [facility] ( [facility] Systolic blood pressure 148 mm[Hg] 148 mm[Hg] [facility] ([facility] Diastolic blood pressure 77 mm[Hg] 77 mm[Hg] [facility] Systolic blood pressure 115 mm[Hg] 115 mm[Hg] [facility] Diastolic blood pressure 71 mm[Hg] 71 mm[Hg] [facility] Heart rate 98 /min 98 /min [facility] Body temperature 97.4 [degF] 97.4 [degF] [facility] ([facility] Body height 67.0 [in_i] 67.0 [in_i] [facility] ([facility] 5'7" Body weight 126.00 [lb_av] 126.00 [lb_av] [facility] ([facility] Oxygen saturation in Arterial blood by Pulse oximetry 97 % 97 % [facility] ([facility] [place] body weight 135 [lb_av] 135 [lb_av] [facility] ([facility] Body mass index (BMI) [Ratio] 19.7 kg/m2 19.7 k g/m2 [facility] ([facility] Heart rate 121 /min 121 /min [facility] ([facility], ) Diastolic blood pressure 76 mm[Hg] 76 mm[Hg] [facility] ([facility]) [place] body weight 135 [lb_av] 135 [lb_av] [facility] ([facility]) Systolic blood pressure 126 mm[Hg] 126 mm[Hg] M [facility] ([facility]) Body height 67 [in_i] 67 [in_i] [facility] ([facility]) 5'7" Oxygen saturation in Arterial blood by Pulse oximetry 94 % 94 % [facility] ([facility]) Respiratory rate 18 /min 18 /min [facility] ( [facility] Systolic blood pressure 129 mm[Hg] 129 mm[Hg] M [facility] ([facility] Diastolic blood pressure 87 mm[Hg] 87 mm[Hg] [facility] Heart rate 105 /min 105 /min [facility] ([facility] Body temperature 97.0 [degF] 97.0 [degF] [facility] ([facility] [place] body weight 135 [lb_av] 135 [lb_av] [facility] ([facility] Body mass index (BMI) [Ratio] 19.5 kg/m2 19.5 k g/m2 [facility] ([facility] Body height 67.0 [in_i] 67.0 [in_i] [facility] ([facility] 5'7" Body weight 124.38 [lb_av] 124.38 [lb_av] [facility] ([facility] Oxygen saturation in Arterial blood by Pulse oximetry 98 % 98 % [facility] ([facility] Oxygen saturation in Arterial blood by Pulse oximetry 90 % 90 % [facility] ([facility]) Body weight 128.38 [lb_av] 128.38 [lb_av] [facility] ([facility]) Body height 67 [in_i] 67 [in_i] [facility] ([facility]) 5'7" Body mass index (BMI) [Ratio] 20.1 kg/m2 20.1 k g/m2 [facility] ([facility]) [place] body weight 135 [lb_av] 135 [lb_av] [facility] ([facility]) Body weight 58.231 kg 58.231 kg [facility] ([facility]) Body surface area Derived from formula 1.67 m2 1.67 m2 [facility] ([facility]) Oxygen saturation in Arterial blood by Pulse oximetry 90 % 90 % [facility] ([facility]) Body weight 58.231 kg 58.231 kg [facility] ([facility]) Body surface area Derived from formula 1.67 m2 1.67 m2 [facility] ([facility]) Diastolic blood pressure 60 mm[Hg] 60 mm[Hg] [facility] ([facility]) Heart rate 116 /min 116 /min [facility] ([facility]) Body height 67 [in_i] 67 [in_i] [facility] ([facility]) 5'7" Body weight 128.38 [lb_av] 128.38 [lb_av] [facility] ([facility]) Body mass index (BMI) [Ratio] 20.1 kg/m2 20.1 k g/m2 [facility] ([facility]) [place] body weight 135 [lb_av] 135 [lb_av] [facility] ([facility]) Systolic blood pressure 116 mm[Hg] 116 mm[Hg] [facility] ([facility], ) Systolic blood pressure 158 mm[Hg] 158 mm[Hg] [facility] ([facility] [place] body weight 135 [lb_av] 135 [lb_av] [facility] ([facility] Body height 67.0 [in_i] 67.0 [in_i] [facility] ([facility] 5'7" Diastolic blood pressure 85 mm[Hg] 85 mm[Hg] [facility] ([facility] Systolic blood pressure 144 mm[Hg] 144 mm[Hg] [facility] recheck Diastolic blood pressure 83 mm[Hg] 83 mm[Hg] [facility] ([facility] recheck Heart rate 127 /min 127 /min [facility] ([facility] Body temperature 97.1 [degF] 97.1 [degF] [facility] ([facility] Respiratory rate 18 /min 18 /min [facility] ( [facility] Body weight 133.12 [lb_av] 133.12 [lb_av] [facility] ([facility] Oxygen saturation in Arterial blood by Pulse oximetry 98 % 98 % [facility] ([facility] Body mass index (BMI) [Ratio] 20.8 kg/m2 20.8 k g/m2 [facility] ([facility] Body surface area Derived from formula 1.69 m2 1.69 m2 [facility] Systolic blood pressure 126 mm[Hg] 126 mm[Hg] [facility] ([facility], ) Diastolic blood pressure 74 mm[Hg] 74 mm[Hg] [facility] Heart rate 122 /min 122 /min [facility] ([facility]) Oxygen saturation in Arterial blood by Pulse oximetry 96 % 96 % [facility] ([facility]) Body temperature 97.0 [degF] 97.0 [degF] [facility] ([facility]) Body height 67 [in_i] 67 [in_i] [facility] ([facility]) 5'7" Body weight 131.00 [lb_av] 131.00 [lb_av] [facility] ([facility]) Body mass index (BMI) [Ratio] 20.5 kg/m2 20.5 k g/m2 [facility] ([facility]) [place] body weight 135 [lb_av] 135 [lb_av] [facility] ([facility]) Body weight 59.422 kg 59.422 kg [facility] ([facility]) Oxygen saturation in Arterial blood by Pulse oximetry 98 % 98 % [facility] ([facility]) Body temperature 97.6 [degF] 97.6 [degF] [facility] ([facility]) Body height 67 [in_i] 67 [in_i] [facility] ([facility]) 5'7" Body weight 128.25 [lb_av] 128.25 [lb_av] [facility] ([facility]) Systolic blood pressure 122 mm[Hg] 122 mm[Hg] [facility] Diastolic blood pressure 76 mm[Hg] 76 mm[Hg] [facility] ([facility]) Heart rate 71 /min 71 /min [facility] ([facility]) Body mass index (BMI) [Ratio] 20.1 kg/m2 20.1 k g/m2 [facility] ([facility]) [place] body weight 135 [lb_av] 135 [lb_av] [facility] ([facility]) Body weight 58.174 kg 58.174 kg [facility] ([facility]) Body surface area Derived from formula 1.67 m2 1.67 m2 [facility] ([facility]) Body surface area Derived from formula 1.67 m2 1.67 m2 [facility] ([facility]) Systolic blood pressure 126 mm[Hg] 126 mm[Hg] [facility] ([facility]) Diastolic blood pressure 72 mm[Hg] 72 mm[Hg] [facility] ([facility]) Heart rate 106 /min 106 /min [facility] ([facility]) Oxygen saturation in Arterial blood by Pulse oximetry 97 % 97 % [facility] Body temperature 96.8 [degF] 96.8 [degF] [facility] ([facility]) Body height 67 [in_i] 67 [in_i] [facility] ([facility]) 5'7" Body weight 128.38 [lb_av] 128.38 [lb_av] [facility] ([facility]) Body mass index (BMI) [Ratio] 20.1 kg/m2 20.1 k g/m2 [facility] ([facility]) [place] body weight 135 [lb_av] 135 [lb_av] [facility] ([facility]) Body weight 58.231 kg 58.231 kg [facility] ([facility]) Systolic blood pressure 128 mm[Hg] 128 mm[Hg] [facility] ([facility] Diastolic blood pressure 70 mm[Hg] 70 mm[Hg] [facility] ([facility] Body mass index (BMI) [Ratio] 20.1 kg/m2 20.1 k g/m2 [facility] ([facility] Heart rate 100 /min 100 /min [facility] ([facility] Body temperature 97.1 [degF] 97.1 [degF] [facility] ([facility] Respiratory rate 17 /min 17 /min [facility] ( [facility] Body height 67.0 [in_i] 67.0 [in_i] [facility] ([facility] 5'7" Body weight 128.38 [lb_av] 128.38 [lb_av] [facility] ([facility] Oxygen saturation in Arterial blood by Pulse oximetry 99 % 99 % [facility] [place] body weight 135 [lb_av] 135 [lb_av] [facility] ([facility] Systolic blood pressure 146 mm[Hg] 146 mm[Hg] [facility] ([facility]) Diastolic blood pressure 98 mm[Hg] 98 mm[Hg] [facility] ([facility]) Heart rate 95 /min 95 /min [facility] ([facility]) Oxygen saturation in Arterial blood by Pulse oximetry 93 % 93 % [facility] ([facility]) Body temperature 98.2 [degF] 98.2 [degF] [facility] ([facility]) Body height 67 [in_i] 67 [in_i] [facility] ([facility]) 5'7" Body weight 126.00 [lb_av] 126.00 [lb_av] [facility] Body mass index (BMI) [Ratio] 19.7 kg/m2 19.7 k g/m2 [facility] ([facility]) [place] body weight 135 [lb_av] 135 [lb_av] [facility] ([facility]) Body weight 57.154 kg 57.154 kg [facility] ([facility]) Body surface area Derived from formula 1.66 m2 1.66 m2 [facility] ([facility])
[2021-08-03 18:28] LABS: ALBUMIN 3.7 GM/DL (3.2-5.2); ALT/SGPT 34 U/L (12-78); BILIRUBIN,DIRECT < 0.1 MG/DL (0.0-0.2); BILIRUBIN,TOTAL 0.2 MG/DL (0.2-1.0); BLOOD UREA NITROGEN 11 MG/DL (7-18); CALCIUM LEVEL 9.4 MG/DL (8.8-10.2); CARBON DIOXIDE LEVEL 28 MEQ/L (21-32); CHLORIDE LEVEL 108 MEQ/L (98-107); CK-MB VALUE MASS 2.9 NG/ML (<3.6); CPK CREATINE PHOSPHOKINASE 73 U/L (26-192); CREATININE FOR GFR 0.76 MG/DL (0.55-1.30); GLOMERULAR FILTRATION RATE > 60.0 (>45); GLUCOSE, FASTING 91 MG/DL (70-100); MB/CK RELATIVE INDEX 3.97 (< OR =4); NT-PRO BNP 119 PG/ML (<125); POTASSIUM SERUM 4.2 MEQ/L (3.5-5.1); SODIUM LEVEL 143 MEQ/L (136-145); THYROID STIMULATING HORMONE 0.775 uIU/ML (0.358-3.740); TOTAL PROTEIN 6.8 GM/DL (6.4-8.2); TROPONIN I < 0.02 NG/ML (< 0.10)
[2021-08-03] MEDS ORDERED: ISOVUE-370 76% 100ML VIAL As Ordered ONE (18:38)
[2021-08-03] MEDS ORDERED: IPRATROPIUM 0.5MG/ALBUTEROL 2.5MG INH SOL UD 3ML (DUONEB) NEB ONE (19:05)
--- NOTE | 2021-08-03 19:55 | REPVR ---
PROCEDURE INFORMATION: Exam: CTA Chest With Contrast Exam date and time: 08/03/2021 7:06 PM Age: 66 years old Clinical indication: Pain; Shortness of breath; Angina pectoris; Additional info: Chest pain, SOB TECHNIQUE: Imaging protocol: Computed tomographic angiography of the chest with contrast. 3D rendering (Not supervised by radiologist): MIP and/or 3D reconstructed images were created by the technologist. Radiation optimization: All CT scans at this facility use at least one of these dose optimization techniques: automated exposure control; mA and/or kV adjustment per patient size (includes targeted exams where dose is matched to clinical indication); or iterative reconstruction. Contrast material: ISOVUE 370; Contrast volume: 100 ml; Contrast route: INTRAVENOUS (IV); COMPARISON: CT ANGIO CHEST 03/14/2021 8:43 PM FINDINGS: Pulmonary arteries: There are no pulmonary emboli. Aorta: There is no aortic dissection or aneurysm. Lungs: Bilateral apical pleuroparenchymal scarring. 5.8 mm smooth bordered noncalcified nodule superior segment right lower lobe not demonstrated previously. Well inflated lungs with flattened diaphragmatic contours and increased retrosternal airspace consistent with COPD. Pleural spaces: Unremarkable. No pneumothorax. No pleural effusion. Heart: Unremarkable. No cardiomegaly. No pericardial effusion. Lymph nodes: Unremarkable. No enlarged lymph nodes. Bones/joints: Unremarkable. No acute fracture. Soft tissues: Unremarkable. IMPRESSION: 1. 5.8 mm smooth bordered noncalcified nodule superior segment right lower lobe not demonstrated previously. For patients at low risk (minimal or absent history of smoking and of other known risk factors), no routine follow-up is indicated. For patients at high risk (history of smoking or of other known risk factors), consider optional CT Chest at 12 months. (Reference: Maria Esther) References: Maria Esther Mcfarlane et al. Guidelines for Management of Incidental Pulmonary Nodules Detected on CT Images: From the Fleischner Society 2017. Radiology. 2017;284(1):228-243. 2. COPD. 3. There is no aortic dissection or aneurysm. 4. There are no pulmonary emboli. Electronically signed by: David Stiles On 08/03/2021 19:54:32 PM
--- NOTE | 2021-08-03 20:19 | ECGEPIP ---
[facility] - ED Test Date: 2021-08-03 Pat Name: RAE LI Department: Room: - Gender: Female Vp Cardiovascular Service Line: matthias : 1955 Requested By: TRU Jenkins Order Number: [id number] Reading MD: Etienne Perez Measurements Intervals Delia Rate: 111 P: 80 KS: 166 QRS: 90 QRSD: 72 T: 76 QT: 328 QTc: 446 Interpretive Statements Sinus tachycardia Right atrial enlargement Rightward axis Septal infarct , age undetermined Similar to tracing done 03-30-21 but with increase rate Electronically Signed on 08-03-2021 20:19:00 EST by Etienne Perez
[2021-08-03] MEDS ORDERED: MAALOX 30 ML SUSP *UDC PO PRN (22:05)
[2021-08-03] MEDS ORDERED: MOM 30ML SUSPENSION UDC PO PRN (22:05)
--- OUTSIDE RECORDS SUMMARY | 2021-08-03 22:14 | CCD ---
Author Author [facility] Organization [facility] Address Unknown Phone Unavailable Care Team Providers Care Aeronautical Research Engineer Name Role Phone Melina JARA MD Unavailable [...] DONOVAN MD Unavailable Unavailab le SINGH (YOANDY), Meilna DONOVAN MD Unavailable Unavailab le SINGH (YOANDY), [...] DONOVAN MD Unavailable Unavailab le SINGH (YOANDY), Mleina DONOVAN MD Unavailable Unavailab le SINGH (YOANDY), Melina DONOVAN MD Unavailable Unavailab le SINGH (YOANDY), Melina DONOVAN MD Unavailable Unavailab le SINGH (YOANDY), Melina DONOVAN MD Unavailable Unavailab le SINGH (YOANDY), Melina DONOVAN MD Unavailable Unavailab le SINGH (YOANDY), Melina DONOVAN MD Unavailable Unavailab le SINGH (YOANDY), Melina DONOVAN MD Unavailable Unavailab le SINGH (YOANDY), Meilna DONOVAN MD Unavailable Unavailab le SINGH (YOANDY), [...] MD Unavailable Unavailab le SINGH (YOANDY), Melina DONVOAN MD Unavailable Unavailab le SINGH (YOANDY), Melina [...] (YOANDY), Melina DONOVAN MD Unavailable Unavailab le SINHG (YOANDY), Melina DONOVAN MD Unavailable Unavailab le [...] Valerio, Lucinda Holder MD Unavailable Unavailable Valerio, Lcuinda Holder MD Unavailable Unavailable Valerio, Lucinda Holder [...] WORMUTH, Ruben CALDERÓN MD Unavailable Unavailable WORMUTH, Ruebn CALDERÓN MD Unavailable Unavailable WORMUTH, Ruben CALDERÓN [...] Oscar MD Unavailable Unavailable MEDENT_104, NA Unavailable [phone] MORGAN, 0000{ Unavailable Unavailable Valerio, Lucinda Holder MD Unavailable [...] A Glory MD Unavailable Unavailable Valerio, A Glroy MD Unavailable Unavailable Valerio, A Glory MD Unavailable Unavailable Valerio, A Glory MD Unavailable Unavailable Valerio, A Glory MD Unavailable Unavailable Valerio, A Glory MD Unavailable Unavailable Valerio, A Glory MD Unavailable Unavailable Valeroi, A Glory MD Unavailable Unavailable Valerio, A [...] is protected by Article 27-F of the [facility] [employer] Public Health law. If you continue you may have access to information: Regarding HIV / AIDS; Provided by facilities licensed or operated by the [facility] Office of Mental Health; or Provided by the [facility] Office for People With Developmental Disabilities. If such information is present, then the following [facility] mandated warning applies: This information has been [...] law may result in a fine or halfway sentence or both. A general authorization for the release of medical or other information is NOT sufficient authorization for further disc losure. Allergies and Adverse Reactions Type Description Substance Reaction Status Data Source(s ) Drug allergy No Known Drug Allergies No Known Drug Allergies [facility] Drug allergy Avelox Avelox [facility] Family History Family Member Name Family Member Gender Family Member Status Date o f Status Description Data Source(s) Unknown Unknown Problem [facility] ([facility] Unknown Male Problem [facility] ([facility], ) Encounters Encounter Providers Location Date Indications Data Source(s ) Outpatient Attender: Glory Luo MD Main Office 07/17/2021 01:30:0 0 PM EDT [facility] ([facility] Outpatient Attender: Glory Luo MD Main Office 07/10/2021 09:30:0 0 AM EDT [facility] ([facility] Outpatient Attender: Oscar Betancur MDReferrer: Lexis Sarmiento MD [id number] 06/20/2021 04:46:39 PM EDT [facility] Outpatient Attender: Oscar SOTOeferrer: Lexis Sarmiento MD [id number] 06/18/2021 02:00:39 PM EDT [facility] Outpatient 06/17/2021 01:40:00 PM EDT [facility] Outpatient Attender: Oscar Betancur MDReferrer: Lexis Sarmiento MD _[id number] 06/15/2021 06:33:44 PM EDT [facility] Outpatient Attender: Oscar Betancur MDReferrer: Lexis Sarmiento MD _[id number] 06/15/2021 09:48:10 AM EDT [facility] Outpatient Attender: Oscar Betancur MDReferrer: Lexis Sarmiento MD _[id number] 06/13/2021 03:49:44 PM EDT [facility] Outpatient Attender: Oscar Betancur MD 06/13/2021 12:03:00 PM EDT [facility] Outpatient Attender: Oscar Betancur MDReferrer: Lexis Sarmiento MD _[id number] 06/08/2021 11:17:13 AM EDT [facility] Outpatient Attender: Oscar Betancur MDReferrer: Lexis Sarmiento MD _[id number] 06/05/2021 05:58:59 PM EDT [facility] D Attender: 0000{ MINOA 07:04:00 AM EDT - 06/02/2021 11:28:00 AM EDT [facility] Outpatient Attender: ALTAGRACIA JARA MDAdmitter: ALTAGRACIA MORTENSEN MD 06/02/2021 07:04:00 AM EDT - 06/02/2021 11:28:00 AM EDT LIVER METS [facility] LIVER METS Patient discharged. Outpatient Attender: ALTAGRACIA JARA MD 05/29/2021 10:57: 53 AM EDT [facility] Outpatient Attender: SONA [facility]_104 CMP Internal Med [facility] 05/28/2021 09:40:00 AM EDT [facility] ([facility] Outpatient Attender: Lexis Ge/Katlyn/Chago/Tyler ndneeta 05/12/2021 01:00:00 PM EDT MED[facility] ([facility] Outpatient Attender: Oscar Betancur MDReferrer: Lexis Sarmiento MD [id number] 05/06/2021 12:31:57 PM EDT [facility] Outpatient Attender: Oscar Betancur MDReferrer: Lexis Sarmiento MD [id number] 05/01/2021 12:30:40 PM EDT [facility] Outpatient Attender: Glory Luo MD Main Office 04/11/2021 11:30:0 0 AM EDT [facility] ([facility] Outpatient Attender: Lexis Ge/Katlyn/Hcago/Tyler ndl 04/02/2021 03:00:00 PM EDT MED[facility] ([facility]) Outpatient Attender: Oscar Betancur MDReferrer: Lexis Sarmiento [...] Ge/Katlyn/Chago/Tyler ndl 02/26/2021 11:00:00 AM EDT MED[facility] ([facility] Outpatient Attender: Oscar Betancur MDReferrer: Lexis Sarmiento MD _[id number] 02/20/2021 05:28:02 PM EDT [facility] Outpatient Attender: Oscar Betancur MDReferrer: Lexis Sarmiento MD _[id number] 02/15/2021 11:09:48 AM EDT [facility] Outpatient Attender: Oscar Betancur MDReferrer: Leixs Sarmiento MD _[id number] 02/15/2021 09:54:39 AM EDT [facility] 01/13/2021 11:50:00 AM EDT [facility] Outpatient Attender: Oscar Betancur MDReferrer: [...] Ge/Katlyn/Chago/Tyler ndl 12/19/2020 03:00:00 PM EDT MEDENT ([facility], ) Outpatient Attender: Oscar Betancur MDReferrer: [...] AM EST - 11/01/2020 11:42:00 AM EST [facility] Outpatient Attender: STEPHANE MONIQUE MDAdmitter: STEPHANE Mcfarlane MD 11/01/2020 07:10:00 AM EST - 11/01/2020 11:42:00 AM EST LUNG CARCINOMA C34.2 [facility] LUNG CARCINOMA C34.2 Patient discharged. Outpatient Attender: Oscar Betancur MDReferrer: Lexis Sarmiento MD _[id number] 10/31/2020 01:12:55 PM EST [facility] Outpatient Attender: STEPHANE MONIQUE MD 10/31/2020 12:40:19 PM EST [facility] Outpatient Attender: STEPHANE MONIQUE MD 10/31/2020 09: 03:00 AM EST COVID TEST AND NURSING INTERVIEW [facility] COVID TEST AND NURSING INTERVIEW Outpatient Attender: Oscar Betancur MDReferrer: Lexis Sarmiento [...] Attender: Oscar Betancur MDReferrer: Lexis Sarmiento MD 10/08/2020 02:50:24 PM EST [facility] Attender: Oscar Betancur MD 10/08/2020 02:45:55 PM EST [facility] Outpatient Attender: Lexis Ge/Katlyn/Chago/Tyler nd 09/16/2020 09:30:00 AM EST [facility] ([facility] Outpatient Admitter: Ganga Nelson MDReferrer: Ganga Nelson MD 09/09/2020 12:00:00 AM EST Malignant neoplasm of unspecified part o f unspecified bronchus or lung [facility] Malignant neoplasm of unspecified part o f unspecified bronchus or lung Outpatient Attender: Lexis Ge/Katlyn/Chago/Tyler nd 08/22/2020 12:00:00 PM EST [facility] ([facility] Outpatient Attender: Glory Luo MD Main Office 07/02/2020 09:00:0 0 AM EDT [facility] ([facility] Outpatient Attender: Lexis Ge/Katlyn/Chago/Tyler nd 06/17/2020 01:30:00 PM EDT [facility] ([facility] Immunizations Vaccine [...] Complete: YESThis Data wa s Submitted to [facility] Via [employer]. COVID-19 VACCINE Moderna 11/16/2020 12:00:00 AM EST completed NYSIIS Vaccine Series Complete: NOThis Data was Submitted to [facility] Via [employer]. COVID-19 VACCINE, MRNA-1273, LNP-S (MODERNA)/PF 11/16/2020 1 [...] 12:00:00 AM EDT RESPIRATORY active MEDENT ( [facility], ) Prednisone 10 MG Oral Tablet Prednisone 05/12/2021 12:00:00 AM EDT [facility] 24 HR metoprolol succinate 50 MG [...] 04/02/2021 12:0 0:00 AM EDT active MED[facility] ([facility]) 12 HR Guaifenesin 600 MG Extended Release Oral Tablet [Mucin ex] Mucinex 04/02/2021 12:00:00 AM EDT ORAL completed MED[facility] ([facility]) Azithromycin 500 MG Oral Tablet Azithromycin 04/02/2021 12:00:00 AM E DT ORAL active MEDENT ([facility]) Yupelri Yupelri 04/02/2021 12:00:00 AM EDT active MED[facility] ([facility]) Prednisone 10 MG Oral Tablet Prednisone 04/02/2021 12:00:00 AM EDT ORAL completed [facility] ([facility]) 24 HR metoprolol succinate 50 MG Extended Release Oral Tablet Metoprolol Succinate ER 03/17/2021 12:00:00 AM EDT ORAL completed [facility] ([facility] Prednisone 10 MG Oral Tablet Prednisone 03/17/2021 12:00:00 AM EDT active [facility] ([facility] Oxygen 02/27/2021 12:00:00 AM EDT active MED[facility] ([facility]) 60 ACTUAT Budesonide 0.16 MG/ACTUAT / fo rmoterol fumarate 0.0045 MG/ACTUAT Metered Dose Inhaler [Symbicort] Symbicort 02/11/2021 12:00:00 AM EDT RESPIRATORY completed MED[facility] ( [facility], ) Prednisone 10 MG Oral Tablet Prednisone 02/04/2021 12:00:00 AM EDT ORAL completed MED[facility] ([facility], ) Compazine 10 MG 12/31/2020 12:00:00 AM EDT ac tive [facility] ([facility] Covid-19 vaccine, Unspecified 12/11/2020 12:00:00 AM EDT completed MED[facility] ([facility], ) Medication administered onsite Covid-19 vaccine, Unspecified 11/13/2020 12:00:00 AM EST completed MED[facility] ([facility], ) Medication administered onsite Insurance Providers Payer name Policy type / Coverage type Policy ID Covered republican ID Covered republican's relationship to garner Policy Garner Plan Information [place]BS [place] PPO 302/307 [id number] SP [id number] BCBS OF SUAD 180/680 [id number] [place] PPO 302/307 [id number] [id number] [place] PPO 302/307 [id number] [id number] BCBS OF SUAD 180/680 [id number] [id number] BCBS OF SUAD 180/680 [id number] HU2 [id number] WELLCARE [id number] WELLCARE [id number] SP [id number] WELLCARE [id number] SP [id number] WELLCARE [id number] SP [id number] Wellcare Today's Options Medigap Part B [id number] Self [id number] QFPay Health BUSINESS OWNERS ADVANTAGE [facility] Commercial [id number] Self [id number] Medicare Primary [id number] Wellcare Todays Options Advantage Plus PPO Primary [id number] Wellcare Today's Options Medigap Part B [id number] Self [id number] MEDICARE [id number] SP [id number] Y89 MEDICARE [id number] SP [id number] [id number] WELLCARE HEALTH PLANS CLAIMS DEPT [id number] WELLCARE [id number] SP [id number] WELLCARE MEDICARE O G [id number] Self [id number] Blue Shield Facets Secondary [id number] Medicare Primary [id number] Blue Shield Facets Secondary [id number] [facility] Health Maintenance Organization (O) [id number] Self [id number] [facility] Part B [id number] WELLCARE O [id number] S [id number] BS Of [facility] Maintenance Organization ([facility]) [id number] Self [id number] WELLCARE [id number] SP [id number] WELLCARE O [id number] O [id number] BS Of [facility] Health Maintenance Organization (O) [id number] Self [id number] [facility] Health Maintenance Organization (O) [id number] Self [id number] WELLCARE HEA [id number] S [id number] [facility] B [id number] P XV [id number] BCBS [place] [facility] PPO 302/307 [id number] SP [id number] BS Of [facility] ([facility]) XVG0 [id number] Self [id number] EXCELLUS BCBS B [id number] P XV [id number] BS Of [facility] ([facility]) XVG0 [id number] Self [id number] BS Of [facility] ([facility]) XVG0 [id number] Self [id number] BS Of [facility] ([facility]) XVG0 [id number] Self [id number] BS Of [facility] ([facility]) XVG0 [id number] Self [id number] MEDICARE MCA [id number] S [id number] EXCELLUS BCBS B [id number] P XV [id number] BS Of [facility] ([facility]) XVG0 [id number] Self [id number] BS Of [facility] ([facility]) XVG0 [id number] Self [id number] BS Of [facility] ([facility]) XVG0 [id number] Self [id number] BS Of [facility] ([facility]) XVG0 [id number] Self [id number] MEDICARE MCA [id number] S [id number] EXCELLUS BLUE CROSS BLUE SHIELD HEA [id number] S [id number] BCBS [place] PPO 302/307 [id number] SP [id number] EXCELLUS BCBS B [id number] S XV [id number] CIGNA HE[employer]CARE [id number] SP [id number] CIGNA P [id number] S [id number] Problems, Conditions, and Diagnoses Code Display Name Description Problem Type Effective Dates Data Source(s) 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 Diagnosis 04/28/2021 12:00:00 AM EDT [facility] C34.90 Malignant neoplasm of unspecified part o f unspecified bronchus or lung Malignant neoplasm of unspecified part of unspecified bronchus or lung Diagnosis 09/09/2020 04:16:00 PM [facility] C34.2 Malignant neoplasm of middle lobe, bronc hus or lung Malignant neoplasm of middle lobe, bronchus or lung Diagnosis 09/09/2020 12:00:00 AM EST [facility] I10 Essential hypertension Essential hypertension Problem 03/20/2021 12:00:00 AM EDT [facility] ([facility] E78.2 Mixed hyperlipidemia Mixed hyperlipidemia Problem 03/20/2021 12:00:00 AM EDT [facility] ([facility] Surgeries/Procedures Procedure Description Date Indications Data Source(s) OFFICE OUTPATIENT VISIT 25 MINUTES 07/17/2021 12:00:00 AM EDT [facility] ([facility] OFFICE OUTPATIENT VISIT 5 MINUTES 05/28/2021 12:00:00 AM EDT MEDENT ([facility]) OFFICE OUTPATIENT VISIT 25 MINUTES 05/12/2021 12:00:00 AM EDT MEDENT ([facility]) OFFICE OUTPATIENT VISIT 25 MINUTES 04/11/2021 12:00:00 AM EDT [facility] ([facility] OFFICE OUTPATIENT VISIT 25 MINUTES 04/02/2021 12:00:00 AM EDT MEDENT ([facility]) Measure Blood Oxygen Level Continuous Overnight Monitor 03/27/2021 12:00:00 AM EDT MEDENT ([facility], ) Cervantes Cre W/I 7 Days Of DC, Comm W/I 2 Dys 03/20/2021 12:00:00 AM EDT [facility] ([facility] OFFICE OUTPATIENT VISIT 25 MINUTES 02/26/2021 12:00:00 AM EDT MED[facility] ([facility]) OFFICE OUTPATIENT VISIT 25 MINUTES 12/31/2020 12:00:00 AM EDT [facility] ([facility] Spirometry 12/19/2020 12:00:00 AM EDT M EDENT ([facility]) OFFICE OUTPATIENT VISIT 25 MINUTES 12/19/2020 12:00:00 AM EDT MED[facility] ([facility]) Bronchoscopy Diag W/Placement Fiducial Markers, Single Or Mu lt 09/09/2020 12:00:00 AM EST MED[facility] ([facility], ) Bronchoscopy Rigid/Flexible Fluoroscopic Guide Computer-Assi sted 09/09/2020 12:00:00 AM EST MED[facility] ([facility]) Bronchoscopy W/Transbronchial Lung Biopsy 09/09/2020 1 2:00:00 AM EST MED[facility] ([facility], ) With Endobronchial Ultrasound Guided 09/09/2020 12:00: 00 AM EST MEDENT ([facility]) With Transendoscopic Endo Ultrasound During Bronchoscopic DX 09/09/2020 12:00:00 AM EST MED[facility] ([facility]) Spirometry 08/22/2020 12:00:00 AM EST M EDENT ([facility]) Mammogram 08/06/2020 12:00:00 AM EST M EDENT ([facility] Xray: 05/21/17 - Mammography, Bilateral Bronchoscopy W/Brushing Or Protected Brushings 020 12:00:00 AM EDT MED[facility] ([facility]) Bronchoscopy W/Bronchial Alveolar Lavage 06/10/2020 12 :00:00 AM EDT MED[facility] ([facility]) Bronchoscopy Rigid/Flexible Fluoroscopic Guide Computer-Assi sted 06/10/2020 12:00:00 AM EDT MED[facility] ([facility]) Bronchoscopy W/Transbronchial Lung Biopsy 06/10/2020 1 2:00:00 AM EDT MEDENT ([facility]) Results ID Date Data Source [id number] 07/17/2021 01:53:00 PM EDT MED[facility] ([facility] [...] Negative NYSDOH This lab was ordered by [facility] and reported by [facility]. ID Date Data Source [id number] 06/25/2021 04:33:48 PM EDT [facility] Name Value Range Interpretation Code Description Data Leana rce(s) Supporting Document(s) PTH, INTACT @ 86.6 pg/mL (18.5-88.0) [facility] ID Date Data Source [id number] 06/20/2021 12:05:09 PM EDT [facility] Name Value Range Interpretation Code Description Data Leana rce(s) Supporting Document(s) *Follow Up Visit NARCISO v1 [facility] FGTLTv9sOaXFCkTmf4pfYBqpXQJyo9CxJVv0RI4UO652zGJ2oAntgNAyxOKkNir4BFvgIaSgoVK7ztcD pDQ [file] 4HWkY1INQTTCQxllTndZZEJBdF/lens inserter/Bft/jV/bRa/0lvwD0R+U98D9PdhpV+ee/Lpm416dvEbvG+ckz pRR25o36genX+hq39yb4IlnQ98EL8jJ655HyU/Nou/ wIZBQ+gfxih6zm5107Byo43Bz1JFg5hXFaKP6U7c+KIOSl2xBQ4EXaARdnD2JAMlkUSXW/q0ApxDLcaF WhLLZ6iU7Hwgd/PnZ/DhhyvoNgVlN16C9gD+/aPdz78k9kigQdRUKnHKT/ZFdnGzTwDQBFI8eyq9PLBE +eWYmOO3JFX+0LWocsHbj06qD9Ic6P1q7LwqBy89ka 35abUfx19Eu5MKx38MXWsSR2Kak/vAqy2F+Wuz+LvxECSiAadXM4NqvcbNTDAeq4PjXHMgUHzl+dSjzt aEWZw/R4tewVWdBJL/c5TtTFT40jApY01O0zguLPRW+MSo1BE+Y9o66AOXwqB/m8HYIOQaANtt+rcPfP hS/xtc4v7TSvoe5gwv4vwkIA1tQc+BDYOG+JlXeYU4 xF+zzO1lq7IuixvO2wKV5yks4AlVAPhVwLt+I/xv+en5k0Ve+Dill+Jogcp3WK/kF7te/wM3wf/BO8xE0 [file] Kiln Car Repairer/HfLkdHNw7+u/9v//3sc8x594udI+dHrt1//5m///e/vfvXb/333p9+9OTTTxb/36i0hb8KOGw7pdj [file] testing manager/1mehqZjv7yr/35G2l24fLLe6PFkQjV3eCGv7sJ [file] WRZMRTrwW2w6ACD7TH3FJp6JJn7Oi1PhfzP0ekLiCScyYHLeKoWHVaFyRL8IQHm= ID Date Data Source [id number] 06/20/2021 12:05:09 PM EDT [facility] Name Value Range Interpretation Code Description Data Leana rce(s) Supporting Document(s) *Follow Up Visit NARCISO v1 [facility] NMZSVc9zPgVGTfLpn9upJYueGLXrv1EsTHv4MD0RP777nRU9sUxlfGZsrIOsFex4BEkuDnNcyXJ3diqP pDQ [file] 76+6PtAM56oTNH+ld/Jose D/nC7PE1rp4jsGi7b/6ElJAZnnyb8ksg4bzs3g8pUwbb/d96p+7kpBY9Uo5Y [file] AGgSllXrG9GvekHEoN4vvlrt0pICRQ5AXynpAuM4Y1SADjDvDsUlHYplBwJkLR1kJE93/renewable energy broker+S7YYDCdN [file] da+RpRca+VCHDBZ8AL7/WnhxPOWjMsKp7EO1u1nA7cGq6/oayf1N1iA+BvcFAzX14H8Fu9srWFeW+SUBASSEMBLY SUPERVISOR [file] evbVWbiZrzEINFNzN0OFT1RM0OLBRVM7GHMa== ID Date Data Source [id number] 06/17/2021 02:10:00 PM EDT Hematology On [facility] CHEST WITH CONTRAST CLINICAL HISTORY: lung [...] rce(s) Supporting Document(s) ID Date Data Source [id number] 06/17/2021 01:58:00 PM EDT [facility] [...] guidelines (TI-RADS 5). Professional interpretation performed at [facility] . Name Value Range Interpretation Code Description Data Leana rce(s) Supporting Document(s) ID Date Data Source [id number] 06/25/2021 04:33:42 PM EDT [facility] Name Value Range Interpretation Code Description Data Leana rce(s) Supporting Document(s) PTH, INTACT @ 50.8 pg/mL (18.5-88.0) Laboratory Al [facility] ID Date Data Source [id number] 06/13/2021 07:36:46 PM EDT [facility] Name Value Range Interpretation Code Description Data Leana rce(s) Supporting Document(s) FREE THYROXINE @ 0.89 ng/dL (0.76-1.46) [facility] ID Date Data Source [id number] 06/13/2021 07:39:05 PM EDT [facility] Name Value Range Interpretation Code Description Data Leana rce(s) Supporting Document(s) CORTISOL @ 4.3 ug/dL Laboratory [facility] CORTISOL REFERENCE RANGE: 7-9AM 5.3 - 22.5 MCG/DL 4-6PM 3.4 - 16.8 MCG/DLLATE AFTERNOON LEVELS [place] APPROX. 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, Histopathology, [address] [place] [address], [facility].Reported at [facility], [address] [place] [address], [facility].This report may include immunohistochemical or in-situ hybridizationresults. Testing was developed and the performance characteristicsdetermined by [facility], as required byCLIA '88. The FDA has determined that approval for specific use is notnecessary for clinical use. The quality of Hematoxylin and Eosin stainsand as applicable, for all immunohistochemical and/or special stains,including positive and negative controls, were reviewed and consideredappropriate.ICD codes: R93.2 Z85.118 CPT4 codes: A: 15511F, 46492h, 8 8313H, 09731E, 63370K Name Value Range Interpretation Code Description Data Leana rce(s) Supporting Document(s) ID Date Data Source [id number] 06/02/2021 01:52:00 PM EDT [facility] DATE OF EXAM: 06/02/2021T GUIDED [...] in the procedure record), requiring 12 minutes alig-ee-jhbe time. PROCEDURE: Preliminary focused regional scan was performed. 20-gauge biopsy needle was used to obtain 4 sample(s). Samples were sent to pathology for analysis. IMPRESSION:Uneventful image-guided biopsy. Professional interpretation performed at [facility] [phone] of diagnostic report for accession: [id number] Interpreted: Fernando Damian MDTranscribed: 06/02/2021 01:51 PMSigned: 06/02/2021 01:52 PM Fernando Damian MD [facility] # [id number] BILL # [id number] IRR Name Value Range Interpretation Code Description Data Leana rce(s) Supporting Document(s) ID Date Data Source [id number] 06/02/2021 08:08:05 AM EDT [facility] Name Value Range Interpretation Code Description Data Leana rce(s) Supporting Document(s) PT 9.9 s (9.2-11.9) [facility] PERFORMED AT [address] [place] [address] 11086 INR 0.94 [facility] SUGGESTED THERAPEUTIC RANGES USING INR F ORSTABILIZED ANTICOAGULATED PATIENTS:STANDARD DOSE THERAPY INR 2.0-3.0 DVT, PE, PREVENT DVT OR EMBOLISMHIGH DOSE THERAPY INR 2.5-3.5 PREVENT EMBOLISM FROM MECHANICAL HEART VALVE ID Date Data Source [id number] 06/02/2021 07:54:57 AM EDT [facility] Name Value Range Interpretation Code Description Data Leana rce(s) Supporting Document(s) WBC 6.1 10*3/uL (4.1-11.0) [facility] [place] RBC 4.02 10*6/uL (4.00-5.40) [facility] HGB 12.1 g/dL (12.0-16.0) [facility] [place] HCT 37.3 % (36.0-47.0) [facility] PERFORMED AT [address] [place] [address] MCV 92.8 fL (80.0-95.0) [facility] MCH 30.1 pg (27.0-32.0) [facility] [place] MCHC 32.4 g/dL (32.0-36.0) [facility] RDW 14.6 % (10.5-14.5) H [facility] [place] PLT 223 10*3/uL (150-450) [facility] [place] MPV 8.0 fL (7.1-10.7) [facility] ID Date Data Source [id number] 05/28/2021 08:40:00 PM EDT [facility] Name Value Range Interpretation Code Description Data Leana rce(s) Supporting Document(s) SARS coronavirus 2 RNA [Presence] in Res piratory specimen by JORDANA with probe detection NOT DETECTED [facility] This lab was reported by [facility]. ID Date Data Source [id number] 05/29/2021 10:57:52 AM EDT [facility] Name Value Range Interpretation Code Description Data Leana rce(s) Supporting Document(s) SPECIMEN DESCRIPTION [facility] [place] COVID 19 RESULT (NDET) [facility] [place] NEGATIVE COVID-19 RESULTS DONOT PRECLUDE COVID-2019 INFECTION ANDSHOULD NOT BE USED THE SOLE BASISFOR PATIENT MANAGEMENT DECISIONS. COMMENT [facility] [place] THE U.[place] FDA HAS MADE THIS TEST AVAILABL EUNDER AN EMERGENCY USE AUTHORIZATION(EUA) FOR THE DETECTION AND/OR DIAGNOSISOF THE VIRUS THAT CAUSES COVID-19.THIS ASSAY AMPLIFIES AND DETECTS TARGETDNA USING EDUCATIONAL SPEECH LANGUAGE CLINICIAN- MEDIATEDAMPLIFICATIONTESTING PERFORMED ON Yaphie PANTHER FIRST TEST [facility] [place] EMPLOYED IN HLTHCARE [facility] SYMPTOMATIC [facility] [place] Amos DATE OF SYMPT ONSET [facility] [place] HOSPITALIZED [facility] [place] [facility] [place] CONGREGATE CARE SET [facility] [place] ID Date Data Source [id number] 05/06/2021 08:14:11 AM EDT [facility] Name Value Range Interpretation Code Description Data Leana rce(s) Supporting Document(s) *Follow Up Visit NARCISO v1 [facility] CQRORh6lMrGKUmHlo1ieEItmMNOvh6WoFLs6NA5OR3QkMJnwabHkOAOoapEyS8VwREXlJRIBHBvmRLed FQz [file] /9n2++check 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 cashier/vvutN/96/G9ath/e/Bg1t8rd6XAzXQe1 [file] fHp0e9iHKk5x6XZgJCcv9Cd95899/q/renewable energy broker/7ht+9+6+f/23/7xQdf/ePP/tu//d//+/4ff/vm+klI3y70 Zo3n198ElyfS4ma8yv+Lz4c/Z4joA94m042G95s07g4s/QYJx85u285Hcc8iIgn9/yqoP4wb0//jHPfT uw/vvrr7/V95h41u//nJ+b/o2M2001j3R60/+fjus7 v3j+0fHtkf/+QjUj9c11fvWj7l68kzK//39aUzL2d/gGld46q//vP5X/1j3oeUw/5b5O1Y6i9X9/vHDk 9dfO/uB8d/koC0ex1/7FSGbb/tyDsOyyhmg0s4E3ef3x1w9A/fO/7b87z12/MD4cK0KDA8GA7Nx/0twb 52f8W32EtCp7/iVzzB9BpJUf9V2PjHRi7s+NNvz//8 5dGAP/9q7jngFbL0OU4rkpcbEetW3uGx7zQlFbmj9EhBuxFihtSQ/sC2651+/mDc1937BkKF+/T40+f3 nahomi+vzuD+fO9dP8p50/XG3/dFpIP33+2inxpdbu891AokdurOrnm5U+pmgygjVSXRrqid8a3/8Y53Qd 49N2+a9tVheU5K4pyAH6VRhnkg9guPVwjZikD/c7+h bHqh9I1l7/8dG80+P82w2XB2soG/eM47/6WE6ei74qXcR74i1QyopgiQaS/+F9HG3vN4VzRGxgQ+ex+f hEbk/onxnbp5vKROqwG5+Voz5coEx0/RhHJO948o+fr/6/Oe9J/3K+2m1d4i0D+A+VNw66HwRofq+f96 yMvmh4w3Bs/ff0vN3lk4+wdV2u5++54Rw1DgCzQj5m /0Ka3jyOgNca7z07S3BHnWV/5zd1jR/BreT175rsKFAak8O0jL9qkvu8l83/2c/FGk1G12t3jF3/7O4n 8yo0J342/MSbW449wQxl3w8WV3eOOkISveujBgWp4NZduR+mg53pphEaaqYe7y+5wfpFSJRLMC5TOpke uScil3cpgf/me667RmLWA2l/dwRfvkBGbeWecTQxX5 fN+Rp/TOR0Q/m789J5/8fX3IpVrhDDaSjRU3XChU1/70SH+Xw//PmxtP/2vWDqDh4qiQv2YJgC9RlKUy L7L1/2D9/MmJhhWzxPsroEnZ2WDyZu/Yc0mVwlfHwwjaSa3Tf9/UeepZ7dBgezzEVez90pq//jvF9Nd/ ips68OtRGD/xRGYhLaYiYrZG6XyUzT9/3T4wb5/rnq v8O5c4RF07wexiFw/lhwjGlnIt6dC9D4xNtQfqahKNzbjUGGzS1R/50vk8Rtf6QFYQ3vWmH82Fag7Kai //zV/abc3HtkrdHqf5YrgIdqr9f/gitV/qeq6BG6oC/8UbfcOcLheKK5Qb+GvhfWw4/v/a2aF79YWhN2 Mpdaz3/7pvhTHK9wjAEN9F2lA2LcGho+DEKIpvF2tk 5+elxdH5+Lou0293dppt7Cfnzwi+P6+316OgyJgP6y//efnY+UxvaP8jhgndBU4H8/evej4w/rk9nm84 td32Iqf80gO76LfJ00qVhlGs+af+qrWR6/rwMt9iZnRrtMM1u2o44Igr5rRDngF08/wxkyH0S3Q5hi1y 00mgImoUptKQM2tN07/qf3Wd8C/tw86qhJ56zAJ7d/ hs0sUn73bo4RHLiRV3zG0T+mcRrmjMQ7pl18fa/r6OLN5eELd+tQeVw00r/bjTi5kifU/kalBsa5KaqF ju+ff/609Gb508mmyKYgV+bA1VhssdLG67u/x3f/0uBomBfnwCIC4zlbwQn+tW+b9ShqLPaD8q8pBhCj 3VX40mbc+ysXyyf/8E+//90/XXL5z//wP/f//ZTQKA yykrh4uqG0sO9dg6kM+R9q48mbttOV045D2gpaq53vs8hfru+dOlUS4P3wq7aJ7/ob1WKCezkrg70y06 f3N04/qpaNe06u9QfOn2I5b6Szu+kN80vKLr7bkHw94HiLp6gOwziC1eo6Sro/Ps5aF1v/nZd8dUKQ+K zeQ09u00NE+nqFX9LEk9PDU0E/UbSPViuY8HG/vdN/ bp+V9bxVYlpsXP/NkW0i1phgcvLJlYteftL7iSjheuVt/vJ8Z/vJuaL+5AC0HyU9m+Dill/6F/3Sk75t/ [file] FqDbDnFpDQfeAxRxEO4wIU02/renewable energy broker+M5RFXNdGgx2Ihu [file] ZtRGDiDe7SJ4vaPi7xWNrqCFCMMPl+Pi7ALYtsxSQufSmbGFDYRtT7TSX1IX5GSGOFS3HRYy== ID Date Data Source [id number] 04/09/2021 08:54:57 AM EDT [facility] Name Value Range Interpretation Code Description Data Leana rce(s) Supporting Document(s) RT - Follow Up Visit NARCISO v1 [facility] VOLZWn5wFiJPVqUmq1gjEUhcQUFld7HyIHo8SC2YE9EhNCwvbpItTDQtdjOaG3AgADAbTUZKRIsyVTPv vVH [file] jose d+HeuPeCIw5UUZCcRzNXsgUPVlzT2dRLqXA+Wt6G [file] afR9IH/K/ftcifl3mAGdGq93/Am9xb/ed13cbO+paco++H7/JgNxi+1wKrRgI4V1J7/pOtDxvimzzPurL0 di5i2QTmKIjSc9XSBq+j043rCsi/cn16+kPX/afhfv 3lJoqcctthbuvpgUfAnb5wRRsb1sJdH3oi0j+tBivObcDLL78Q4TplbZ9o0EqGanJK8phCFp9hcd5O/Y w7Kyk0349o7SwitGmlbw7B390BEPHlDvwhoer8a7o4zrdU32QC/NFKM413q547X/TLf/y/u38/ptVLWs wq7rm6kF5Lnxq57QSpa2W/HH59m22QXZ5v+gvCiO1g PciFi3B9yHq5bfPq9X/In27+4GKxS6k/HgfSn2+6w8/UzotjajXFk7lxB1yG8/AFyk3dqQeF2m9F/zy+ k3EsHw/cy6y3Kz1l/eqh4K5UH6Xb4r+G5XeRmylZK1EERhl9SfMBkWqeQj8T+F7k0gZwo3Pry5X5qzgr VZl4W8rXj62I16ck6aEYLisDzpvqqCqf2r3cPt3Xv+ Y6N+KCWdMh87blCtU57U6u7gR2glzXl7U+7y+yMUpXn3IJRdj+L09/7j5/6WMqUPc8/3Lqg2aV0lJ9O0 l3N6bNa+9Yypu/OSnnU/bk7oJC24/nTxH9+uSp70re3t3B7pLa0YmiHuxEn+/hWPMvN+FgYp5VO6+pradip+ Nn2GI26UVSybeI27L0d1bee/oOuAUtnQ/K3qSdyQWZ X2z+network operations manager+a/XNxgB4Q4eobydLDw3nGYfXb41ULgsD9h6MJ91zeivpp8M3/fclcTS63vhrFB2wpt9RSDKn jXdunvHuFZZXpw9/yumcKWBpG7Zn0oYtr2n0W3uRl1yGef/t+J//S5iHRWOOYvKcMEM4gqOctF0FYWaf qxOsQtqSDcE0ANBbd1ZnTWu1UZ4DC5CtaJDuhgSwVv ghgFWGKGHhFUJMSx6ZHT4kXH1QlbQLWADpyV5cY9mflaNoCoUmy1GcinVhtTLiqifbobcak4JcbeoAEa 4PHF4kfEcaTkP4ONPIIu0CVe02EIgfOuXbOGUpNNLpDABwAVMcENQgCsZsQJYdBHGgGRizDBKpSWOgWT riLItfQOBmEB1dymZnqQ6CH5T7TeD4yMLeZ5Iiod0J Vl8PNMZgnKVqRBKeWFjMYs9Ed839UAn6ZJtwReJAMStOO7NnbYYrDIZulDETGNWgOtFyTGLBLi5DADhP TEErQXJpYWxNVCAzNyAwIFINCj4+DVtCUp7Ekm2sS1L4IBiqVVNUMF6DZAy7WP8WkWHeNQMtMAu+Pg0K DQo+Eo6Xi4UfLAAcQIr2CtomE81soDOf2hmBAQIvc8 K/2NTOYagIdQKXrYc69t/sCVVcE5QnT7gW+RDzWgEFEcch+1wex3+zyMsgy3+Ur//6gHxzoHr1f9DW3u uX//W/n/7X0//97V9P/+/3/y/3619++8r6005OddoT4dH1n5/9r9/+9Z8h7ar5v//1f97+2e5sS1L//f [file] LONG+iWnZgWPdqCfUVMjviYGluw7mlgLWMKv7ytdv3id tQsaK+BxxLGlYmUinWwXoXcQ3CpNfDEmXJOFlSDfKaEajTFEUBPB8PTjiWSrlzppIT/OQ8VgFqha20yO JICqrPraHoqF9K7gYcpbHYgRl6IvFjIY8DiBBGum85ipxUq1IZK+GzxbPaYN3jALdotrKlsQYqLR2HPl 5ICJ6sm6TrOVo6srEgWRjsHTL0DSznTHUoVSQcIFYm DSS9EJU7PTAUVjOfBGXdVUZlVAdxMVAkFXQess4DWNIeCRJkQOR0ZOQqBIAkSIThXOduPLCmQKYnYeWe UMLdDJMsDG2WYsYyJVCxGRJ5DtstAIKmYDGpie4KMYDdWYFsDUI2NQSnJTRbGVQuMOjsOAMiYGDuBPH0 WKNpJUFeOC9DNeWhXGWhNZF8LFflFCIgISUowd1CIQ VoCVMwFSK0WHVeGDQhIKQfMCxfZDHwUBE8YUNeFQJaNGNiUN5BDdHvMQKgESYcWGodPSAxBVIdde0AVY EcHNDmRpKyBiHeKGYmUPNwZDhyMQPkTDQzSfP5DQGaJFNiPS0NTqGlZDBzPFNcRRSgNWTyPRUtcv3LPF ZaLXHqROF2EEHrVDCtZBGqYIjuKLMeKDMwIpu9VMZp YHCpTA0MLnPbJXFbIDT1SLdjVKSoLOPkor1OMIVnKCPvGRB4MiAnZXNxZDYjIHxoTNWpLHGuJcU2FWJc HPZxYW8FUtOhJNIbOXH7XORsYHEnWPUdyu0UCWExXSJ7GFG1FrOgFRHgFPPxYXomMJLhRCA8VVFgBUBp LBOtWA4EXoAsYJIuYYZ1LQMuLIQpQIIbyx4DEXHuJX UaVST9LZIiNMGyNIBuUEtzFTMoUZMxXER7NSOuEZEjMV1WKtJxWZOnAOV3TRQkLZEbLUAcro0HBPWjLY FqPOPqXFHfUUAmOVPrOJmxMREvLEb3ZCt4BHHtACPfIR2AGdPtFSXbBHW2PAyaNQPkRWKdbf6VJQGtIE RhDtD7BMWaZERaDQWaLElzRWGlFTS1UFx4UZIyAWDd FN2KBeKkEOQsTUC2OMMgNEQqVZFqxt6EKJIsLFEoDlCvKPHwHRXuFOEvFXchOIJsHUU6QgK8UEWiCJPl CO4JEbTsZIPxYOs6BcyzGPQfPXYqxp5CQIJwRNZiFnw4NRAdNOFpLDBaPTuxIXIrOHO6JgKfINFoDMAl KF8FDqKvTBXwIEg3TaGmNPOqZNPbcr1YXATkPGM7WP X4DbNdFMAvUQYsCGcwOSDzWRU5Gnt0KPFkBJVfDS2ZLdJyMANwIBV7VKhpSRFsNQBjrs2OTLDmCTY7Gk W5EPWdOTWpCVPhFVumRIYqMXU1KPy1DHCcEIJuNI5MIrQzKYCyGAk4GQqpZZDbBJZscl4EGXAwLYP1GB K8OSZhOKWaAGElFUopFVLoQVV5AWYcBDTxOMXrAV3H CsZpHLPgAHj0TWudOSBtNXYrgh4ZYVVsJID9LGC5YlNuLHGyAKIjJKwnESEkBAd5QIKfJGEmBHBlMU4R VsCnPDotYQCSFdk0USgmLC3swmJwNRLvICAILw5QdGhuEKG0KGzwGm9xtEZuJXRlPh5NFg4MCd7Kd6Jq otH5krVpKYxsTnK0OGMVMfMeDV8KLSc= ID Date Data Source [id number] 03/30/2021 06:10:00 PM EDT [facility] Name Value Range Interpretation Code Description Data Leana rce(s) Supporting Document(s) SARS-CoV-2 (COVID 19) NEGATIVE - SARS-CoV-2 (COVID19) [facility] This lab was ordered by [facility] a nd reported by [facility]. ID Date Data Source [id number] 03/21/2021 09:09:15 AM EDT [facility] Name Value Range Interpretation Code Description Data Leana rce(s) Supporting Document(s) *Follow Up Visit NARCISO v1 [facility] XFQOPd7iFpXAUiHbc6mcWKtmOJGvk1KrEVv2DG8TZ0TsC7EnWPAkGWMBEMxaV0M2qCS0TD82SF17qkTt KL0 [file] //Zf4nra+f3vuW/LDP8hzLmyO9q+5hI255xFrVr4+k/fVf/5+renewable energy broker/mbpdo2c+ek/vvfzym9/eS9b/2vnV [file] ZBSi8PlFebKUB5DDo+Wa2ZRTcgaIXqbTsuLXPXGgG6HEL7Yv2RWEIQI2IUQi== ID Date Data Source [id number] 03/21/2021 09:05:41 AM EDT [facility] Name Value Range Interpretation Code Description Data Leana rce(s) Supporting Document(s) *Follow Up Visit NARCISO v1 [facility] DROKIj3rBxCIZvCng4rwITdzSZKxf8TrMAe4QT4EJ6FlCIavcwJbGTQxrrEcB2OjUTDrWMHWQIwxW8M2 yIC [file] AxZAVhzUUq7CbvMnE1U1SHsyChvFTTVPeZG+WCKHai6Qjp+e+r+cCGlDxAzM1mUR4+qt8x8QzhG2H+DREDGE MECHANIC [file] CexWfkeepc+jtPKfpIUl5xAR+8Y6Uqia6sP8omHsiV9hN9z9Xh6Rn4aTycO/GvyG/ei8Tooa/p+oT/DREDGE MECHANIC [file] fXUZ+s9BYh+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 ID Date Data Source [id number] 03/07/2021 10:09:54 PM EDT [facility] Name Value Range Interpretation Code Description Data Leana rce(s) Supporting Document(s) FREE THYROXINE @ 1.27 ng/dL (0.76-1.46) [facility] ID Date Data Source [id number] 02/27/2021 01:04:00 PM EDT [facility] (Glory Luo [...] Little GFR Left</content>
<content>ESRD GFR <15 on CANARY BREEDER</content>
<content></content> Potassium Serum 3.7 meq/L 3.5-5.1 [facility] Sodium Level 137 meq/L 136-145 [facility] Chloride Level 99 meq/L [...] [facility] ID Date Data Source [id number] 02/27/2021 01:04:00 PM EDT [facility] (Glory Luo [...] 10 150-450 [facility] ([facility] [place] % 14.1 % 2.0-8.0 [facility] (Glory trammell [...] 0-0 MED [facility] ([facility] [place] # 0.9 10 0.0-0.8 [facility] ([facility] Eos # 0.2 10 0.0-0.5 [facility] ([facility] Lymph # 0.6 10 1.5-5.0 [facility] ([facility] Baso # 0.0 10 0.0-0.2 [facility] ([facility] ID Date Data Source [id number] 02/11/2021 11:55:42 AM EDT [facility] Name Value Range Interpretation Code Description Data Leana rce(s) Supporting Document(s) *Follow Up Visit NARCISO v1 [facility] RLGTYd9wSsMQSoJst5rjWCimFUBfb9DhUSq7WP1WZ0OpA0WICLuqiVIuX01cEFLncMAccq9UL3KaX7Aq KL0 [file] renewable energy broker/5ob49/PNlzeEyyxlIFv+gk7kU2Z/M2FOWWuZWtR [file] vp medical+vFi/HY/Hf/7c6h671GN/vF25zz+lWRpmt/6Rmi+r8Z5j2YQvX0iEfMAK/wdNVa3/3W2m6+/1VIft8 [file] HVu/JyX4uKXmXq+Kiln Car Repairer+ff7s/Qd6ufiYKD3mLfhQm4axrrItdmsGxMAkqJ/loPdXby7aD90QOW1efvkyNs [file] U8NH2YP1ipKn4tFFAfIAOHXRw+Dn1SRQjzrTUpvYfyRECRObY5HbR3CY4GXYJJO7KUSh== ID Date Data Source [id number] 02/10/2021 11:39:00 AM EDT [facility] EXAMINATION: CT Chest, Abdomen, and Pelv is [...] acute intra-abdominal process. Professional interpretation performed at [facility] . Name Value Range Interpretation Code Description Data Leana rce(s) Supporting Document(s) ID Date Data Source [id number] 02/10/2021 11:39:00 AM EDT [facility] EXAMINATION: CT Chest, Abdomen, and Pelv is [...] acute intra-abdominal process. Professional interpretation performed at [facility] . Name Value Range Interpretation Code Description Data Leana rce(s) Supporting Document(s) ID Date Data Source [id number] 01/13/2021 11:36:00 AM EDT [facility] FRONTAL AND LATERAL CHEST [...] significant interval change. Professional interpretation performed at [facility] . Name Value Range Interpretation Code Description Data Leana rce(s) Supporting Document(s) ID Date Data Source [id number] 12/31/2020 09:32:27 AM EDT [facility] Name Value Range Interpretation Code Description Data Leana rce(s) Supporting Document(s) RT - Completion Note NARCISO v1 [facility] CGHIFz0xVdTPHdTmx2npQUqwOGFss5WzMGu6HA3WK7Qyly9Jn8UeKQGpHPNIEGovGJbeGCLiT4B3WWop vbS [file] silk worker/nL2j63McfP/UMwn38TpVDbBc7js4iPxGgXIBjE7ePrHsQExhfxBjGS3dUnZb+yWihpGi5xHQ0rwM [file] e332OUOtHZVJJIs+Qw4CMPburGRlnNeaGCBYCvjhKGB5VIumMRBKWk5R ID Date Data Source [id number] 12/26/2020 08:35:13 AM EDT [facility] Name Value Range Interpretation Code Description Data Leana rce(s) Supporting Document(s) *Follow Up Visit NARCISO v1 [facility] CZGMNa1vNqBRFnVdm0adADbtZKCnc4HfSQw9QC0RG0Qwxp4Ee3MtEEVpIJMEDYabDXrmWVYgB2E6UToi vbS [file] ham marker/Lakidcf2dk6d82IB7pleLbmyk44n/6FW4qn5/bgLjZD24bAdk4PeHHk/p89Uoj0unIuc4C7+685Y7 A9pahoZCAaA8qTo00kx/95lsuPMSmF/v6vrjE/GN08rhHYwjkLyDOqfXb1pPSo9cztq+FF7Ft36lin47 X8/yeqHcPvxi+KJFojLwZDTCBrii3jy2k/zj3b4c8a Jr9kT+2t068wjJBSr8hL8uzvr8nUbS5oCv/j4v0Z1lcuU19Ax/EJLduj4IMOzzg2ITWhU4j++ny+aY1f xGEe3oLZjXN/R4vuAz0huWdZR89iCDscUDVey5Iy73W80huFqIP99C92hYh0+9grlKgQ1N1s9b08WE/b hLURlel6WTwmzTHj5ykEqwiJA6U/btzy2NgNnKzxzv 2wq70ZTV6z9xYatdbFDtfk89cZb8urZk2YTN8FzGY5oaQSwm9je15qyQAKTsJ0QpmauIe0rbQ1rtJHMr +bLA673Pg0g86w3ycrCP0N7K2Oz/xoiHS/u0e1K+2OxeDv/P6pScEwt/4x3zOkydE9VA27A7tYI+/THAD Becky/rPLocDt4/qpY15gaCd/deROe+TDs26T5tPr/NV [file] Q16Gw4c9kuqxAWE21UGuWWNTt1xvcnVIF+SgGb+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 Professional interpretation performed at [facility] . Name Value Range Interpretation Code Description Data Leana rce(s) Supporting Document(s) ID Date Data Source [id number] 12/19/2020 02:44:00 PM EDT [facility] ([facility], ) Name Value Range Interpretation Code Description Data Leana rce(s) Supporting Document(s) FVC-Pred 3.63 L [facility] ([facility], ) PDFReport Laboratory test result [facility] ([facility], ) Fev1-Pred 2.78 L [facility] ([facility]) FVC-%Pred-Pre 42 L [facility] ([facility], ) FVC-Pre 1.56 L [facility] ([facility]) FVC-LLN 2.85 L [facility] ([facility]) Fev1-Pre 0.80 L [facility] ([facility]) Fev1-%Pred-Pre 28 L [facility] ([facility], ) Fev1-LLN 2.12 L [facility] ([facility]) Fev6-Pred 3.49 L [facility] ([facility]) Fev6-%Pred-Pre 44 L [facility] ([facility]) Fev6-Pre 1.56 L [facility] ([facility]) Fev6-LLN 2.72 L [facility] ([facility]) Yyo4kgy-Lka 52 % [facility] ([facility]) Gck0rxf-Aslc 77 % [facility] ([facility]) Zux0ylh-%Pred-Pre 67 % [facility] ([facility]) Snb0cto-APP 67 % [facility] ([facility]) Nap8zsp-Llj 100 % [facility] ([facility]) Gcd2twm-Lawn 96 % [facility] ([facility]) Awz4shz-%Pred-Pre 104 % [facility] ([facility]) FEFMax-Pred 6.56 L/E/sec [facility] ([facility]) FEFMax-Pre 2.19 L/E/sec [facility] ([facility]) FEFMax-LLN 4.63 L/E/sec [facility] ([facility]) FEFMax-%Pred-Pre 33 L/E/sec [facility] ([facility]) Kns3133-Kgsx 2.32 L/E/sec [facility] ([facility]) ExpTime-Pre 4.41 sec [facility] ([facility]) Cbo5961-%Pred-Pre 18 L/E/sec [facility] ([facility]) Kyy8653-Lbq 0.42 L/E/sec [facility] ([facility]) Kao8516-ZIV 0.92 L/E/sec [facility] ([facility]) Son6fce4-Qhjb 80 % [facility] ([facility]) Hpj2gvi7-%Pred-Pre 64 % [facility] ([facility]) Pjb7xmy2-Uzj 52 % [facility] ([facility], ) Kkq3fjt9-ZGT 71 % [facility] ([facility], ) ID Date Data Source [id number] 12/12/2020 08:32:33 AM EDT [facility] Name Value Range Interpretation Code Description Data Leana rce(s) Supporting Document(s) *Follow Up Visit NARCISO v1 [facility] LYPZIw7pAcDZDrNty1toWZsiKGWtc2AfXFn8RH3YT1Qpyp2Aa2OeXWUzHQQTASnpQFidAHXyA8M4PEmv vbS [file] rJjaxVXKobsVy6k0lsnvNIk/xJ1f0szsdMSke/ [file] NGQ6yLCbNg9KRXMkGCUnOEyeINFCEw1W ID Date Data Source [id number] 11/28/2020 09:28:49 AM EST [facility] Name Value Range Interpretation Code Description Data Leana rce(s) Supporting Document(s) *Follow Up Visit [facility] v1 [facility] ZTEREb2rLtTYAfBea2evTTdmDKKwv9CwKKk8QV2XB912fBF0bXaouFWuqDYeLll5LEqrLlWpsQV0lyfP gMi [file] WVpg3KnenW8IkstsRiCVCgZiq66lcdDh2+aN9OEKV1f5iH/BB0n6AA3lztA+Pj97k092/INVENTORY TECHNICIAN/1r5t7V2/ [file] marker [file] 9rFZwjM4aIkpPHzu87ZX/sCQH24mWffXiDr+dunDpADEjjj74HqgavSmDk/Дмитрий+g8zOysVX9Sk0GEnpZ [file] S6vbQd9wMHWzKUMMXVi+Wf7XHKtsrJEcrAfuNXTWHeG6RhLyKE7ZJLQSG4BPOc== ID Date Data Source [id number] 11/26/2020 11:30:00 AM EST [facility] MDR 5000 [facility] MRI BRAIN WITH AND WITHOUT CONTRAST CLINICAL [...] AM EST [facility] Name Value Range Interpretation Code Description Data Leana rce(s) Supporting Document(s) RT - Initial Consult Visit NARCISO v1 [facility] IHDGIk2uNlGFPmViz1ejBZfuXQSjy0KyXJa0EE2AQ072aHX4yDhyhDHgdHZeJfd0BBvfMX9iqvZod1QB pc3 [file] 9VwZPFRG1G/vZxMS236Sewr8j/9+n+3z3btz/NfY5vf/zf/8+n//gas meter repairer//vtX5/+/3///+Nx/PNv/7J/73 [file] Tres/uydiJkGbvnang0yNY9X4jrz+z1s3xcL8oxsCO8x+/47gpvW2j0MKl5/gWQM5o15rUMcrc/QKJc/7 sCcGj1CH+/n1+y4Ns0xFDwGG2D+aW8W/3Inn2sWAr0eIO+Ku+W5+a6511EP3MZc7g77Rx67G/LBE02g7 OnjPkL19c2GMNZUWY3AASrnCLTjg0PUAnsBzzjHRkr l19JTerIGlJ1755DL2VNBIazdp5OjJQFDo6O5Fj3mKleIbaxgbAGlBKhaoU2BmYQmJZUpm2p2Wgs3N20 QTHOh8Btd5w/CGslnAQc1Um6U1oW7G65dpNgZ2hza5voy2nv/I/M8wBLQ0z/+q523+z+jlL8ZeogPFNh Vx9cB7jPqyopTVJhwJbNuyuRG2zTxxxjk/VyW6Gp4I 7+w9qsjLpxiJHHbyTvmW+d5K5bW7EBO9tp/I/RoauVbx+BPDgxLc/MpJGCP9hZjUrbphs3XGZysASu7E z5oL4CKfD4Lp5nGnExcYGTyBJShp1X9DFLMtGSZWr0myYaaWU1CFDOj3Hlwau4XprlfOj3y09gK1PLOV nvH02O0ioEpN9GFCouEo3shdfz/vgmh4gcg1pbq0hl 3fwm+m/U9hzsQn+/181y4OL9/DF/ova7Ol7tKScjqcIfZH4I+IVuQHXF7T97+Ejkl/Jl+FubGlgR2pGP /FS+LM/OOiavE4JTx7nH4Jwlztkj7KUJMgyC4MqkNri5tnbzHnzxzRNWPd1T3UOkDUxw0UGILmmUGSZh cMwIpAspmPh3M3wMFIsslHHs8Ftcup1+mKNBJ+Sgmf FqNFlioJVw2MdjmE4B5DIavIOwU5i2nqRx4YFhOYjdQmvexs6e7vI0pH3nXc0y6dT/iO1nFdl1Ciqtv+ tq+5Pnn7/3k+client account manager/L1Yx6V+Fel4Ky1f6UrfyzYtXC6AeHHfsVWJhM97MLpvK/Kt+UvaUjsDrxDBPFT+b [file] kAvbWMSMTxTbJaTyDU7OZXXZB1BAPi== ID Date Data Source [id number] 11/06/2020 09:12:00 AM EST H[facility]ology On [facility] CHEST WITH IV CONTRAST INDICATION: Mila [...] not be detectable. Professional interpretation performed at [facility] . Name Value Range Interpretation Code Description Data Leana rce(s) Supporting Document(s) ID Date Data Source [id number] 11/01/2020 10:28:00 AM [facility] DATE OF EXAM: 1CHEST RADIOGRAPH , SINGLE [...] is no pneumothorax. Professional interpretation performed at [facility] .End of diagnostic report for accession: [id number] Interpreted: Jojo Biswas DOTranscribed: 11/01/2020 10:27 AMSigned: 11/01/2020 10:28 AM Jojo Biswas DO [facility] ACC # [id number] BILL # [id number] Name Value Range Interpretation Code Description Data Leana rce(s) Supporting Document(s) ID Date Data Source [id number] 11/01/2020 10:01:00 AM [facility] DATE OF [...] images obtained: 2 Professional interpretation performed by [facility] Imaging at [facility] End of diagnostic report for accession: [id number] Interpreted: Cliff Farooq MDTranscribed: 11/01/2020 09:58 AMSigned: 11/01/2020 10:01 AM Cliff Farooq MD [facility] ACC # [id number] BILL # [id number] Name Value Range Interpretation Code Description Data Leana rce(s) Supporting Document(s) ID Date Data Source [id number] 10/31/2020 09:17:00 AM EST [facility] Name Value Range Interpretation Code Description Data Leana rce(s) Supporting Document(s) SARS coronavirus 2 RNA [Presence] in Res piratory specimen by JORDANA with probe detection NOT DETECTED [facility] This lab was reported by [facility]. ID Date Data Source [id number] 10/31/2020 12:40:18 PM EST [facility] Name Value Range Interpretation Code Description Data Leana rce(s) Supporting Document(s) SPECIMEN DESCRIPTION [facility] COVID19 RESULT (NDET) [facility] NEGATIVE COVID-19 RESULTS DONOT PRECLUDE COVID-2019 INFECTION ANDSHOULD NOT BE USED THE SOLE BASISFOR PATIENT MANAGEMENT DECISIONS.THIS ASSAY AMPLIFIES AND DETECTS THE TARGETRNA USING ISOTHERMAL HELICASE DEPENDENTAMPLIFICATION.TESTING PERFORMED ON THE [employer].THE U.S. FDA HAS MADE THIS TEST AVAILABLEUNDER AN EMERGENCY USE AUTHORIZATION(EUA) FOR THE DETECTION AND/OR DIAGNOSISOF THE VIRUS THAT CAUSES COVID-19. FIRST TEST [facility] EMPLOYED IN HLTHCARE Lab [facility] [place] SY[facility]TOMATIC [facility] DATE OF SYMPT ONSET [facility] ICU [facility] CONGREGATE CARE SET Lab [facility] [place] [facility] ID Date Data Source [id number] 10/29/2020 01:39:27 PM EST [facility] Name Value Range Interpretation Code Description Data Leana rce(s) Supporting Document(s) *Initial Consult Visit NARCISO v1 [facility] KKGOOu7mLlDFCoOtf9upYQpcCUWfb2VgSGu0WW0GN2Fcyr2Ld2UjLXGfANQRCYxjYDOxBH8mGDKiE6Ze oKQ [file] well logging operator mud analysis/4J7demX8QNAJjS/Yn9PymP9pzVPedNc75g57bK [file] final inspector balance wheel/r0Ll9JT/xP5ng6kDdRFFAJW1/NyR53S29EegypDTFfZsuOM/Mx5KSzTMwPnXCgjeWOiNxNRaQGQd [file] Ucbsk3CYp2+PvE4bE/Rena+UrwMGdLNnyc8xB1Ow/Jw5D8KO1odbltz5UjS4HHhRETjnyw3noY7td/a+Y Az+AaB1h5zGAHr+I2VfVHb3T3badzPaoE+E/jDYZQx DWHVyJ+Gshp0H+IYV7Kz1mZ/E+dPdNMshYDAP917BO7UXi9xZI08Pb11+2z6z43ayd/zrofEaDPMmwu7 fI42VZcL4hg1UfgA0AoOzv/lTmraaAzsbRVAlZ6OSH28l5y2KePr5H4XBaAl9uQ8dBaGxH++AzlOVari WB9BVxCWbWMxo3q0qp1gc4XrIu+hkh6v6uBMwAwOj7 Qd23g/ul5zVf386lfVS6qrxcwDpiMUD9huA5BAw/dp+0WkogAdQd29wq1am9IA/kciEfz4/oGt4xwmPL Ozz2XwPQxkyM3UrMg32j59+VqrM2u0PjHrdRiVon99biBHkoWBAJffMExDc3G51I5bG/J6r1JyFc/nfQ zdSWqZx094tTePUcko0HkCbif6p2f6vQy6/UurP8M0 HOXguipqdBN90hkg/4LbAhw/L6DR0tefL10onzbCQSnv41Ay24gQAHEIUt/9XX889I2oUR4u25wmY0/m 89WsWX5vcfKr9CCTWlPMVcN4TyqtaGL3k+UdZx29WbJd764Z+8Fhq2uWr55Cif/ypKdc2CfwbjhY06yP Automatic Vulcanizing Operator/dl0fwe/S2/L/E9istQ8tr6Kzt13etVztyL5gV/ [file] QaD7aR9fuY/INVENTORY TECHNICIAN+9ddX7LvdOanQTByQRe42bD9HhZzwlpjKCPoM5kh/rpFRnX25Up3OpBgJZi9WAC2vZi [file] FHwn/PhFyWr/rubber press tender+odp4NKuL9u55k9X8oOXzO+0JPW67DBF8ApdGptYXLUdeFHGJ2NijvuQyDkTQ25XV [file] N0PkcrOqUMDAHu1YkfBcYDM6XJCwGt1CWy3FHm5Gd8MoejV2bhAdKQujDyKgVxQNGnCsAP6LTOg= ID Date Data Source [id number] 09/27/2020 11:32:00 AM EST [facility] ([facility], ) Name Value Range Interpretation Code Description Data Leana rce(s) Supporting Document(s) Glomerular Filtration Rate Laboratory test result Normal (applies to non- numeric results) [facility] ([facility]) <content>Units are mL/min/1.73 m2</content>
<content></content>
<content>Chronic Kidney Disease Staging per NKF:</content>
<content></content>
<content>Stage I & II GFR >=60 Normal to Mildly Decreased</content>
<content>Stage III GFR 30- 59 Moderately Decreased</content>
<content>Stage IV GFR 15-29 Severely Decreased</content>
<content>Stage V GFR <15 Very Little GFR Left</content>
<content>ESRD GFR <15 on CANARY BREEDER</content>
<content></content> Creatinine For GFR 0.84 mg/dL 0.55-1.30 Normal (applies to non -numeric results) [facility] ([facility]) ID Date Data Source [id number] 09/27/2020 11:32:00 AM EST [facility] ([facility]) Name Value Range Interpretation Code Description Data Leana rce(s) Supporting Document(s) Urea nitrogen [Mass/volume] in Serum or Plasma 14 mg/dL 7 -18 Normal (applies to non-numeric results) [facility] ([facility]) <content>note:<nlbl:demographic_changed> </content>
<content></content> ID Date Data Source [id number] 09/09/2020 09:10:00 AM EST [facility] ([facility]) Name Value Range Interpretation Code Description Data Leana rce(s) Supporting Document(s) Microscopic observation [Identifier] in Unspecified specimen by Non- gynecological cytology method Laboratory test result [facility] ([facility]) will discuss at follow-up ID Date Data Source [id number] 09/09/2020 09:09:00 AM EST [facility] ([facility]) Name Value Range Interpretation Code Description Data Leana rce(s) Supporting Document(s) Microscopic observation [Identifier] in Unspecified specimen by Non- gynecological cytology method Laboratory test result [facility] ([facility]) SPECIMEN: FNA Subcarinal lymp h node Cytolyt and preapred slides received SPECIMEN ADEQUACY: Satisfactory for evaluation CATEGORIZATION: No Malignancy identified DESCRIPTIONS: Scattered lymphocytes noted in a background of blood elements. COMMENTS: 09/10/2020746 Signed ARLETH CASTRO(ASCP) 09/10/2020 0747 (Prelim) Signed Ganga Nelson MD 09/11/2020 0929 ID Date Data Source [id number] 09/09/2020 09:08:00 AM EST [facility] ([facility]) Name Value Range Interpretation Code Description Data Leana rce(s) Supporting Document(s) Microscopic observation [Identifier] in Unspecified specimen by Non- gynecological cytology method Laboratory test result [facility] ([facility]) SPECIMEN: FNA Left hilar lymp h node Cytolyt and prepared slides received SPECIMEN ADEQUACY: Satisfactory for evaluation CATEGORIZATION: Atypical cytology DESCRIPTIONS: Rare ? atypical cells admixed with lymphocytes COMMENTS: The cell block shows a few small clusters and single malignant cells, consistent with metastatic carcinoma. See report [id number] 09/11/2020928 Signed ARLETH CASTRO CT(ASCP) 09/10/2020 0744 (Prelim) Signed Ganga Nelson MD 09/11/2020928 ID Date Data Source [id number] 09/09/2020 08:46:00 AM EST [facility] ([facility], ) Name Value Range Interpretation Code Description Data Leana rce(s) Supporting Document(s) Surgical pathology study Laboratory test result [facility] ([facility], ) Addendum 2 Entered: 09/27/2020-0705 PD-L1 KEYTRUDA shows tumor proportion score of 5-10% Expression. See complete report from [facility]. Positive for KRAS Negative for ALK Negative for ROS1 Negative for EGFR Negative for BRAF See complete reports from [facility], scanned in EMR under pathology module [...] the tissue block will be sent to [facility] for ALK, ROS1, EGFR, KRAS, and BRAF. [...] for possible cell block. - 09/10/2020 - 067 Signed Ganga Nelson MD 09/11/2020914 ID Date Data Source [id number] 09/09/2020 08:46:00 AM EST [facility] ([facility]) Name Value Range Interpretation Code Description Data Leana rce(s) Supporting Document(s) Surgical pathology study Laboratory test result [facility] ([facility]) Addendum 1 Entered: 09/17/2020-1405 PD-L1 KEYTRUDA shows [...] the tissue block will be sent to [facility] for ALK, ROS1, EGFR, KRAS, and BRAF. [...] Nelson MD 09/11/202015 ID Date Data Source [id number] 09/26/2020 12:09:00 PM [facility] Anatomic Molecular Pathology ReportName: RAE MUNIZMRN: [id number] Number: [id number] Date: 09/09/2020 00:00Received Date: 09/11/2020 16:23Physician(s): GANGA NELSON MD Haghir, Shahandeh MDCopy To:LEXIS SARMIENTO MDSpecimen(s) ReceivedA: Right lung, upper lobe biopsy, [facility]ormalin Block [id number] [facility] [place] [place] BRAF Mutation AnalysisDiagnosisTESTS:BRAF V600E mutation (1799 [...] Cochran M.D. Attending Pathologist 09/26/2020 12:09:52Reported at [address] [place] [address]. Gross DescriptionMETHODOLOGY:BRAF V600E(1799 T>A) mutation at exon [...] amounts of PCR products, and analyzed by MiniBanda.ruGene Q real timeinstrument. The analytical sensitivity (or minimum percentage of mutantDNA needed) is approximately 10% given sufficient DNA input. Test development and its performance characteristics were determined bythe [facility], and has beenauthorized for clinical use by [facility]. Thetest has not been cleared or approved by the U.S. Food and DrugAdministration. The analyte specific reagents used in this assay do notrequire FDA approval. REFERENCES: 1. Jareth S, Charlotte Almeida, et al. Detection of BRAF J295Hvpupuilt in colorectal cancer-comparison of automatic sequencing and realtime chemistry methodology. J Mol Diagn. 2006; 8:627613.2. Alejo L, Jared TJ, Kapil N, et al. BRAF mutation analysis in fineneedle aspiration (FNA) cytology of the thyroid. Diagn Mol Pathol.2006;15:871036.3. Anika PK, Michelle ME, Ember M, et al. Clinical characteristics ofpatients with lung adenocarcinomas harboring BRAF mutations. J Clin Oncol.2011;29:9272-3486.This report may include one or more immunohistochemical stain results thatuse analyte specific reagents. All positive and negative controls havebeen reviewed by the attending pathologist and are satisfactory. The testswere developed and their performance characteristics determined by [facility] Pathology department. They have not been cleared or approved by the USFood and Drug Administration. The FDA has determined that such clearanceor approval is not necessary. Name Value Range Interpretation Code Description Data Leana rce(s) Supporting Document(s) ID Date Data Source [id number] 09/26/2020 09:31:00 AM [facility] Anatomic Molecular Pathology ReportName: RAE MUNIZMRN: [id number] Number: [id number] Date: 09/09/2020 00:00Received Date: 09/11/2020 16:20Physician(s): GANGA NELSON MD Haghir, Shahandeh MDCopy To:LEXIS SARMIENTO MDSpecimen(s) ReceivedA: Right lung, upper lobe biopsy, Formalin Block [id number] [facility] in [place], [place] EGFRDiagnosisTEST: EGFR gene mutations (exon 19 [...] indicated. Presence of exon 19 deletions, exon 19O325B or L861Q, exon 18 G719A or exon [...] Cochran M.D. Attending Pathologist 09/26/2020 09:31:50Reported at [address] [place] [address]. Gross DescriptionMETHODOLOGY:The therascreen EGFR RGQ PCR Kit ([employer], [place], [place]) is a real-timequalitative PCR assay used on the Shopography instrument for thedetection of seven types of [...] factor receptormutations in lung cancer. Nature Review/Cancer. 2007;3597-6219.This report may include one or more immunohistochemical stain results thatuse analyte specific reagents. All positive and negative controls havebeen reviewed by the attending pathologist and are satisfactory. The testswere developed and their performance characteristics determined by [facility] Pathology department. They have not been cleared or approved by the USFood and Drug Administration. The FDA has determined that such clearanceor approval is not necessary. Name Value Range Interpretation Code Description Data Leana rce(s) Supporting Document(s) ID Date Data Source [id number] 09/26/2020 09:17:00 AM [facility] Anatomic Molecular Pathology ReportName: RAE MUNIZMRN: [id number] Number: [id number] Date: 09/09/2020 00:00Received Date: 09/11/2020 16:21Physician(s): GANGA NELSON MD Haghir, Shahandeh MDCopy To:LEXIS SARMIENTO MDSpecimen(s) ReceivedA: Right lung, upper lobe biopsy, Formalin Block [id number] [facility] [place] [place] KRAS Mutation AnalysisDiagnosisTEST:KRAS gene mutations by [...] Cochran M.D. Attending Pathologist 09/26/2020 09:17:48Reported at [address] [place] [id number]. Gross DescriptionMETHODOLOGY:The therascreen KRAS RGQ PCR Kit is a real-time qualitative PCR assay usedon the Shopography instrument for the detection of seven somaticmutations [...] Starkey, Renny JM, Bernabe MR, et al. [place] Societyof Clinical Oncology provisional clinical opinion: testing for KRAS genemutations in patients with metastatic colorectal carcinoma to predictresponse to anti-epidermal growth factor receptor monoclonal antibodytherapy. J Clin Oncol 27:3653-7759, 2009. 2. Radha Deleon , Lucinda Alvares , LAILA Ulrich, et al.Biomarkers predicting clinical outcome of epidermal growth factor receptortargeted therapy in metastatic colorectal cancer. J Natl Cancer Lqps100:70476049, 2009.This report may include one or more immunohistochemical stain results thatuse analyte specific reagents. All positive and negative controls havebeen reviewed by the attending pathologist and are satisfactory. The testswere developed and their performance characteristics determined by [facility] Pathology department. They have not been cleared or approved by the USFood and Drug Administration. The FDA has determined that such clearanceor approval is not necessary. Name Value Range Interpretation Code Description Data Leana rce(s) Supporting Document(s) ID Date Data Source [id number] 09/23/2020 09:03:00 PM [facility] Anatomic Molecular Pathology ReportName: RAE MUNIZMRN: [id number] Number: [id number] Date: 09/09/2020 00:00Received Date: 09/11/2020 16:19Physician(s): GANGA NELSON MD Haghir, Shahandeh MDCopy To:TORSTEN,LEXIS,MDSpecimen(s) ReceivedA: Right lung, upper lobe biopsy, Formalin Block [id number] [facility] [place] [place], ROS1 by FISHDiagnosisTEST:ROS1 gene rearrangements by [...] Cochran M.D. Attending Pathologist 09/23/2020 21:03:58Reported at [address] [place] [address]. Gross DescriptionMETHODOLOGY:Interphase FISH is performed on paraffin embedded NSCLC utilizing thecombined Harper Molecular LSI ROS1(Odalis) and ROS1(Tel) ROS1 Probes: 1)3'-ROS1(Odalis), 557 kb, labeled with SpectrumGreen, and 2) 5'-ROS1(Tel),317kb, labeled with SpectrumOrange. Tumor cells with no YFW3zdxrmcrnxsaljh have 2 yellow signals (fused orange and [...] and its performance characteristics weredetermined by the [facility],and it has been authorized for clinical use by [facility]. The test has not been cleared or approved by the U.S. Food andDrug Administration. The analyte specific reagents used in this assay donot require FDA approval. REFERENCES: 1. Joe,KD, Idania AT, Thedolly MF et al. Identifying and Targeting YDP2Tfzq Fusions in NonSmall Cell Lung Cancer. Clin Cancer Res 2012; 18(17);54880162.2. Nelson, Iron AT. Novel Targets in Non- Small Cell Lung Cancer:ROS-1 and RET fusions. The Oncologist. 2013;18:865- 875.This report may include one or more immunohistochemical stain results thatuse analyte specific reagents. All positive and negative controls havebeen reviewed by the attending pathologist and are satisfactory. The testswere d eveloped and their performance characteristics determined by [facility] Pathology department. They have not been cleared or approved by the USFood and Drug Administration. The FDA has determined that such clearanceor approval is not necessary. Name Value Range Interpretation Code Description Data Leana rce(s) Supporting Document(s) ID Date Data Source [id number] 09/23/2020 09:03:00 PM [facility] Anatomic Molecular Pathology ReportName: RAE MUNIZMRN: [id number] Number: [id number] Date: 09/09/2020 00:00Received Date: 09/11/2020 16:18Physician(s): GANGA NELSON MD Haghir, Shahandeh MDCopy To:LEXIS SARMIENTO MDSpecimen(s) ReceivedA: Right lung, upper lobe biopsy, Formalin Block [id number] [facility] in [place], [place], ALK by FISHDiagnosisTEST:ALK gene rearrangements by [...] Cochran M.D. Attending Pathologist 09/23/2020 21:03:14Reported at [address] [place] [address]. Gross DescriptionMETHODOLOGY:Interphase FISH is performed on paraffin embedded NSCLC utilizing theAdvise Only Molecular ALK Break Apart FISH Probe Kit. [...] the special procedure laboratory of Department of Pathology,[facility]. This report may include one or more immunohistochemical stain results thatuse analyte specific reagents. All positive and negative controls havebeen reviewed by the attending pathologist and are satisfactory. The testswere developed and their performance characteristics determined by [facility] Pathology department. They have not been cleared or approved by the USFood and Drug Administration. The FDA has determined that such clearanceor approval is not necessary. Name Value Range Interpretation Code Description Data Leana rce(s) Supporting Document(s) ID Date Data Source [id number] 09/04/2020 11:30:00 AM EST [facility] Name Value Range Interpretation Code Description Data Leana rce(s) Supporting Document(s) SARS coronavirus 2 RNA [facility] This lab was ordered by [facility] and reported by [facility]. ID Date Data Source [id number] 08/22/2020 02:31:00 PM EST [facility] ([facility] Name Value Range Interpretation Code Description Data Leana rce(s) Supporting Document(s) aPTT in Platelet poor plasma by Coagulation assay 25.8 s 24.2-38. 5 [facility] ([facility] ID Date Data Source [id number] 08/22/2020 02:31:00 PM EST [facility] ([facility] [...] MYOCARDIAL INFARCTION 2.5-3.5 ID Date Data Source [id number] 08/22/2020 02:31:00 PM EST [facility] ([facility] Name Value Range Interpretation Code Description Data Lenaa rce(s) Supporting Document(s) Cholesterol Level 240 mg/dL [facility] ([facility] Triglycerides Level 213 mg/dL [facility] LDL Cholesterol 115 mg/dL [facility] Non-HDL-C 158 mg/dL [facility] HDL Cholesterol 82 mg/dL [facility] Cholesterol Risk Ratio 2.926 [facility] ID Date Data Source [id number] 08/22/2020 02:31:00 PM EST [facility] ([facility] Name Value Range Interpretation Code Description Data Leana [facility](s) Supporting Document(s) Glucose, Fasting 91 mg/dL 70-100 [...] Little GFR Left</content>
<content>ESRD GFR <15 on CANARY BREEDER</content>
<content></content> Potassium Serum 4.8 meq/L 3.5-5.1 [facility] ([facility] Carbon Dioxide Level 30 meq/L 21-32 [facility] Chloride Level 108 meq/L 98-107 [facility] Calcium Level 9.4 mg/dL 8.8-10.2 [facility] ([facility] Anion Gap 4 meq/L 8-16 [...] [facility] ID Date Data Source [id number] 08/22/2020 02:31:00 PM EST [facility] ([facility] [...] % 24.0-44.0 [facility] [place] % 9.5 % 0.0-5.0 [facility] ([facility] [...] 10 1.5-5.0 [facility] [place] # 0.6 10 0.0-0.8 [facility] Eos # 0.1 10 0.0-0.5 [facility] Baso # 0.1 10 0.0-0.2 [facility] ID Date Data Source [id number] 08/22/2020 02:31:00 PM EST [facility] ([facility]) Name Value Range Interpretation Code Description Data Leana rce(s) Supporting Document(s) Inr 0.89 Normal (applies to non-numeric resul ts) [facility] ([facility]) THERAPUTIC HUMAN INR VALUES INDICATIONS NORMAL RANGES PROPHYLAXIS/TREATMENT OF: VENOUS THROMBOSIS 2.0-3.0 PULMONARY EMBOLISM 2.0-3.0 PREVENTION OF SYSTEMIC EMBOLISM FROM: TISSUE HEART VALVES 2.0-3.0 ACUTE MYOCARDIAL INFARCTION 2.0-3.0 VALVULAR HEART DISEASE 2.0-3.0 ATRIAL FIBRILLATION 2.0-3.0 MECHANICAL VALVES(HIGH RISK) 2.5-3.5 RECURRENT MYOCARDIAL INFARCTION 2.5-3.5 Prothrombin Time 12.2 s 12.5-14.3 Normal (applies to non-numeric results) [facility]) ID Date Data Source [id number] 08/22/2020 02:31:00 PM EST [facility] ([facility]) Name Value Range Interpretation Code Description Data Leana rce(s) Supporting Document(s) aPTT in Platelet poor plasma by Coagulation assay 25.8 s 24.2-38.5 Normal (applies to non-numeric results) [facility]) ID Date Data Source [id number] 08/22/2020 02:31:00 PM [facility]) Name Value Range Interpretation Code Description Data Leana rce(s) Supporting Document(s) White Blood Count 6.6 10 4.0-10.0 Normal (applies to non-numeri c results) [facility] ([facility]) Red Blood Count 4.28 10 4.00-5.40 Normal (applies to non-numeric results) [facility] ([facility]) Hematocrit 42.0 % 36.0-47.0 Normal (applies to non-numeric resul ts) [facility] ([facility]) Mean Corpuscular Volume 98.1 fl 80.0-96.0 Above high normal [facility] ([facility]) Hemoglobin 13.3 g/dL 12.0-15.5 Normal (applies to non-numeric resul ts) [facility] ([facility]) Mean Corpuscular Hemoglobin 31.1 pg 27.0-33.0 Norm al (applies to non-numeric results) [facility] ([facility]) Mean Corpuscular HGB Conc 31.7 g/dL 32.0-36.5 Below low normal [facility] ([facility]) Platelet Count, Automated 207 10 150-450 Normal (applies to non-numeric results) [facility] ([facility]) Red Cell Distribution Width 12.4 % 11.5-14.5 Norm al (applies to non-numeric results) [facility] ([facility]) Lymph % 26.6 % 24.0-44.0 Normal (applies to non-numeric resul ts) [facility] Neutrophils % 62.0 % 36.0-66.0 Normal (applies to non-numeric re sults) [facility] ([facility]) [place] % 9.5 % 0.0-5.0 Above high normal [facility] ([facility]) Eos % 0.8 % 0.0-3.0 Normal (applies to non-numeric resul ts) [facility] ([facility]) Baso % 0.8 % 0.0-1.0 Normal (applies to non-numeric resul ts) [facility] Immature Granulocyte % 0.3 % 0-3.0 Normal (applies to non-n umeric results) [facility] ([facility]) Nucleated Red Blood Cell % 0.0 % 0-0 Normal (applies to n on-numeric results) [facility] Neutrophils # 4.1 10 1.5-8.5 Normal (applies to non-numeric re sults) [facility] Lymph # 1.8 10 1.5-5.0 Normal (applies to non-numeric resul ts) [facility] [place] # 0.6 10 0.0-0.8 Normal (applies to non-numeric resul ts) [facility] Eos # 0.1 10 0.0-0.5 Normal (applies to non-numeric resul ts) [facility] ([facility]) Baso # 0.1 10 0.0-0.2 Normal (applies to non-numeric resul ts) [facility]) ID Date Data Source [id number] 08/22/2020 02:31:00 PM EST [facility] ([facility]) Name Value Range Interpretation Code Description Data Leana rce(s) Supporting Document(s) Blood Urea Nitrogen 15 mg/dL 7-18 Normal (applies to non-nume danish results) [facility] ([facility]) Creatinine For GFR 0.98 mg/dL 0.55-1.30 Normal (applies to non -numeric results) [facility]) Glucose, Fasting 91 mg/dL 70-100 Normal (applies to non-numeric results) [facility] ([facility]) Glomerular Filtration Rate Laboratory test result Normal (applies to non- numeric results) [facility]) <content>Units are mL/min/1.73 m2</content>
<content></content>
<content>Chronic Kidney Disease Staging per NKF:</content>
<content></content>
<content>Stage I & II GFR >=60 Normal to Mildly Decreased</content>
<content>Stage III GFR 30- 59 Moderately Decreased</content>
<content>Stage IV GFR 15-29 Severely Decreased</content>
<content>Stage V GFR <15 Very Little GFR Left</content>
<content>ESRD GFR <15 on CANARY BREEDER</content>
<content></content> Sodium Level 142 meq/L 136-145 Normal (applies to non-numeric res ults) [facility] ([facility]) Potassium Serum 4.8 meq/L 3.5-5.1 Normal (applies to non-numeric results) [facility]) Chloride Level 108 meq/L 98-107 Above high normal [facility] ([facility]) Carbon Dioxide Level 30 meq/L 21-32 Normal (applies to non-num pati results) [facility] ([facility]) Anion Gap 4 meq/L 8-16 Below low normal [facility] ( [facility]) Calcium Level 9.4 mg/dL 8.8-10.2 Normal (applies to non-numeric re sults) [facility] ([facility]) Ast/Sgot 14 U/L 7-37 Normal (applies to non-numeric resul ts) [facility] ([facility]) Alt/SGPT 20 U/L 12-78 Normal (applies to non-numeric resul ts) [facility] ([facility]) Alkaline Phosphatase 81 U/L 45-117 Normal (applies to non-num pati results) [facility] ([facility]) Bilirubin,Total 0.2 mg/dL 0.2-1.0 Normal (applies to non-numeric results) [facility] ([facility]) Total Protein 6.6 GM/DL 6.4-8.2 Normal (applies to non-numeric re sults) [facility] ([facility]) Albumin/Globulin Ratio 1.5 1.2-2.2 Normal (applies to non-n umeric results) [facility] ([facility]) Albumin 4.0 GM/DL 3.2-5.2 Normal (applies to non-numeric resul ts) [facility]) ID Date Data Source [id number] 08/22/2020 02:31:00 PM EST [facility] ([facility]) Name Value Range Interpretation Code Description Data Leana rce(s) Supporting Document(s) Cholesterol Level 240 mg/dL Above high normal [facility] ([facility], ) Triglycerides Level 213 mg/dL Above high normal [facility] ([facility]) HDL Cholesterol 82 mg/dL Normal (applies to non-numeric results) [facility] ([facility]) Non-HDL-C 158 mg/dL Normal (applies to non-numeric resul ts) [facility]) LDL Cholesterol 115 mg/dL Above high normal [facility] ([facility]) Cholesterol Risk Ratio 2.926 Normal (applies to non-n umeric results) [facility] ([facility]) ID Date Data Source [id number] 08/22/2020 01:21:00 PM EST [facility] ([facility]) Name Value Range Interpretation Code Description Data Leana rce(s) Supporting Document(s) Laboratory test finding (navigational concept) Laboratory test result [facility] ([facility]) ID Date Data Source [id number] 08/22/2020 12:49:00 PM EST [facility] ([facility]) Name Value Range Interpretation Code Description Data Leana rce(s) Supporting Document(s) PDFReport Laboratory test result [facility] ([facility]) FVC-Pred 3.63 L [facility] ([facility]) FVC-Pre 1.81 L [facility] ([facility]) FVC-%Pred-Pre 49 L [facility] ([facility]) FVC-LLN 2.85 L [facility] ([facility]) Fev1-Pre 0.86 L [facility] ([facility]) Fev1-Pred 2.78 L [facility] ([facility]) Fev1-%Pred-Pre 31 L [facility] ([facility]) Fev1-LLN 2.12 L [facility] ([facility]) Fev6-Pre 1.81 L [facility] ([facility]) Fev6-Pred 3.49 L [facility] ([facility]) Fev6-%Pred-Pre 51 L [facility] ([facility]) Fev6-LLN 2.72 L [facility] ([facility]) Igq6wde-Hfzo 77 % [facility] ([facility]) Duc8ixi-Eem 48 % [facility] ([facility]) Led0ofx-%Pred-Pre 61 % [facility] ([facility]) Qic6toq-PDM 67 % [facility] ([facility]) Bbq5amh-Eevo 96 % [facility] ([facility]) Lkc9ulu-Maw 100 % [facility] ([facility]) Xno3qiz-%Pred-Pre 104 % [facility] ([facility]) FEFMax-Pred 6.56 L/E/sec [facility] ([facility]) FEFMax-Pre 2.24 L/E/sec [facility] ([facility]) FEFMax-%Pred-Pre 34 L/E/sec [facility] ([facility]) FEFMax-LLN 4.63 L/E/sec [facility] ([facility]) Hpg6412-Biuk 2.32 L/E/sec [facility] ([facility]) Ysr7893-Raf 0.42 L/E/sec [facility] ([facility]) Deu2112-KKE 0.92 L/E/sec [facility] ([facility]) Xli2761-%Pred-Pre 18 L/E/sec [facility] ([facility]) Uxs6bfv5-Inus 80 % [facility] ([facility]) ExpTime-Pre 5.43 sec [facility] ([facility]) Jwl9auz8-Vxx 48 % [facility] ([facility]) All9img8-%Pred-Pre 59 % [facility] ([facility]) Htu9awj1-RDU 71 % [facility] ([facility]) ID Date Data Source [id number] 08/06/2020 12:00:00 AM EST [facility] Imaging Glory Luo MD Patient Name: KHARI [id number] [address] Date of : 1955[place] [address] Date of Exam: 08/06/2020PH#: Fax: [phone] EXAM: [...] rce(s) Supporting Document(s) ID Date Data Source [id number] 06/10/2020 02:14:00 PM EDT [facility] ([facility]) Name Value Range Interpretation Code Description Data Leana rce(s) Supporting Document(s) Microscopic observation [Identifier] in Unspecified specimen by Non- gynecological cytology method Laboratory test result [facility] ([facility]) SPECIMEN: Bronchoalveolar lav age (right upper lobe) 2ml Red SPECIMEN ADEQUACY: Satisfactory for evaluation CATEGORIZATION: Negative for Malignancy DESCRIPTIONS: Scattered bronchial cells noted in a background of mainly blood elements. COMMENTS: 06/11/20201136 Signed ARLETH CASTRO(ASCP) 06/11/2020 1138 (Prelim) Signed BRIAN MCBRIDE MD 06/11/2020 1240 ID Date Data Source [id number] 06/10/2020 02:14:00 PM EDT [facility] ([facility] Name Value Range [...] MD 06/11/2020 1240 ID Date Data Source [id number] 06/10/2020 02:05:00 PM EDT [facility] ([facility]) Name Value Range Interpretation Code Description Data Leana rce(s) Supporting Document(s) Microscopic observation [Identifier] in Unspecified specimen by Non- gynecological cytology method Laboratory test result [facility] ([facility]) SPECIMEN: Bronchial Brushing (right upper lobe) [place] in vail and prepared slides received SPECIMEN ADEQUACY: Satisfactory for evaluation CATEGORIZATION: Negative for Malignancy DESCRIPTIONS: Bronchial cells noted in a background of scattered lymphocytes and blood elements. COMMENTS: 06/11/20201038 Signed ARLETH CASTRO(ASCP) 06/11/2020 103 (Prelim) Signed BRIAN MCBRIDE MD 06/11/2020 1239 ID Date Data Source [id number] 06/10/2020 02:05:00 PM EDT [facility] ([facility] Name Value Range Interpretation Code Description Data Leana rce(s) Supporting Document(s) Microscopic observation [Identifier] in Unspecified specimen by Non- gynecological cytology method Laboratory test result [facility] ([facility] SPECIMEN: Bronchial Brushing (right upper lobe) [place] in vail and prepared slides received SPECIMEN ADEQUACY: Satisfactory for evaluation CATEGORIZATION: Negative for Malignancy DESCRIPTIONS: Bronchial cells noted in a background of scattered lymphocytes and blood elements. COMMENTS: 06/11/20201038 Signed ARLETH CASTRO(ASCP) 06/11/2020 103 (Prelim) Signed BRIAN MCBRIDE MD 06/11/2020 1239 ID Date Data Source [id number] 06/10/2020 01:48:00 PM EDT [facility] ([facility]) Name Value Range Interpretation Code Description Data Leana rce(s) Supporting Document(s) Fungal Smear Laboratory test result [facility] ([facility]) Testing performed at reference lab . Rep ort copy to follow on a separate form. 07/25/20 REF LAB#:[id number] ERIC/Calcofluor preparatio No fungus observed. Fungal Culture Other Source Laboratory test result [facility] ([facility]) Testing performed at reference lab . Rep ort copy to follow on a separate form. 07/25/20 REF LAB#:[id number] FUNGUS CULTURE [facility] No Yeast or Mold Isolated after 4 weeks. ID Date Data Source [id number] 06/10/2020 01:48:00 PM EDT [facility] ([facility]) Name Value Range Interpretation Code Description Data Leana rce(s) Supporting Document(s) Afb Smear Laboratory test result [facility] ([facility]) Due to limited sensitivity, smear result s should be used as an adjunct in evaluating patient tuberculosis status. Cultural examination is highly recommended for clinical diagnosis. AFB smear Kinyoun NEGATIVE (NO AFB Seen ) Afb Culture Laboratory test result [facility] ([facility]) Testing performed at reference lab . Rep ort copy to follow on a separate form. 07/25/20 REF LAB#:[id number] FULL REPORT IN LAB NOTES ([facility] and [facility]). No Acid-Fast Bacilli Isolated after 6 Weeks. ID Date Data Source [id number] 06/10/2020 01:48:00 PM EDT [facility] ([facility]) Name Value Range Interpretation Code Description Data Leana rce(s) Supporting Document(s) Gram Stain Laboratory test result Normal (applies to non-n umeric results) [facility] ([facility]) NO CELLS SEEN NO ORGANISMS SEEN Bal Culture Laboratory test result Normal (applies to non- numeric results) [facility] ([facility]) FULL REPORT IN LAB NOTES ([facility] and [facility] ). NO GROWTH AEROBICALLY ID Date Data Source [id number] 06/10/2020 01:48:00 PM EDT [facility] ([facility]) Name Value Range Interpretation Code Description Data Leana rce(s) Supporting Document(s) Source Laboratory test result Normal (applies to non-n umeric results) [facility] ([facility]) RIGHT UPPER LOBE Color Laboratory test result Above high normal [facility] ([facility]) will discuss at follow-up Bal WBC Laboratory test result 0-10 Normal (applies to non-n umeric results) [facility] ([facility]) will discuss at follow-up Appearance Laboratory test result Above high normal [facility] ([facility]) will discuss at follow-up ID Date Data Source [id number] 06/10/2020 01:48:00 PM EDT [facility] ([facility] Name Value Range Interpretation Code Description Data Leana rce(s) Supporting Document(s) Fungus identified in Unspecified specimen by Culture Laboratory gin t result [facility] ([facility] Comments: 3. RUL BAL By: DR SARMIENTO Time: 1347 Time: 1350 ID Date Data Source [id number] 06/10/2020 01:48:00 PM EDT [facility] ([facility] [...] Afb Culture Laboratory test result [facility] ([facility] Testing performed at reference lab . Rep ort copy to follow on a separate form. 07/25/20 REF LAB#:[id number] FULL REPORT IN LAB NOTES ([facility] and [facility]). No Acid-Fast Bacilli Isolated after 6 Weeks. ID Date Data Source [id number] 06/10/2020 01:48:00 PM EDT [facility] ([facility] Name Value Range Interpretation Code Description Data Leana rce(s) Supporting Document(s) Fungal Culture Other Source Laboratory test result [facility] ([facility] Testing performed at reference lab . Rep ort copy to follow on a separate form. 07/25/20 REF LAB#:[id number] FUNGUS CULTURE [facility] No Yeast or Mold Isolated after 4 weeks. Fungal Smear Laboratory test result [facility] ([facility] Testing performed at reference lab . Rep ort copy to follow on a separate form. 07/25/20 REF LAB#:[id number] ERIC/Calcofluor preparatio No fungus observed. ID Date Data Source [id number] 06/10/2020 01:48:00 PM EDT [facility] ([facility] [...] AFB Seen ) ID Date Data Source [id number] 06/10/2020 01:48:00 PM EDT [facility] ([facility] Name Value Range Interpretation Code Description Data Leana rce(s) Supporting Document(s) Bal Culture Laboratory test result [facility] ([facility] FULL REPORT IN LAB NOTES ([facility] and [facility] ). NO GROWTH AEROBICALLY Gram Stain Laboratory test result [facility] ([facility] NO CELLS SEEN NO ORGANISMS SEEN ID Date Data Source [id number] 06/10/2020 01:48:00 PM EDT [facility] ([facility] [...] [facility] ID Date Data Source [id number] 06/10/2020 01:48:00 PM EDT [facility] ([facility], ) Name Value Range Interpretation Code Description Data Leana rce(s) Supporting Document(s) Mycobacterium sp identified in Unspecifi ed specimen by Organism specific culture Laboratory test result [facility] ([facility], ) Due to limited sensitivity, smear result s should be used as an adjunct in evaluating patient tuberculosis status. Cultural examination is highly recommended for clinical diagnosis. AFB smear Kinyoun NEGATIVE (NO AFB Seen ) ID Date Data Source [id number] 06/10/2020 01:48:00 PM EDT [facility] ([facility], ) Name Value Range Interpretation Code Description Data Leana rce(s) Supporting Document(s) Bacteria identified in Bronchoalveolar lavage by Aerob e culture Laboratory test result Normal (applies to non-numeric results) [facility] ([facility], ) will discuss at follow-up ID Date Data Source [id number] 06/10/2020 01:35:00 PM EDT [facility] ([facility], ) Name Value Range Interpretation Code Description Data Leana rce(s) Supporting Document(s) Surgical pathology study Laboratory test result [facility] ([facility], ) <content>FINAL DIAGNOSIS</content>
< content></content>
<content>Lung, [...] 06/11/2020 125</content>
<content></content> ID Date Data Source [id number] 06/10/2020 01:35:00 PM EDT [facility] ([facility] [...] completed Patient is a former smoker [facility] ([facility], ) Vital Signs ID Date Data Source [...] 96 % [facility] ([facility] Garner body weight 135 [lb_av] 135 [lb_av] [facility] ([facility] Body mass index (BMI) [Ratio] 19.5 kg/m2 19.5 k g/m2 [facility] ([facility] Body height 67.0 [in_i] 67.0 [in_i] [facility] ([facility] 5'7" Body temperature 97.6 [degF] 97.6 [degF] [facility] ([facility] Body mass index (BMI) [Ratio] 19.6 kg/m2 19.6 k g/m2 [facility] ([facility] Body weight 125.12 [lb_av] 125.12 [lb_av] [facility] ([facility] Garner body weight 135 [lb_av] 135 [lb_av] [facility] ([facility] Oxygen saturation in Arterial blood by Pulse oximetry 90 % 90 % [facility] ([facility], ) Body weight 126.00 [lb_av] 126.00 [lb_av] [facility] ([facility]) Body height 67 [in_i] 67 [in_i] [facility] ([facility]) 5'7" Heart rate 100 /min 100 /min [facility] ([facility]) Body mass index (BMI) [Ratio] 19.7 kg/m2 19.7 k g/m2 [facility] ([facility]) Body surface area Derived from formula 1.66 m2 1.66 m2 [facility] ([facility]) Garner body weight 135 [lb_av] 135 [lb_av] [facility] ([facility]) Body weight 57.154 kg 57.154 kg [facility] ([facility]) Diastolic blood pressure 62 mm[Hg] 62 mm[Hg] [facility] ([facility]) Systolic blood pressure 116 mm[Hg] 116 mm[Hg] M [facility] ([facility]) Respiratory rate 24 /min 24 /min [facility] ( [facility] Systolic blood pressure 148 mm[Hg] 148 mm[Hg] [facility] ([facility] Diastolic blood pressure 77 mm[Hg] 77 mm[Hg] [facility] ([facility] Systolic blood pressure 115 mm[Hg] 115 mm[Hg] [facility] ([facility] Diastolic blood pressure 71 mm[Hg] 71 mm[Hg] [facility] ([facility] Heart rate 98 /min 98 /min [facility] ([facility] Body temperature 97.4 [degF] 97.4 [degF] [facility] ([facility] Body height 67.0 [in_i] 67.0 [in_i] [facility] ([facility] 5'7" Body weight 126.00 [lb_av] 126.00 [lb_av] [facility] ([facility] Oxygen saturation in Arterial blood by Pulse oximetry 97 % 97 % [facility] ([facility] Garner body weight 135 [lb_av] 135 [lb_av] [facility] ([facility] Body mass index (BMI) [Ratio] 19.7 kg/m2 19.7 k g/m2 [facility] ([facility] Diastolic blood pressure 76 mm[Hg] 76 mm[Hg] [facility] ([facility]) Systolic blood pressure 126 mm[Hg] 126 mm[Hg] M [facility] ([facility]) Body height 67 [in_i] 67 [in_i] [facility] ([facility]) 5'7" Garner body weight 135 [lb_av] 135 [lb_av] [facility] ([facility]) Heart rate 121 /min 121 /min [facility] ([facility]) Oxygen saturation in Arterial blood by Pulse oximetry 94 % 94 % [facility] ([facility]) Respiratory rate 18 /min 18 /min [facility] ( [facility] Systolic blood pressure 129 mm[Hg] 129 mm[Hg] M [facility] ([facility] Diastolic blood pressure 87 mm[Hg] 87 mm[Hg] [facility] ([facility] Heart rate 105 /min 105 /min [facility] ([facility] Body temperature 97.0 [degF] 97.0 [degF] [facility] ([facility] Garner body weight 135 [lb_av] 135 [lb_av] [facility] [...] % [facility] ([facility] Body weight 128.38 [lb_av] 128.38 [lb_av] [facility] ([facility]) Garner body weight 135 [lb_av] 135 [lb_av] [facility] ([facility]) Body surface area Derived from formula 1.67 m2 1.67 m2 [facility] ([facility]) Oxygen saturation in Arterial blood by Pulse oximetry 90 % 90 % [facility] ([facility]) Body height 67 [in_i] 67 [in_i] [facility] ([facility]) 5'7" Body mass index (BMI) [Ratio] 20.1 kg/m2 20.1 k g/m2 [facility] ([facility]) Body weight 58.231 kg 58.231 kg [facility] ([facility]) Oxygen saturation in Arterial blood by Pulse oximetry 90 % 90 % [facility] ([facility]) Body weight 58.231 kg 58.231 kg [facility] ([facility]) Body surface area Derived from formula 1.67 m2 1.67 m2 [facility] ([facility]) Diastolic blood pressure 60 mm[Hg] 60 mm[Hg] [facility] ([facility]) Heart rate 116 /min 116 /min [facility] ([facility]) Body height 67 [in_i] 67 [in_i] [facility] ([facility]) 5'7" Body weight 128.38 [lb_av] 128.38 [lb_av] [facility] ([facility]) Body mass index (BMI) [Ratio] 20.1 kg/m2 20.1 k g/m2 [facility] ([facility]) Garner body weight 135 [lb_av] 135 [lb_av] [facility] ([facility]) Systolic blood pressure 116 mm[Hg] 116 mm[Hg] M [facility] ([facility], ) Systolic blood pressure 158 mm[Hg] 158 mm[Hg] M [facility] ([facility] Diastolic blood pressure 85 mm[Hg] 85 mm[Hg] [facility] ([facility] Body height 67.0 [in_i] 67.0 [in_i] [facility] ([facility] 5'7" Garner body weight 135 [lb_av] 135 [lb_av] [facility] ([facility] Systolic blood pressure 144 mm[Hg] 144 mm[Hg] [facility] ([facility] recheck Diastolic blood pressure 83 mm[Hg] 83 mm[Hg] [facility] ([facility] recheck Heart rate 127 /min 127 /min [facility] Body temperature 97.1 [degF] 97.1 [degF] [facility] ([facility] Respiratory rate 18 /min 18 /min [facility] ( [facility] Body weight 133.12 [lb_av] 133.12 [lb_av] [facility] ([facility] Oxygen saturation in Arterial blood by Pulse oximetry 98 % 98 % [facility] ([facility] Body mass index (BMI) [Ratio] 20.8 kg/m2 20.8 k g/m2 [facility] ([facility] Systolic blood pressure 126 mm[Hg] 126 mm[Hg] [facility] ([facility] ) Diastolic blood pressure 74 mm[Hg] 74 mm[Hg] [facility] ([facility], ) Heart rate 122 /min 122 /min [facility] Oxygen saturation in Arterial blood by Pulse oximetry 96 % 96 % [facility] ([facility]) Body surface area Derived from formula 1.69 m2 1.69 m2 [facility] ([facility]) Body temperature 97.0 [degF] 97.0 [degF] [facility] ([facility]) Body height 67 [in_i] 67 [in_i] [facility] ([facility]) 5'7" Body weight 131.00 [lb_av] 131.00 [lb_av] [facility] ([facility]) Body mass index (BMI) [Ratio] 20.5 kg/m2 20.5 k g/m2 [facility] ([facility]) Garner body weight 135 [lb_av] 135 [lb_av] [facility] ([facility]) Body weight 59.422 kg 59.422 kg [facility] ([facility]) Oxygen saturation in Arterial blood by Pulse oximetry 98 % 98 % [facility] ([facility]) Body temperature 97.6 [degF] 97.6 [degF] [facility] ([facility]) Body height 67 [in_i] 67 [in_i] [facility] ([facility]) 5'7" Body weight 128.25 [lb_av] 128.25 [lb_av] [facility] ([facility]) Systolic blood pressure 122 mm[Hg] 122 mm[Hg] [facility] ([facility]) Diastolic blood pressure 76 mm[Hg] 76 mm[Hg] [facility] ([facility]) Heart rate 71 /min 71 /min [facility] ([facility]) Body mass index (BMI) [Ratio] 20.1 kg/m2 20.1 k g/m2 [facility] ([facility]) Garner body weight 135 [lb_av] 135 [lb_av] [facility] ([facility]) Body weight 58.174 kg 58.174 kg [facility] ([facility]) Body surface area Derived from formula 1.67 m2 1.67 m2 [facility] ([facility]) Body surface area Derived from formula 1.67 m2 1.67 m2 [facility] ([facility]) Systolic blood pressure 126 mm[Hg] 126 mm[Hg] [facility] ([facility]) Diastolic blood pressure 72 mm[Hg] 72 mm[Hg] [facility] ([facility]) Heart rate 106 /min 106 /min [facility] ([facility]) Oxygen saturation in Arterial blood by Pulse oximetry 97 % 97 % [facility] ([facility]) Body temperature 96.8 [degF] 96.8 [degF] [facility] Body height 67 [in_i] 67 [in_i] [facility] ([facility]) 5'7" Body weight 128.38 [lb_av] 128.38 [lb_av] [facility] Body mass index (BMI) [Ratio] 20.1 kg/m2 20.1 k g/m2 [facility] ([facility]) Garner body weight 135 [lb_av] 135 [lb_av] [facility] Body weight 58.231 kg 58.231 kg [facility] ([facility]) Body mass index (BMI) [Ratio] 20.1 kg/m2 20.1 k g/m2 [facility] Diastolic blood pressure 70 mm[Hg] 70 mm[Hg] [facility] Systolic blood pressure 128 mm[Hg] 128 mm[Hg] M [facility] ([facility] Heart rate 100 [...] by Pulse oximetry 99 % 99 % [facility] ([facility] Garner body weight 135 [lb_av] 135 [lb_av] [facility] ([facility] Systolic blood pressure 146 mm[Hg] 146 mm[Hg] [facility] ([facility]) Diastolic blood pressure 98 mm[Hg] 98 mm[Hg] [facility] ([facility]) Heart rate 95 /min 95 /min [facility] ([facility]) Oxygen saturation in Arterial blood by Pulse oximetry 93 % 93 % [facility] ([facility]) Body temperature 98.2 [degF] 98.2 [degF] [facility] ([facility]) Body height 67 [in_i] 67 [in_i] [facility] ([facility]) 5'7" Body weight 126.00 [lb_av] 126.00 [lb_av] [facility] ([facility] Body mass index (BMI) [Ratio] 19.7 kg/m2 19.7 k g/m2 [facility] ([facility]) Garner body weight 135 [lb_av] 135 [lb_av] [facility] ([facility]) Body weight 57.154 kg 57.154 kg [facility] ([facility]) Body surface area Derived from formula 1.66 m2 1.66 m2 [facility] ([facility])
--- NOTE | 2021-08-03 22:28 | HPEPDOC ---
[facility] Medical History & Physical Date of Admission Aug 03, 2021 Date of Service: Aug 03, 2021 History and Physical CHIEF COMPLAINT: shortness of breath HISTORY OF PRESENT ILLNESS: 66 yo F with a PMHx of COPD, Lung adenocarcinoma (follows with Dr. Abdul), presented to ER with c/o cough, wheezing SOB along with a runny nose. She was seen by her PCP on 07/17/21, who prescribed a course of levaquin as well as a prednisone taper due to suspected COPD exacerbation 2/2 community acquired pneumonia. Patient states that she felt an improvement, but eventually developed profound wheezing for which she sought help in the ER. She denies chest pain, palpitations, subjective fevers. Of note, she states that she last completed her chemotherapy and radiation therapy in 12/2020, at [facility] where she is followed by oncology and radiation oncology. She had a CT chest on 07/11/[address] Abdul, which showed a new 7 mm sized irregular nodule in superior segment of R lober lobe, a PET-CT was recommended. She completed a CTA chest in the ER today, showing a 5.8 mm smooth bordered noncalcified nodule in the same area. She will be admitted for treatment of COPD exacerbation. PAST MEDICAL HISTORY: severe COPD, O2 dependent, hx of frequent exacerbations tobacco use recurrent diverticulitis lung malignancy (poorly differentiated adenocarcinoma)- followed by oncology at [facility], [place] and Dr. Abdul Liver metastasis seen on PET/CT 04/28/21 - followed by oncology at [facility] [place] depression migraines PAST SURGICAL HISTORY: sigmoid colon resection for recurrent diverticulitis in 2014 SOCIAL HISTORY: former smoker denies etoh use no illicit drug use FAMILY HISTORY: reviewed with patient, no relevant history provided ALLERGIES: Please see below. REVIEW OF SYSTEMS: 10 point ROS conducted, relevant findings are noted in HPI. HOME MEDICATIONS: Please see below. PHYSICAL EXAMINATION: VITAL SIGNS: please see below General: NAD, comfortable. thin female. HEENT: PERRLA, EOMI, sclerae clear Neck: supple, normal ROM, no JVD Respiratory: diffuse wheezing noted across all lung watson, fair inspiratory effort CVS: RRR, normal S1, S2, no murmurs Abdo: soft, no masses, no hepatosplenomegaly, BS+, no rebound tenderness Extremities: no edema, pulses 2+ MSK: no joint deformities, normal ROM Neuro: no focal neuro deficits, moving all 4 extremities, CN2-12 intact. Strength 5/5 in all 4 extremities. No nystagmus. Psych: calm, cooperative, AAO x 3 LABORATORY DATA: See below. IMAGING: CTA chest (08/03/21): 1. 5.8 mm smooth bordered noncalcified nodule superior segment right lower lobe not demonstrated previously. For patients at low risk (minimal or absent history of smoking and of other known risk factors), no routine follow-up is indicated. For patients at high risk (history of smoking or of other known risk factors), consider optional CT Chest at 12 months. (Reference: Maria Esther) 2. COPD. 3. There is no aortic dissection or aneurysm. 4. There are no pulmonary emboli. CXR (08/03/21): No evidence of acute cardiopulmonary pathology. No significant change. MICROBIOLOGY: Please see below. ASSESSMENT:66 yo F with a PMHx of COPD, Lung adenocarcinoma (follows with Dr. Abdul), presented to ER with c/o cough, wheezing SOB along with a runny nose. She is admitted for treatment of acute COPD exacerbation. She is followed by Dr. Abdul for her COPD as well as oncology at [facility] [place] for lung malignancy with possible met to liver. There is possible recurrenced noted ie nodule on CT (smaller compared to CT on 07/11/21) . PLAN: acute COPD exacerbation - completed 10 days levaquin and prednisone as outpatient - tachypneic on arrival, improved. D dimer elevated, CTA performed, negative for PE - s/p albuterol neb treatment, 125 mg IV solumedrol - Patient has had frequent exacerbation in the past and takes prophylactic azithromycin - continue with IV solumedrol 80 mg q8h - resume home levalbuterol, symbicort. Substitute incruse ellipta with Spiriva - continue azithromycin home dose - check procal, ESR, CRP - f/u Dr. Abdul on DC #Lung cancer - poorly differentiated adenocarcinoma - Patient follows with [facility] with Dr. Betancur (tel: [phone]) - CTA shows 5.8 mm smooth bordered noncalcified nodule superior segment right lower lobe - CT chest from 07/11/21 showed a nodule 7 mmg in diameter in same location - concern for liver met on PET/CT from 04/28/20 #HTN - c/w metoprolol #HLD - c/w simvastatin #Migraines -resume sumatriptain #Depression - resume venlafaxine Dispo: pending clinic improvement DVT ppx: SCDs, TEDs. heparin Vital Signs Vital Signs Date Time Temp Pulse Resp B/P (MAP) Pulse Ox O2 Delivery O2 Flow Rate FiO2 08/03/21 21:00 109 18 148/79 (102) 93 Room Air 08/03/21 18:15 98.4 Laboratory Data Labs 24H Laboratory Tests 2 08/03/21 17:34: Immature Granulocyte % (Auto) 0.6, Neutrophils (%) (Auto) 69.2H, Lymphocytes (%) (Auto) 13.5L, Monocytes (%) (Auto) 12.3H, Eosinophils (%) (Auto) 3.7H, Basophils (%) (Auto) 0.7, Neutrophils # (Auto) 6.2, Lymphocytes # (Auto) 1.2L, Monocytes # (Auto) 1.1H, Eosinophils # (Auto) 0.3, Basophils # (Auto) 0.1, Nucleated Red Blood Cells % (auto) 0.0, D-Dimer, Quantitative 632.06H, Blood Gas Bicarbonate Standard 24.5, Venous Blood pH 7.357, Venous Blood Partial Pressure CO2 48.3, Venous Blood Partial Pressure O2 44.0, Venous Blood Total Carbon Dioxide 28.0, Venous Blood HCO3 26.5, Venous Blood Oxygen Saturation 80.8H, Venous Blood Base Excess 0.4, Anion Gap 7L, Glomerular Filtration Rate > 60.0, Calcium Level 9.4, Total Bilirubin 0.2, Direct Bilirubin < 0.1, Aspartate Amino Transf (AST/SGOT) 18, Alanine Aminotransferase (ALT/SGPT) 34, Alkaline Phosphatase 99, Total Creatine Kinase 73, Creatine Kinase MB 2.9, Creatine Kinase MB Relative Index 3.97, Troponin I < 0.02, ZC-Wfx-B-Type Natriuretic Peptide 119, Total Protein 6.8, Albumin 3.7, Albumin/Globulin Ratio 1.2, Thyroid Stimulating Hormone (TSH) 0.775 CBC/BMP Laboratory Tests 08/03/21 17:34 Microbiology Microbiology 08/03/21 Respiratory Virus Panel (PCR) ([facility]) - Final, Complete Home Medications Scheduled Amlodipine Besylate (Amlodipine Besylate) 5 Mg Tablet, 5 MG PO DAILY Azithromycin (Azithromycin) 500 Mg Tablet, 500 MG PO 3XW WEDNESDAY, WEDNESDAY AND WEDNESDAY Budesonide/Formoterol (Symbicort 160-4.5 Mcg Inhaler) 6 Gm Hfa.aer.ad, 2 PUFF INH BID Cholecalciferol (Vitamin D3) (Vitamin D3) 1,000 Unit Tablet, 1,000 UNITS PO DAILY Cyanocobalamin (Vitamin B-12) (B-12) 1,000 Mcg Tablet, 1,000 MCG PO DAILY Fluticasone Propionate (Flonase Allergy Relief) 50 Mcg/Act Spr, 2 SPRAYS NA DAILY Loratadine (Loratadine) 10 Mg Tablet, 10 MG PO DAILY Magnesium Oxide (Magnesium Oxide) 400 Mg Tablet, 400 MG PO DAILY Metoprolol Succinate (Metoprolol Succinate) 50 Mg Tab.er.24h, 50 MG PO DAILY Omeprazole (Omeprazole) 20 Mg Capsule.dr, 20 MG PO DAILY Simvastatin (Simvastatin) 20 Mg Tablet, 20 MG PO QHS Venlafaxine HCl (Venlafaxine HCl) 75 Mg Tab, 75 MG PO DAILY Scheduled PRN Albuterol Sulf (Albuterol Sulfate) 2.5 Mg/3 Ml Vial.neb, 2.5 MG INH QID PRN for SHORTNESS OF BREATH Levalbuterol Tartrate (Levalbuterol Tartrate Hfa) 45 Mcg/Act Aer, 2 PUFF INH Q4H PRN for SHORTNESS OF BREATH Ondansetron HCl (Ondansetron HCl) 8 Mg Tablet, 8 MG PO Q8H PRN for NAUSEA Prochlorperazine Maleate (Prochlorperazine Maleate) 10 Mg Tablet, 10 MG PO Q6H PRN for NAUSEA Revefenacin (Yupelri) 175 Mcg/3 Ml Vial.neb, 175 MCG INH TID PRN for SHORTNESS OF BREATH Sumatriptan Succinate (Sumatriptan Succinate) 25 Mg Tablet, 25 MG PO BID PRN for MIGRAINE Allergies Coded Allergies: No Known Allergies (Unverified , 08/03/21) A-FIB/CHADSVASC A-FIB History Current/History of A-Fib/PAF?: No CHAPO VALENTIN MD Aug 03, 2021 22:28
[2021-08-03] MEDS ORDERED: PROC10TA4 PO (22:29)
[2021-08-03] MEDS ORDERED: ONDA8TAB10 PO (22:29)
[2021-08-03] MEDS ORDERED: D31000TA2 PO (22:29)
[2021-08-03] MEDS ORDERED: AZIT500T5 PO (22:29)
[2021-08-03] MEDS ORDERED: METO1TAB7 PO (22:29)
[2021-08-03] MEDS ORDERED: MAGN400T2 PO (22:29)
[2021-08-03] MEDS ORDERED: SUMA25TA3 PO (22:29)
[2021-08-03] MEDS ORDERED: LORA-674 PO (22:29)
[2021-08-03] MEDS ORDERED: ALBU83IN INH (22:29)
[2021-08-03] MEDS ORDERED: OMEP1CAP73 PO (22:29)
[2021-08-03] MEDS ORDERED: YUPE175S INH (22:29)
[2021-08-03] MEDS ORDERED: HOME MED LIST COMPLETE! XX SCH (22:30)
[2021-08-03 23:10] VITALS: BP 152/74
[2021-08-03 23:38] VITALS: O2SAT 93
[2021-08-04] VITALS (8 sets, daily range): BP systolic 124–146; BP diastolic 71–89; O2SAT 86–95
[2021-08-04] MEDS ORDERED: SUMAtriptan SUCCINATE 25 MG TAB PO PRN (00:15)
[2021-08-04] MEDS ORDERED: ONDANSETRON 4 MG TAB PO PRN (00:15)
[2021-08-04] MEDS ORDERED: LEVALBUTEROL HFA 45MCG/ACT 15 GM INHALER INH PRN (00:15)
[2021-08-04] MEDS ORDERED: PROCHLORPERAZINE 5 MG TAB (S0183) PO PRN (00:15)
[2021-08-04] MEDS: SIMVASTATIN 20 MG TAB PO SCH ×2 (01:26→21:06)
[2021-08-04] MEDS: HEPARIN SOD (PORCINE) 5000UNITS/ML 1ML VIAL/SYRINGE SC SCH ×3 (05:19→21:07)
[2021-08-04 06:00] LABS: BASO % 0.1 % (0.0-1.0); HEMATOCRIT 39.2 % (36.0-47.0); HEMOGLOBIN 12.4 g/dl (12.0-15.5); LYMPH # 0.4 10^3/uL (1.5-5.0); LYMPH % 5.9 % (24.0-44.0); MEAN CORPUSCULAR HEMOGLOBIN 30.4 pg (27.0-33.0); MEAN CORPUSCULAR HGB CONC 31.6 g/dl (32.0-36.5); MEAN CORPUSCULAR VOLUME 96.1 fl (80.0-96.0); MONO # 0.1 10^3/uL (0.0-0.8); MONO % 1.5 % (2.0-8.0); NEUTROPHILS # 6.6 10^3/uL (1.5-8.5); NEUTROPHILS % 92.1 % (36.0-66.0); PLATELET COUNT, AUTOMATED 233 10^3/uL (150-450); RED BLOOD COUNT 4.08 10^6/uL (4.00-5.40); WHITE BLOOD COUNT 7.1 10^3/uL (4.0-10.0)
[2021-08-04 06:27] LABS: ALBUMIN 3.2 GM/DL (3.2-5.2); ALT/SGPT 30 U/L (12-78); BILIRUBIN,TOTAL 0.3 MG/DL (0.2-1.0); BLOOD UREA NITROGEN 10 MG/DL (7-18); CALCIUM LEVEL 9.5 MG/DL (8.8-10.2); CARBON DIOXIDE LEVEL 29 MEQ/L (21-32); CHLORIDE LEVEL 111 MEQ/L (98-107); CREATININE FOR GFR 0.77 MG/DL (0.55-1.30); GLOMERULAR FILTRATION RATE > 60.0 (>45); GLUCOSE, FASTING 143 MG/DL (70-100); MAGNESIUM LEVEL 2.4 MG/DL (1.8-2.4); POTASSIUM SERUM 5.2 MEQ/L (3.5-5.1); SODIUM LEVEL 145 MEQ/L (136-145); TOTAL PROTEIN 6.6 GM/DL (6.4-8.2)
[2021-08-04] MEDS: SYMBICORT 160/4.5MCG INHALER 6GM INH SCH ×2 (07:30→21:03)
[2021-08-04] MEDS: ALBUTEROL SULFATE 2.5 MG/0.5 ML INH NEB SOLN INH PRN ×2 (07:31→12:36)
[2021-08-04] MEDS ORDERED: SOD POLYSTYRENE SULFONATE SUSP 15 GM/60 ML UD PO ONE (08:00)
[2021-08-04] MEDS: FLUTICASONE PROP 0.05% NASAL SPRAY 16 GM (FLONASE) SCH (08:03)
[2021-08-04] MEDS: MAGNESIUM OXIDE 400MG TAB (MAG-OX) PO SCH (08:04)
[2021-08-04] MEDS: AZITHROMYCIN 250MG TABLET PO SCH (08:04)
[2021-08-04] MEDS: ACETAMINOPHEN TAB 650MG DOSE (2X325MG) PO PRN ×3 (08:04→21:07)
[2021-08-04] MEDS: OMEPRAZOLE 20 MG CAP PO SCH (08:04)
[2021-08-04] MEDS: LORATADINE 10 MG TAB PO SCH (08:04)
[2021-08-04] MEDS: VENLAFAXINE 37.5 MG TAB PO SCH (08:04)
[2021-08-04] MEDS: METOPROLOL SUCC (TopROL XL) 50MG **XL** TAB PO SCH (08:06)
[2021-08-04] MEDS: amLODIPine 5 MG TAB PO SCH (08:06)
--- NOTE | 2021-08-04 09:53 | IPNPDOC ---
Text Note Date of Service The patient was seen on 08/04/21. NOTE Injective: Patient stated that her breathing markedly improved. She reported that she feels better in general. Objective: GENERAL APPEARANCE: NAD HEENT: no scleral icterus, no JVD, EOMI CARDIOVASCULAR: S1S2 LUNGS: Diminished lung sounds bilaterally ABDOMEN: soft & not tender w palpation MUSCULOSKELETAL: no cyanosis, no swelling INTEGUMENT: no generalized pallor NEUROLOGICAL: cranial nerve function from 2-12 intact, follows commands, speech not dysarthric Assessment and plan: Patient is 66 yo F with a PMHx of COPD, Lung adenocarcinoma (follows with Dr. Abdul), presented to ER with c/o cough, wheezing SOB along with a runny nose. She is admitted for treatment of acute COPD exacerbation. She is followed by Dr. Abdul for her COPD as well as oncology at [facility] for lung malignancy with possible met to liver. There is possible recurrenced noted ie nodule on CT (smaller compared to CT on 07/11/21) Dyspnea Secondary to acute COPD exacerbation Patient stated that she feels better Continue inhalers Continue IV Solu-Medrol Continue home dose of azithromycin and I will not escalate antibiotic therapy Lung cancer - poorly differentiated adenocarcinoma Patient follows with [facility] with Dr. Betancur (tel: [phone]) - CTA shows 5.8 mm smooth bordered noncalcified nodule superior segment right lower lobe - CT chest from 07/11/21 showed a nodule 7 mmg in diameter in same location - concern for liver met on PET/CT from 04/28/20 Follow-up with oncologist in the outpatient setting HTN - c/w metoprolol HLD - c/w simvastatin Migraines -resume sumatriptan Depression - resume venlafaxine Dispo: pending clinic improvement DVT ppx: SCDs, TEDs. heparin VS,Fishbone, I+O VS, Fishbone, I+O Laboratory Tests 08/03/21 17:34 08/04/21 05:15 Vital Signs Date Time Temp Pulse Resp B/P (MAP) Pulse Ox O2 Delivery O2 Flow Rate FiO2 08/04/21 08:06 126 123/73 08/04/21 06:00 97.9 20 94 Room Air 08/04/21 03:25 0.5 I&O- Last 24 Hours up to 6 AM 08/04/21 06:00 Intake Total 0 ml Output Total 400 ml Balance -400 ml DAVID ALFORD DO Aug 04, 2021 09:53
[2021-08-04] MEDS: methylPREDNISolone 40MG 1ML VIAL IV SCH ×2 (11:18→18:06)
[2021-08-04] MEDS ORDERED: SODIUM CHLORIDE 0.9% NASAL GEL 15GM (AYR) PRN (11:30)
[2021-08-05] MEDS: methylPREDNISolone 40MG 1ML VIAL IV SCH ×3 (02:24→18:26)
[2021-08-05] MEDS: HEPARIN SOD (PORCINE) 5000UNITS/ML 1ML VIAL/SYRINGE SC SCH ×3 (05:50→21:00)
[2021-08-05 06:00] VITALS: BP 113/77
[2021-08-05] MEDS: SYMBICORT 160/4.5MCG INHALER 6GM INH SCH ×2 (07:14→19:59)
[2021-08-05] MEDS: VENLAFAXINE 37.5 MG TAB PO SCH (08:08)
[2021-08-05] MEDS: MAGNESIUM OXIDE 400MG TAB (MAG-OX) PO SCH (08:08)
[2021-08-05] MEDS: LORATADINE 10 MG TAB PO SCH (08:08)
[2021-08-05] MEDS: OMEPRAZOLE 20 MG CAP PO SCH (08:08)
[2021-08-05] MEDS: ACETAMINOPHEN TAB 650MG DOSE (2X325MG) PO PRN ×2 (08:09→14:38)
[2021-08-05] MEDS: amLODIPine 5 MG TAB PO SCH (08:10)
[2021-08-05] MEDS: METOPROLOL SUCC (TopROL XL) 50MG **XL** TAB PO SCH (08:10)
[2021-08-05] MEDS: FLUTICASONE PROP 0.05% NASAL SPRAY 16 GM (FLONASE) SCH (08:10)
[2021-08-05 10:09] VITALS: O2SAT 92
[2021-08-05] MEDS: ALBUTEROL SULFATE 2.5 MG/0.5 ML INH NEB SOLN INH PRN ×2 (11:34→15:14)
[2021-08-05 11:39] LABS: BLOOD UREA NITROGEN 13 MG/DL (7-18); CALCIUM LEVEL 9.4 MG/DL (8.8-10.2); CARBON DIOXIDE LEVEL 29 MEQ/L (21-32); CHLORIDE LEVEL 110 MEQ/L (98-107); CREATININE FOR GFR 0.74 MG/DL (0.55-1.30); GLOMERULAR FILTRATION RATE > 60.0 (>45); GLUCOSE, FASTING 128 MG/DL (70-100); POTASSIUM SERUM 3.7 MEQ/L (3.5-5.1); SODIUM LEVEL 146 MEQ/L (136-145)
[2021-08-05 14:00] VITALS: BP 139/77
--- NOTE | 2021-08-05 19:53 | IPNPDOC ---
Text Note Date of Service The patient was seen on 08/05/21. NOTE Subjective: 66-year-old female presented to the emergency room department with cough, wheezing, and shortness of breath. She was admitted for treatment of acute COPD exacerbation. Today, she reported having significant improvement in her breathing. She denied chest pain, abdominal pain, nausea, vomiting, problem with urination or bowel movements. Review of systems: 10 point review of system was negative except for what is noted in the HPI Physical exam: General: Lying in bed, no acute distress Head/Neck/Throat: Trachea midline, mucous membranes moist Eyes: Sclera anicteric, no erythema or discharge appreciated bilaterally Thorax: Normal respiratory effort on room air, lungs clear to auscultation bilaterally, no wheezes/rales/rhonchi Cardiovascular: Normal rate, regular rhythm, normal S1, S2; no S3, S4, rubs/gallops/murmurs Abdomen: Bowel sounds present, soft/nontender/nondistended Genitourinary: No CVA tenderness, no Goins in place Musculoskeletal: Moving all extremities, no edema Skin: Warm, dry Neurologic: AAOx3, speech fluent and goal-directed, no focal deficits, grossly intact Labs: See below Imaging: Please see imaging section Assessment/plan: Six 6-year-old female with past medical history of COPD, lung adenocarcinoma is possible metastatic disease to the liver (follows Dr. Abdul), presented to emergency room department with shortness of breath, wheezing as well as rhinorrhea. She was admitted for treatment of acute COPD exacerbation. #Acute on chronic COPD exacerbation -Begin to taper IV Solu-Medrol. Continue with nebulizer treatments. Continue ambulatory azithromycin. #Lung cancer -Poorly differentiated adenocarcinoma. Follows hematology/oncology team at [facility] with Dr. Betancur (tel: [phone]). She will need to follow-up with her oncologist as an outpatient #Hypertension -Continue metoprolol #Hyperlipidemia -Continue with simvastatin #Migraine -Continue ambulatory sumatriptan #Depression -Continue venlafaxine #DVT ppx -Heparin subq Disposition: Anticipate discharge in the next 24 hours if respiratory status continues to improve VS,Fishbone, I+O VS, Fishbone, I+O Laboratory Tests 08/05/21 10:50 Vital Signs Date Time Temp Pulse Resp B/P (MAP) Pulse Ox O2 Delivery O2 Flow Rate FiO2 08/05/21 14:00 98.4 108 19 139/77 (97) 93 Room Air 08/05/21 11:29 1.0 I&O- Last 24 Hours up to 6 AM 08/05/21 05:59 Intake Total 1580 ml Output Total 1550 ml Balance 30 ml LUIS STILL M.D. Aug 05, 2021 19:53
[2021-08-05] MEDS ORDERED: IPRATROPIUM 0.5MG/ALBUTEROL 2.5MG INH SOL UD 3ML (DUONEB) NEB SCH (20:00)
[2021-08-05] MEDS: IPRATROPIUM 0.02% SOLN 0.5MG 2.5ML NEB INH SCH (20:00)
[2021-08-05] MEDS: SIMVASTATIN 20 MG TAB PO SCH (21:00)
[2021-08-05 22:00] VITALS: BP 147/81; O2SAT 92
[2021-08-06] MEDS: IPRATROPIUM 0.02% SOLN 0.5MG 2.5ML NEB INH SCH ×4 (00:49→12:07)
[2021-08-06 06:00] VITALS: BP 146/90
[2021-08-06] MEDS: HEPARIN SOD (PORCINE) 5000UNITS/ML 1ML VIAL/SYRINGE SC SCH ×2 (06:15→14:00)
[2021-08-06] MEDS ORDERED: methylPREDNISolone 40MG 1ML VIAL IV SCH (07:00)
[2021-08-06] MEDS: SYMBICORT 160/4.5MCG INHALER 6GM INH SCH (07:35)
[2021-08-06 09:00] VITALS: O2SAT 93
[2021-08-06 09:36] LABS: BLOOD UREA NITROGEN 11 MG/DL (7-18); CALCIUM LEVEL 9.4 MG/DL (8.8-10.2); CARBON DIOXIDE LEVEL 31 MEQ/L (21-32); CHLORIDE LEVEL 111 MEQ/L (98-107); CREATININE FOR GFR 0.64 MG/DL (0.55-1.30); GLOMERULAR FILTRATION RATE > 60.0 (>45); GLUCOSE, FASTING 98 MG/DL (70-100); MAGNESIUM LEVEL 2.4 MG/DL (1.8-2.4); PHOSPHORUS LEVEL 2.4 MG/DL (2.5-4.9); POTASSIUM SERUM 3.9 MEQ/L (3.5-5.1); SODIUM LEVEL 145 MEQ/L (136-145)
[2021-08-06] MEDS: MAGNESIUM OXIDE 400MG TAB (MAG-OX) PO SCH (09:46)
[2021-08-06] MEDS: OMEPRAZOLE 20 MG CAP PO SCH (09:46)
[2021-08-06 09:47] VITALS: BP 153/85
[2021-08-06] MEDS: METOPROLOL SUCC (TopROL XL) 50MG **XL** TAB PO SCH (09:47)
[2021-08-06] MEDS: AZITHROMYCIN 250MG TABLET PO SCH (09:47)
[2021-08-06] MEDS: amLODIPine 5 MG TAB PO SCH (09:47)
[2021-08-06] MEDS: LORATADINE 10 MG TAB PO SCH (09:47)
[2021-08-06] MEDS: VENLAFAXINE 37.5 MG TAB PO SCH (09:47)
[2021-08-06] MEDS: FLUTICASONE PROP 0.05% NASAL SPRAY 16 GM (FLONASE) SCH (09:47)
[2021-08-06] MEDS: ACETAMINOPHEN TAB 650MG DOSE (2X325MG) PO PRN (11:32)
[2021-08-06] MEDS ORDERED: IPRAINH INH (12:37)
[2021-08-06] MEDS ORDERED: PRED10TA2 PO (12:37)
[2021-08-06] MEDS ORDERED: K-PHOS ORIGINAL (POT.ACID PHOSPHATE) 500MG TAB PO ONE (14:00)
--- NOTE | 2021-08-06 18:28 | DS.PDOC ---
Discharge Summary General Date of Admission Aug 04, 2021 at 17:16 Date of Discharge 08/06/21 Discharge Summary DISCHARGE DIAGNOSES: 1. Acute on chronic COPD exacerbation 2. Lung cancer 3. Hypertension 4. Hyperlipidemia 5. Migraines COMPLICATIONS/CHIEF COMPLAINT: Copd With Acute Exacerbation,Pulmonary Nodule. HOSPITAL COURSE: Ms. Muniz, was admitted to [facility] on 08/03/2015 for treatment of acute COPD exacerbation. She was treated with IV steroids, and nebulizers with significant improvement in her symptoms. She is on home oxygen therapy at night, however on 6-minute walk test see desaturated to 87 to 88% and sustained. Therefore new prescription was written for her to have home O2 during the day. She was asked to follow-up with her primary tight rope walker for possible immunomodulator therapy and possibly to be referred to the lung center. She is being discharged home on ipratropium inhaler and a steroid taper DISCHARGE MEDICATIONS: Please see below. ALLERGIES: Please see below. PHYSICAL EXAMINATION ON DISCHARGE: VITAL SIGNS: Please see below. General: Lying in bed, no acute distress Head/Neck/Throat: Trachea midline, mucous membranes moist Eyes: Sclera anicteric, PERRLA Thorax: Normal respiratory effort on 2 L nasal cannula, lungs clear to auscultation bilaterally, no wheezes/rales/rhonchi Cardiovascular: Normal rate, regular rhythm, normal S1, S2; no S3, S4, rubs/gallops/murmurs Abdomen: Bowel sounds present, soft/nontender/nondistended Genitourinary: No CVA tenderness, no Goins in place Musculoskeletal: Moving all extremities, no edema Skin: Warm, dry Neurologic: AAOx3, speech fluent and goal-directed, no focal deficits, grossly intact LABORATORY DATA: Please see below. IMAGING: CT ANGIO CHEST FINDINGS: Pulmonary arteries: There are no pulmonary emboli. Aorta: There is no aortic dissection or aneurysm. Lungs: Bilateral apical pleuroparenchymal scarring. 5.8 mm smooth bordered noncalcified nodule superior segment right lower lobe not demonstrated previously. Well inflated lungs with flattened diaphragmatic contours and increased retrosternal airspace consistent with COPD. Pleural spaces: Unremarkable. No pneumothorax. No pleural effusion. Heart: Unremarkable. No cardiomegaly. No pericardial effusion. Lymph nodes: Unremarkable. No enlarged lymph nodes. Bones/joints: Unremarkable. No acute fracture. Soft tissues: Unremarkable. IMPRESSION: 1. 5.8 mm smooth bordered noncalcified nodule superior segment right lower lobe not demonstrated previously. For patients at low risk (minimal or absent history of smoking and of other known risk factors), no routine follow-up is indicated. For patients at high risk (history of smoking or of other known risk factors), consider optional CT Chest at 12 months. (Reference: Maria Esther) References: Maria Esther Mcfarlane et al. Guidelines for Management of Incidental Pulmonary Nodules Detected on CT Images: From the Fleischner Society 2017. Radiology. 2017;284(1):228-243. 2. COPD. 3. There is no aortic dissection or aneurysm. 4. There are no pulmonary emboli. PROGNOSIS: Good ACTIVITY: As tolerated DIET: Regular DISPOSITION: 01 Home, Self-Care. DISCHARGE INSTRUCTIONS: 1. Follow-up with primary care physician within 3 to 5 days 2. Follow-up with primary tight rope walker within 3 to 5 days DISCHARGE CONDITION: Stable TIME SPENT ON DISCHARGE: 25 minutes. Vital Signs/I&Os Vital Signs Date Time Temp Pulse Resp B/P (MAP) Pulse Ox O2 Delivery O2 Flow Rate FiO2 08/06/21 09:47 119 153/85 08/06/21 09:00 93 Room Air 08/06/21 06:00 98.1 18 2.0 I&O- Last 24 Hours up to 6 AM 08/06/21 06:00 Intake Total 1855 ml Output Total 2600 ml Balance -745 ml Laboratory Data Labs 24H Laboratory Tests 2 08/06/21 08:54: Anion Gap 3L, Glomerular Filtration Rate > 60.0, Calcium Level 9.4, Phosphorus Level 2.4L, Magnesium Level 2.4 CBC/BMP Laboratory Tests 08/06/21 08:54 Microbiology Microbiology 08/03/21 Respiratory Virus Panel (PCR) ([facility]) - Final, Complete Discharge Medications Scheduled Amlodipine Besylate (Amlodipine Besylate) 5 Mg Tablet, 5 MG PO DAILY, (Reported) Azithromycin (Azithromycin) 500 Mg Tablet, 500 MG PO 3XW, (Reported) WEDNESDAY, WEDNESDAY AND WEDNESDAY Budesonide/Formoterol (Symbicort 160-4.5 Mcg Inhaler) 6 Gm Hfa.aer.ad, 2 PUFF INH BID, (Reported) Cholecalciferol (Vitamin D3) (Vitamin D3) 1,000 Unit Tablet, 1,000 UNITS PO DAILY, (Reported) Cyanocobalamin (Vitamin B-12) (B-12) 1,000 Mcg Tablet, 1,000 MCG PO DAILY, (Reported) Fluticasone Propionate (Flonase Allergy Relief) 50 Mcg/Act Spr, 2 SPRAYS NA DAILY, (Reported) Ipratropium [place] (Atrovent Hfa) 12.9 Gm Hfa.aer.ad, 2 PUFF INH QID Loratadine (Loratadine) 10 Mg Tablet, 10 MG PO DAILY, (Reported) Magnesium Oxide (Magnesium Oxide) 400 Mg Tablet, 400 MG PO DAILY, (Reported) Metoprolol Succinate (Metoprolol Succinate) 50 Mg Tab.er.24h, 50 MG PO DAILY, (Reported) Omeprazole (Omeprazole) 20 Mg Capsule.dr, 20 MG PO DAILY, (Reported) Prednisone (Prednisone) 10 Mg Tablet, 10 MG PO TAPER Take 4 tabs daily x 3 days, then 3 tabs daily x 3 days, then 2 tabs daily x 3 days, then 1 tab daily x 3 days and stop Simvastatin (Simvastatin) 20 Mg Tablet, 20 MG PO QHS, (Reported) Venlafaxine HCl (Venlafaxine HCl) 75 Mg Tab, 75 MG PO DAILY, (Reported) Scheduled PRN Albuterol Sulf (Albuterol Sulfate) 2.5 Mg/3 Ml Vial.neb, 2.5 MG INH QID PRN for SHORTNESS OF BREATH, (Reported) Levalbuterol Tartrate (Levalbuterol Tartrate Hfa) 45 Mcg/Act Aer, 2 PUFF INH Q4H PRN for SHORTNESS OF BREATH, (Reported) Ondansetron HCl (Ondansetron HCl) 8 Mg Tablet, 8 MG PO Q8H PRN for NAUSEA, (Reported) Prochlorperazine Maleate (Prochlorperazine Maleate) 10 Mg Tablet, 10 MG PO Q6H PRN for NAUSEA, (Reported) Revefenacin (Yupelri) 175 Mcg/3 Ml Vial.neb, 175 MCG INH TID PRN for SHORTNESS OF BREATH, (Reported) Sumatriptan Succinate (Sumatriptan Succinate) 25 Mg Tablet, 25 MG PO BID PRN for MIGRAINE, (Reported) Allergies Coded Allergies: No Known Allergies (Unverified , 08/03/21) LUIS STILL M.D. Aug 06, 2021 18:28
== END 2021-08-06 16:19 | disposition home or self-care (01) | DRG 191 ==
LOC: M ED 17:14 → M ED INP 22:03 → ENRESERV 22:31 → M MSPAV 23:08 → OBSVTOIN 08-04 17:16
PROVIDERS: ADMIT Family Medicine; ATTEND Internal Medicine
DX: J44.1 Chronic obstructive pulmonary disease with (acute) exacerbation (principal); C34.90 Malignant neoplasm of unspecified part of unspecified bronchus or lung; C78.7 Secondary malignant neoplasm of liver and intrahepatic bile duct; I10 Essential (primary) hypertension; G43.909 Migraine, unspecified, not intractable, without status migrainosus; E78.5 Hyperlipidemia, unspecified; Z79.899 Other long term (current) drug therapy; Z87.891 Personal history of nicotine dependence; F32.9 Major depressive disorder, single episode, unspecified

== ENCOUNTER → 2021-09-02 | Outpatient (CLI) | payer MEDICARE, BC ==
[~2021-09-02] MED LIST changes: +ALBU83IN INH; +AZIT500T5 PO; +IMIT50TA PO; +IPRAINH INH; +LORA-674 PO; +MAGN400T2 PO; -OMEP-221 PO; +OMEP10CASR PO; +OMEP40CA5 PO; +ONDA-84 PO; +ONDA8TAB8 PO; +PROC10TA5 PO; +PROC5TAB57 PO; +SUMA25TA3 PO; +YUPE175S INH
[2021-09-02 11:23] LABS: ALT/SGPT 36 U/L (12-78); BILIRUBIN,TOTAL 0.5 MG/DL (0.2-1.0); BLOOD UREA NITROGEN 15 MG/DL (7-18); CALCIUM LEVEL 9.9 MG/DL (8.8-10.2); CARBON DIOXIDE LEVEL 33 MEQ/L (21-32); CHLORIDE LEVEL 105 MEQ/L (98-107); CREATININE FOR GFR 0.93 MG/DL (0.55-1.30); GLOMERULAR FILTRATION RATE > 60.0 (>45); GLUCOSE, FASTING 87 MG/DL (70-100); POTASSIUM SERUM 4.3 MEQ/L (3.5-5.1); SODIUM LEVEL 144 MEQ/L (136-145); TRIGLYCERIDES LEVEL 247 MG/DL (<150)
[2021-09-02 11:24] LABS: ALBUMIN 3.6 GM/DL (3.2-5.2); CHOLESTEROL LEVEL 280 MG/DL (<200); HDL CHOLESTEROL 100 MG/DL (>40); LDL CHOLESTEROL 131 MG/DL (<100); NON-HDL-C 180 MG/DL; TOTAL PROTEIN 6.7 GM/DL (6.4-8.2)
== END ==
LOC: M PLALAB 08:47
PROVIDERS: ATTEND Family Medicine
DX: E78.2 Mixed hyperlipidemia (principal); C34.11 Malignant neoplasm of upper lobe, right bronchus or lung; K57.92 Diverticulitis of intestine, part unspecified, without perforation or abscess without bleeding

== ENCOUNTER → 2021-12-02 | Outpatient (REF) | payer MEDICARE, BC ==
[~2021-12-02] MED LIST changes: -D31000TA2 PO; +VITA100093 PO
[2021-12-02 16:26] LABS: APPEARANCE, URINE CLOUDY (CLEAR); BACTERIA, URINE AUTO NEGATIVE (NEGATIVE); BILIRUBIN, URINE AUTO NEGATIVE (NEGATIVE); BLOOD, URINE BLOOD NEGATIVE (NEGATIVE); COLOR, URINE AMBER (YELLOW); GLUCOSE, URINE (UA) AUTO NEGATIVE (NEGATIVE); KETONE, URINE AUTO NEGATIVE (NEGATIVE); LEUKOCYTE ESTERASE, URINE AUTO NEGATIVE (NEGATIVE); NITRITE, URINE AUTO NEGATIVE (NEGATIVE); PROTEIN, URINE AUTO NEGATIVE (NEGATIVE); RBC, URINE AUTO 1 /HPF (0-3); SPECIFIC GRAVITY URINE AUTO 1.018 (1.002-1.035); SQUAMOUS EPITHELIAL CELL UR AU 0 /HPF (0-6); UROBILINOGEN, URINE AUTO 0.2 mg/dL (0.0-2.0); WBC, URINE AUTO 2 /HPF (0-3)
[2021-12-02 16:30] LABS: HEMOGLOBIN 9.8 g/dl (12.0-15.5); MEAN CORPUSCULAR HEMOGLOBIN 31.8 pg (27.0-33.0); MEAN CORPUSCULAR HGB CONC 32.7 g/dl (32.0-36.5); MEAN CORPUSCULAR VOLUME 97.4 fl (80.0-96.0); RED BLOOD COUNT 3.08 10^6/uL (4.00-5.40); WHITE BLOOD COUNT 9.8 10^3/uL (4.0-10.0)
[2021-12-02 16:54] LABS: ALBUMIN 3.5 GM/DL (3.2-5.2); ALT/SGPT 228 U/L (12-78); BILIRUBIN,TOTAL 0.1 MG/DL (0.2-1.0); BLOOD UREA NITROGEN 13 MG/DL (7-18); CARBON DIOXIDE LEVEL 32 MEQ/L (21-32); CHLORIDE LEVEL 107 MEQ/L (98-107); CREATININE FOR GFR 0.92 MG/DL (0.55-1.30); GLOMERULAR FILTRATION RATE > 60.0 (>45); GLUCOSE, FASTING 92 MG/DL (70-100); POTASSIUM SERUM 3.9 MEQ/L (3.5-5.1); SODIUM LEVEL 143 MEQ/L (136-145)
[2021-12-02 16:57] LABS: PLATELET COUNT, AUTOMATED 86 10^3/uL (150-450)
[2021-12-02 17:35] LABS: ATYPICAL LYMPH 10 % (0-5); BASOPHILS 1 % (0-1); BLAST CELLS 2 % (0-0); EOSINOPHILS 2 % (0-3); LYMPHOCYTES 23 % (16-44); METAMYELOCYTES 1 % (0-0); MONOCYTES 3 % (0-5); MYELOCYTES 4 % (0-0); NEUTROPHILS 52 % (28-66)
[2021-12-02 17:40] LABS: PLATELET ESTIMATE DECREASED (NORMAL)
== END ==
LOC: M LABDRWAD 15:41
PROVIDERS: ATTEND Physician Assistant
DX: C34.2 Malignant neoplasm of middle lobe, bronchus or lung (principal)

== ENCOUNTER → 2021-12-04 | Outpatient (CLI) | payer MEDICARE, BC | LOC: M WHC 09:05 | PROVIDERS: ATTEND Family Medicine | DX: Z12.31 Encounter for screening mammogram for malignant neoplasm of breast (principal); Z85.118 Personal history of other malignant neoplasm of bronchus and lung; Z92.3 Personal history of irradiation; Z92.21 Personal history of antineoplastic chemotherapy; Z85.05 Personal history of malignant neoplasm of liver ==

== ENCOUNTER 2022-01-30 09:45 | Inpatient (IN) | payer MEDICARE, BC ==
[~2022-01-30] VITALS: Ht 170.2 cm; Wt 57.1 kg
[2022-01-30] MEDS ORDERED: COMBIVENT RESPIMAT 100-20MCG INHALER 4GM INH STA (10:15)
[2022-01-30] MEDS ORDERED: SYMBICORT 160/4.5MCG INHALER 6GM INH STA (10:16)
[2022-01-30 10:48] LABS: HEMATOCRIT 30.2 % (36.0-47.0); HEMOGLOBIN 9.7 g/dl (12.0-15.5); MEAN CORPUSCULAR HEMOGLOBIN 35.9 pg (27.0-33.0); MEAN CORPUSCULAR HGB CONC 32.1 g/dl (32.0-36.5); MEAN CORPUSCULAR VOLUME 111.9 fl (80.0-96.0); PLATELET COUNT, AUTOMATED 378 10^3/uL (150-450); WHITE BLOOD COUNT 13.7 10^3/uL (4.0-10.0)
[2022-01-30 11:01] LABS: INR 3.23; PROTHROMBIN TIME 33.3 SECONDS (12.7-14.5)
[2022-01-30 11:17] LABS: ALBUMIN 3.7 GM/DL (3.2-5.2); BILIRUBIN,DIRECT 0.1 MG/DL (0.0-0.2); BILIRUBIN,TOTAL 0.7 MG/DL (0.2-1.0); TOTAL PROTEIN 6.8 GM/DL (6.4-8.2)
[2022-01-30 11:20] LABS: RSV AMPLIFICATION NEGATIVE (NEGATIVE)
[2022-01-30 11:30] LABS: ANISOCYTOSIS 2+; LYMPHOCYTES 7 % (16-44); METAMYELOCYTES 1 % (0-0); MONOCYTES 7 % (0-5); MYELOCYTES 1 % (0-0); NEUTROPHILS 80 % (28-66); PLATELET ESTIMATE NORMAL (NORMAL)
[2022-01-30] MEDS ORDERED: ISOVUE-370 76% 100ML VIAL As Ordered ONE (11:30)
[2022-01-30] MEDS ORDERED: FOLI1TAB11 PO (13:46)
[2022-01-30] MEDS ORDERED: INCR1INH INH (13:46)
[2022-01-30] MEDS ORDERED: AZIT-12 PO (13:46)
[2022-01-30] MEDS ORDERED: CALC600T61 PO (13:46)
[2022-01-30] MEDS ORDERED: XARE20TA PO (13:46)
[2022-01-30] MEDS ORDERED: HOME MED LIST COMPLETE! XX SCH (13:50)
[2022-01-30] MEDS ORDERED: PROCHLORPERAZINE 5MG TAB PO PRN (14:00)
[2022-01-30] MEDS ORDERED: ALBUTEROL SULFATE 2.5 MG/0.5 ML INH NEB SOLN INH PRN (14:00)
[2022-01-30] MEDS ORDERED: SUMAtriptan SUCCINATE 25 MG TAB PO PRN (14:00)
[2022-01-30] MEDS ORDERED: LEVALBUTEROL HFA 45MCG/ACT 15 GM INHALER INH PRN (14:00)
[2022-01-30] MEDS ORDERED: ACETAMINOPHEN TAB 650MG DOSE (2X325MG) PO PRN (14:00)
[2022-01-30] MEDS: BARICITINIB 2MG TABLET (OLUMIANT) FOR EUA PO SCH (14:20)
[2022-01-30 15:43] LABS: INR 2.64; PROTHROMBIN TIME 28.5 SECONDS (12.7-14.5)
[2022-01-30 15:45] LABS: PARTIAL THROMBOPLASTIN TIME 58.1 SECONDS (25.9-37.0)
[2022-01-30 15:47] LABS: D-DIMER QUANT 365.72 ng/ml (<500)
[2022-01-30 15:59] LABS: C REACTIVE PROTEIN QUANTITATIV 15.1 MG/DL (0.00-0.30); CALCIUM LEVEL 9.2 MG/DL (8.8-10.2); CREATININE FOR GFR 1.04 MG/DL (0.55-1.30); GLOMERULAR FILTRATION RATE 56.3 (>45); POTASSIUM SERUM 4.1 MEQ/L (3.5-5.1)
[2022-01-30 16:58] VITALS: BP 102/58
[2022-01-30] MEDS ORDERED: REMDESIVIR 200 MG in NS 250 ML IV ONE (18:00)
[2022-01-30] MEDS: dexameTHASONE 20MG/5ML VIAL (J1100 PER 1MG) IV SCH (18:54)
[2022-01-30 20:00] VITALS: BP 105/56; O2SAT 92
[2022-01-30] MEDS ORDERED: SODIUM CHLORIDE 0.9% INJ 10 ML SYR IV ONE (20:00)
[2022-01-30] MEDS: SYMBICORT 160/4.5MCG INHALER 6GM INH SCH (21:22)
[2022-01-30 21:23] VITALS: O2SAT 91
[2022-01-30] MEDS: OMEPRAZOLE 20MG CAP PO SCH (22:12)
[2022-01-30] MEDS: SIMVASTATIN 20 MG TAB PO SCH (22:12)
[2022-01-31] VITALS (8 sets, daily range): BP systolic 120–126; BP diastolic 56–59; O2SAT 86–98
[2022-01-31] MEDS: SYMBICORT 160/4.5MCG INHALER 6GM INH SCH ×2 (07:40→19:31)
[2022-01-31] MEDS: VENLAFAXINE 37.5 MG TAB PO SCH (08:11)
[2022-01-31] MEDS: RIVAROXABAN 20 MG TAB (XARELTO) PO SCH (08:11)
[2022-01-31] MEDS: VITAMIN D 1,000 INTERNATIONAL UNITS TABLET PO SCH (08:11)
[2022-01-31] MEDS: FOLIC ACID 1 MG TAB PO SCH (08:11)
[2022-01-31] MEDS: METOPROLOL SUCC (TopROL XL) 50MG **XL** TAB PO SCH (08:12)
[2022-01-31] MEDS: BARICITINIB 2MG TABLET (OLUMIANT) FOR EUA PO SCH (08:12)
[2022-01-31] MEDS: amLODIPine 5 MG TAB PO SCH (08:13)
[2022-01-31] MEDS: dexameTHASONE 20MG/5ML VIAL (J1100 PER 1MG) IV SCH (08:13)
[2022-01-31 09:15] LABS: BASO % 0.2 % (0.0-1.0); HEMATOCRIT 29.6 % (36.0-47.0); HEMOGLOBIN 9.5 g/dl (12.0-15.5); LYMPH # 0.5 10^3/uL (1.5-5.0); LYMPH % 4.5 % (24.0-44.0); MEAN CORPUSCULAR HEMOGLOBIN 34.9 pg (27.0-33.0); MEAN CORPUSCULAR HGB CONC 32.1 g/dl (32.0-36.5); MEAN CORPUSCULAR VOLUME 108.8 fl (80.0-96.0); MONO # 0.7 10^3/uL (0.0-0.8); MONO % 6.3 % (2.0-8.0); NEUTROPHILS # 9.5 10^3/uL (1.5-8.5); NEUTROPHILS % 88.2 % (36.0-66.0); PLATELET COUNT, AUTOMATED 401 10^3/uL (150-450); RED BLOOD COUNT 2.72 10^6/uL (4.00-5.40); WHITE BLOOD COUNT 10.8 10^3/uL (4.0-10.0)
[2022-01-31 09:39] LABS: ALBUMIN 3.5 GM/DL (3.2-5.2); ALT/SGPT 24 U/L (12-78); BILIRUBIN,DIRECT < 0.1 MG/DL (0.0-0.2); BILIRUBIN,TOTAL 0.3 MG/DL (0.2-1.0); BLOOD UREA NITROGEN 16 MG/DL (7-18); CALCIUM LEVEL 9.4 MG/DL (8.8-10.2); CARBON DIOXIDE LEVEL 27 MEQ/L (21-32); CHLORIDE LEVEL 105 MEQ/L (98-107); CREATININE FOR GFR 1.01 MG/DL (0.55-1.30); GLOMERULAR FILTRATION RATE 58.2 (>45); GLUCOSE, FASTING 154 MG/DL (70-100); MAGNESIUM LEVEL 2.2 MG/DL (1.8-2.4); POTASSIUM SERUM 3.7 MEQ/L (3.5-5.1); SODIUM LEVEL 138 MEQ/L (136-145); TOTAL PROTEIN 7.1 GM/DL (6.4-8.2)
[2022-01-31] MEDS: FLUTICASONE PROP 0.05% NASAL SPRAY 16 GM (FLONASE) SCH (10:47)
[2022-01-31] MEDS: REMDESIVIR 100 MG in NS 250 ML IV SCH (17:06)
[2022-01-31] MEDS ORDERED: SODIUM CHLORIDE 0.9% INJ 10 ML SYR IV SCH (19:00)
[2022-01-31] MEDS: SIMVASTATIN 20 MG TAB PO SCH (20:27)
[2022-01-31] MEDS: OMEPRAZOLE 20MG CAP PO SCH (20:28)
[2022-02-01] VITALS: O2SAT 95
[2022-02-01 04:37] VITALS: O2SAT 97
[2022-02-01 06:00] VITALS: BP 112/59
[2022-02-01] MEDS ORDERED: PRED5PAK PO (07:32)
[2022-02-01] MEDS: SYMBICORT 160/4.5MCG INHALER 6GM INH SCH (07:32)
[2022-02-01] MEDS: RIVAROXABAN 20 MG TAB (XARELTO) PO SCH (08:44)
[2022-02-01] MEDS: dexameTHASONE 20MG/5ML VIAL (J1100 PER 1MG) IV SCH (08:44)
[2022-02-01] MEDS: FOLIC ACID 1 MG TAB PO SCH (08:44)
[2022-02-01] MEDS: VITAMIN D 1,000 INTERNATIONAL UNITS TABLET PO SCH (08:44)
[2022-02-01 08:45] VITALS: BP 145/65
[2022-02-01] MEDS: METOPROLOL SUCC (TopROL XL) 50MG **XL** TAB PO SCH (08:45)
[2022-02-01] MEDS: amLODIPine 5 MG TAB PO SCH (08:45)
[2022-02-01] MEDS: VENLAFAXINE 37.5 MG TAB PO SCH (08:45)
[2022-02-01] MEDS: BARICITINIB 2MG TABLET (OLUMIANT) FOR EUA PO SCH (08:46)
[2022-02-01] MEDS: FLUTICASONE PROP 0.05% NASAL SPRAY 16 GM (FLONASE) SCH (08:46)
[2022-02-01 09:23] VITALS: O2SAT 98
[2022-02-01 10:01] LABS: BASO % 0.3 % (0.0-1.0); EOS % 0.1 % (0.0-3.0); HEMATOCRIT 28.8 % (36.0-47.0); LYMPH # 0.9 10^3/uL (1.5-5.0); LYMPH % 7.9 % (24.0-44.0); MEAN CORPUSCULAR HEMOGLOBIN 35.3 pg (27.0-33.0); MEAN CORPUSCULAR HGB CONC 31.3 g/dl (32.0-36.5); MEAN CORPUSCULAR VOLUME 112.9 fl (80.0-96.0); MONO # 0.5 10^3/uL (0.0-0.8); MONO % 4.6 % (2.0-8.0); PLATELET COUNT, AUTOMATED 441 10^3/uL (150-450); RED BLOOD COUNT 2.55 10^6/uL (4.00-5.40); WHITE BLOOD COUNT 11.6 10^3/uL (4.0-10.0)
[2022-02-01 10:15] LABS: INR 1.2; PROTHROMBIN TIME 15.6 SECONDS (12.7-14.5)
[2022-02-01 10:29] LABS: ALBUMIN 3.4 GM/DL (3.2-5.2); ALT/SGPT 22 U/L (12-78); BILIRUBIN,DIRECT < 0.1 MG/DL (0.0-0.2); BILIRUBIN,TOTAL 0.2 MG/DL (0.2-1.0); FERRITIN 353 NG/ML (8-252); LDH LACTATE DEHYDROGENASE 449 U/L (84-246); MAGNESIUM LEVEL 2.3 MG/DL (1.8-2.4); NT-PRO BNP 338 PG/ML (<125); TOTAL PROTEIN 6.3 GM/DL (6.4-8.2)
[2022-02-01] MEDS: REMDESIVIR 100 MG in NS 250 ML IV SCH (12:02)
[2022-02-02] MEDS ORDERED: AZITHROMYCIN 250MG TABLET PO SCH (09:00)
== END 2022-02-01 13:27 | disposition home or self-care (01) | DRG 178 ==
LOC: M ED 09:45 → M ED INP 13:56 → ENRESERV 15:30 → M 4MAIN 16:48
PROVIDERS: ADMIT General Practice; ATTEND General Practice
DX: U07.1 COVID-19 (principal); C34.91 Malignant neoplasm of unspecified part of right bronchus or lung; C78.7 Secondary malignant neoplasm of liver and intrahepatic bile duct; C79.31 Secondary malignant neoplasm of brain; J44.9 Chronic obstructive pulmonary disease, unspecified; Z99.81 Dependence on supplemental oxygen; F32.A Depression, unspecified; G43.909 Migraine, unspecified, not intractable, without status migrainosus; Z79.01 Long term (current) use of anticoagulants; Z86.711 Personal history of pulmonary embolism; Z79.899 Other long term (current) drug therapy; Z87.891 Personal history of nicotine dependence; Z92.21 Personal history of antineoplastic chemotherapy; E78.5 Hyperlipidemia, unspecified; K21.9 Gastro-esophageal reflux disease without esophagitis; D63.8 Anemia in other chronic diseases classified elsewhere

== ENCOUNTER → 2022-04-02 | Outpatient (CLI) | payer MEDICARE, BC ==
[~2022-04-02] MED LIST changes: +ALBU2.5V10 INH; +ALBU2.5V10 PO; -ALBU83IN INH; -ALBU83IN PO; +CALC600T61 PO; +FOLI1TAB11 PO; +PRED5PAK PO; +XARE20TA PO
== END ==
LOC: M WHC 08:24
PROVIDERS: ATTEND Family Medicine
DX: Z13.820 Encounter for screening for osteoporosis (principal); M81.0 Age-related osteoporosis without current pathological fracture

== ENCOUNTER → 2022-05-21 | Outpatient (CLI) | payer MEDICARE, BC ==
[2022-05-21 13:50] LABS: BLOOD UREA NITROGEN 13 MG/DL (7-18); CARBON DIOXIDE LEVEL 31 MEQ/L (21-32); CHLORIDE LEVEL 107 MEQ/L (98-107); CREATININE FOR GFR 0.86 MG/DL (0.55-1.30); GLOMERULAR FILTRATION RATE > 60.0 (>45); GLUCOSE, FASTING 106 MG/DL (70-100); POTASSIUM SERUM 3.7 MEQ/L (3.5-5.1); SODIUM LEVEL 142 MEQ/L (136-145)
[2022-05-21 14:27] LABS: TOTAL 25(OH) VITAMIN D 23.6 NG/ML (30.0-100.0)
== END ==
LOC: M PLALAB 10:18
PROVIDERS: ATTEND Internal Medicine Endocrinology, Diabetes & Metabolism
DX: M81.0 Age-related osteoporosis without current pathological fracture (principal)

== ENCOUNTER → 2022-06-01 | Outpatient (CLI) | payer MEDICARE, BC ==
[~2022-06-01] MED LIST changes: +ALBU6.7H6 INH; +ALEN70TA87 PO; -FOSA70TA PO; -PROV108A INH
== END ==
LOC: M EKG 08:58
PROVIDERS: ATTEND Internal Medicine Pulmonary Disease
DX: Z79.2 Long term (current) use of antibiotics (principal)

== ENCOUNTER → 2022-07-15 | Outpatient (CLI) | payer MEDICARE, BC ==
[2022-07-15 16:41] LABS: CALCIUM LEVEL 9.8 MG/DL (8.8-10.2); CREATININE FOR GFR 1.05 MG/DL (0.55-1.30); GLOMERULAR FILTRATION RATE 55.5 (>45); POTASSIUM SERUM 3.7 MEQ/L (3.5-5.1)
[2022-07-15 18:26] LABS: TOTAL 25(OH) VITAMIN D 46.9 NG/ML (30.0-100.0)
== END ==
LOC: M PLALAB 10:47
PROVIDERS: ATTEND Internal Medicine Endocrinology, Diabetes & Metabolism
DX: M81.0 Age-related osteoporosis without current pathological fracture (principal); E55.9 Vitamin D deficiency, unspecified; Z12.4 Encounter for screening for malignant neoplasm of cervix
CPT/HCPCS: 36415; 80048; 82306; 87624; G0123

== ENCOUNTER → 2022-07-15 | Outpatient (REF) | payer MEDICARE, BC | LOC: M LAB REF 17:24 | PROVIDERS: ATTEND Family Medicine | DX: Z12.4 Encounter for screening for malignant neoplasm of cervix (principal) ==

== ENCOUNTER 2022-11-20 09:34 | Inpatient (IN) | payer MEDICARE, BC ==
[~2022-11-20] VITALS: Ht 170.2 cm; Wt 61.3 kg
[~2022-11-20 09:34] MED LIST changes: -ASMA1AER3 IN; +MOME13HF5 IN
[2022-11-20 10:36] LABS: BASO # 0.1 10^3/uL (0.0-0.2); BASO % 0.6 % (0.0-1.0); EOS # 0.1 10^3/uL (0.0-0.5); EOS % 1.2 % (0.0-3.0); HEMATOCRIT 31.8 % (36.0-47.0); HEMOGLOBIN 9.8 g/dl (12.0-15.5); LYMPH # 0.5 10^3/uL (1.5-5.0); LYMPH % 5.4 % (24.0-44.0); MEAN CORPUSCULAR HEMOGLOBIN 30.5 pg (27.0-33.0); MEAN CORPUSCULAR HGB CONC 30.8 g/dl (32.0-36.5); MEAN CORPUSCULAR VOLUME 99.1 fl (80.0-96.0); MONO # 1.2 10^3/uL (0.0-0.8); MONO % 13.8 % (2.0-8.0); NEUTROPHILS # 6.7 10^3/uL (1.5-8.5); NEUTROPHILS % 78.6 % (36.0-66.0); PLATELET COUNT, AUTOMATED 302 10^3/uL (150-450); RED BLOOD COUNT 3.21 10^6/uL (4.00-5.40); WHITE BLOOD COUNT 8.5 10^3/uL (4.0-10.0)
[2022-11-20 11:00] LABS: CK-MB VALUE MASS < 1.0 NG/ML (<3.6); CPK CREATINE PHOSPHOKINASE 42 U/L (34-145); MB/CK RELATIVE INDEX 2.38 (< OR =4)
[2022-11-20 11:01] LABS: ALKALINE PHOSPHATASE 89 U/L (46-116); ALT/SGPT 18 U/L (7.0-40); AST/SGOT 17 U/L (<34); BILIRUBIN,DIRECT 0.1 MG/DL (<0.4); BILIRUBIN,TOTAL 0.4 MG/DL (0.3-1.2); BLOOD UREA NITROGEN 11 MG/DL (9-23); CALCIUM LEVEL 8.9 MG/DL (8.3-10.6); CARBON DIOXIDE LEVEL 29 MMOL/L (20-31); CHLORIDE LEVEL 99 MMOL/L (98-107); CREATININE FOR GFR 0.87 MG/DL (0.55-1.30); GLOMERULAR FILTRATION RATE > 60.0 (>45); GLUCOSE, FASTING 131 MG/DL (74-106); POTASSIUM SERUM 3.7 MMOL/L (3.5-5.1); SODIUM LEVEL 138 MMOL/L (136-145); TOTAL PROTEIN 6.1 G/DL (5.7-8.2)
[2022-11-20 11:04] LABS: THYROXINE (T4) 10.9 UG/DL (4.5-10.9)
[2022-11-20] MEDS ORDERED: IPRATROPIUM 0.5MG/ALBUTEROL 2.5MG INH SOL UD 3ML (DUONEB) NEB PRN (13:10)
[2022-11-20] MEDS ORDERED: methylPREDNISolone 125MG 2ML VIAL IV ONE (13:10)
[2022-11-20 13:31] LABS: VENOUS BASE EXCESS -0.2 (-2.0-2.0); VENOUS HCO3 25.9 MEQ/L (23.0-27.0); VENOUS O2 SATURATION 65.2 % (60.0-80.0); VENOUS PARTIAL PRESSURE CO2 48.8 mmHg (38.0-50.0); VENOUS PARTIAL PRESSURE O2 36.6 mmHg (30.0-50.0); VENOUS PH 7.343 UNITS (7.330-7.430); VENOUS STANDARD HCO3 23.8 MEQ/L; VENOUS TOTAL CO2 27.4 MEQ/L (24.0-28.0)
[2022-11-20] MEDS ORDERED: SODIUM CHLORIDE 0.9% INJ 10 ML SYR IV PRN (13:45)
[2022-11-20] MEDS ORDERED: ACETAMINOPHEN 500 MG TAB PO ONE (15:05)
[2022-11-20] MEDS ORDERED: ISOVUE-370 76% 100ML VIAL As Ordered ONE (15:14)
[2022-11-20] MEDS ORDERED: LEVALBUTEROL 1.25MG 0.5ML CONCENTRATE NEB INH PRN (15:15)
[2022-11-20] MEDS: LEVALBUTEROL 1.25MG 0.5ML CONCENTRATE NEB INH SCH ×3 (16:00→23:22)
[2022-11-20 16:15] VITALS: BP 111/62
[2022-11-20] MEDS ORDERED: ALBU6.7H6 INH (17:27)
[2022-11-20] MEDS ORDERED: HOME MED LIST COMPLETE! XX SCH (17:30)
[2022-11-20] MEDS: cefTRIAXone SOD 2 GM in D5W MINI-BAG PLUS 50 ML IV SCH (17:45)
[2022-11-20] MEDS ORDERED: SUMAtriptan SUCCINATE 25 MG TAB PO PRN (18:20)
[2022-11-20] MEDS ORDERED: PROCHLORPERAZINE 5MG TAB PO PRN (18:20)
[2022-11-20 19:42] VITALS: BP 107/68
[2022-11-20] MEDS: SYMBICORT 160/4.5MCG INHALER 6GM INH SCH (19:56)
[2022-11-20] MEDS: SIMVASTATIN 20 MG TAB PO SCH (20:18)
[2022-11-20] MEDS: methylPREDNISolone 125MG 2ML VIAL IV SCH (20:18)
[2022-11-20] MEDS: DOXYCYCLINE HYCLATE 100MG TABLET PO SCH (20:18)
[2022-11-20] MEDS: OMEPRAZOLE 20MG CAP PO SCH (20:18)
[2022-11-20] MEDS: TRIAMCINOLONE ACETONIDE 0.025% 80GM CREAM TOP SCH (20:19)
[2022-11-21] MEDS: methylPREDNISolone 125MG 2ML VIAL IV SCH ×4 (02:17→20:13)
[2022-11-21] MEDS: LEVALBUTEROL 1.25MG 0.5ML CONCENTRATE NEB INH SCH ×6 (03:02→23:04)
[2022-11-21 05:32] LABS: HEMATOCRIT 31.8 % (36.0-47.0); HEMOGLOBIN 10.2 g/dl (12.0-15.5); LYMPH # 0.2 10^3/uL (1.5-5.0); LYMPH % 4.7 % (24.0-44.0); MEAN CORPUSCULAR HEMOGLOBIN 30.8 pg (27.0-33.0); MEAN CORPUSCULAR HGB CONC 32.1 g/dl (32.0-36.5); MEAN CORPUSCULAR VOLUME 96.1 fl (80.0-96.0); MONO # 0.2 10^3/uL (0.0-0.8); MONO % 3.5 % (2.0-8.0); NEUTROPHILS # 3.9 10^3/uL (1.5-8.5); NEUTROPHILS % 91.3 % (36.0-66.0); PLATELET COUNT, AUTOMATED 309 10^3/uL (150-450); RED BLOOD COUNT 3.31 10^6/uL (4.00-5.40); WHITE BLOOD COUNT 4.3 10^3/uL (4.0-10.0)
[2022-11-21 06:02] LABS: BLOOD UREA NITROGEN 11 MG/DL (9-23); CALCIUM LEVEL 9.1 MG/DL (8.3-10.6); CARBON DIOXIDE LEVEL 29 MMOL/L (20-31); CHLORIDE LEVEL 105 MMOL/L (98-107); CREATININE FOR GFR 0.72 MG/DL (0.55-1.30); GLOMERULAR FILTRATION RATE > 60.0 (>45); GLUCOSE, FASTING 169 MG/DL (74-106); POTASSIUM SERUM 3.8 MMOL/L (3.5-5.1); SODIUM LEVEL 143 MMOL/L (136-145)
[2022-11-21] MEDS ORDERED: SODIUM CHLORIDE 0.9% INJ 10 ML SYR IV PRN (06:10)
[2022-11-21 06:41] VITALS: BP 108/67
[2022-11-21] MEDS: SYMBICORT 160/4.5MCG INHALER 6GM INH SCH ×2 (07:36→19:56)
[2022-11-21] MEDS ORDERED: METOPROLOL SUCC (TopROL XL) 50MG **XL** TAB PO SCH (09:00)
[2022-11-21] MEDS ORDERED: SODIUM CHLORIDE 0.9% INJ 10 ML SYR IV SCH (09:00)
[2022-11-21] MEDS: amLODIPine 5 MG TAB PO SCH (09:00)
[2022-11-21] MEDS: TRIAMCINOLONE ACETONIDE 0.025% 80GM CREAM TOP SCH ×2 (09:45→20:15)
[2022-11-21] MEDS: VENLAFAXINE 37.5 MG TAB PO SCH (09:47)
[2022-11-21] MEDS: RIVAROXABAN 20MG TAB (XARELTO) PO SCH (09:47)
[2022-11-21] MEDS: DOXYCYCLINE HYCLATE 100MG TABLET PO SCH ×2 (09:47→20:13)
[2022-11-21] MEDS: FOLIC ACID 1MG TAB PO SCH (09:47)
[2022-11-21] MEDS: VITAMIN D 1,000 INTERNATIONAL UNITS TABLET PO SCH (09:47)
[2022-11-21] MEDS: FLUTICASONE PROP 0.05% NASAL SPRAY 16 GM (FLONASE) SCH (09:48)
[2022-11-21] MEDS: OLOPATADINE 0.1% OPHTH SOL 5ML(PATANOL) OU SCH ×2 (09:48→17:42)
[2022-11-21] MEDS: POLYVINYL ALCOHOL OPHTH SOLN 15ML (LIQUITEARS) OU SCH ×4 (09:48→20:13)
[2022-11-21] MEDS: SODIUM CHLORIDE 0.9% INJ 10 ML SYR IV SCH (09:49)
[2022-11-21 14:00] VITALS: BP 107/72
[2022-11-21] MEDS: cefTRIAXone SOD 2 GM in D5W MINI-BAG PLUS 50 ML IV SCH (17:42)
[2022-11-21] MEDS ORDERED: MIRALAX *UNIT DOSE* 17GM PACKET PO PRN (17:55)
[2022-11-21 19:47] VITALS: BP 117/83
[2022-11-21] MEDS: SIMVASTATIN 20 MG TAB PO SCH (20:12)
[2022-11-21] MEDS: OMEPRAZOLE 20MG CAP PO SCH (20:12)
[2022-11-22] MEDS: methylPREDNISolone 125MG 2ML VIAL IV SCH ×2 (01:33→08:19)
[2022-11-22] MEDS: LEVALBUTEROL 1.25MG 0.5ML CONCENTRATE NEB INH SCH ×5 (02:53→19:25)
[2022-11-22 05:58] VITALS: BP 121/76
[2022-11-22 06:41] LABS: BASO % 0.1 % (0.0-1.0); HEMATOCRIT 29.1 % (36.0-47.0); HEMOGLOBIN 9.2 g/dl (12.0-15.5); LYMPH # 0.2 10^3/uL (1.5-5.0); LYMPH % 1.4 % (24.0-44.0); MEAN CORPUSCULAR HGB CONC 31.6 g/dl (32.0-36.5); MONO # 0.4 10^3/uL (0.0-0.8); MONO % 2.9 % (2.0-8.0); NEUTROPHILS # 13.7 10^3/uL (1.5-8.5); PLATELET COUNT, AUTOMATED 363 10^3/uL (150-450); RED BLOOD COUNT 2.97 10^6/uL (4.00-5.40); WHITE BLOOD COUNT 14.4 10^3/uL (4.0-10.0)
[2022-11-22 07:10] LABS: BLOOD UREA NITROGEN 12 MG/DL (9-23); CALCIUM LEVEL 9.2 MG/DL (8.3-10.6); CARBON DIOXIDE LEVEL 28 MMOL/L (20-31); CHLORIDE LEVEL 107 MMOL/L (98-107); CREATININE FOR GFR 0.73 MG/DL (0.55-1.30); GLOMERULAR FILTRATION RATE > 60.0 (>45); GLUCOSE, FASTING 155 MG/DL (74-106); SODIUM LEVEL 146 MMOL/L (136-145)
[2022-11-22] MEDS: SYMBICORT 160/4.5MCG INHALER 6GM INH SCH ×2 (07:47→19:25)
[2022-11-22] MEDS: VENLAFAXINE 37.5 MG TAB PO SCH (08:19)
[2022-11-22] MEDS: RIVAROXABAN 20MG TAB (XARELTO) PO SCH (08:20)
[2022-11-22] MEDS: FOLIC ACID 1MG TAB PO SCH (08:20)
[2022-11-22] MEDS: VITAMIN D 1,000 INTERNATIONAL UNITS TABLET PO SCH (08:20)
[2022-11-22] MEDS: DOXYCYCLINE HYCLATE 100MG TABLET PO SCH ×2 (08:20→19:56)
[2022-11-22] MEDS: SODIUM CHLORIDE 0.9% INJ 10 ML SYR IV SCH (08:21)
[2022-11-22] MEDS: POLYVINYL ALCOHOL OPHTH SOLN 15ML (LIQUITEARS) OU SCH ×4 (08:21→21:00)
[2022-11-22] MEDS: OLOPATADINE 0.1% OPHTH SOL 5ML(PATANOL) OU SCH ×3 (08:21→19:57)
[2022-11-22] MEDS: FLUTICASONE PROP 0.05% NASAL SPRAY 16 GM (FLONASE) SCH (08:21)
[2022-11-22] MEDS: TRIAMCINOLONE ACETONIDE 0.025% 80GM CREAM TOP SCH ×2 (08:22→19:58)
[2022-11-22 08:30] VITALS: BP 124/56
[2022-11-22] MEDS: amLODIPine 5 MG TAB PO SCH (09:00)
[2022-11-22] MEDS: MIDODRINE 5 MG TAB PO SCH ×4 (09:44→18:11)
[2022-11-22] MEDS: METOPROLOL TART 25 MG TABLET PO SCH ×4 (09:44→23:42)
[2022-11-22] MEDS: methylPREDNISolone 40MG 1ML VIAL IV SCH ×3 (13:02→23:39)
[2022-11-22 14:00] VITALS: BP 130/75
[2022-11-22] MEDS: cefTRIAXone SOD 2 GM in D5W MINI-BAG PLUS 50 ML IV SCH (18:13)
[2022-11-22] MEDS: SIMVASTATIN 20 MG TAB PO SCH (19:56)
[2022-11-22] MEDS: OMEPRAZOLE 20MG CAP PO SCH (19:56)
[2022-11-22 20:00] VITALS: BP 139/70
[2022-11-23] MEDS: methylPREDNISolone 40MG 1ML VIAL IV SCH (05:38)
[2022-11-23] MEDS: METOPROLOL TART 25 MG TABLET PO SCH ×3 (05:39→17:15)
[2022-11-23 06:00] VITALS: BP 122/91
[2022-11-23 06:42] LABS: BASO % 0.1 % (0.0-1.0); HEMATOCRIT 30.2 % (36.0-47.0); HEMOGLOBIN 9.5 g/dl (12.0-15.5); LYMPH # 0.3 10^3/uL (1.5-5.0); MEAN CORPUSCULAR HEMOGLOBIN 31.3 pg (27.0-33.0); MEAN CORPUSCULAR HGB CONC 31.5 g/dl (32.0-36.5); MEAN CORPUSCULAR VOLUME 99.3 fl (80.0-96.0); MONO # 0.5 10^3/uL (0.0-0.8); MONO % 3.6 % (2.0-8.0); NEUTROPHILS # 13.3 10^3/uL (1.5-8.5); NEUTROPHILS % 92.5 % (36.0-66.0); PLATELET COUNT, AUTOMATED 414 10^3/uL (150-450); RED BLOOD COUNT 3.04 10^6/uL (4.00-5.40); WHITE BLOOD COUNT 14.4 10^3/uL (4.0-10.0)
[2022-11-23 07:15] LABS: BLOOD UREA NITROGEN 21 MG/DL (9-23); CALCIUM LEVEL 9.3 MG/DL (8.3-10.6); CARBON DIOXIDE LEVEL 28 MMOL/L (20-31); CHLORIDE LEVEL 106 MMOL/L (98-107); GLOMERULAR FILTRATION RATE > 60.0 (>45); GLUCOSE, FASTING 124 MG/DL (74-106); POTASSIUM SERUM 4.7 MMOL/L (3.5-5.1); SODIUM LEVEL 144 MMOL/L (136-145)
[2022-11-23] MEDS: LEVALBUTEROL 1.25MG 0.5ML CONCENTRATE NEB INH SCH ×4 (07:53→19:12)
[2022-11-23] MEDS: SYMBICORT 160/4.5MCG INHALER 6GM INH SCH ×2 (07:53→19:12)
[2022-11-23] MEDS: CEFDINIR 300 MG CAP (OMNICEF) PO SCH ×2 (08:21→20:07)
[2022-11-23] MEDS: predniSONE 20 MG TAB PO SCH ×2 (08:21→20:07)
[2022-11-23] MEDS: MIDODRINE 5 MG TAB PO SCH ×3 (08:22→17:12)
[2022-11-23] MEDS: FOLIC ACID 1MG TAB PO SCH (08:22)
[2022-11-23] MEDS: VITAMIN D 1,000 INTERNATIONAL UNITS TABLET PO SCH (08:22)
[2022-11-23] MEDS: RIVAROXABAN 20MG TAB (XARELTO) PO SCH (08:22)
[2022-11-23] MEDS: DOXYCYCLINE HYCLATE 100MG TABLET PO SCH ×2 (08:22→20:07)
[2022-11-23] MEDS: VENLAFAXINE 37.5 MG TAB PO SCH (08:23)
[2022-11-23] MEDS: amLODIPine 5 MG TAB PO SCH (08:23)
[2022-11-23] MEDS: POLYVINYL ALCOHOL OPHTH SOLN 15ML (LIQUITEARS) OU SCH ×4 (08:24→20:08)
[2022-11-23] MEDS: SODIUM CHLORIDE 0.9% INJ 10 ML SYR IV SCH (08:24)
[2022-11-23] MEDS: FLUTICASONE PROP 0.05% NASAL SPRAY 16 GM (FLONASE) SCH (08:24)
[2022-11-23] MEDS: TRIAMCINOLONE ACETONIDE 0.025% 80GM CREAM TOP SCH ×2 (08:25→20:08)
[2022-11-23 14:00] VITALS: BP 146/91
[2022-11-23] MEDS: OLOPATADINE 0.1% OPHTH SOL 5ML(PATANOL) OU SCH (17:00)
[2022-11-23] MEDS: SIMVASTATIN 20 MG TAB PO SCH (20:07)
[2022-11-23] MEDS: OMEPRAZOLE 20MG CAP PO SCH (20:07)
[2022-11-23 22:00] VITALS: BP 139/74
[2022-11-24] MEDS: METOPROLOL TART 25 MG TABLET PO SCH ×2 (00:48→05:58)
[2022-11-24 06:00] VITALS: BP 131/64
[2022-11-24 06:23] LABS: HEMOGLOBIN 10.1 g/dl (12.0-15.5); MEAN CORPUSCULAR HEMOGLOBIN 31.2 pg (27.0-33.0); MEAN CORPUSCULAR HGB CONC 31.6 g/dl (32.0-36.5); MEAN CORPUSCULAR VOLUME 98.8 fl (80.0-96.0); PLATELET COUNT, AUTOMATED 420 10^3/uL (150-450); RED BLOOD COUNT 3.24 10^6/uL (4.00-5.40); WHITE BLOOD COUNT 12.2 10^3/uL (4.0-10.0)
[2022-11-24 06:55] LABS: LYMPHOCYTES 2 % (16-44); METAMYELOCYTES 1 % (0-0); MONOCYTES 5 % (0-5); NEUTROPHILS 92 % (28-66); PLATELET ESTIMATE NORMAL (NORMAL)
[2022-11-24 06:56] LABS: BLOOD UREA NITROGEN 19 MG/DL (9-23); CALCIUM LEVEL 9.8 MG/DL (8.3-10.6); CARBON DIOXIDE LEVEL 31 MMOL/L (20-31); CHLORIDE LEVEL 106 MMOL/L (98-107); CREATININE FOR GFR 0.66 MG/DL (0.55-1.30); GLOMERULAR FILTRATION RATE > 60.0 (>45); GLUCOSE, FASTING 120 MG/DL (74-106); POTASSIUM SERUM 4.5 MMOL/L (3.5-5.1); SODIUM LEVEL 146 MMOL/L (136-145)
[2022-11-24] MEDS ORDERED: CEFD300CAP PO (07:30)
[2022-11-24] MEDS ORDERED: DOXY100T PO (07:30)
[2022-11-24] MEDS ORDERED: PRED10TA2 PO (07:33)
[2022-11-24] MEDS ORDERED: AMOX875T2 PO (07:33)
[2022-11-24] MEDS ORDERED: ALBU8.5H INH (07:33)
[2022-11-24] MEDS ORDERED: PRED20TA PO (07:33)
[2022-11-24] MEDS ORDERED: METO1TAB87 PO (07:35)
[2022-11-24] MEDS: LEVALBUTEROL 1.25MG 0.5ML CONCENTRATE NEB INH SCH (08:00)
[2022-11-24 08:02] VITALS: BP 125/80
[2022-11-24] MEDS: SYMBICORT 160/4.5MCG INHALER 6GM INH SCH (08:06)
[2022-11-24] MEDS: DOXYCYCLINE HYCLATE 100MG TABLET PO SCH (08:28)
[2022-11-24] MEDS: VENLAFAXINE 37.5 MG TAB PO SCH (08:29)
[2022-11-24] MEDS: predniSONE 20 MG TAB PO SCH (08:30)
[2022-11-24] MEDS: CEFDINIR 300 MG CAP (OMNICEF) PO SCH (08:30)
[2022-11-24] MEDS: VITAMIN D 1,000 INTERNATIONAL UNITS TABLET PO SCH (08:30)
[2022-11-24] MEDS: RIVAROXABAN 20MG TAB (XARELTO) PO SCH (08:31)
[2022-11-24] MEDS: MIDODRINE 5 MG TAB PO SCH (08:31)
[2022-11-24] MEDS: FOLIC ACID 1MG TAB PO SCH (08:32)
[2022-11-24] MEDS: FLUTICASONE PROP 0.05% NASAL SPRAY 16 GM (FLONASE) SCH (08:33)
[2022-11-24] MEDS: OLOPATADINE 0.1% OPHTH SOL 5ML(PATANOL) OU SCH (08:33)
[2022-11-24] MEDS: TRIAMCINOLONE ACETONIDE 0.025% 80GM CREAM TOP SCH (08:34)
[2022-11-24] MEDS: POLYVINYL ALCOHOL OPHTH SOLN 15ML (LIQUITEARS) OU SCH (08:34)
[2022-11-24 08:48] VITALS: BP 125/80
[2022-11-24] MEDS: amLODIPine 5 MG TAB PO SCH (08:48)
[2022-11-24] MEDS: SODIUM CHLORIDE 0.9% INJ 10 ML SYR IV SCH (10:02)
== END 2022-11-24 11:30 | disposition home health service (06) | DRG 190 ==
LOC: M ED 09:34 → M ED INP 15:09 → M MS5PR 16:10
PROVIDERS: ADMIT General Practice; ATTEND General Practice
DX: J44.1 Chronic obstructive pulmonary disease with (acute) exacerbation (principal); J18.9 Pneumonia, unspecified organism; C34.90 Malignant neoplasm of unspecified part of unspecified bronchus or lung; C78.7 Secondary malignant neoplasm of liver and intrahepatic bile duct; C79.31 Secondary malignant neoplasm of brain; J96.11 Chronic respiratory failure with hypoxia; J44.0 Chronic obstructive pulmonary disease with (acute) lower respiratory infection; R00.0 Tachycardia, unspecified; I10 Essential (primary) hypertension; E78.00 Pure hypercholesterolemia, unspecified; G43.909 Migraine, unspecified, not intractable, without status migrainosus; Z99.81 Dependence on supplemental oxygen; K21.9 Gastro-esophageal reflux disease without esophagitis; M81.0 Age-related osteoporosis without current pathological fracture; Z92.3 Personal history of irradiation; Z92.21 Personal history of antineoplastic chemotherapy; Z79.01 Long term (current) use of anticoagulants; Z86.711 Personal history of pulmonary embolism

== ENCOUNTER 2022-12-08 16:00 | Inpatient (IN) | payer MEDICARE, BC ==
[~2022-12-08] VITALS: Ht 170.2 cm; Wt 59.6 kg
[~2022-12-08 16:00] MED LIST changes: +ALBU8.5H INH; +AMOX875T2 PO; +CEFD300CAP PO; +METO1TAB87 PO
[2022-12-08 17:05] LABS: BASO % 0.2 % (0.0-1.0); EOS % 0.1 % (0.0-3.0); LYMPH # 0.5 10^3/uL (1.5-5.0); MEAN CORPUSCULAR HEMOGLOBIN 31.2 pg (27.0-33.0); MEAN CORPUSCULAR HGB CONC 31.4 g/dl (32.0-36.5); MEAN CORPUSCULAR VOLUME 99.2 fl (80.0-96.0); MONO # 0.6 10^3/uL (0.0-0.8); MONO % 6.6 % (2.0-8.0); NEUTROPHILS # 8.5 10^3/uL (1.5-8.5); NEUTROPHILS % 87.1 % (36.0-66.0); PLATELET COUNT, AUTOMATED 198 10^3/uL (150-450); RED BLOOD COUNT 3.53 10^6/uL (4.00-5.40); WHITE BLOOD COUNT 9.8 10^3/uL (4.0-10.0)
[2022-12-08] MEDS ORDERED: methylPREDNISolone 125MG 2ML VIAL IV ONE (17:45)
[2022-12-08 17:46] LABS: ALKALINE PHOSPHATASE 75 U/L (46-116); ALT/SGPT 22 U/L (7.0-40); AST/SGOT 15 U/L (<34); BILIRUBIN,DIRECT 0.2 MG/DL (<0.4); BILIRUBIN,TOTAL 0.6 MG/DL (0.3-1.2); BLOOD UREA NITROGEN 12 MG/DL (9-23); CALCIUM LEVEL 10.1 MG/DL (8.3-10.6); CARBON DIOXIDE LEVEL 25 MMOL/L (20-31); CHLORIDE LEVEL 103 MMOL/L (98-107); CREATININE FOR GFR 0.94 MG/DL (0.55-1.30); GLOMERULAR FILTRATION RATE > 60.0 (>45); GLUCOSE, FASTING 122 MG/DL (74-106); POTASSIUM SERUM 3.4 MMOL/L (3.5-5.1); SODIUM LEVEL 137 MMOL/L (136-145); TOTAL PROTEIN 6.5 G/DL (5.7-8.2)
[2022-12-08] MEDS ORDERED: SODIUM CHLORIDE 0.9% INJ 10 ML SYR IV PRN (17:50)
[2022-12-08] MEDS ORDERED: POTASSIUM CHLORIDE 10MEQ SR TABLET PO ONE (17:50)
[2022-12-08] MEDS: IPRATROPIUM 0.5MG/ALBUTEROL 2.5MG INH SOL UD 3ML (DUONEB) NEB PRN ×3 (17:58→20:55)
[2022-12-08 18:13] LABS: ABG BASE EXCESS 0.8 (-2.0-2.0); ABG O2 SATURATION 99.4 % (95.0-99.0); ABG PARTIAL PRESSURE CO2 38.4 mmHg (35.0-45.0); ABG PARTIAL PRESSURE O2 238.5 mmHg (75.0-100.0); ABG STANDARD HCO3 25.2 MEQ/L (22.0-26.0); ABG TOTAL CO2 26.2 MEQ/L (23.0-31.0); ABG pH (ARTERIAL) 7.431 UNITS (7.350-7.450)
[2022-12-08] MEDS ORDERED: ISOVUE-370 76% 100ML VIAL As Ordered ONE (18:43)
[2022-12-08] MEDS: SYMBICORT 160/4.5MCG INHALER 6GM INH SCH (20:00)
[2022-12-08] MEDS ORDERED: LEVALBUTEROL 1.25MG 0.5ML CONCENTRATE NEB INH PRN (21:45)
[2022-12-08] MEDS ORDERED: IPRATROPIUM 0.5MG/ALBUTEROL 2.5MG INH SOL UD 3ML (DUONEB) NEB PRN (21:45)
[2022-12-08] MEDS ORDERED: VALT1TAB PO (22:30)
[2022-12-08] MEDS ORDERED: HOME MED LIST COMPLETE! XX SCH (22:30)
[2022-12-08] MEDS ORDERED: CLOT10TR MT (22:30)
[2022-12-08] MEDS ORDERED: AZIT500T5 PO (22:30)
[2022-12-08] MEDS ORDERED: OYST500T92 PO (22:30)
[2022-12-08] MEDS ORDERED: PRED10TA2 PO (22:30)
[2022-12-08] MEDS ORDERED: METO25TA4 PO (22:30)
[2022-12-08] MEDS ORDERED: SUMAtriptan SUCCINATE 25 MG TAB PO PRN (22:35)
[2022-12-08] MEDS ORDERED: METOPROLOL TART 25 MG TABLET PO PRN (22:35)
[2022-12-08] MEDS: OMEPRAZOLE 20MG CAP PO SCH (22:50)
[2022-12-08] MEDS: SIMVASTATIN 20 MG TAB PO SCH (22:50)
[2022-12-09] MEDS ORDERED: IPRATROPIUM 0.5MG/ALBUTEROL 2.5MG INH SOL UD 3ML (DUONEB) NEB SCH
[2022-12-09 00:15] VITALS: BP 156/101
[2022-12-09 00:47] VITALS: BP 111/76
[2022-12-09] MEDS: LEVALBUTEROL 1.25MG 0.5ML CONCENTRATE NEB INH SCH ×4 (04:00→11:16)
[2022-12-09 06:56] LABS: BLOOD UREA NITROGEN 11 MG/DL (9-23); CALCIUM LEVEL 9.4 MG/DL (8.3-10.6); CARBON DIOXIDE LEVEL 25 MMOL/L (20-31); CHLORIDE LEVEL 105 MMOL/L (98-107); CREATININE FOR GFR 0.77 MG/DL (0.55-1.30); GLOMERULAR FILTRATION RATE > 60.0 (>45); GLUCOSE, FASTING 140 MG/DL (74-106); POTASSIUM SERUM 4.4 MMOL/L (3.5-5.1); SODIUM LEVEL 141 MMOL/L (136-145)
[2022-12-09] MEDS: SYMBICORT 160/4.5MCG INHALER 6GM INH SCH ×2 (07:51→19:07)
[2022-12-09 08:25] LABS: HEMATOCRIT 35.9 % (36.0-47.0); HEMOGLOBIN 11.1 g/dl (12.0-15.5); MEAN CORPUSCULAR HEMOGLOBIN 30.8 pg (27.0-33.0); MEAN CORPUSCULAR HGB CONC 30.9 g/dl (32.0-36.5); MEAN CORPUSCULAR VOLUME 99.7 fl (80.0-96.0); PLATELET COUNT, AUTOMATED 203 10^3/uL (150-450); WHITE BLOOD COUNT 7.7 10^3/uL (4.0-10.0)
[2022-12-09] MEDS ORDERED: CLOTRIMAZOLE 10 MG TROCHE MT SCH (09:00)
[2022-12-09] MEDS ORDERED: methylPREDNISolone 40MG 1ML VIAL IV SCH (09:00)
[2022-12-09] MEDS ORDERED: valACYclovir HCL 500 MG TAB PO ONE (09:00)
[2022-12-09] MEDS ORDERED: valACYclovir HCL 500 MG TAB PO SCH (09:00)
[2022-12-09] MEDS: FLUTICASONE PROP 0.05% NASAL SPRAY 16 GM (FLONASE) SCH (09:11)
[2022-12-09] MEDS: VITAMIN D 1,000 INTERNATIONAL UNITS TABLET PO SCH (09:13)
[2022-12-09] MEDS: FOLIC ACID 1MG TAB PO SCH (09:13)
[2022-12-09] MEDS: amLODIPine 5 MG TAB PO SCH (09:14)
[2022-12-09] MEDS: SODIUM CHLORIDE 0.9% INJ 10 ML SYR IV SCH (09:15)
[2022-12-09] MEDS: METOPROLOL SUCC (TopROL XL) 50MG **XL** TAB PO SCH (09:15)
[2022-12-09] MEDS: VENLAFAXINE 37.5 MG TAB PO SCH (11:04)
[2022-12-09 14:00] VITALS: BP 128/80
[2022-12-09] MEDS ORDERED: IPRATROPIUM 0.02% SOLN 0.5MG 2.5ML NEB INH PRN (14:35)
[2022-12-09] MEDS: IPRATROPIUM 0.02% SOLN 0.5MG 2.5ML NEB INH SCH ×2 (15:09→19:06)
[2022-12-09] MEDS: RIVAROXABAN 20MG TAB (XARELTO) PO SCH (18:18)
[2022-12-09] MEDS: OMEPRAZOLE 20MG CAP PO SCH (20:53)
[2022-12-09] MEDS: methylPREDNISolone 125MG 2ML VIAL IV SCH (20:53)
[2022-12-09] MEDS: SIMVASTATIN 20 MG TAB PO SCH (20:53)
[2022-12-09 21:05] VITALS: BP 133/65
[2022-12-10] MEDS: ACETAMINOPHEN TAB 650MG DOSE (2X325MG) PO PRN ×2 (04:42→14:28)
[2022-12-10 05:16] VITALS: BP 131/66
[2022-12-10 06:07] LABS: HEMATOCRIT 31.8 % (36.0-47.0); MEAN CORPUSCULAR HEMOGLOBIN 31.5 pg (27.0-33.0); MEAN CORPUSCULAR HGB CONC 31.4 g/dl (32.0-36.5); MEAN CORPUSCULAR VOLUME 100.3 fl (80.0-96.0); PLATELET COUNT, AUTOMATED 202 10^3/uL (150-450); RED BLOOD COUNT 3.17 10^6/uL (4.00-5.40); WHITE BLOOD COUNT 14.4 10^3/uL (4.0-10.0)
[2022-12-10 06:39] LABS: ALBUMIN 2.7 G/DL (3.2-5.2); ALKALINE PHOSPHATASE 73 U/L (46-116); ALT/SGPT 24 U/L (7.0-40); AST/SGOT < 8 U/L (<34); BILIRUBIN,TOTAL 0.2 MG/DL (0.3-1.2); BLOOD UREA NITROGEN 21 MG/DL (9-23); CALCIUM LEVEL 9.6 MG/DL (8.3-10.6); CARBON DIOXIDE LEVEL 27 MMOL/L (20-31); CHLORIDE LEVEL 108 MMOL/L (98-107); CREATININE FOR GFR 0.71 MG/DL (0.55-1.30); GLOMERULAR FILTRATION RATE > 60.0 (>45); GLUCOSE, FASTING 125 MG/DL (74-106); POTASSIUM SERUM 4.5 MMOL/L (3.5-5.1); SODIUM LEVEL 142 MMOL/L (136-145); TOTAL PROTEIN 5.4 G/DL (5.7-8.2)
[2022-12-10] MEDS: SYMBICORT 160/4.5MCG INHALER 6GM INH SCH ×2 (07:19→19:26)
[2022-12-10] MEDS: IPRATROPIUM 0.02% SOLN 0.5MG 2.5ML NEB INH SCH ×4 (07:19→19:26)
[2022-12-10] MEDS ORDERED: TIOTROPIUM INHALER/CAPSULE (SPIRIVA) INH SCH ×2 (08:00→20:00)
[2022-12-10 09:00] VITALS: BP 157/82
[2022-12-10] MEDS: VITAMIN D 1,000 INTERNATIONAL UNITS TABLET PO SCH (09:39)
[2022-12-10] MEDS: METOPROLOL SUCC (TopROL XL) 50MG **XL** TAB PO SCH (09:41)
[2022-12-10] MEDS: amLODIPine 5 MG TAB PO SCH (09:41)
[2022-12-10] MEDS: FOLIC ACID 1MG TAB PO SCH (09:42)
[2022-12-10] MEDS: VENLAFAXINE 37.5 MG TAB PO SCH (09:42)
[2022-12-10] MEDS: FLUTICASONE PROP 0.05% NASAL SPRAY 16 GM (FLONASE) SCH (09:43)
[2022-12-10] MEDS: methylPREDNISolone 125MG 2ML VIAL IV SCH ×3 (10:26→20:50)
[2022-12-10] MEDS: SODIUM CHLORIDE 0.9% INJ 10 ML SYR IV SCH (10:29)
[2022-12-10 14:00] VITALS: BP 131/61
[2022-12-10] MEDS: RIVAROXABAN 20MG TAB (XARELTO) PO SCH (18:28)
[2022-12-10] MEDS: SIMVASTATIN 20 MG TAB PO SCH (20:33)
[2022-12-10] MEDS: OMEPRAZOLE 20MG CAP PO SCH (20:33)
[2022-12-10 20:50] VITALS: BP 134/72
[2022-12-11 06:00] VITALS: BP 132/74
[2022-12-11 06:22] LABS: HEMATOCRIT 34.5 % (36.0-47.0); HEMOGLOBIN 10.7 g/dl (12.0-15.5); MEAN CORPUSCULAR HEMOGLOBIN 31.4 pg (27.0-33.0); MEAN CORPUSCULAR VOLUME 101.2 fl (80.0-96.0); PLATELET COUNT, AUTOMATED 213 10^3/uL (150-450); RED BLOOD COUNT 3.41 10^6/uL (4.00-5.40); WHITE BLOOD COUNT 9.5 10^3/uL (4.0-10.0)
[2022-12-11 07:01] LABS: ALBUMIN 2.9 G/DL (3.2-5.2); ALKALINE PHOSPHATASE 74 U/L (46-116); ALT/SGPT 25 U/L (7.0-40); AST/SGOT 14 U/L (<34); BILIRUBIN,TOTAL 0.2 MG/DL (0.3-1.2); BLOOD UREA NITROGEN 21 MG/DL (9-23); CALCIUM LEVEL 9.4 MG/DL (8.3-10.6); CARBON DIOXIDE LEVEL 32 MMOL/L (20-31); CHLORIDE LEVEL 106 MMOL/L (98-107); CREATININE FOR GFR 0.69 MG/DL (0.55-1.30); GLOMERULAR FILTRATION RATE > 60.0 (>45); GLUCOSE, FASTING 125 MG/DL (74-106); POTASSIUM SERUM 4.3 MMOL/L (3.5-5.1); SODIUM LEVEL 143 MMOL/L (136-145); TOTAL PROTEIN 5.7 G/DL (5.7-8.2)
[2022-12-11] MEDS: SYMBICORT 160/4.5MCG INHALER 6GM INH SCH (07:25)
[2022-12-11] MEDS: IPRATROPIUM 0.02% SOLN 0.5MG 2.5ML NEB INH SCH ×2 (07:25→11:20)
[2022-12-11 09:26] VITALS: BP 148/76
[2022-12-11] MEDS: METOPROLOL SUCC (TopROL XL) 50MG **XL** TAB PO SCH (09:26)
[2022-12-11] MEDS: amLODIPine 5 MG TAB PO SCH (09:26)
[2022-12-11] MEDS: VENLAFAXINE 37.5 MG TAB PO SCH (09:26)
[2022-12-11] MEDS: FOLIC ACID 1MG TAB PO SCH (09:26)
[2022-12-11] MEDS: VITAMIN D 1,000 INTERNATIONAL UNITS TABLET PO SCH (09:26)
[2022-12-11] MEDS: methylPREDNISolone 125MG 2ML VIAL IV SCH (09:26)
[2022-12-11] MEDS: FLUTICASONE PROP 0.05% NASAL SPRAY 16 GM (FLONASE) SCH (09:27)
[2022-12-11] MEDS: SODIUM CHLORIDE 0.9% INJ 10 ML SYR IV SCH (09:27)
[2022-12-11] MEDS: ACETAMINOPHEN TAB 650MG DOSE (2X325MG) PO PRN (09:30)
[2022-12-11] MEDS ORDERED: PRED20TA PO (09:42)
[2022-12-11] MEDS ORDERED: IPRA2IN INH ×2 (09:42→11:00)
== END 2022-12-11 13:50 | disposition home or self-care (01) | DRG 191 ==
LOC: M ED 16:00 → M ED INP 21:19 → M MSPAV 12-09 00:13
PROVIDERS: ADMIT Internal Medicine; ATTEND Internal Medicine
DX: J44.1 Chronic obstructive pulmonary disease with (acute) exacerbation (principal); C78.7 Secondary malignant neoplasm of liver and intrahepatic bile duct; C34.90 Malignant neoplasm of unspecified part of unspecified bronchus or lung; C79.31 Secondary malignant neoplasm of brain; J96.11 Chronic respiratory failure with hypoxia; I10 Essential (primary) hypertension; E78.00 Pure hypercholesterolemia, unspecified; K21.9 Gastro-esophageal reflux disease without esophagitis; E78.5 Hyperlipidemia, unspecified; Z66 Do not resuscitate; R00.0 Tachycardia, unspecified; Z92.21 Personal history of antineoplastic chemotherapy; Z99.81 Dependence on supplemental oxygen; Z92.3 Personal history of irradiation; Z79.899 Other long term (current) drug therapy; Z87.891 Personal history of nicotine dependence; Z86.711 Personal history of pulmonary embolism; Z79.01 Long term (current) use of anticoagulants; M81.0 Age-related osteoporosis without current pathological fracture; G43.909 Migraine, unspecified, not intractable, without status migrainosus

== ENCOUNTER 2022-12-26 03:26 | Inpatient (IN) | payer MEDICARE, BC ==
[~2022-12-26] VITALS: Ht 170.2 cm; Wt 59.0 kg
[~2022-12-26 03:26] MED LIST changes: +CLOT10TR MT; +IPRA2IN INH; +METO25TA4 PO; +OYST500T92 PO; +VALT1TAB PO
[2022-12-26] MEDS ORDERED: IPRATROPIUM 0.5MG/ALBUTEROL 2.5MG INH SOL UD 3ML (DUONEB) NEB ONE (03:45)
[2022-12-26] MEDS ORDERED: ALBUTEROL SULFATE 2.5MG/0.5ML INH NEB SOLN NEB ONE ×2 (03:45)
[2022-12-26] MEDS ORDERED: methylPREDNISolone 125MG 2ML VIAL IV ONE (03:45)
[2022-12-26] MEDS ORDERED: ONDANSETRON 4MG 2ML VIAL IV ONE (03:55)
[2022-12-26 04:06] LABS: BASO % 0.2 % (0.0-1.0); EOS % 0.6 % (0.0-3.0); HEMATOCRIT 32.4 % (36.0-47.0); HEMOGLOBIN 10.3 g/dl (12.0-15.5); LYMPH # 0.4 10^3/uL (1.5-5.0); LYMPH % 6.1 % (24.0-44.0); MEAN CORPUSCULAR HEMOGLOBIN 31.1 pg (27.0-33.0); MEAN CORPUSCULAR HGB CONC 31.8 g/dl (32.0-36.5); MEAN CORPUSCULAR VOLUME 97.9 fl (80.0-96.0); MONO # 0.3 10^3/uL (0.0-0.8); NEUTROPHILS # 5.5 10^3/uL (1.5-8.5); NEUTROPHILS % 85.7 % (36.0-66.0); PLATELET COUNT, AUTOMATED 101 10^3/uL (150-450); RED BLOOD COUNT 3.31 10^6/uL (4.00-5.40); WHITE BLOOD COUNT 6.4 10^3/uL (4.0-10.0)
[2022-12-26 04:17] LABS: CREATININE FOR GFR 1.01 MG/DL (0.55-1.30)
[2022-12-26 05:52] LABS: ABG BASE EXCESS 4.7 (-2.0-2.0); ABG HCO3 28.9 MEQ/L (22.0-26.0); ABG O2 SATURATION 97.1 % (95.0-99.0); ABG PARTIAL PRESSURE CO2 41.4 mmHg (35.0-45.0); ABG PARTIAL PRESSURE O2 90.4 mmHg (75.0-100.0); ABG STANDARD HCO3 28.7 MEQ/L (22.0-26.0); ABG TOTAL CO2 30.2 MEQ/L (23.0-31.0); ABG pH (ARTERIAL) 7.462 UNITS (7.350-7.450)
[2022-12-26] MEDS ORDERED: VALT500T PO (06:00)
[2022-12-26] MEDS ORDERED: DEXA2TA PO (06:01)
[2022-12-26] MEDS ORDERED: TREL1AER PO (06:03)
[2022-12-26] MEDS ORDERED: ALBU8.5H INH (06:03)
[2022-12-26] MEDS ORDERED: HOME MED LIST COMPLETE! XX SCH (06:05)
[2022-12-26] MEDS ORDERED: SUMAtriptan SUCCINATE 25 MG TAB PO PRN (06:10)
[2022-12-26] MEDS ORDERED: DEXTROSE 50% 50ML SYRINGE IV PRN (06:10)
[2022-12-26] MEDS ORDERED: GLUCAGON INJ 1MG VIAL SC PRN (06:10)
[2022-12-26] MEDS ORDERED: GLUCOSE 4GM CHEW TABLET PO PRN (06:10)
[2022-12-26] MEDS ORDERED: ALBUTEROL SULFATE 2.5MG/0.5ML INH NEB SOLN NEB PRN (06:20)
[2022-12-26] MEDS ORDERED: ACETAMINOPHEN TAB 650MG DOSE (2X325MG) PO PRN (06:20)
[2022-12-26] MEDS ORDERED: NS 500 ML IV SCH (06:20)
[2022-12-26] MEDS ORDERED: VALT1TAB PO (06:34)
[2022-12-26] MEDS ORDERED: ALBUTEROL SULFATE 2.5MG/0.5ML INH NEB SOLN NEB SCH (08:00)
[2022-12-26] MEDS ORDERED: LEVALBUTEROL 1.25MG 0.5ML CONCENTRATE NEB NEB PRN (08:00)
[2022-12-26] MEDS ORDERED: IPRATROPIUM 0.02% SOLN 0.5MG 2.5ML NEB INH SCH ×2 (08:00)
[2022-12-26 08:21] LABS: INR 1.6; PROTHROMBIN TIME 19.3 SECONDS (12.5-14.5)
[2022-12-26 08:22] LABS: PARTIAL THROMBOPLASTIN TIME 28.6 SECONDS (24.8-34.2)
[2022-12-26 08:43] LABS: ALBUMIN 2.9 G/DL (3.2-5.2); BILIRUBIN,DIRECT 0.1 MG/DL (<0.4); BILIRUBIN,TOTAL 0.4 MG/DL (0.3-1.2); TOTAL PROTEIN 5.5 G/DL (5.7-8.2)
[2022-12-26] MEDS ORDERED: LEVALBUTEROL 1.25MG 0.5ML CONCENTRATE NEB NEB SCH (09:00)
[2022-12-26] MEDS ORDERED: valACYclovir HCL 500 MG TAB PO SCH (09:00)
[2022-12-26] MEDS: IPRATROPIUM 0.02% SOLN 0.5MG 2.5ML NEB INH SCH ×4 (09:07→19:19)
[2022-12-26] MEDS: ADVAIR HFA 115/21MCG INHALER INH SCH ×2 (09:07→19:17)
[2022-12-26] MEDS: LEVALBUTEROL HFA 45MCG/ACT 15GM INHALER INH SCH ×4 (09:07→19:17)
[2022-12-26 10:00] VITALS: BP 103/63
[2022-12-26] MEDS ORDERED: methylPREDNISolone 40MG 1ML VIAL IV SCH (10:00)
[2022-12-26] MEDS: valACYclovir HCL 500 MG TAB PO SCH ×3 (10:02→20:23)
[2022-12-26] MEDS: CYANOCOBALAMIN 500 MCG TAB PO SCH (10:03)
[2022-12-26] MEDS: FOLIC ACID 1MG TAB PO SCH (10:03)
[2022-12-26] MEDS: METOPROLOL SUCC (TopROL XL) 50MG **XL** TAB PO SCH (10:04)
[2022-12-26] MEDS: amLODIPine 5 MG TAB PO SCH (10:05)
[2022-12-26] MEDS: VENLAFAXINE 37.5 MG TAB PO SCH (12:30)
[2022-12-26 14:00] VITALS: BP 102/65
[2022-12-26] MEDS: INSULIN LISPRO (NovoLOG) PER UNIT SC SCH ×3 (15:02→20:23)
[2022-12-26] MEDS: RIVAROXABAN 20MG TAB (XARELTO) PO SCH (17:22)
[2022-12-26] MEDS: methylPREDNISolone 125MG 2ML VIAL IV SCH (18:19)
[2022-12-26 20:00] VITALS: BP 103/65
[2022-12-26] MEDS: SIMVASTATIN 20 MG TAB PO SCH (20:23)
[2022-12-26] MEDS: OMEPRAZOLE 20MG CAP PO SCH (20:23)
[2022-12-27] MEDS: methylPREDNISolone 125MG 2ML VIAL IV SCH ×3 (02:29→17:36)
[2022-12-27 05:00] VITALS: BP 99/63
[2022-12-27 06:35] LABS: HEMOGLOBIN 9.9 g/dl (12.0-15.5); MEAN CORPUSCULAR HEMOGLOBIN 31.8 pg (27.0-33.0); MEAN CORPUSCULAR HGB CONC 31.9 g/dl (32.0-36.5); MEAN CORPUSCULAR VOLUME 99.7 fl (80.0-96.0); PLATELET COUNT, AUTOMATED 102 10^3/uL (150-450); RED BLOOD COUNT 3.11 10^6/uL (4.00-5.40); WHITE BLOOD COUNT 12.5 10^3/uL (4.0-10.0)
[2022-12-27 07:01] LABS: ALBUMIN 2.8 G/DL (3.2-5.2); ALKALINE PHOSPHATASE 71 U/L (46-116); ALT/SGPT 30 U/L (7.0-40); AST/SGOT 18 U/L (<34); BILIRUBIN,TOTAL 0.3 MG/DL (0.3-1.2); BLOOD UREA NITROGEN 13 MG/DL (9-23); CALCIUM LEVEL 9.4 MG/DL (8.3-10.6); CARBON DIOXIDE LEVEL 31 MMOL/L (20-31); CHLORIDE LEVEL 104 MMOL/L (98-107); CREATININE FOR GFR 0.72 MG/DL (0.55-1.30); GLOMERULAR FILTRATION RATE > 60.0 (>45); GLUCOSE, FASTING 154 MG/DL (74-106); POTASSIUM SERUM 4.3 MMOL/L (3.5-5.1); SODIUM LEVEL 141 MMOL/L (136-145); TOTAL PROTEIN 5.4 G/DL (5.7-8.2)
[2022-12-27] MEDS: ADVAIR HFA 115/21MCG INHALER INH SCH ×2 (07:30→19:26)
[2022-12-27] MEDS: IPRATROPIUM 0.02% SOLN 0.5MG 2.5ML NEB INH SCH ×4 (07:31→19:26)
[2022-12-27] MEDS: LEVALBUTEROL HFA 45MCG/ACT 15GM INHALER INH SCH ×3 (07:44→15:50)
[2022-12-27] MEDS: INSULIN LISPRO (NovoLOG) PER UNIT SC SCH ×4 (08:37→20:30)
[2022-12-27] MEDS: valACYclovir HCL 500 MG TAB PO SCH ×3 (08:38→20:30)
[2022-12-27] MEDS: METOPROLOL SUCC (TopROL XL) 50MG **XL** TAB PO SCH (08:38)
[2022-12-27] MEDS: CYANOCOBALAMIN 500 MCG TAB PO SCH (08:38)
[2022-12-27] MEDS: VENLAFAXINE 37.5 MG TAB PO SCH (08:39)
[2022-12-27] MEDS: FOLIC ACID 1MG TAB PO SCH (08:39)
[2022-12-27] MEDS: amLODIPine 5 MG TAB PO SCH (08:41)
[2022-12-27 14:00] VITALS: BP 109/65
[2022-12-27] MEDS ORDERED: ISOVUE-370 76% 100ML VIAL As Ordered ONE (16:28)
[2022-12-27] MEDS ORDERED: LEVALBUTEROL HFA 45MCG/ACT 15GM INHALER INH PRN (16:35)
[2022-12-27] MEDS: AZITHROMYCIN 250MG TABLET PO SCH (17:35)
[2022-12-27] MEDS: RIVAROXABAN 20MG TAB (XARELTO) PO SCH (17:35)
[2022-12-27] MEDS: OMEPRAZOLE 20MG CAP PO SCH (20:30)
[2022-12-27] MEDS: SIMVASTATIN 20 MG TAB PO SCH (20:30)
[2022-12-27 21:30] VITALS: BP 113/67
[2022-12-28] MEDS: methylPREDNISolone 125MG 2ML VIAL IV SCH ×3 (02:15→21:18)
[2022-12-28 04:53] VITALS: BP 113/66
[2022-12-28 05:41] LABS: HEMATOCRIT 28.2 % (36.0-47.0); HEMOGLOBIN 8.9 g/dl (12.0-15.5); MEAN CORPUSCULAR HEMOGLOBIN 31.7 pg (27.0-33.0); MEAN CORPUSCULAR HGB CONC 31.6 g/dl (32.0-36.5); MEAN CORPUSCULAR VOLUME 100.4 fl (80.0-96.0); PLATELET COUNT, AUTOMATED 107 10^3/uL (150-450); RED BLOOD COUNT 2.81 10^6/uL (4.00-5.40); WHITE BLOOD COUNT 15.5 10^3/uL (4.0-10.0)
[2022-12-28 06:29] LABS: ALBUMIN 2.7 G/DL (3.2-5.2); ALKALINE PHOSPHATASE 63 U/L (46-116); ALT/SGPT 30 U/L (7.0-40); AST/SGOT 16 U/L (<34); BILIRUBIN,TOTAL 0.2 MG/DL (0.3-1.2); BLOOD UREA NITROGEN 17 MG/DL (9-23); CALCIUM LEVEL 9.3 MG/DL (8.3-10.6); CARBON DIOXIDE LEVEL 30 MMOL/L (20-31); CHLORIDE LEVEL 107 MMOL/L (98-107); CREATININE FOR GFR 0.75 MG/DL (0.55-1.30); GLOMERULAR FILTRATION RATE > 60.0 (>45); GLUCOSE, FASTING 128 MG/DL (74-106); POTASSIUM SERUM 4.3 MMOL/L (3.5-5.1); SODIUM LEVEL 143 MMOL/L (136-145); TOTAL PROTEIN 5.2 G/DL (5.7-8.2)
[2022-12-28] MEDS: TIOTROPIUM INHALER/CAPSULE (SPIRIVA) INH SCH ×2 (07:22→08:00)
[2022-12-28] MEDS: ADVAIR HFA 115/21MCG INHALER INH SCH ×2 (07:23→19:49)
[2022-12-28] MEDS: IPRATROPIUM 0.02% SOLN 0.5MG 2.5ML NEB INH SCH ×4 (07:23→19:49)
[2022-12-28] MEDS: LEVALBUTEROL HFA 45MCG/ACT 15GM INHALER INH SCH ×3 (08:00→19:53)
[2022-12-28] MEDS: valACYclovir HCL 500 MG TAB PO SCH ×3 (08:43→21:18)
[2022-12-28] MEDS: AZITHROMYCIN 250MG TABLET PO SCH (08:43)
[2022-12-28] MEDS: INSULIN LISPRO (NovoLOG) PER UNIT SC SCH ×4 (08:43→21:00)
[2022-12-28] MEDS: CYANOCOBALAMIN 500 MCG TAB PO SCH (08:43)
[2022-12-28] MEDS: VENLAFAXINE 37.5 MG TAB PO SCH (08:43)
[2022-12-28] MEDS: METOPROLOL SUCC (TopROL XL) 50MG **XL** TAB PO SCH (08:45)
[2022-12-28] MEDS: FOLIC ACID 1MG TAB PO SCH (08:45)
[2022-12-28] MEDS: amLODIPine 5 MG TAB PO SCH (08:46)
[2022-12-28] MEDS ORDERED: MIRALAX *UNIT DOSE* 17GM PACKET PO PRN (09:55)
[2022-12-28] MEDS: NYSTATIN 500,000U/5ML SUSP UDC SS SCH ×4 (11:17→21:18)
[2022-12-28] MEDS ORDERED: LEVALBUTEROL 1.25MG 0.5ML CONCENTRATE NEB INH SCH (12:00)
[2022-12-28 14:00] VITALS: BP 127/61
[2022-12-28] MEDS: RIVAROXABAN 20MG TAB (XARELTO) PO SCH (17:23)
[2022-12-28 20:16] VITALS: BP 125/61
[2022-12-28] MEDS: OMEPRAZOLE 20MG CAP PO SCH (21:18)
[2022-12-28] MEDS: SIMVASTATIN 20 MG TAB PO SCH (21:18)
[2022-12-29] MEDS: LEVALBUTEROL HFA 45MCG/ACT 15GM INHALER INH SCH ×4 (01:47→19:29)
[2022-12-29 05:52] VITALS: BP 119/79
[2022-12-29 06:19] LABS: HEMATOCRIT 28.4 % (36.0-47.0); MEAN CORPUSCULAR HGB CONC 31.7 g/dl (32.0-36.5); MEAN CORPUSCULAR VOLUME 101.1 fl (80.0-96.0); PLATELET COUNT, AUTOMATED 119 10^3/uL (150-450); RED BLOOD COUNT 2.81 10^6/uL (4.00-5.40); WHITE BLOOD COUNT 11.7 10^3/uL (4.0-10.0)
[2022-12-29 06:42] LABS: ALKALINE PHOSPHATASE 73 U/L (46-116); ALT/SGPT 31 U/L (7.0-40); AST/SGOT 18 U/L (<34); BILIRUBIN,TOTAL 0.2 MG/DL (0.3-1.2); BLOOD UREA NITROGEN 19 MG/DL (9-23); CALCIUM LEVEL 9.3 MG/DL (8.3-10.6); CARBON DIOXIDE LEVEL 34 MMOL/L (20-31); CHLORIDE LEVEL 106 MMOL/L (98-107); CREATININE FOR GFR 0.73 MG/DL (0.55-1.30); GLOMERULAR FILTRATION RATE > 60.0 (>45); GLUCOSE, FASTING 137 MG/DL (74-106); POTASSIUM SERUM 4.4 MMOL/L (3.5-5.1); SODIUM LEVEL 143 MMOL/L (136-145); TOTAL PROTEIN 5.6 G/DL (5.7-8.2)
[2022-12-29] MEDS: TIOTROPIUM INHALER/CAPSULE (SPIRIVA) INH SCH (07:53)
[2022-12-29] MEDS: IPRATROPIUM 0.02% SOLN 0.5MG 2.5ML NEB INH SCH ×4 (07:53→19:30)
[2022-12-29] MEDS: ADVAIR HFA 115/21MCG INHALER INH SCH ×2 (07:53→19:29)
[2022-12-29] MEDS: INSULIN LISPRO (NovoLOG) PER UNIT SC SCH ×4 (08:43→20:55)
[2022-12-29] MEDS: CYANOCOBALAMIN 500 MCG TAB PO SCH (08:44)
[2022-12-29] MEDS: methylPREDNISolone 125MG 2ML VIAL IV SCH ×2 (08:44→21:02)
[2022-12-29] MEDS: NYSTATIN 500,000U/5ML SUSP UDC SS SCH ×4 (08:45→21:03)
[2022-12-29] MEDS: METOPROLOL SUCC (TopROL XL) 50MG **XL** TAB PO SCH (08:45)
[2022-12-29] MEDS: valACYclovir HCL 500 MG TAB PO SCH ×3 (08:45→21:03)
[2022-12-29] MEDS: amLODIPine 5 MG TAB PO SCH (08:45)
[2022-12-29] MEDS: AZITHROMYCIN 250MG TABLET PO SCH (08:45)
[2022-12-29] MEDS: FOLIC ACID 1MG TAB PO SCH (08:45)
[2022-12-29] MEDS: VENLAFAXINE 37.5 MG TAB PO SCH (09:39)
[2022-12-29 14:00] VITALS: BP 134/76
[2022-12-29] MEDS: RIVAROXABAN 20MG TAB (XARELTO) PO SCH (17:13)
[2022-12-29] MEDS: guaiFENesin 200 MG TAB PO SCH ×2 (17:13→21:03)
[2022-12-29 20:42] VITALS: BP 132/76
[2022-12-29] MEDS: OMEPRAZOLE 20MG CAP PO SCH (21:03)
[2022-12-29] MEDS: SIMVASTATIN 20 MG TAB PO SCH (21:03)
[2022-12-30] MEDS: guaiFENesin 200 MG TAB PO SCH ×6 (01:01→19:48)
[2022-12-30] MEDS: LEVALBUTEROL HFA 45MCG/ACT 15GM INHALER INH SCH ×4 (01:28→19:29)
[2022-12-30 05:54] VITALS: BP 132/76
[2022-12-30 06:29] LABS: HEMATOCRIT 29.4 % (36.0-47.0); HEMOGLOBIN 9.1 g/dl (12.0-15.5); MEAN CORPUSCULAR HEMOGLOBIN 31.6 pg (27.0-33.0); MEAN CORPUSCULAR VOLUME 102.1 fl (80.0-96.0); PLATELET COUNT, AUTOMATED 139 10^3/uL (150-450); RED BLOOD COUNT 2.88 10^6/uL (4.00-5.40)
[2022-12-30] MEDS: TIOTROPIUM INHALER/CAPSULE (SPIRIVA) INH SCH (07:24)
[2022-12-30] MEDS: ADVAIR HFA 115/21MCG INHALER INH SCH ×2 (07:26→19:29)
[2022-12-30] MEDS: IPRATROPIUM 0.02% SOLN 0.5MG 2.5ML NEB INH SCH ×3 (07:26→19:28)
[2022-12-30 07:36] LABS: ALBUMIN 2.8 G/DL (3.2-5.2); ALKALINE PHOSPHATASE 68 U/L (46-116); ALT/SGPT 34 U/L (7.0-40); AST/SGOT 18 U/L (<34); BILIRUBIN,TOTAL 0.3 MG/DL (0.3-1.2); BLOOD UREA NITROGEN 19 MG/DL (9-23); CALCIUM LEVEL 9.1 MG/DL (8.3-10.6); CARBON DIOXIDE LEVEL 34 MMOL/L (20-31); CHLORIDE LEVEL 104 MMOL/L (98-107); CREATININE FOR GFR 0.68 MG/DL (0.55-1.30); GLOMERULAR FILTRATION RATE > 60.0 (>45); GLUCOSE, FASTING 130 MG/DL (74-106); MAGNESIUM LEVEL 1.9 MG/DL (1.8-2.4); POTASSIUM SERUM 4.4 MMOL/L (3.5-5.1); SODIUM LEVEL 144 MMOL/L (136-145); TOTAL PROTEIN 5.3 G/DL (5.7-8.2)
[2022-12-30 07:38] LABS: LYMPHOCYTES 4 % (16-44); MONOCYTES 2 % (0-5); MYELOCYTES 2 % (0-0); NEUTROPHILS 92 % (28-66)
[2022-12-30 07:40] LABS: PLATELET ESTIMATE NORMAL (NORMAL)
[2022-12-30] MEDS: NYSTATIN 500,000U/5ML SUSP UDC SS SCH ×4 (08:14→21:02)
[2022-12-30] MEDS: VENLAFAXINE 37.5 MG TAB PO SCH (08:14)
[2022-12-30] MEDS: FOLIC ACID 1MG TAB PO SCH (08:14)
[2022-12-30] MEDS: AZITHROMYCIN 250MG TABLET PO SCH (08:14)
[2022-12-30] MEDS: INSULIN LISPRO (NovoLOG) PER UNIT SC SCH ×5 (08:14→20:51)
[2022-12-30] MEDS: valACYclovir HCL 500 MG TAB PO SCH ×3 (08:14→21:07)
[2022-12-30] MEDS: CYANOCOBALAMIN 500 MCG TAB PO SCH (08:14)
[2022-12-30] MEDS: METOPROLOL SUCC (TopROL XL) 50MG **XL** TAB PO SCH (08:15)
[2022-12-30] MEDS: amLODIPine 5 MG TAB PO SCH (08:15)
[2022-12-30] MEDS: methylPREDNISolone 125MG 2ML VIAL IV SCH ×2 (10:12→21:08)
[2022-12-30 14:00] VITALS: BP 130/69
[2022-12-30] MEDS: RIVAROXABAN 20MG TAB (XARELTO) PO SCH (17:06)
[2022-12-30 20:20] VITALS: BP 128/66
[2022-12-30] MEDS: OMEPRAZOLE 20MG CAP PO SCH (21:02)
[2022-12-30] MEDS: SIMVASTATIN 20 MG TAB PO SCH (21:02)
[2022-12-31] MEDS: guaiFENesin 200 MG TAB PO SCH ×4 (00:38→12:55)
[2022-12-31] MEDS: LEVALBUTEROL HFA 45MCG/ACT 15GM INHALER INH SCH ×3 (01:23→12:06)
[2022-12-31 06:00] VITALS: BP 127/76
[2022-12-31 06:24] LABS: HEMATOCRIT 30.7 % (36.0-47.0); HEMOGLOBIN 9.7 g/dl (12.0-15.5); MEAN CORPUSCULAR HEMOGLOBIN 31.8 pg (27.0-33.0); MEAN CORPUSCULAR HGB CONC 31.6 g/dl (32.0-36.5); MEAN CORPUSCULAR VOLUME 100.7 fl (80.0-96.0); PLATELET COUNT, AUTOMATED 158 10^3/uL (150-450); RED BLOOD COUNT 3.05 10^6/uL (4.00-5.40); WHITE BLOOD COUNT 7.4 10^3/uL (4.0-10.0)
[2022-12-31 07:03] LABS: ALKALINE PHOSPHATASE 72 U/L (46-116); ALT/SGPT 39 U/L (7.0-40); AST/SGOT 17 U/L (<34); BILIRUBIN,TOTAL 0.3 MG/DL (0.3-1.2); BLOOD UREA NITROGEN 23 MG/DL (9-23); CALCIUM LEVEL 9.4 MG/DL (8.3-10.6); CARBON DIOXIDE LEVEL 32 MMOL/L (20-31); CHLORIDE LEVEL 106 MMOL/L (98-107); CREATININE FOR GFR 0.64 MG/DL (0.55-1.30); GLOMERULAR FILTRATION RATE > 60.0 (>45); GLUCOSE, FASTING 131 MG/DL (74-106); MAGNESIUM LEVEL 1.8 MG/DL (1.8-2.4); POTASSIUM SERUM 4.2 MMOL/L (3.5-5.1); SODIUM LEVEL 143 MMOL/L (136-145); TOTAL PROTEIN 5.6 G/DL (5.7-8.2)
[2022-12-31 07:26] LABS: ANISOCYTOSIS 1+; ATYPICAL LYMPH 2 % (0-5); LYMPHOCYTES 2 % (16-44); MONOCYTES 6 % (0-5); MYELOCYTES 1 % (0-0); NEUTROPHILS 89 % (28-66); PLATELET ESTIMATE NORMAL (NORMAL); POLYCHROMASIA 1+
[2022-12-31] MEDS: IPRATROPIUM 0.02% SOLN 0.5MG 2.5ML NEB INH SCH ×2 (07:30→12:06)
[2022-12-31] MEDS: TIOTROPIUM INHALER/CAPSULE (SPIRIVA) INH SCH (07:30)
[2022-12-31] MEDS: ADVAIR HFA 115/21MCG INHALER INH SCH (07:30)
[2022-12-31 08:16] VITALS: BP 137/87
[2022-12-31] MEDS: amLODIPine 5 MG TAB PO SCH (08:16)
[2022-12-31] MEDS: NYSTATIN 500,000U/5ML SUSP UDC SS SCH ×2 (08:17→12:55)
[2022-12-31] MEDS: AZITHROMYCIN 250MG TABLET PO SCH (08:17)
[2022-12-31] MEDS: valACYclovir HCL 500 MG TAB PO SCH (08:17)
[2022-12-31] MEDS: CYANOCOBALAMIN 500 MCG TAB PO SCH (08:17)
[2022-12-31] MEDS: INSULIN LISPRO (NovoLOG) PER UNIT SC SCH ×2 (08:17→12:55)
[2022-12-31] MEDS: METOPROLOL SUCC (TopROL XL) 50MG **XL** TAB PO SCH (08:17)
[2022-12-31] MEDS: FOLIC ACID 1MG TAB PO SCH (08:17)
[2022-12-31] MEDS: VENLAFAXINE 37.5 MG TAB PO SCH (08:17)
[2022-12-31] MEDS: methylPREDNISolone 125MG 2ML VIAL IV SCH (10:44)
[2022-12-31] MEDS ORDERED: INCR1INH INH (13:49)
[2022-12-31] MEDS ORDERED: AZIT-12 PO (13:49)
[2022-12-31] MEDS ORDERED: SYMB16INH INH (13:49)
[2022-12-31] MEDS ORDERED: PRED20TA PO (13:55)
== END 2022-12-31 14:58 | disposition home or self-care (01) | DRG 191 ==
LOC: EDBD 03:26 → M ED 03:26 → M ED INP 06:09 → M MSPAV 09:42 → ENRESERV 09:43
PROVIDERS: ADMIT Internal Medicine; ATTEND Family Medicine
DX: J44.1 Chronic obstructive pulmonary disease with (acute) exacerbation (principal); C79.31 Secondary malignant neoplasm of brain; C78.7 Secondary malignant neoplasm of liver and intrahepatic bile duct; C34.90 Malignant neoplasm of unspecified part of unspecified bronchus or lung; B02.9 Zoster without complications; Z66 Do not resuscitate; Z99.81 Dependence on supplemental oxygen; K21.9 Gastro-esophageal reflux disease without esophagitis; I10 Essential (primary) hypertension; Z92.3 Personal history of irradiation; Z87.891 Personal history of nicotine dependence; Z86.711 Personal history of pulmonary embolism; D69.6 Thrombocytopenia, unspecified; Z20.822 Contact with and (suspected) exposure to COVID-19; Z79.899 Other long term (current) drug therapy; R00.0 Tachycardia, unspecified

== ENCOUNTER → 2023-01-15 | Outpatient (CLI) | payer MEDICARE, BC ==
[~2023-01-15] MED LIST changes: +DEXA2TA PO; +TREL1AER PO; +VALT500T PO
== END ==
LOC: M LABDRWAD 15:03
PROVIDERS: ATTEND Internal Medicine Pulmonary Disease
DX: J44.9 Chronic obstructive pulmonary disease, unspecified (principal)

== ENCOUNTER → 2023-03-26 | Outpatient (CLI) | payer MEDICARE, BC | LOC: M WHC 09:19 | PROVIDERS: ATTEND Registered Nurse | DX: Z12.31 Encounter for screening mammogram for malignant neoplasm of breast (principal) ==

== ENCOUNTER → 2023-05-04 | Outpatient (CLI) | payer MEDICARE, BC ==
[2023-05-04 11:38] LABS: ALBUMIN 3.5 G/DL (3.2-5.2); ALKALINE PHOSPHATASE 73 U/L (46-116); ALT/SGPT 45 U/L (7.0-40); AST/SGOT 21 U/L (<34); BILIRUBIN,TOTAL 0.2 MG/DL (0.3-1.2); BLOOD UREA NITROGEN 8 MG/DL (9-23); CALCIUM LEVEL 9.9 MG/DL (8.3-10.6); CARBON DIOXIDE LEVEL 29 MMOL/L (20-31); CHLORIDE LEVEL 108 MMOL/L (98-107); CHOLESTEROL LEVEL 205 MG/DL (<200); CHOLESTEROL RISK RATIO 2.34 (<5); GLOMERULAR FILTRATION RATE > 60.0 (>45); GLUCOSE, FASTING 84 MG/DL (74-106); HDL CHOLESTEROL 87.4 MG/DL (>40); LDL CHOLESTEROL 87.8 MG/DL (<100); NON-HDL-C 117.6 MG/DL; POTASSIUM SERUM 4.2 MMOL/L (3.5-5.1); SODIUM LEVEL 148 MMOL/L (136-145); TOTAL PROTEIN 6.1 G/DL (5.7-8.2); TRIGLYCERIDES LEVEL 149 MG/DL (<150)
== END ==
LOC: M PLALAB 08:38
PROVIDERS: ATTEND Registered Nurse
DX: E78.2 Mixed hyperlipidemia (principal)

== ENCOUNTER 2023-05-21 09:42 | Observation (INO) | payer MEDICARE, BC ==
[~2023-05-21] VITALS: Ht 170.2 cm; Wt 57.7 kg
[~2023-05-21 09:42] MED LIST changes: +LORA-1041 PO; -LORA-674 PO
[2023-05-21] MEDS ORDERED: NS 1,000 ML IV ONE (15:25)
[2023-05-21] MEDS ORDERED: methylPREDNISolone 125MG 2ML VIAL IV ONE (15:25)
[2023-05-21] MEDS ORDERED: IPRATROPIUM 0.5MG/ALBUTEROL 2.5MG INH SOL UD 3ML (DUONEB) NEB PRN ×2 (15:25→21:20)
[2023-05-21 16:27] LABS: VENOUS HCO3 25.4 MMOL/L (23.0-27.0); VENOUS PARTIAL PRESSURE CO2 49.6 mmHg (38.0-50.0); VENOUS PARTIAL PRESSURE O2 44.7 mmHg (30.0-50.0); VENOUS PH 7.328 UNITS (7.330-7.430); VENOUS STANDARD HCO3 23.2 MMOL/L
[2023-05-21 16:38] LABS: HEMATOCRIT 36.1 % (36.0-47.0); HEMOGLOBIN 11.5 g/dl (12.0-15.5); MEAN CORPUSCULAR HGB CONC 31.9 g/dl (32.0-36.5); MEAN CORPUSCULAR VOLUME 94.3 fl (80.0-96.0); PLATELET COUNT, AUTOMATED 194 10^3/uL (150-450); RED BLOOD COUNT 3.83 10^6/uL (4.00-5.40); WHITE BLOOD COUNT 4.5 10^3/uL (4.0-10.0)
[2023-05-21 16:54] LABS: ALBUMIN 3.7 G/DL (3.2-5.2); ALKALINE PHOSPHATASE 71 U/L (46-116); ALT/SGPT 29 U/L (7.0-40); AST/SGOT 32 U/L (<34); BILIRUBIN,TOTAL 0.4 MG/DL (0.3-1.2); BLOOD UREA NITROGEN 9 MG/DL (9-23); CARBON DIOXIDE LEVEL 28 MMOL/L (20-31); CHLORIDE LEVEL 100 MMOL/L (98-107); CK-MB VALUE MASS < 1.0 NG/ML (<3.6); GLOMERULAR FILTRATION RATE > 60.0 (>45); GLUCOSE, FASTING 115 MG/DL (74-106); POTASSIUM SERUM 4.5 MMOL/L (3.5-5.1); SODIUM LEVEL 139 MMOL/L (136-145); TOTAL PROTEIN 6.6 G/DL (5.7-8.2)
[2023-05-21 16:55] LABS: THYROXINE (T4) 10.4 UG/DL (4.5-10.9)
[2023-05-21 16:56] LABS: FREE THYROXINE INDEX 4.1 % (1.3-4.8)
[2023-05-21 16:59] LABS: CPK CREATINE PHOSPHOKINASE 51 U/L (34-145); MB/CK RELATIVE INDEX 1.96 (< OR =4)
[2023-05-21 17:25] LABS: INR 1.65; PROTHROMBIN TIME 19.1 SECONDS (12.5-14.5)
[2023-05-21 17:26] LABS: PARTIAL THROMBOPLASTIN TIME 30.1 SECONDS (24.8-34.2)
[2023-05-21 17:36] LABS: ATYPICAL LYMPH 1 % (0-5); LYMPHOCYTES 8 % (16-44); METAMYELOCYTES 2 % (0-0); MONOCYTES 13 % (0-5); MYELOCYTES 1 % (0-0); NEUTROPHILS 74 % (28-66); PLATELET ESTIMATE NORMAL (NORMAL)
[2023-05-21] MEDS ORDERED: METOCLOPRAMIDE INJ 10MG/2ML VIAL IV ONE (18:15)
[2023-05-21 19:22] VITALS: O2SAT 89
[2023-05-21] MEDS ORDERED: ALBUTEROL SULFATE 2.5MG/0.5ML INH NEB SOLN NEB ONE (19:25)
[2023-05-21] MEDS ORDERED: SIMVASTATIN 20 MG TAB PO SCH (21:00)
[2023-05-21] MEDS ORDERED: ONDANSETRON 4MG 2ML VIAL IV PRN (21:20)
[2023-05-21] MEDS ORDERED: ACETAMINOPHEN TAB 650MG DOSE (2X325MG) PO PRN (21:20)
[2023-05-21] MEDS ORDERED: MED REC IN PROGRESS XX SCH (21:30)
[2023-05-21] MEDS ORDERED: KETOROLAC 30 MG/ML 1ML VIAL IV PRN (21:40)
[2023-05-21] MEDS ORDERED: FIORICET TAB PO PRN (21:40)
[2023-05-21 22:45] VITALS: BP 127/60; TEMP 97.4; O2SAT 91
[2023-05-21] MEDS: DOXYCYCLINE HYCLATE 100MG TABLET PO SCH (22:54)
[2023-05-21] MEDS: LR 1,000 ML IV SCH (22:54)
[2023-05-21] MEDS ORDERED: TRAM50TA2 PO (22:55)
[2023-05-21] MEDS ORDERED: CLOT10TR PO (22:55)
[2023-05-21] MEDS ORDERED: HOME MED LIST COMPLETE! XX SCH (22:55)
[2023-05-21] MEDS ORDERED: SYMB16INH INH (22:55)
[2023-05-21] MEDS ORDERED: PRED5TA PO (22:55)
[2023-05-21] MEDS ORDERED: SUMAtriptan SUCCINATE 25 MG TAB PO PRN (23:00)
[2023-05-22] MEDS: IPRATROPIUM 0.5MG/ALBUTEROL 2.5MG INH SOL UD 3ML (DUONEB) NEB SCH ×2 (02:00→07:33)
[2023-05-22 05:45] VITALS: BP 120/58; TEMP 97.5; O2SAT 94
[2023-05-22] MEDS ORDERED: CLOTRIMAZOLE 10 MG TROCHE PO SCH (06:00)
[2023-05-22 06:47] LABS: HEMATOCRIT 29.5 % (36.0-47.0); MEAN CORPUSCULAR HEMOGLOBIN 29.8 pg (27.0-33.0); MEAN CORPUSCULAR HGB CONC 31.9 g/dl (32.0-36.5); MEAN CORPUSCULAR VOLUME 93.7 fl (80.0-96.0); PLATELET COUNT, AUTOMATED 167 10^3/uL (150-450); RED BLOOD COUNT 3.15 10^6/uL (4.00-5.40); WHITE BLOOD COUNT 3.5 10^3/uL (4.0-10.0)
[2023-05-22 06:49] LABS: HEMOGLOBIN 9.4 g/dl (12.0-15.5)
[2023-05-22 07:07] LABS: BLOOD UREA NITROGEN 8 MG/DL (9-23); CALCIUM LEVEL 9.3 MG/DL (8.3-10.6); CARBON DIOXIDE LEVEL 27 MMOL/L (20-31); CHLORIDE LEVEL 110 MMOL/L (98-107); CREATININE FOR GFR 0.75 MG/DL (0.55-1.30); GLOMERULAR FILTRATION RATE > 60.0 (>45); GLUCOSE, FASTING 99 MG/DL (74-106); MAGNESIUM LEVEL 1.6 MG/DL (1.8-2.4); SODIUM LEVEL 146 MMOL/L (136-145)
[2023-05-22 07:13] LABS: PROCALCITONIN 0.04 ng/ml
[2023-05-22] MEDS: LR 1,000 ML IV SCH (07:20)
[2023-05-22] MEDS ORDERED: SYMBICORT 160/4.5MCG INHALER 6GM INH SCH (08:00)
[2023-05-22] MEDS ORDERED: OMEPRAZOLE 20MG CAP PO SCH (09:00)
[2023-05-22] MEDS ORDERED: VENLAFAXINE 37.5 MG TAB PO SCH (09:00)
[2023-05-22] MEDS ORDERED: dexAMETHasone 4 MG TAB PO SCH (09:00)
[2023-05-22] MEDS ORDERED: METOPROLOL SUCC (TopROL XL) 50MG **XL** TAB PO SCH (09:00)
[2023-05-22] MEDS ORDERED: FOLIC ACID 1MG TAB PO SCH (09:00)
[2023-05-22] MEDS ORDERED: amLODIPine 5 MG TAB PO SCH (09:00)
[2023-05-22] MEDS ORDERED: ONDA-83 PO (09:25)
[2023-05-22] MEDS ORDERED: HYDR-3713 PO (09:25)
[2023-05-22] MEDS ORDERED: REGL5TAB2 PO (09:25)
[2023-05-22] MEDS: MAG SULF 1GM/100ML (MAG RUN) 1 GM in IV 1 EA IV SCH ×2 (09:37→10:37)
[2023-05-22] MEDS: DOXYCYCLINE HYCLATE 100MG TABLET PO SCH (09:44)
[2023-05-22 09:52] VITALS: BP 114/59
[2023-05-22] MEDS ORDERED: DEXA4TA PO (09:58)
[2023-05-22] MEDS ORDERED: MAGN500C2 PO (11:21)
[2023-05-22] MEDS ORDERED: RIVAROXABAN 20MG TAB (XARELTO) PO SCH (18:00)
== END 2023-05-22 11:30 | disposition home or self-care (01) ==
LOC: M ED 09:42 → M ED INP 21:20 → INTOOBSV 21:20 → M MS4PR 22:45
PROVIDERS: ADMIT Internal Medicine; ATTEND Internal Medicine
DX: G44.221 Chronic tension-type headache, intractable (principal); J44.1 Chronic obstructive pulmonary disease with (acute) exacerbation; R55 Syncope and collapse; I10 Essential (primary) hypertension; E78.5 Hyperlipidemia, unspecified; Z79.01 Long term (current) use of anticoagulants; K21.9 Gastro-esophageal reflux disease without esophagitis; C34.90 Malignant neoplasm of unspecified part of unspecified bronchus or lung; C78.7 Secondary malignant neoplasm of liver and intrahepatic bile duct; C79.31 Secondary malignant neoplasm of brain; Z86.711 Personal history of pulmonary embolism; Z79.899 Other long term (current) drug therapy; Z92.21 Personal history of antineoplastic chemotherapy
CPT/HCPCS: 36415; 70450; 71046; 72125; 80048; 80053; 81001; 82550; 82553; 82803; 83605; 83735; 83880; 84145; 84436; 84443; 84479; 84484; 85025; 85027; 85610; 85730; 86850; 86900; 86901; 87040; 87486; 87581; 87633; 87798; 93005; 94640; 96361; 96374; 96375; 96376; 97161; 99284; G0378; J2765; J2930; J3475

== ENCOUNTER → 2023-05-25 | Outpatient (REF) | payer MEDICARE, BC ==
[~2023-05-25] MED LIST changes: +CLOT10TR PO; +DEXA4TA PO; +MAGN500C2 PO; +ONDA-83 PO; +PRED5TA PO; +REGL5TAB2 PO; +TRAM50TA2 PO
== END ==
LOC: M LABDRWAD 12:37
PROVIDERS: ATTEND Internal Medicine
DX: E83.42 Hypomagnesemia (principal)